=== PATIENT | male | born 1955 | race Caucasian/White ===

== ENCOUNTER 2017-02-11 12:51 | Emergency (ER) | payer MEDICARE, MEDICAID ==
[~2017-02-11] VITALS: Ht 177.8 cm; Wt 61.2 kg
[~2017-02-11 12:51] MED LIST: ACET-461 PO; ACET325T38 PO; ACHD5005 PO; ALBU17AE3; AMOX1TAB12 PO; AMOX500C2 PO; ASPI325T32 PO; CLIN-81 PO; CLIN300C3 PO; CLN150C PO; CYCL10TA45 PO; CYCL5TAB11 PO; DOXY100C2 PO; GABA-488 PO; GLYB5TAB6 PO; GLYBURIDE; HYDR-3583 PO; HYDR-757 PO; HYDR1TAB85; INSASP10V IV; INSU100I14 SC; INSU100I14 SQ; INSU100I17 SQ; INSU100I29 SC; INSU100V16 SQ; INSU100V5 SQ; LACT1CAP62 PO; LEVE1U SQ; LISI2.5T PO; LISI5TAB PO; LISI5TAB14 PO; Levofloxacin PO; METF-380 PO; METF1000 PO; MTF500T PO; OXYC-12 PO; PIOG45TA; PRAV40TA PO; PRAV80TA2 PO; SULF-222 PO; SULF1TAB38 PO; TRAM50TA2 PO; VYTORIN; ZLP10T PO
--- NOTE | 2017-02-11 13:52 | ED General ---
General Stated Complaint: DIZZY,NAUSEA Source of Information: Patient Exam Limitations: No Limitations History of Present Illness Time Seen by Provider: 13:51 Initial Comments To ER with dizziness and generalized weakness. Denies fevers or chills or cough or shortness of breath or chest pain. Symptoms of been present for 4 days. Blood sugars have been slightly elevated he is a diabetic. Timing/Duration: 3-4 Days Severity: Moderate Associated Systoms: Malaise Allergies and Home Medications Allergies Coded Allergies: Benzodiazepines (Verified Allergy, Unknown, 05/10/14) Home Medications Insulin Aspart 100 Unit/1 Ml Susp, 3-5 UNIT SQ AC, (Reported) Metformin HCl 1,000 Mg Tablet, 1,000 MG PO BID, (Reported) Constitutional: see HPI EENTM: see HPI Respiratory: no symptoms reported Cardiovascular: no symptoms reported Genitourinary: no symptoms reported Musculoskeletal: no symptoms reported Skin: no symptoms reported Psychiatric/Neurological: No Symptoms Reported Hematologic/Lymphatic: No Symptoms Reported Past Ppucykl-Jwrncq-Iikckc Hx Patient Social History Type Used: Cigarettes Recent Foreign Travel: No Contact w/Someone Who Travel: No Recent Hopitalizations: No Immunizations Up To Date Tetanus Booster (TDap): Less than 5yrs Date of Pneumonia Vaccine: Jan 16, 2016 Seasonal Allergies Seasonal Allergies: No Surgeries HX Surgeries: Yes (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, ankle surgery, wrist fused) Surgeries: Appendectomy, Orthopedic Respiratory Hx Respiratory Disorders: No Cardiovascular Hx Cardiac Disorders: Yes Cardiac Disorders: Hypertension Neurological Hx Neurological Disorders: Yes Neurological Disorders: Traumatic Brain Injury Reproductive System Hx Reproductive Disorders: No Sexually Transmitted Disease: No HIV/AIDS: No Genitourinary Hx Genitourinary Disorders: No Gastrointestinal Hx Gastrointestinal Disorders: No Musculoskeletal Hx Musculoskeletal Disorders: Yes (C1-C2 FX, LOW BACK FX) Musculoskeletal Disorders: Fractures Endocrine Hx Endocrine Disorders: Yes Endocrine Disorders: Diabetes, Insulin dep HEENT HX ENT Disorders: No Loss of Vision: Denies Hearing Impairment: Denies Cancer Hx Cancer: No Psychosocial Hx Psychiatric Problems: No Integumentary HX Skin/Integumentary Disorder: No Blood Transfusions Hx Blood Disorders: No Adverse Reaction to a Blood Tr: No Family Medical History Significant Family History: No Pertinent Family Hx Family Medial History: Blood clots 19 FATHER Diabetes mellitus 19 FATHER 19 MOTHER G8 BROTHER Physical Exam Vital Signs Capillary Refill : General Appearance: No Apparent Distress, WD/WN Eyes: Bilateral Eye EOMI, Bilateral Eye Normal Inspection, Bilateral Eye PERRL HEENT: PERRL/EOMI, TMs Normal, Other (mucous membranes are very dry) Neck: Full Range of Motion, Normal Inspection Respiratory: No Accessory Muscle Use, No Respiratory Distress Cardiovascular: Regular Rate, Rhythm, Normal Peripheral Pulses Gastrointestinal: Normal Bowel Sounds, Non Tender, Soft Neurologic/Psychiatric: Alert, Oriented x3, Other (lethargic but arousable to verbal stimuli and answers questions appropriately) Skin: Normal Color, Warm/Dry Focused Exam Lactic Acid Level Laboratory Tests Test 02/11/17 13:38 Lactic Acid Level 1.95 MMOL/L (0.50-2.00) Progress/Results/Core Measures Results/Orders Lab Results Laboratory Tests Test 02/11/17 13:38 02/11/17 15:20 Range/Units White Blood Count 6.9 4.3-11.0 10^3/uL Red Blood Count 4.63 4.35-5.85 10^6/uL Hemoglobin 14.3 13.3-17.7 G/DL Hematocrit 40 40-54 % Mean Corpuscular Volume 87 80-99 FL Mean Corpuscular Hemoglobin 31 25-34 PG Mean Corpuscular Hemoglobin Concent 35 32-36 G/DL Red Cell Distribution Width 12.3 10.0-14.5 % Platelet Count 331 130-400 10^3/uL Mean Platelet Volume 10.3 7.4-10.4 FL Neutrophils (%) (Auto) 56 42-75 % Lymphocytes (%) (Auto) 30 12-44 % Monocytes (%) (Auto) 10 0-12 % Eosinophils (%) (Auto) 3 0-10 % Basophils (%) (Auto) 0 0-10 % Neutrophils # (Auto) 3.8 1.8-7.8 X 10^3 Lymphocytes # (Auto) 2.1 1.0-4.0 X 10^3 Monocytes # (Auto) 0.7 0.0-1.0 X 10^3 Eosinophils # (Auto) 0.2 0.0-0.3 10^3/uL Basophils # (Auto) 0.0 0.0-0.1 10^3/uL Sodium Level 135 135-145 MMOL/L Potassium Level 3.9 3.6-5.0 MMOL/L Chloride Level 98 98-107 MMOL/L Carbon Dioxide Level 28 21-32 MMOL/L Anion Gap 9 5-14 MMOL/L Blood Urea Nitrogen 23 H 7-18 MG/DL Creatinine 1.54 H 0.60-1.30 MG/DL Estimat Glomerular Filtration Rate 46 BUN/Creatinine Ratio 15 Glucose Level 406 *H 70-105 MG/DL Lactic Acid Level 1.95 0.50-2.00 MMOL/L Calcium Level 8.9 8.5-10.1 MG/DL Total Bilirubin 0.3 0.1-1.0 MG/DL Aspartate Amino Transf (AST/SGOT) 13 5-34 U/L Alanine Aminotransferase (ALT/SGPT) 13 0-55 U/L Alkaline Phosphatase 66 40-136 U/L Total Protein 6.2 L 6.4-8.2 G/DL Albumin 3.7 3.2-4.5 G/DL My Orders Orders - AMADEO ROCHA APRN Cbc With Automated Diff (02/11/17 13:35) Comprehensive Metabolic Panel (02/11/17 13:35) Ua Culture If Indicated (02/11/17 13:35) Drug Screen Stat (Urine) (02/11/17 13:35) Saline Lock/Iv-Start (02/11/17 13:35) Chest Pa/Lat (2 View) (02/11/17 13:35) Blood Culture (02/11/17 13:35) Lactic Acid Analyzer (02/11/17 13:35) Ns Iv 1000 Ml (Sodium Chloride 0.9%) (02/11/17 14:00) Insulin (Regular) Human (Humulin R (Per (02/11/17 14:30) Medications Given in ED Current Medications Medications Dose Ordered Sig/Arvin Route Start Time Stop Time Status Last Admin Dose Admin Insulin Human Regular 8 unit ONCE ONCE IV 02/11/17 14:30 02/11/17 14:31 DC 02/11/17 14:42 8 UNIT Departure Impression Impression: Primary Impression: Hyperglycemia Additional Impression: Dehydration Disposition: 01 HOME, SELF-CARE Condition: Improved Departure-Patient Inst. Decision time for Depature: 15:47 Referrals: [facility] (PCP/Family) Primary Care Physician AMADEO ROCHA APRN February 11, 2017 13:52
[2017-02-11 13:53] LABS: BASOPHILS % (AUTO) 0 % (0-10); EOSINOPHILS # (AUTO) 0.2 10^3/uL (0.0-0.3); EOSINOPHILS % (AUTO) 3 % (0-10); LYMPHOCYTES # (AUTO) 2.1 X 10^3 (1.0-4.0); LYMPHOCYTES % (AUTO) 30 % (12-44); MEAN CORPUSCULAR HEMOGLOBIN 31 PG (25-34); MEAN CORPUSCULAR HGB CONC 35 G/DL (32-36); MEAN CORPUSCULAR VOLUME 87 FL (80-99); MEAN PLATELET VOLUME 10.3 FL (7.4-10.4); MONOCYTES # (AUTO) 0.7 X 10^3 (0.0-1.0); MONOCYTES % (AUTO) 10 % (0-12); NEUTROPHILS # (AUTO) 3.8 X 10^3 (1.8-7.8); NEUTROPHILS % (AUTO) 56 % (42-75); PLATELET COUNT 331 10^3/uL (130-400); RED BLOOD COUNT 4.63 10^6/uL (4.35-5.85); RED CELL DISTRIBUTION WIDTH 12.3 % (10.0-14.5); WHITE BLOOD COUNT 6.9 10^3/uL (4.3-11.0)
[2017-02-11 14:17] LABS: ALBUMIN 3.7 G/DL (3.2-4.5); BILIRUBIN,TOTAL 0.3 MG/DL (0.1-1.0); CALCIUM 8.9 MG/DL (8.5-10.1); CREATININE SERUM 1.54 MG/DL (0.60-1.30); POTASSIUM 3.9 MMOL/L (3.6-5.0); TOTAL PROTEIN 6.2 G/DL (6.4-8.2)
[2017-02-11] MEDS: NS IV 1000 ML 1,000 ML IV SCH ×2 (14:25→15:45)
[2017-02-11] MEDS ORDERED: inSUlin (REGULAR) HUMAN 1 UNIT/0.01 ML (CHARGE PER UNIT) IV ONE (14:30)
--- NOTE | 2017-02-11 14:47 | Diagnostic Imaging Report ---
PA and lateral views of the chest. INDICATION: Dizziness and nausea and shortness of breath. Findings: The lungs are clear. Bilateral nodular densities projecting over the lower mid lung level have no corresponding abnormality in the lateral view and although less prominent appears to be present on the previous exam from 09/12/2016 exam suggestive of a nipple shadows. No effusion or pneumothorax. The heart size is normal. Hyperlucency particularly within the upper lungs and retrosternal region and the lateral view is suggestive of underlying emphysema. IMPRESSION: Emphysema. No focal infiltrate. Dictated by: Dictated on workstation # [id number]
[2017-02-11 16:17] LABS: BILIRUBIN,URINE NEGATIVE (NEGATIVE); KETONES,URINE NEGATIVE (NEGATIVE); LEUKOCYTE ESTERASE ,URINE NEGATIVE (NEGATIVE); NITRITE,URINE NEGATIVE (NEGATIVE); PH,URINE 5 (5-9); PROTEIN,URINE 1+ (NEGATIVE); UROBILINOGEN,URINE NORMAL (NORMAL)
[2017-02-11 16:35] LABS: SQUAMOUS EPITHELIAL CELL,UR RARE /HPF; WBC,URINE 0-2 /HPF
[2017-02-11 17:22] VITALS: BP 127/86
== END 2017-02-11 17:22 | disposition home or self-care (01) ==
LOC: EDUNIT# 12:51 → ER 12:54
DX: E11.65 Type 2 diabetes mellitus with hyperglycemia (principal); E86.0 Dehydration; I10 Essential (primary) hypertension; Z79.4 Long term (current) use of insulin; Z79.84 Long term (current) use of oral hypoglycemic drugs; Z79.899 Other long term (current) drug therapy
CPT/HCPCS: 36415; 71020; 80053; 80306; 81000; 82962; 83605; 85025; 87040

== ENCOUNTER 2017-04-24 17:53 | Observation (INO) | payer MEDICARE, MEDICAID ==
[~2017-04-24] VITALS: Ht 182.9 cm; Wt 63.1 kg
[2017-04-24] MEDS ORDERED: NS IV 1000 ML 1,000 ML IV SCH (18:00)
[2017-04-24 18:05] LABS: BASOPHILS # (AUTO) 0.1 10^3/uL (0.0-0.1); BASOPHILS % (AUTO) 1 % (0-10); EOSINOPHILS # (AUTO) 0.6 10^3/uL (0.0-0.3); EOSINOPHILS % (AUTO) 5 % (0-10); LYMPHOCYTES # (AUTO) 2.8 X 10^3 (1.0-4.0); LYMPHOCYTES % (AUTO) 24 % (12-44); MEAN CORPUSCULAR HEMOGLOBIN 31 PG (25-34); MEAN CORPUSCULAR HGB CONC 36 G/DL (32-36); MEAN CORPUSCULAR VOLUME 85 FL (80-99); MEAN PLATELET VOLUME 10.7 FL (7.4-10.4); MONOCYTES # (AUTO) 0.9 X 10^3 (0.0-1.0); MONOCYTES % (AUTO) 8 % (0-12); NEUTROPHILS # (AUTO) 7.4 X 10^3 (1.8-7.8); NEUTROPHILS % (AUTO) 63 % (42-75); PLATELET COUNT 372 10^3/uL (130-400); RED BLOOD COUNT 4.95 10^6/uL (4.35-5.85); RED CELL DISTRIBUTION WIDTH 12.1 % (10.0-14.5); WHITE BLOOD COUNT 11.8 10^3/uL (4.3-11.0)
--- NOTE | 2017-04-24 18:19 | ED General ---
General Chief Complaint: General Problems/Pain Stated Complaint: HEAT EXHAUSTION Source of Information: Patient History of Present Illness Time Seen by Provider: 18:00 Initial Comments PT ARRIVES VIA EMS PT WAS FOUND DOWN ON A PORCH PT STATES HIS HOME HAD BEEN CONDEMNED AND HIS THINGS WERE LOCKED UP INSIDE OF IT PT HAS BEEN STAYING WITH HIS SON, AND TODAY HE WAS MOVING HIS THINGS OUT OF THE HOME, AND STATES "HE JUST COULDN'T DO IT ANYMORE" AND COLLAPSED ON THE PORCH-- NOT FULL SYNCOPE, PER PT, AND WAS FOUND BY NEIGHBOR WHO WAS WALKING BY PT DENIES ANY INJURY C/O LEFT HIP PAIN NO HEADACHE NO VISION CHANGES PT IS DIABETIC, DOES NOT CHECK BLOOD SUGAR. HAS 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--NO NEW PARESTHESIAS OR FOCAL MOTOR DEFICITS TEMP OUTSIDE TODAY 96-98 DEGREES WITH VERY HIGH HUMIDITY--HEAT INDEX WELL OVER 100 DEGREES. PT STATES HE HAD 2 CINNAMON ROLLS, SOME APPLE JUICE AND 2 BOTTLES OF WATER TODAY LAST VOID IS UNKNOWN--THINKS WAS SOMETIME BEFORE NOON TODAY NO RECENT ILLNESS DOES C/O SOME SHORTNESS OF BREATH NO CHEST PAIN NO NAUSEA/VOMITING/DIARRHEA AND NO ABDOMINAL PAIN EMS REPORT THAT BP WAS 93/60 AND HEART RATE IN 60'S ON ARRIVAL AT SCENE PCP:MATEO Allergies and Home Medications Allergies Coded Allergies: Benzodiazepines (Verified Allergy, Unknown, 05/10/14) Home Medications Insulin Aspart 100 Unit/1 Ml Susp, 3-5 UNIT SQ AC, (Reported) Metformin HCl 1,000 Mg Tablet, 1,000 MG PO BID, (Reported) Constitutional: diaphoresis, malaise, weakness EENTM: no symptoms reported Respiratory: see HPI, No cough, dyspnea on exertion, short of breath Cardiovascular: No chest pain, No edema, No palpitations, other (NEAR-SYNCOPE) Gastrointestinal: no symptoms reported Genitourinary: see HPI Musculoskeletal: see HPI (LEFT HIP PAIN) Skin: no symptoms reported Psychiatric/Neurological: See HPI, Denies Headache, Pre-Existing Deficit, Denies Seizure Hematologic/Lymphatic: No Symptoms Reported Immunological/Allergic: no symptoms reported Past Xzywcgl-Zwuyum-Vlwhci Hx Patient Social History Alcohol Use: Past History (ALCOHOL USE/ABUSE TEEN, NONE SINCE, PER PT ON ) Recreational Drug Use: Yes (FREQUENT MARIJUANA USE, HISTORY OF IV DRUG USE-- SPEED, ALSO USED ACID, MESCALINE, OTHERS--WHEN MUCH YOUNGER, PER PT. PT HAS TESTED + FOR METH MULTIPLE TIMES HERE) Smoking Status: Current Everyday Smoker (1/2 PPD, PER PT ON 04/24/17) Type Used: Cigarettes Recent Hopitalizations: No Immunizations Up To Date Tetanus Booster (TDap): Less than 5yrs Date of Pneumonia Vaccine: Jan 16, 2016 Seasonal Allergies Seasonal Allergies: No Surgeries HX Surgeries: Yes (BENIGN BONE TUMOR LEFT LOWER LEG; RIGHT WRIST FX/FUSION, RIGHT FOOT SURGERY; ankle surgery) Surgeries: Appendectomy, Gallbladder, Orthopedic Respiratory Hx Respiratory Disorders: No Cardiovascular Hx Cardiac Disorders: Yes Cardiac Disorders: High Cholesterol, Hypertension Neurological Hx Neurological Disorders: Yes Neurological Disorders: Traumatic Brain Injury Reproductive System Hx Reproductive Disorders: No Sexually Transmitted Disease: No HIV/AIDS: No Genitourinary Hx Genitourinary Disorders: No Gastrointestinal Hx Gastrointestinal Disorders: No Musculoskeletal Hx Musculoskeletal Disorders: Yes (C1-C2 FX, LOW BACK FX) Musculoskeletal Disorders: Fractures Endocrine Hx Endocrine Disorders: Yes (DKA) Endocrine Disorders: Diabetes, Insulin dep HEENT HX ENT Disorders: No Loss of Vision: Denies Hearing Impairment: Denies Cancer Hx Cancer: No Psychosocial Hx Psychiatric Problems: No Integumentary HX Skin/Integumentary Disorder: Yes (LEG CELLULITIS) Blood Transfusions Hx Blood Disorders: No Adverse Reaction to a Blood Tr: No Family Medical History Family Medial History: Blood clots 19 FATHER Diabetes mellitus 19 FATHER 19 MOTHER G8 BROTHER Physical Exam Vital Signs Vital Sign - Last 12Hours 04/24/17 17:53 Temp 97.3 Pulse 98 Resp 18 B/P (MAP) 98/78 Pulse Ox 98 O2 Delivery Room Air Capillary Refill : General Appearance: Cachetic, Other (VERY LETHARGIC, DIAPHORETIC, CLOTHING SATURATED WITH SWEAT, UNKEMPT) HEENT: Other (RIGHT PUPIL 5 MM, LEFT PUPIL 3 MM, BOTH EQUALLY REACTIVE; EDENTULOUS; ORAL MUCOSA VERY DRY) Neck: Full Range of Motion, Normal Inspection, Non Tender, Supple Respiratory: Normal Breath Sounds, No Accessory Muscle Use, No Respiratory Distress Cardiovascular: Regular Rate, Rhythm, No Edema, No JVD, No Murmur, Normal Peripheral Pulses Gastrointestinal: Normal Bowel Sounds, No Organomegaly, No Pulsatile Mass, Non Tender, Soft, Other (ABDOMEN SCAPHOID) Back: No CVA Tenderness Extremity: Normal Capillary Refill, Normal Inspection, Normal Range of Motion, Non Tender, No Calf Tenderness, No Pedal Edema Neurologic/Psychiatric: Alert, Oriented x3, 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 Norm as Tested, Other ( VERY LETHARGIC; DECREASED SENSATION TO FEET, OTHERWISE MOTOR/SENSORY INTACT) Skin: Diaphoresis, Pallor Progress/Results/Core Measures Results/Orders Lab Results Laboratory Tests Test 04/24/17 17:55 04/24/17 18:07 04/24/17 20:08 Range/Units White Blood Count 11.8 H 4.3-11.0 10^3/uL Red Blood Count 4.95 4.35-5.85 10^6/uL Hemoglobin 15.3 13.3-17.7 G/DL Hematocrit 42 40-54 % Mean Corpuscular Volume 85 80-99 FL Mean Corpuscular Hemoglobin 31 25-34 PG Mean Corpuscular Hemoglobin Concent 36 32-36 G/DL Red Cell Distribution Width 12.1 10.0-14.5 % Platelet Count 372 130-400 10^3/uL Mean Platelet Volume 10.7 H 7.4-10.4 FL Neutrophils (%) (Auto) 63 42-75 % Lymphocytes (%) (Auto) 24 12-44 % Monocytes (%) (Auto) 8 0-12 % Eosinophils (%) (Auto) 5 0-10 % Basophils (%) (Auto) 1 0-10 % Neutrophils # (Auto) 7.4 1.8-7.8 X 10^3 Lymphocytes # (Auto) 2.8 1.0-4.0 X 10^3 Monocytes # (Auto) 0.9 0.0-1.0 X 10^3 Eosinophils # (Auto) 0.6 H 0.0-0.3 10^3/uL Basophils # (Auto) 0.1 0.0-0.1 10^3/uL Sodium Level 138 135-145 MMOL/L Potassium Level 4.0 3.6-5.0 MMOL/L Chloride Level 98 98-107 MMOL/L Carbon Dioxide Level 28 21-32 MMOL/L Anion Gap 12 5-14 MMOL/L Blood Urea Nitrogen 18 7-18 MG/DL Creatinine 1.58 H 0.60-1.30 MG/DL Estimat Glomerular Filtration Rate 45 BUN/Creatinine Ratio 11 Glucose Level 226 H 70-105 MG/DL Calcium Level 9.8 8.5-10.1 MG/DL Magnesium Level 1.9 1.8-2.4 MG/DL Total Bilirubin 0.6 0.1-1.0 MG/DL Aspartate Amino Transf (AST/SGOT) 17 5-34 U/L Alanine Aminotransferase (ALT/SGPT) 26 0-55 U/L Alkaline Phosphatase 74 40-136 U/L Total Creatine Kinase 56 30-200 U/L Creatine Kinase MB 1.9 <6.6 NG/ML Myoglobin 83.5 10.0-92.0 NG/ML Troponin I < 0.30 <0.30 NG/ML Total Protein 6.9 6.4-8.2 GM/DL Albumin 4.0 3.2-4.5 GM/DL Amylase Level 54 25-125 U/L Lipase 46 8-78 U/L Serum Alcohol < 10 <10 MG/DL Glucometer 237 H 70-110 MG/DL Urine Color YELLOW Urine Clarity CLEAR Urine pH 5 5-9 Urine Specific [place] 1.010 L 1.016-1.022 Urine Protein 1+ H NEGATIVE Urine Glucose (UA) 4+ H NEGATIVE Urine Ketones NEGATIVE NEGATIVE Urine Nitrite NEGATIVE NEGATIVE Urine Bilirubin NEGATIVE NEGATIVE Urine Urobilinogen NORMAL NORMAL MG/DL Urine Leukocyte Esterase NEGATIVE NEGATIVE Urine RBC (Auto) NEGATIVE NEGATIVE Urine RBC NONE /HPF Urine WBC 0-2 /HPF Urine Crystals NONE /LPF Urine Bacteria NEGATIVE /HPF Urine Casts NONE /LPF Urine Mucus NEGATIVE /LPF Urine Culture Indicated NO Urine Opiates Screen NEGATIVE NEGATIVE Urine Oxycodone Screen NEGATIVE NEGATIVE Urine Methadone Screen NEGATIVE NEGATIVE Urine Propoxyphene Screen NEGATIVE NEGATIVE Urine Barbiturates Screen NEGATIVE NEGATIVE Ur Tricyclic Antidepressants Screen NEGATIVE NEGATIVE Urine Phencyclidine Screen NEGATIVE NEGATIVE Urine Amphetamines Screen NEGATIVE NEGATIVE Urine Methamphetamines Screen POSITIVE H NEGATIVE Urine Benzodiazepines Screen NEGATIVE NEGATIVE Urine Cocaine Screen NEGATIVE NEGATIVE Urine Cannabinoids Screen POSITIVE H NEGATIVE My Orders Orders - ARPAN HACKETT DO Ekg Tracing (04/24/17 18:02) Monitor-Rhythm Ecg Trace Only (04/24/17 18:02) Alcohol (04/24/17 18:02) Drug Screen Stat (Urine) (04/24/17 18:02) Magnesium (04/24/17 18:02) Ua Culture If Indicated (04/24/17 18:02) Amylase (04/24/17 18:10) Lipase (04/24/17 18:10) Troponin I (04/24/17 18:10) Ct Head Wo-R/O Stroke (04/24/17 18:10) Chest 1 View, Ap/Pa Only (04/24/17 18:10) Pelvis With Left Hip 2-3 Views (04/24/17 18:10) Creatine Kinase (04/24/17 19:01) Creatine Kinase Mb (04/24/17 19:01) Vital Signs/I&O Vital Sign - Last 12Hours 04/24/17 04/24/17 04/24/17 17:53 20:05 20:54 Temp 97.3 97.3 Pulse 98 98 Resp 18 16 B/P (MAP) 98/78 Pulse Ox 98 98 O2 Delivery Room Air Room Air Room Air Progress Note : Progress Note NO DETERIORATION IN PT'S CONDITION DURING ER STAY PT SEEMS LESS LETHARGIC AT TIME OF ADMIT BP UP TO 130'S SYSTOLIC WITH 2 LITERS OF FLUID NO URINE OUTPUT DURING ER STAY ECG Initial ECG Impression Time: 18:18 Initial ECG Rate: 99 Initial ECG Rhythm: Normal Sinus Initial ECG Comparisson: No Previous ECG Available Diagnostic Imaging Comments CT HEAD--NO ACUTE PROCESS, PER RADIOLOGIST REPORT @ 1855 CXR--NO ACUTE PROCESS PELVIS/LEFT HIP XRAYS--NO ACUTE PROCESS, DEGENERATIVE CHANGES OF HIPS PER RADIOLOGIST REPORTS AT 1855 Reviewed: Reviewed by Me Departure Communication Progress Notes 1854--SPOKE WITH DR. REMY, ACCEPTS PT FOR ADMIT Impression Impression: Primary Impression: Heat exhaustion Additional Impressions: Near syncope IDDM (insulin dependent diabetes mellitus) Dehydration Left hip pain Illicit drug use Disposition: ADMITTED INPATIENT Condition: Improved Decision to Admit Reason: Admit from ER (General) Decision to Admit/Date: Apr 24, 2017 Time/Decision to Admit Time: 18:55 Departure-Patient Inst. Referrals: [facility] [place] (PCP/Family) Primary Care Physician ARPAN HACKETT DO Apr 24, 2017 18:19
[2017-04-24 18:22] LABS: ALCOHOL < 10 MG/DL (<10); MAGNESIUM 1.9 MG/DL (1.8-2.4)
[2017-04-24 18:28] LABS: BILIRUBIN,TOTAL 0.6 MG/DL (0.1-1.0); CALCIUM 9.8 MG/DL (8.5-10.1); CREATININE SERUM 1.58 MG/DL (0.60-1.30); TOTAL PROTEIN 6.9 GM/DL (6.4-8.2)
[2017-04-24 18:34] LABS: MYOGLOBIN SERUM 83.5 NG/ML (10.0-92.0)
[2017-04-24 18:35] LABS: TROPONIN I < 0.30 NG/ML (<0.30)
[2017-04-24 18:36] LABS: AMYLASE 54 U/L (25-125); LIPASE 46 U/L (8-78)
--- NOTE | 2017-04-24 18:49 | Diagnostic Imaging Report ---
INDICATION: Heat exhaustion. COMPARISON: 08/13/2015. FINDINGS: The exam is stable and negative. There is no hemorrhage, hydrocephalus, edema, mass, mass effect or evidence for cerebral edema. No findings of elevated pressures. Orbits, sinuses, and calvarium are within normal limits. IMPRESSION: Stable normal CT head. Dictated by: Dictated on workstation # [id number]
--- NOTE | 2017-04-24 18:55 | Diagnostic Imaging Report ---
EXAMINATION: AP view of the pelvis. INDICATION: Heat exhaustion. Passed out and fell. FINDINGS: Both hips are located. There is no hip dislocation. There are moderate osteoarthritic changes demonstrated at both hips with acetabular subchondral sclerosis and osteophyte formation. There is no evidence to suggest an acute proximal femoral fracture. There is no diastasis of the pubic symphysis or the SI joints. There are degenerative endplate changes within the lower lumbar spine. IMPRESSION: 1. Bilateral hip osteoarthritic changes, but no plain film evidence of dislocation or an acute fracture. Dictated by: Dictated on workstation # [id number]
--- NOTE | 2017-04-24 18:56 | Diagnostic Imaging Report ---
EXAMINATION: Portable chest. INDICATION: Heat exhaustion. FINDINGS: The lungs demonstrate no focal pulmonary infiltrate or effusion. There is no pneumothorax. Heart size and mediastinal contours appear appropriate without evidence of failure. There are degenerative features present within the spine, but no acute osseous abnormality is demonstrated. IMPRESSION: No radiographic evidence of an acute cardiopulmonary process. Dictated by: Dictated on workstation # [id number]
[2017-04-24 20:16] LABS: BILIRUBIN,URINE NEGATIVE (NEGATIVE); KETONES,URINE NEGATIVE (NEGATIVE); LEUKOCYTE ESTERASE ,URINE NEGATIVE (NEGATIVE); NITRITE,URINE NEGATIVE (NEGATIVE); PH,URINE 5 (5-9); PROTEIN,URINE 1+ (NEGATIVE); UROBILINOGEN,URINE NORMAL (NORMAL)
[2017-04-24 20:30] VITALS: BP 134/76
[2017-04-24] MEDS ORDERED: KETOROLAC 30 MG/ML VIAL IV PRN (20:30)
[2017-04-24] MEDS ORDERED: CATHETER FLUSH 10 ML SYR IV PRN (20:30)
[2017-04-24 20:32] LABS: WBC,URINE 0-2 /HPF
[2017-04-24] MEDS: 1/2 NS W/KCL 20 MEQ/L 1,000 ML IV SCH (20:48)
[2017-04-24] MEDS: inSUlin (REGULAR) HUMAN 1 UNIT/0.01 ML (CHARGE PER UNIT) SC SCH (20:54)
[2017-04-25] VITALS: BP 128/68
[2017-04-25 02:00] VITALS: BP 143/72
[2017-04-25] MEDS: 1/2 NS W/KCL 20 MEQ/L 1,000 ML IV SCH ×2 (03:40→10:03)
[2017-04-25 04:00] VITALS: BP 142/71
[2017-04-25 06:00] VITALS: BP 137/78
[2017-04-25] MEDS: inSUlin (REGULAR) HUMAN 1 UNIT/0.01 ML (CHARGE PER UNIT) SC SCH ×2 (06:00→11:13)
[2017-04-25 07:30] LABS: BASOPHILS % (AUTO) 0 % (0-10); EOSINOPHILS # (AUTO) 0.7 10^3/uL (0.0-0.3); EOSINOPHILS % (AUTO) 8 % (0-10); LYMPHOCYTES # (AUTO) 2.5 X 10^3 (1.0-4.0); LYMPHOCYTES % (AUTO) 28 % (12-44); MEAN CORPUSCULAR HEMOGLOBIN 31 PG (25-34); MEAN CORPUSCULAR HGB CONC 35 G/DL (32-36); MEAN CORPUSCULAR VOLUME 86 FL (80-99); MEAN PLATELET VOLUME 10.9 FL (7.4-10.4); MONOCYTES # (AUTO) 0.5 X 10^3 (0.0-1.0); MONOCYTES % (AUTO) 6 % (0-12); NEUTROPHILS # (AUTO) 5.1 X 10^3 (1.8-7.8); NEUTROPHILS % (AUTO) 58 % (42-75); PLATELET COUNT 327 10^3/uL (130-400); RED BLOOD COUNT 4.81 10^6/uL (4.35-5.85); WHITE BLOOD COUNT 8.8 10^3/uL (4.3-11.0)
[2017-04-25 07:53] LABS: ALANINE AMINOTRANSFERASE 22 U/L (0-55); ALBUMIN 3.5 GM/DL (3.2-4.5); ANION GAP 11 MMOL/L (5-14); ASPARTATE AMINO TRANSFERASE 13 U/L (5-34); BILIRUBIN,TOTAL 0.5 MG/DL (0.1-1.0); BLOOD UREA NITROGEN 15 MG/DL (7-18); BUN/CREATININE RATIO 16; CALCIUM 8.5 MG/DL (8.5-10.1); CARBON DIOXIDE 22 MMOL/L (21-32); CHLORIDE 104 MMOL/L (98-107); CREATINE KINASE 47 U/L (30-200); CREATININE SERUM 0.96 MG/DL (0.60-1.30); GFR ESTIMATED > 60; GLUCOSE 243 MG/DL (70-105); SODIUM 137 MMOL/L (135-145)
[2017-04-25 08:00] VITALS: BP 145/88
[2017-04-25 08:04] LABS: TROPONIN I < 0.30 NG/ML (<0.30)
[2017-04-25] MEDS ORDERED: LISI2.5T PO (09:52)
[2017-04-25] MEDS ORDERED: INSU100V5 SQ (09:52)
--- NOTE | 2017-04-25 10:25 | Short Stay Summary-Hospitalist ---
HPI History of Present Illness: HPI/Chief Complaint CC: Heat exhaustion HPI: This is a 61 [facility]WM [facility] pt with past medical hx of diabetes that presented after moving out of his house since he was evicted in the heat yesterday and nearly collapsed. It is to note that UDS positive for THC and meth. Patient Interview: Pt is okay with DC today Pt confirms using insulin and Metformin Pt confirms feeling sore Physical exam stable Pt confirms smoking Pt was informed that heat exhaustion can be recurrent if it even occurs once. Pt was advised to be careful when it is hot outside Scribed by Tosha Borges under the direct supervision of Dr. Gonzalez. Source: patient Exam Limitations: no limitations Date Seen 04/25/17 Time Seen by Provider: 09:30 Attending Physician Naida Gonzalez DO PCP [facility] Referring Physician Date of Admission Apr 24, 2017 at 18:55 Home Medications & Allergies Home Medications Reviewed patient Home Medication Reconciliation Form Allergies Allergies Coded Allergies Benzodiazepines (Verified Allergy, Unknown, 05/10/14) Past Kewhzev-Orilwm-Ukwpiw Hx Patient Social History Marrital Status: single Employed/Student: unemployed Alcohol Use: Past History (ALCOHOL USE/ABUSE TEEN, NONE SINCE, PER PT ON ) Recreational Drug Use: Yes Drug of Choice: WEED Smoking Status: Current Everyday Smoker (1/2 PPD, PER PT ON 04/24/17) Type Used: Cigarettes Physical Abuse Screen: No Sexual Abuse: No Recent Foreign Travel: No Contact w/other who traveled: No Recent Hopitalizations: No Recent Infectious Disease Expo: No Immunizations Up To Date Tetanus Booster (TDap): Less than 5yrs Date of Pneumonia Vaccine: Jan 16, 2016 Seasonal Allergies Seasonal Allergies: No Surgeries HX Surgeries: Yes (BENIGN BONE TUMOR LEFT LOWER LEG; RIGHT WRIST FX/FUSION, RIGHT FOOT SURGERY; ankle surgery) Surgeries: Appendectomy, Gallbladder, Orthopedic Respiratory Hx Respiratory Disorders: No Cardiovascular Hx Cardiovascular Disorders: Yes Cardiac Disorders: High Cholesterol, Hypertension Neurological Hx Neurological Disorders: Yes Neurological Disorders: Traumatic Brain Injury Reproductive System Hx Reproductive Disorders: No Sexually Transmitted Disease: No HIV/AIDS: No Genitourinary Hx Genitourinary Disorders: No Gastrointestinal Hx Gastrointestinal Disorders: No Musculoskeletal Hx Musculoskeletal Disorders: Yes (C1-C2 FX, LOW BACK FX) Musculoskeletal Disorders: Chronic Back Pain, Fractures Endocrine Hx Endocrine Disorders: Yes (DKA) Endocrine Disorders: Diabetes, Insulin dep HEENT HX ENT Disorders: No Loss of Vision: Denies Hearing Impairment: Denies Cancer Hx Cancer: No Psychosocial Hx Psychiatric Problems: No Integumentary HX Skin/Integumentary Disorder: Yes (LEG CELLULITIS) Blood Transfusions Hx Blood Disorders: No Adverse Reaction to a Blood Tr: No Family Medical History Family Hx: Blood clots 19 FATHER Diabetes mellitus 19 FATHER 19 MOTHER G8 BROTHER Review of Systems Constitutional: see HPI, dizziness, weakness EENTM: no symptoms reported Respiratory: no symptoms reported Cardiovascular: no symptoms reported Gastrointestinal: no symptoms reported Genitourinary: no symptoms reported Musculoskeletal: no symptoms reported Skin: no symptoms reported Psychiatric/Neurological: No Symptoms Reported All Other Systems Reviewed Negative Unless Noted: Yes Physical Exam Physical Exam Vital Signs Vital Sign - Last 12Hours 04/24/17 17:53 Temp 97.3 Pulse 98 Resp 18 B/P (MAP) 98/78 Pulse Ox 98 O2 Delivery Room Air Capillary Refill : Less Than 3 Seconds General Appearance: No Apparent Distress, WD/WN, Chronically ill Eyes: Bilateral Eye Normal Inspection, Bilateral Eye PERRL HEENT: PERRL/EOMI, Normal ENT Inspection, Pharynx Normal Neck: Full Range of Motion, Normal Inspection, Non Tender, Supple, Carotid Bruit Respiratory: Chest Non Tender, Lungs Clear, Normal Breath Sounds, No Accessory Muscle Use, No Respiratory Distress Cardiovascular: Regular Rate, Rhythm, No Edema, No Gallop, No JVD, No Murmur, Normal Peripheral Pulses Gastrointestinal: Normal Bowel Sounds, No Organomegaly, No Pulsatile Mass, Non Tender, Soft Back: Normal Inspection, No CVA Tenderness, No Vertebral Tenderness Extremity: Normal Capillary Refill, Normal Inspection, Normal Range of Motion, Non Tender, No Calf Tenderness, No Pedal Edema Neurologic/Psychiatric: Alert, Oriented x3, No Motor/Sensory Deficits, Normal Mood/Affect Skin: Normal Color, Warm/Dry Lymphatic: No Adenopathy Results Results/Procedures Lab Laboratory Tests 04/24/17 17:55 04/25/17 06:38 Short Stay Diagnosis Discharge Diagnosis-Short Stay Admission Diagnosis Assessment: Heat exhaustion ARF Diabetes mellitus 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
[2017-04-25] MEDS ORDERED: inSUlin ASPART (NovoLOG) 1 UNIT/0.01 ML (CHARGE PER UNIT) SQ SCH (11:00)
[2017-04-25 11:49] VITALS: BP 145/88
[2017-04-25] MEDS ORDERED: metFORMIN 500 MG (GLUCOPHAGE) TAB PO SCH (17:00)
[2017-04-25] MEDS ORDERED: inSUlin DETERMIR 1 UNIT/0.01 ML (LEVEMIR) CHARGE PER UNIT SQ SCH (21:00)
[2017-04-25] MEDS ORDERED: lisINopril 5 MG (PRINIVIL) TABLET PO SCH (21:00)
== END 2017-04-25 10:22 | disposition home or self-care (01) ==
LOC: EDUNIT# 17:53 → ER 17:54 → UNDOADMOB 18:55 → 4TH 18:55 → UNDODISOB 04-25 12:48
PROVIDERS: ADMIT Internal Medicine; ATTEND Internal Medicine
DX: T67.5XXA Heat exhaustion, unspecified, initial encounter (principal); E86.0 Dehydration; E11.40 Type 2 diabetes mellitus with diabetic neuropathy, unspecified; F12.10 Cannabis abuse, uncomplicated; F15.10 Other stimulant abuse, uncomplicated; M25.552 Pain in left hip; E78.00 Pure hypercholesterolemia, unspecified; I10 Essential (primary) hypertension; F17.210 Nicotine dependence, cigarettes, uncomplicated; Z79.84 Long term (current) use of oral hypoglycemic drugs; Z79.4 Long term (current) use of insulin; Z79.899 Other long term (current) drug therapy
CPT/HCPCS: 36415; 70450; 71010; 80053; 80306; 80320; 81000; 82150; 82550; 82553; 82962; 83690; 83735; 83874; 84484; 85025; 93005; 93041; 96360; G0378

== ENCOUNTER 2017-05-23 13:57 | Observation (INO) | payer MEDICARE, MEDICAID ==
[~2017-05-23] VITALS: Ht 182.9 cm; Wt 63.1 kg
--- NOTE | 2017-05-23 14:21 | ED Neurological Problem ---
General Stated Complaint: DIZZY/VISION/FATIGUE/TROUBLE WALKING Source: patient Exam Limitations: no limitations History of Present Illness Time seen by provider: 14:17 Initial Comments This 61-year-old white male presents with a complaint of dizziness. The patient has experienced dizziness for the last several days worse when he is upright. The patient was seen at [facility] yesterday and his metformin was decreased. He is now taking 750 mg twice a day from his previous 1000 mg twice a day. The patient does not however know his blood sugars were in the clinic yesterday. The patient has had no associated fever, chills, lateralizing localizing neurologic complaints, shortness of breath, chest pain, palpitations, vomiting or diarrhea, or similar episodes in the past. In addition to the patient's diabetes patient has peripheral neuropathy for which he takes Depakote. Allergies and Home Medications Allergies Coded Allergies: Benzodiazepines (Verified Allergy, Unknown, 05/10/14) Home Medications Insulin Aspart 100 Unit/1 Ml Susp, 10 UNIT SQ AC, (Reported) Insulin Determir 1,000 Units/10 Ml Soln, 60 UNITS SQ HS, (Reported) Lisinopril 2.5 Mg Tablet, 2.5 MG PO HS, (Reported) LAST FILLED 01-09-17 #30 Metformin HCl 1,000 Mg Tablet, 1,000 MG PO BID, (Reported) LAST FILLED 01-09-17 #60 Constitutional: No chills, No fever Eyes: Denies Blurred Vision, Photophobia Ears, Nose, Mouth, Throat: denies ear pain Respiratory: No cough Cardiovascular: No chest pain Gastrointestinal: No abdominal pain, No diarrhea, No nausea, No vomiting Genitourinary: No decreased output, No dysuria, No frequency Musculoskeletal: No back pain Skin: No rash Psychiatric/Neurological: Denies Anxiety, Denies Depressed Endocrine: Denies Excessive Sweating Hematologic/Lymphatic: No Symptoms Reported Past Rogywvf-Huxmcx-Iqrona Hx Patient Social History Drug of Choice: WEED Type Used: Cigarettes Recent Foreign Travel: No Contact w/Someone Who Travel: No Recent Hopitalizations: No Immunizations Up To Date Tetanus Booster (TDap): Less than 5yrs Date of Pneumonia Vaccine: Jan 16, 2016 Seasonal Allergies Seasonal Allergies: No Surgeries History of Surgeries: Yes (BENIGN BONE TUMOR LEFT LOWER LEG; RIGHT WRIST FX/ FUSION, ankle surgery) Surgeries: Appendectomy, Gallbladder, Orthopedic Respiratory History of Respiratory Disorde: No Cardiovascular History of Cardiac Disorders: Yes Cardiac Disorders: High Cholesterol, Hypertension Neurological History of Neurological Disord: No Neurological Disorders: Traumatic Brain Injury Reproductive System Hx Reproductive Disorders: No Sexually Transmitted Disease: No HIV/AIDS: No Genitourinary History of Genitourinary Disor: No Gastrointestinal History of Gastrointestinal Di: No Musculoskeletal History of Musculoskeletal Dis: Yes (C1-C2 FX, LOW BACK FX) Musculoskeletal Disorders: Chronic Back Pain, Fractures Endocrine History of Endocrine Disorders: Yes Endocrine Disorders: Diabetes, Insulin dep HEENT History of HEENT Disorders: No Loss of Vision: Denies Hearing Impairment: Denies Cancer History of Cancer: No Psychosocial History of Psychiatric Problem: No Integumentary History of Skin or Integumenta: No Blood Transfusions History of Blood Disorders: No Adverse Reaction to a Blood Tr: No Reviewed Nursing Assessment Reviewed/Agree w Nursing PMH: Yes Family Medical History Family Medial History: Blood clots 19 FATHER Diabetes mellitus 19 FATHER 19 MOTHER G8 BROTHER Physical Exam Vital Signs Vital Sign - Last 12Hours 05/23/17 14:05 Temp 98.3 Pulse 82 Resp 18 B/P (MAP) 92/57 Pulse Ox 99 Capillary Refill : General Appearance: no apparent distress, cachetic HEENT: normal ENT inspection Neck: full range of motion, supple, normal inspection Respiratory: lungs clear, normal breath sounds, no respiratory distress, no accessory muscle use Cardiovascular: normal peripheral pulses, regular rate, rhythm, no edema Gastrointestinal: normal bowel sounds, non tender, soft Back: normal inspection Extremities: normal range of motion, non-tender, normal inspection Neurologic/Psychiatric: no motor/sensory deficits, alert, normal mood/affect, oriented x 3 Crainal Nerves: normal hearing, normal speech Motor/Sensory: no motor deficit, no sensory deficit Skin: normal color, warm/dry Focused Exam Evaluation Lactate Level Laboratory Tests 05/23/17 14:14: Lactic Acid Level 3.46*H 05/23/17 16:30: Lactic Acid Level 2.16*H Lactic Acid Level Laboratory Tests Test 05/23/17 14:14 05/23/17 16:30 Lactic Acid Level 3.46 MMOL/L (0.50-2.00) *H 2.16 MMOL/L (0.50-2.00) *H Progress/Results/Core Measures Results/Orders Lab Results Laboratory Tests Test 05/23/17 14:14 05/23/17 16:14 05/23/17 16:30 05/23/17 16:56 Range/Units White Blood Count 9.0 4.3-11.0 10^3/uL Red Blood Count 5.07 4.35-5.85 10^6/uL Hemoglobin 15.4 13.3-17.7 G/DL Hematocrit 44 40-54 % Mean Corpuscular Volume 87 80-99 FL Mean Corpuscular Hemoglobin 30 25-34 PG Mean Corpuscular Hemoglobin Concent 35 32-36 G/DL Red Cell Distribution Width 12.6 10.0-14.5 % Platelet Count 361 130-400 10^3/uL Mean Platelet Volume 10.7 H 7.4-10.4 FL Neutrophils (%) (Auto) 45 42-75 % Lymphocytes (%) (Auto) 36 12-44 % Monocytes (%) (Auto) 5 0-12 % Eosinophils (%) (Auto) 13 H 0-10 % Basophils (%) (Auto) 1 0-10 % Neutrophils # (Auto) 4.1 1.8-7.8 X 10^3 Lymphocytes # (Auto) 3.2 1.0-4.0 X 10^3 Monocytes # (Auto) 0.5 0.0-1.0 X 10^3 Eosinophils # (Auto) 1.2 H 0.0-0.3 10^3/uL Basophils # (Auto) 0.1 0.0-0.1 10^3/uL Neutrophils % (Manual) 49 % Lymphocytes % (Manual) 32 % Monocytes % (Manual) 4 % Eosinophils % (Manual) 15 % Basophils % (Manual) 0 % Band Neutrophils 0 % Blood Morphology Comment NORMAL Sodium Level 141 135-145 MMOL/L Potassium Level 4.3 3.6-5.0 MMOL/L Chloride Level 103 98-107 MMOL/L Carbon Dioxide Level 28 21-32 MMOL/L Anion Gap 10 5-14 MMOL/L Blood Urea Nitrogen 21 H 7-18 MG/DL Creatinine 1.20 0.60-1.30 MG/DL Estimat Glomerular Filtration Rate > 60 BUN/Creatinine Ratio 18 Glucose Level 207 H 70-105 MG/DL Lactic Acid Level 3.46 *H 2.16 *H 0.50-2.00 MMOL/L Calcium Level 9.6 8.5-10.1 MG/DL Total Bilirubin 0.5 0.1-1.0 MG/DL Aspartate Amino Transf (AST/SGOT) 12 5-34 U/L Alanine Aminotransferase (ALT/SGPT) 13 0-55 U/L Alkaline Phosphatase 62 40-136 U/L Troponin I < 0.30 <0.30 NG/ML Total Protein 6.7 6.4-8.2 GM/DL Albumin 4.0 3.2-4.5 GM/DL Blood Gas Puncture Site RIGHT RADIAL Blood Gas Patient Temperature 98.1 Arterial Blood pH 7.33 *L 7.37-7.43 Arterial Blood Partial Pressure CO2 46 H 35-45 MMHG Arterial Blood Partial Pressure O2 88 79-93 MMHG Arterial Blood HCO3 24 23-27 MMOL/L Arterial Blood Total CO2 24.9 21.0-31.0 MMOL/L Arterial Blood Oxygen Saturation 97 94-100 % Arterial Blood Base Excess -1.7 -2.5-2.5 MMOL/L Didier Test POSITIVE Blood Gas Ventilator Setting NO Blood Gas Inspired Oxygen 2 L Urine Color YELLOW Urine Clarity CLEAR Urine pH 5 5-9 Urine Specific Hershey 1.015 L 1.016-1.022 Urine Protein 2+ H NEGATIVE Urine Glucose (UA) 4+ H NEGATIVE Urine Ketones NEGATIVE NEGATIVE Urine Nitrite NEGATIVE NEGATIVE Urine Bilirubin NEGATIVE NEGATIVE Urine Urobilinogen NORMAL NORMAL MG/DL Urine Leukocyte Esterase NEGATIVE NEGATIVE Urine RBC (Auto) NEGATIVE NEGATIVE Urine RBC NONE /HPF Urine WBC RARE /HPF Urine Squamous Epithelial Cells RARE /HPF Urine Crystals NONE /LPF Urine Bacteria TRACE /HPF Urine Casts PRESENT /LPF Urine Hyaline Casts 10-25 H /LPF Urine Granular Casts 5-10 H /LPF Urine Mucus NEGATIVE /LPF Urine Culture Indicated NO My Orders Orders - CARLY RODRIGUEZ MD Ekg Tracing (05/23/17 14:08) Chest 1 View, Ap/Pa Only (05/23/17 14:14) Comprehensive Metabolic Panel (05/23/17 14:14) Cbc With Automated Diff (05/23/17 14:14) Arterial Blood Gas (05/23/17 14:14) Urinalysis (05/23/17 14:14) Blood Culture (05/23/17 14:14) Lactic Acid Analyzer (05/23/17 14:14) Troponin I (05/23/17 14:14) Ct Head Wo (05/23/17 14:25) Manual Differential (05/23/17 14:14) Ns Iv 1000 Ml (Sodium Chloride 0.9%) (05/23/17 15:21) Ns Iv 1000 Ml (Sodium Chloride 0.9%) (05/23/17 15:53) Ceftriaxone Injection (Rocephin Injectio (05/23/17 16:15) Medications Given in ED Current Medications Medications Dose Ordered Sig/Arvin Route Start Time Stop Time Status Last Admin Dose Admin Ceftriaxone Sodium 2000 mg/ Sodium Chloride 50 ml @ 100 mls/hr ONCE ONCE IV 05/23/17 16:15 05/23/17 16:44 DC 05/23/17 16:25 100 MLS/HR Sodium Chloride 1,000 ml @ ud STK-MED ONCE .ROUTE 05/23/17 15:21 05/23/17 15:27 DC 05/23/17 15:29 1,000 MLS/HR Sodium Chloride 1,000 ml @ ud STK-MED ONCE .ROUTE 05/23/17 15:53 05/23/17 16:01 DC 05/23/17 16:10 1,000 MLS/HR Vital Signs/I&O Vital Sign - Last 12Hours 05/23/17 05/23/17 14:05 16:11 Temp 98.3 98.3 Pulse 82 81 Resp 18 18 B/P (MAP) 92/57 120/72 Pulse Ox 99 100 Intake and Output 05/24/17 00:00 Intake Total 2050 ml Balance 2050 ml Progress Note : Time: 17:44 Progress Note The patient's laboratory evaluation demonstrated a lactic acid of approximately 3.5. Patient's white count was unremarkable and urinalysis which was finally obtained failed to demonstrate evidence of a UTI. Patient's chest x-ray was clear. Patient's glucose was 170 at the bedside. Patient received 2 L of normal saline as he had remarkably impressive orthostatic symptoms. Total sedation was undertaken with Dr. Gonzalez was kind enough to admit patient. Patient's metformin was discontinued. Patient was placed on a sliding scale. Orders written the patient was transferred to floor. Departure Communication Time/Spoke to Admitting Phy: 17:[address] Gonzalez. Impression Impression: Primary Impression: Lactic acidosis Disposition: ADMITTED INPATIENT Condition: Improved Admissions Decision to Admit Reason: Admit from ER (General) Decision to Admit/Date: May 23, 2017 Time/Decision to Admit Time: 17:47 Departure-Patient Inst. Referrals: [facility] (PCP/Family) Primary Care Physician CARLY RODRIGUEZ MD May 23, 2017 14:21
[2017-05-23 14:31] LABS: BASOPHILS # (AUTO) 0.1 10^3/uL (0.0-0.1); BASOPHILS % (AUTO) 1 % (0-10); EOSINOPHILS # (AUTO) 1.2 10^3/uL (0.0-0.3); EOSINOPHILS % (AUTO) 13 % (0-10); LYMPHOCYTES # (AUTO) 3.2 X 10^3 (1.0-4.0); LYMPHOCYTES % (AUTO) 36 % (12-44); MEAN CORPUSCULAR HEMOGLOBIN 30 PG (25-34); MEAN CORPUSCULAR HGB CONC 35 G/DL (32-36); MEAN CORPUSCULAR VOLUME 87 FL (80-99); MEAN PLATELET VOLUME 10.7 FL (7.4-10.4); MONOCYTES # (AUTO) 0.5 X 10^3 (0.0-1.0); MONOCYTES % (AUTO) 5 % (0-12); NEUTROPHILS # (AUTO) 4.1 X 10^3 (1.8-7.8); NEUTROPHILS % (AUTO) 45 % (42-75); PLATELET COUNT 361 10^3/uL (130-400); RED BLOOD COUNT 5.07 10^6/uL (4.35-5.85); RED CELL DISTRIBUTION WIDTH 12.6 % (10.0-14.5)
--- NOTE | 2017-05-23 14:45 | Diagnostic Imaging Report ---
INDICATION: Dizziness and fatigue. Frontal chest obtained at 2:32 p.m. Heart and mediastinal silhouette are normal in appearance. The lungs are clear. There is no pneumothorax or pleural fluid. IMPRESSION: Negative chest. Dictated by: Dictated on workstation # [id number]
[2017-05-23 14:51] LABS: ALANINE AMINOTRANSFERASE 13 U/L (0-55); ANION GAP 10 MMOL/L (5-14); ASPARTATE AMINO TRANSFERASE 12 U/L (5-34); BAND NEUTROPHILS 0 %; BASOPHILS % (MANUAL) 0 %; BILIRUBIN,TOTAL 0.5 MG/DL (0.1-1.0); BLOOD UREA NITROGEN 21 MG/DL (7-18); BUN/CREATININE RATIO 18; CALCIUM 9.6 MG/DL (8.5-10.1); CARBON DIOXIDE 28 MMOL/L (21-32); CHLORIDE 103 MMOL/L (98-107); EOSINOPHILS % (MANUAL) 15 %; GFR ESTIMATED > 60; GLUCOSE 207 MG/DL (70-105); LYMPHOCYTES % (MANUAL) 32 %; NEUTROPHILS % (MANUAL) 49 %; POTASSIUM 4.3 MMOL/L (3.6-5.0); SODIUM 141 MMOL/L (135-145); TOTAL PROTEIN 6.7 GM/DL (6.4-8.2)
[2017-05-23 14:57] LABS: TROPONIN I < 0.30 NG/ML (<0.30)
--- NOTE | 2017-05-23 14:58 | Diagnostic Imaging Report ---
INDICATION: Dizziness and syncope. Noncontrast brain CT is performed and compared with 04/24/2017. There are mild atrophic changes with minimal chronic changes in deep white matter. There is no acute hemorrhage or mass effect or midline shift. The ventricles are normal in size. Calvarial windows are unremarkable. IMPRESSION: Mild chronic changes with no acute intracranial abnormality. Dictated by: Dictated on workstation # [id number]
[2017-05-23] MEDS ORDERED: NS IV 1000 ML 1,000 ML ONE ×2 (15:21→15:53)
[2017-05-23] MEDS ORDERED: cefTRIAXone INJECTION 2,000 MG in NS (IVPB) 50 ML IV ONE (16:15)
[2017-05-23 16:20] LABS: ABG BASE EXCESS -1.7 MMOL/L (-2.5-2.5); ABG HCO3 24 MMOL/L (23-27); ABG OXYGEN SATURATION 97 % (94-100); ABG PCO2 46 MMHG (35-45); ABG PO2 88 MMHG (79-93); ABG TCO2 24.9 MMOL/L (21.0-31.0)
[2017-05-23 16:22] LABS: ABG PH 7.33 (7.37-7.43)
[2017-05-23 16:23] LABS: ALLENS TEST POSITIVE; PATIENT TEMP 98.1
[2017-05-23 16:59] LABS: BILIRUBIN,URINE NEGATIVE (NEGATIVE); KETONES,URINE NEGATIVE (NEGATIVE); LEUKOCYTE ESTERASE ,URINE NEGATIVE (NEGATIVE); NITRITE,URINE NEGATIVE (NEGATIVE); PH,URINE 5 (5-9); PROTEIN,URINE 2+ (NEGATIVE); UROBILINOGEN,URINE NORMAL (NORMAL)
[2017-05-23 17:15] LABS: WBC,URINE RARE /HPF
[2017-05-23 17:16] LABS: SQUAMOUS EPITHELIAL CELL,UR RARE /HPF
[2017-05-23 19:00] VITALS: BP 113/62
[2017-05-23 19:02] VITALS: BP 113/62
[2017-05-23] MEDS ORDERED: CATHETER FLUSH 10 ML SYR IV PRN (19:30)
[2017-05-23] MEDS: NS IV 1000 ML 1,000 ML IV SCH (19:48)
[2017-05-23 19:57] VITALS: BP 125/73
[2017-05-23] MEDS: inSUlin ASPART (NovoLOG) 1 UNIT/0.01 ML (CHARGE PER UNIT) SC SCH (21:34)
[2017-05-24] VITALS: BP 105/54
[2017-05-24 04:00] VITALS: BP 103/55
[2017-05-24] MEDS: NS IV 1000 ML 1,000 ML IV SCH (05:28)
[2017-05-24 06:10] LABS: BASOPHILS % (AUTO) 0 % (0-10); EOSINOPHILS # (AUTO) 1.1 10^3/uL (0.0-0.3); EOSINOPHILS % (AUTO) 14 % (0-10); LYMPHOCYTES # (AUTO) 2.5 X 10^3 (1.0-4.0); LYMPHOCYTES % (AUTO) 33 % (12-44); MEAN CORPUSCULAR HEMOGLOBIN 31 PG (25-34); MEAN CORPUSCULAR HGB CONC 35 G/DL (32-36); MEAN CORPUSCULAR VOLUME 88 FL (80-99); MEAN PLATELET VOLUME 10.8 FL (7.4-10.4); MONOCYTES # (AUTO) 0.5 X 10^3 (0.0-1.0); MONOCYTES % (AUTO) 6 % (0-12); NEUTROPHILS # (AUTO) 3.6 X 10^3 (1.8-7.8); NEUTROPHILS % (AUTO) 47 % (42-75); PLATELET COUNT 271 10^3/uL (130-400); RED BLOOD COUNT 3.91 10^6/uL (4.35-5.85); RED CELL DISTRIBUTION WIDTH 12.2 % (10.0-14.5); WHITE BLOOD COUNT 7.6 10^3/uL (4.3-11.0)
[2017-05-24] MEDS: inSUlin ASPART (NovoLOG) 1 UNIT/0.01 ML (CHARGE PER UNIT) SC SCH ×3 (06:23→11:31)
[2017-05-24 06:34] LABS: ALANINE AMINOTRANSFERASE 10 U/L (0-55); ALBUMIN 2.9 GM/DL (3.2-4.5); ANION GAP 6 MMOL/L (5-14); ASPARTATE AMINO TRANSFERASE 11 U/L (5-34); BILIRUBIN,TOTAL 0.1 MG/DL (0.1-1.0); BLOOD UREA NITROGEN 21 MG/DL (7-18); BUN/CREATININE RATIO 22; CALCIUM 8.2 MG/DL (8.5-10.1); CARBON DIOXIDE 27 MMOL/L (21-32); CHLORIDE 104 MMOL/L (98-107); CREATININE SERUM 0.97 MG/DL (0.60-1.30); GFR ESTIMATED > 60; GLUCOSE 304 MG/DL (70-105); POTASSIUM 4.1 MMOL/L (3.6-5.0); SODIUM 137 MMOL/L (135-145); TOTAL PROTEIN 4.7 GM/DL (6.4-8.2)
[2017-05-24 08:00] VITALS: BP 91/50
[2017-05-24] MEDS ORDERED: GABA-488 PO (08:49)
[2017-05-24] MEDS ORDERED: DICL50TA6 PO (08:49)
[2017-05-24] MEDS ORDERED: METF750T2 PO (08:49)
[2017-05-24] MEDS ORDERED: ACET-2469 PO (08:50)
[2017-05-24] MEDS ORDERED: lisINopril 5 MG (PRINIVIL) TABLET PO SCH (10:00)
[2017-05-24] MEDS ORDERED: inSUlin ASPART (NovoLOG) 1 UNIT/0.01 ML (CHARGE PER UNIT) SQ SCH (11:00)
--- NOTE | 2017-05-24 11:19 | Short Stay Summary-Hospitalist ---
HPI History of Present Illness: HPI/Chief Complaint CC: Lactic acidosis due to Metformin HPI: This is a 61 yoWM pt of [facility] who presented to the ER due to lactic acidosis from Metformin. He was too dizzy to return home. SW Review: Pt has a hx of amphetamine usage and has used it to ease his pain before. Pt states he was kicked out of the [facility] apartments as he believes they told him he needed rehab before he could stay there. Pt now lives in a tent. Patient Interview: Pt states that he has not been up so he is unsure if he is still dizzy Labs discussed and look better Metformin discussed and pt was informed he will need to be off of that. Pt was curious if this had made him dizzy and would make him fall, I confirmed this. Pt was informed that insulin was restarted Pt confirms seeing Linda Suero at [facility] Scribed by Tosha Borges under the direct supervision of Dr. Gonzalez. Source: patient Exam Limitations: no limitations Date Seen 05/24/17 Time Seen by Provider: 10:00 Attending Physician Naida Gonzalez DO PCP Jocelyn,[facility] Referring Physician Date of Admission May 23, 2017 at 17:45 Home Medications & Allergies Home Medications Reviewed patient Home Medication Reconciliation Form Allergies Allergies Coded Allergies Benzodiazepines (Verified Allergy, Unknown, 05/10/14) Past Mgojbdo-Ptxtql-Evcnfa Hx Patient Social History Marrital Status: single Employed/Student: unemployed Alcohol Use: Denies Use Recreational Drug Use: Yes (previous hx) Drug of Choice: WEED Smoking Status: Current Everyday Smoker Type Used: Cigarettes Physical Abuse Screen: No Sexual Abuse: No Recent Foreign Travel: No Contact w/other who traveled: No Recent Hopitalizations: No Recent Infectious Disease Expo: No Immunizations Up To Date Tetanus Booster (TDap): Less than 5yrs Date of Pneumonia Vaccine: Jan 16, 2016 Seasonal Allergies Seasonal Allergies: No Surgeries Yes (BENIGN BONE TUMOR LEFT LOWER LEG; RIGHT WRIST FX/FUSION, ankle surgery) Appendectomy, Gallbladder, Orthopedic Respiratory No Cardiovascular Yes High Cholesterol, Hypertension Neurological No Traumatic Brain Injury Reproductive System Hx Reproductive Disorders: No Sexually Transmitted Disease: No HIV/AIDS: No Genitourinary No Gastrointestinal No Musculoskeletal Yes (C1-C2 FX, LOW BACK FX) Chronic Back Pain, Fractures Endocrine History of Endocrine Disorders: Yes Endocrine Disorders: Diabetes, Insulin dep Are Your Blood Sugars Over 250: Yes HEENT History of HEENT Disorders: No Loss of Vision: Denies Hearing Impairment: Denies Cancer No Psychosocial History of Psychiatric Problem: No Integumentary History of Skin or Integumenta: No Blood Transfusions History of Blood Disorders: No Adverse Reaction to a Blood Tr: No Reviewed Nursing Assessment Reviewed/Agree w Nursing PMH: Yes Family Medical History Family Hx: Blood clots 19 FATHER Diabetes mellitus 19 FATHER 19 MOTHER G8 BROTHER Review of Systems Constitutional: see HPI, dizziness, weakness EENTM: no symptoms reported Respiratory: no symptoms reported Cardiovascular: no symptoms reported Gastrointestinal: no symptoms reported Genitourinary: no symptoms reported Musculoskeletal: no symptoms reported Skin: no symptoms reported All Other Systems Reviewed Negative Unless Noted: Yes Physical Exam Physical Exam Vital Signs Vital Sign - Last 12Hours 05/23/17 05/23/17 14:05 19:00 Temp 98.3 Pulse 82 Resp 18 B/P (MAP) 92/57 Pulse Ox 99 O2 Delivery Room Air Capillary Refill : Less Than 3 Seconds General Appearance: No Apparent Distress, WD/WN, Chronically ill, Thin Eyes: Bilateral Eye Normal Inspection, Bilateral Eye PERRL HEENT: PERRL/EOMI, Normal ENT Inspection, Pharynx Normal Neck: Full Range of Motion, Normal Inspection, Non Tender, Supple, Carotid Bruit Respiratory: Chest Non Tender, Lungs Clear, Normal Breath Sounds, No Accessory Muscle Use, No Respiratory Distress Cardiovascular: Regular Rate, Rhythm, No Edema, No Gallop, No JVD, No Murmur, Normal Peripheral Pulses Gastrointestinal: Normal Bowel Sounds, No Organomegaly, No Pulsatile Mass, Non Tender, Soft Back: Normal Inspection, No CVA Tenderness, No Vertebral Tenderness Extremity: Normal Capillary Refill, Normal Inspection, Normal Range of Motion, Non Tender, No Calf Tenderness, No Pedal Edema Neurologic/Psychiatric: Alert, Oriented x3, No Motor/Sensory Deficits, Normal Mood/Affect Skin: Normal Color, Warm/Dry Lymphatic: No Adenopathy Results Results/Procedures Lab Laboratory Tests 05/23/17 14:14 05/24/17 05:52 Short Stay Diagnosis Discharge Diagnosis-Short Stay Admission Diagnosis Assessment: Severe dizziness due to lactic acidosis from metformin Homelessness Diabetes mellitus insulin-dependent History of meth use Final Discharge Diagnosis Assessment: Severe dizziness due to lactic acidosis from metformin Homelessness Diabetes mellitus insulin-dependent History of meth use Conclusion Plan Plan: PT Follow up with Linda Suero at [facility] Insulin Stop Metformin and no longer an option to take it again DC to home or alf Clinical Quality Measures DVT/VTE Risk/Contraindication: Risk Factor Score Per Nursin RFS Level Per Nursing on Admit: 3=High NAIDA GONZALEZ DO May 24, 2017 11:19
[2017-05-24 12:09] VITALS: BP 132/61
[2017-05-24] MEDS ORDERED: GABAPENTIN 300 MG (NEURONTIN) CAP PO SCH (13:00)
--- NOTE | 2017-05-24 14:12 | Physical Therapy Progress Note ---
Therapy Progress Note Patient dismissed from hospital prior to PT arrival. No evaluation initiated. SAVANA LOJA PT May 24, 2017 14:12
[2017-05-24] MEDS ORDERED: ETODOLAC 200 MG (LODINE) CAP PO SCH (17:00)
[2017-05-24] MEDS ORDERED: inSUlin DETERMIR 1000 UNITS/10 ML VIAL (LEVEMIR) SQ SCH (21:00)
[2017-05-24] MEDS ORDERED: inSUlin DETERMIR 1 UNIT/0.01 ML (LEVEMIR) CHARGE PER UNIT SQ SCH (21:00)
[2017-05-24] MEDS ORDERED: NON-FORMULARY MEDICATION 1 EA EA (Diclofenac Sodium 50 MG) PO SCH (21:00)
[2017-05-25] MEDS ORDERED: NON-FORMULARY MEDICATION 1 EA EA (Lisinopril 2.5 MG) PO SCH (09:00)
== END 2017-05-24 11:05 | disposition home or self-care (01) ==
LOC: EDUNIT# 13:57 → ER 14:00 → 4TH 17:45 → UNDOADMOB 17:45 → 4TH 19:06 → UNDODISOB 05-24 13:30
PROVIDERS: ADMIT Internal Medicine; ATTEND Internal Medicine
DX: E87.2 Acidosis (principal); E11.610 Type 2 diabetes mellitus with diabetic neuropathic arthropathy; I10 Essential (primary) hypertension; E78.00 Pure hypercholesterolemia, unspecified; F17.210 Nicotine dependence, cigarettes, uncomplicated; Z59.0 Homelessness; Z79.4 Long term (current) use of insulin; Z79.84 Long term (current) use of oral hypoglycemic drugs; Z79.899 Other long term (current) drug therapy; Z87.820 Personal history of traumatic brain injury
CPT/HCPCS: 36415; 70450; 71010; 80053; 81000; 82805; 82962; 83605; 84484; 85007; 85025; 85027; 87040; 93005; 96361; 96365; G0378

== ENCOUNTER 2017-06-21 00:30 | Emergency (ER) | payer MEDICARE, MEDICAID ==
[~2017-06-21] VITALS: Ht 182.9 cm; Wt 63.1 kg
[~2017-06-21 00:30] MED LIST changes: +ACET-2469 PO; +DICL50TA6 PO; +METF750T2 PO
--- OUTSIDE RECORDS SUMMARY | 2017-06-21 00:36 | XMS REPORT ---
Author Author SRIDEVI OSBORN Organization [facility] Address [address] [place] [address] Care Team Providers Care Professor Of Sport Management Name Role Phone ANURAGSRIDEVI Unavailable PROBLEMS Type Condition ICD9-CM Code FNT75-EC Code Onset Dates Condition Status SNOMED Code Problem History of drug use Z87.898 Active 383065729 Problem Neuropathy G62.9 Active 923695747 Problem Microalbuminuria R80.9 Active 862727912 Problem Diabetes type 2, uncontrolled E11.65 Active 287447892 Problem Heat exhaustion due to salt depletion, subsequent encounter T67.4XXD Active 37111602 Problem Chronic obstructive pulmonary disease, unspecified COPD type J44.9 Active 32406048 Problem Other hammer toe(s) (acquired), right foot M20.41 Active 457305197 Problem Onychomycosis B35.1 Active 235510999 Problem Low oxygen saturation R79.81 Active 709724004 Problem Diabetes mellitus type II, uncontrolled E11.65 Active 194712540 ALLERGIES Unknown Allergies SOCIAL HISTORY No smoking Hx information available PLAN OF CARE VITAL SIGNS MEDICATIONS Medication Instructions Dosage Frequency Start Date End Date Duration Status Insulin Syringe 31G X 5/16" 0.5 ML Use with insulin 12h Oct, 30 days Active RESULTS No Results PROCEDURES No Known procedures IMMUNIZATIONS No Known Immunizations
[2017-06-21] MEDS ORDERED: D5 NS 1000 ML IV SOLUTION 1,000 ML IV ONE ×3 (00:41→01:44)
[2017-06-21] MEDS ORDERED: METF1000 (00:49)
--- NOTE | 2017-06-21 00:53 | ED General ---
General Stated Complaint: LOW BLOOD SUGAR Source of Information: Patient, Old Records Exam Limitations: Other (PT IS SOMEWHAT LIMITED HISTORIAN) History of Present Illness Time Seen by Provider: 00:35 Initial Comments PT ARRIVES VIA POV ,REQUIRES WHEELCHAIR DUE TO UNSTEADY GAIT STATES HE THINKS THAT HIS BLOOD SUGAR IS LOW, BUT DID NOT CHECK IT--DOES NOT KNOW WHERE HIS GLUCOMETER IS PT STATES HE TOOK HIS DIABETIC MEDICATIONS AN HOUR AGO, HE THINKS. NO CHANGE IN DOSE STATES HE WAS EXTREMELY SWEATY--SOAKED THE BED, AND "COULDN'T GET MY BRAIN WORKING LIKE IT'S SUPPOSED TO" STATES HE ATE A CAN OF PEACHES AND IS FEELING BETTER ACCUCHECK ON ARRIVAL IS 108 PT IS HOMELESS AND LIVING IN A TENT IN SOMEONE'S YARD, AND PERSON WHO LIVES IN THE HOUSE BROUGHT HIM HERE--WAS EVICTED FROM HIS RESIDENCE THIS SUMMER HAS BEEN VERY HOT THIS WEEK--IN 'S WITH HEAT INDEX NEAR 100 STATES HE HAD A LITTLE "STRENUOUS" ACTIVITY TODAY--TRIED TO FIX A LEAK IN AIR MATTRESS 4 TIMES TODAY PT'S INTAKE TODAY WAS : CEREAL FOR BREAKFAST, CHOCOLATE "FROSTY" FOR LUNCH, AND CHILI + CRACKERS FOR DINNER. 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 TODAY LAST VOID IS UNKNOWN, BUT STATES "IT'S BEEN AWHILE" MULTIPLE VISITS/ADMITS--LAST ADMIT WAS 05/23-05/24 FOR LACTIC ACIDOSIS--FELT TO BE FROM [facility] WAS ADMITTED 04/24 FOR HEAT EXHAUSTION AFTER COLLAPSING OUTSIDE IN THE HEAT PCP: MATEO Allergies and Home Medications Allergies Coded Allergies: Benzodiazepines (Verified Allergy, Unknown, 05/10/14) Home Medications Insulin Aspart 100 Unit/1 Ml Susp, 10 UNIT SQ AC, (Reported) Insulin Determir 1,000 Units/10 Ml Soln, 60 UNITS SQ HS, (Reported) Lisinopril 2.5 Mg Tablet, 2.5 MG PO DAILY, (Reported) Metformin HCl 1,000 Mg Tablet, (Reported) Constitutional: see HPI, diaphoresis, malaise, weakness EENTM: no symptoms reported Respiratory: no symptoms reported Cardiovascular: no symptoms reported Gastrointestinal: no symptoms reported Genitourinary: see HPI, decreased output Musculoskeletal: no symptoms reported Skin: no symptoms reported Psychiatric/Neurological: See HPI Hematologic/Lymphatic: No Symptoms Reported Immunological/Allergic: no symptoms reported Past Kfwcmme-Rieazq-Olnllk Hx Patient Social History Alcohol Use: Past History (CLAIMS ALCOHOL ABUSE A TEEN, NONE SINCE) Recreational Drug Use: Yes (FREQUENT THC USE CURRENTLY, HISTORY OF IV DRUG USE- -SPEED, METH. HAS ALSO USED ACID, MESCALINE, OTHERS WHEN YOUNGER. ) Drug of Choice: WEED Smoking Status: Current Everyday Smoker (1/2 PPD) Type Used: Cigarettes Recent Foreign Travel: No Contact w/Someone Who Travel: No Recent Hopitalizations: No Immunizations Up To Date Tetanus Booster (TDap): Less than 5yrs Date of Pneumonia Vaccine: Jan 16, 2016 Seasonal Allergies Seasonal Allergies: No Surgeries History of Surgeries: Yes (BENIGN BONE TUMOR LEFT LOWER LEG; RIGHT WRIST FX/ FUSION; RIGHT FOOT SURGERY;ankle surgery) Surgeries: Appendectomy, Gallbladder, Orthopedic Respiratory History of Respiratory Disorde: No Cardiovascular History of Cardiac Disorders: Yes Cardiac Disorders: High Cholesterol, Hypertension Neurological History of Neurological Disord: Yes (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) Neurological Disorders: Neuropathy, Traumatic Brain Injury Reproductive System Hx Reproductive Disorders: No Sexually Transmitted Disease: No HIV/AIDS: No Genitourinary History of Genitourinary Disor: No Gastrointestinal History of Gastrointestinal Di: No Musculoskeletal History of Musculoskeletal Dis: Yes (C1-C2 FX, LOW BACK FX) Musculoskeletal Disorders: Chronic Back Pain, Fractures Endocrine History of Endocrine Disorders: Yes (DKA) Endocrine Disorders: Diabetes, Insulin dep HEENT History of HEENT Disorders: No (EDENTULOUS) Loss of Vision: Denies Hearing Impairment: Denies Cancer History of Cancer: No Psychosocial History of Psychiatric Problem: No Integumentary History of Skin or Integumenta: Yes (LEG CELLULITIS) Blood Transfusions History of Blood Disorders: No Adverse Reaction to a Blood Tr: No Family Medical History Family Medial History: Blood clots 19 FATHER Diabetes mellitus 19 FATHER 19 MOTHER G8 BROTHER Physical Exam Vital Signs Vital Sign - Last 12Hours 06/21/17 00:49 Temp 97.3 Pulse 91 Resp 18 B/P (MAP) 123/80 Pulse Ox 99 O2 Delivery Room Air Capillary Refill : General Appearance: Cachetic, Other (SOMEWHAT LETHARGIC, UNSTEADY ON TRANSFER FROM WHEELCHAIR TO ER CART. PT FILTHY, MALODOROUS, UKNEMPT) HEENT: Other (EDENTULOUS, DRY ORAL MUCOSA; RIGH TPUPIL 5 MM, LEFT PUPIL 3 MM-- BOTH EQUALLY REACTIVE. ) Neck: Full Range of Motion, Normal Inspection, Non Tender, Supple Respiratory: Normal Breath Sounds, No Accessory Muscle Use, No Respiratory Distress Cardiovascular: Regular Rate, Rhythm, No Edema, No JVD, No Murmur Gastrointestinal: Non Tender, Soft Back: No CVA Tenderness Extremity: Normal Range of Motion, Non Tender, No Calf Tenderness, No Pedal Edema Neurologic/Psychiatric: Alert, Oriented x3, No Motor/Sensory Deficits (GROSSLY INTACT, EXCEPT DECREASED SENSATION TO FEET- WITH HX OF PERIPHERAL NEUROPATHY) Skin: Normal Color, Warm/Dry Progress/Results/Core Measures Results/Orders Lab Results Laboratory Tests Test 06/21/17 00:37 06/21/17 00:41 06/21/17 01:40 06/21/17 02:20 Range/Units Glucometer 108 226 H 70-110 MG/DL White Blood Count 10.2 4.3-11.0 10^3/uL Red Blood Count 4.51 4.35-5.85 10^6/uL Hemoglobin 14.0 13.3-17.7 G/DL Hematocrit 40 40-54 % Mean Corpuscular Volume 88 80-99 FL Mean Corpuscular Hemoglobin 31 25-34 PG Mean Corpuscular Hemoglobin Concent 35 32-36 G/DL Red Cell Distribution Width 12.8 10.0-14.5 % Platelet Count 346 130-400 10^3/uL Mean Platelet Volume 10.5 H 7.4-10.4 FL Neutrophils (%) (Auto) 67 42-75 % Lymphocytes (%) (Auto) 20 12-44 % Monocytes (%) (Auto) 8 0-12 % Eosinophils (%) (Auto) 5 0-10 % Basophils (%) (Auto) 0 0-10 % Neutrophils # (Auto) 6.8 1.8-7.8 X 10^3 Lymphocytes # (Auto) 2.1 1.0-4.0 X 10^3 Monocytes # (Auto) 0.8 0.0-1.0 X 10^3 Eosinophils # (Auto) 0.5 H 0.0-0.3 10^3/uL Basophils # (Auto) 0.0 0.0-0.1 10^3/uL Sodium Level 142 135-145 MMOL/L Potassium Level 3.6 3.6-5.0 MMOL/L Chloride Level 102 98-107 MMOL/L Carbon Dioxide Level 27 21-32 MMOL/L Anion Gap 13 5-14 MMOL/L Blood Urea Nitrogen 23 H 7-18 MG/DL Creatinine 1.21 0.60-1.30 MG/DL Estimat Glomerular Filtration Rate > 60 BUN/Creatinine Ratio 19 Glucose Level 75 70-105 MG/DL Calcium Level 9.3 8.5-10.1 MG/DL Magnesium Level 2.3 1.8-2.4 MG/DL Total Bilirubin 0.3 0.1-1.0 MG/DL Aspartate Amino Transf (AST/SGOT) 21 5-34 U/L Alanine Aminotransferase (ALT/SGPT) 25 0-55 U/L Alkaline Phosphatase 74 40-136 U/L Troponin I < 0.30 <0.30 NG/ML Total Protein 7.3 6.4-8.2 GM/DL Albumin 4.1 3.2-4.5 GM/DL Valproic Acid (Depakene) Level < 2.0 L 50.0-100.0 UG/ML Serum Alcohol < 10 <10 MG/DL Urine Color YELLOW Urine Clarity CLEAR Urine pH 6 5-9 Urine Specific [place] 1.015 L 1.016-1.022 Urine Protein NEGATIVE NEGATIVE Urine Glucose (UA) 4+ H NEGATIVE Urine Ketones NEGATIVE NEGATIVE Urine Nitrite NEGATIVE NEGATIVE Urine Bilirubin NEGATIVE NEGATIVE Urine Urobilinogen NORMAL NORMAL MG/DL Urine Leukocyte Esterase NEGATIVE NEGATIVE Urine RBC (Auto) NEGATIVE NEGATIVE Urine RBC NONE /HPF Urine WBC NONE /HPF Urine Squamous Epithelial Cells 0-2 /HPF Urine Crystals NONE /LPF Urine Bacteria NEGATIVE /HPF Urine Casts PRESENT /LPF Urine Hyaline Casts 2-5 H /LPF Urine Mucus SMALL H /LPF Urine Culture Indicated NO My Orders Orders - ARPAN HACKETT DO Saline Lock/Iv-Start (06/21/17 00:41) Monitor-Rhythm Ecg Trace Only (06/21/17 00:41) Alcohol (06/21/17 00:41) Cbc With Automated Diff (06/21/17 00:41) Comprehensive Metabolic Panel (06/21/17 00:41) Drug Screen Stat (Urine) (06/21/17 00:41) Magnesium (06/21/17 00:41) Troponin I (06/21/17 00:41) Ua Culture If Indicated (06/21/17 00:41) Valproic Acid (06/21/17 00:41) Saline Lock/Iv-Start (06/21/17 00:41) D5 Ns 1000 Ml Iv Solution (Dextrose 5%/0 (06/21/17 00:41) Accucheck Stat ONCE (06/21/17 01:35) Saline Lock/Iv-Start (06/21/17 01:38) D5 Ns 1000 Ml Iv Solution (Dextrose 5%/0 (06/21/17 01:38) Saline Lock/Iv-Start (06/21/17 01:41) Ns Iv 1000 Ml (Sodium Chloride 0.9%) (06/21/17 01:41) Saline Lock/Iv-Start (06/21/17 01:44) D5 Ns 1000 Ml Iv Solution (Dextrose 5%/0 (06/21/17 01:44) Medications Given in ED Current Medications Medications Dose Ordered Sig/Arvin Route Start Time Stop Time Status Last Admin Dose Admin Dextrose/Sodium Chloride 1,000 ml @ 0 mls/hr Q0M ONCE IV 06/21/17 00:41 06/21/17 00:44 DC 06/21/17 00:47 0 MLS/HR Dextrose/Sodium Chloride 1,000 ml @ 0 mls/hr Q0M ONCE IV 06/21/17 01:44 06/21/17 01:46 DC 06/21/17 01:46 0 MLS/HR Vital Signs/I&O Vital Sign - Last 12Hours 06/21/17 00:49 Temp 97.3 Pulse 91 Resp 18 B/P (MAP) 123/80 Pulse Ox 99 O2 Delivery Room Air Progress Note : Progress Note REPEAT ACCUCHECK 226 VOIDED AFTER 2 LITERS OF FLUIDS UNEVENTFUL ER STAY Departure Impression Impression: Primary Impression: Hypoglycemia associated with diabetes Disposition: 01 HOME, SELF-CARE Condition: Improved Departure-Patient Inst. Referrals: [facility] (PCP/Family) Primary Care Physician Patient Instructions: Diabetes Type 2 (DC), Low Blood Sugar in People With Diabetes Add. Discharge Instructions: TAKE YOUR MEDICATIONS PRESCRIBED CHECK YOUR BLOOD SUGAR AT LEAST 3 TIMES A DAY FOLLOW UP WITH YOUR DR THIS WEEK FOR FURTHER CARE RETURN TO ER IF WORSE ARPAN HACKETT DO Jun 21, 2017 00:53
[2017-06-21 00:54] LABS: BASOPHILS % (AUTO) 0 % (0-10); EOSINOPHILS # (AUTO) 0.5 10^3/uL (0.0-0.3); EOSINOPHILS % (AUTO) 5 % (0-10); LYMPHOCYTES # (AUTO) 2.1 X 10^3 (1.0-4.0); LYMPHOCYTES % (AUTO) 20 % (12-44); MEAN CORPUSCULAR HEMOGLOBIN 31 PG (25-34); MEAN CORPUSCULAR HGB CONC 35 G/DL (32-36); MEAN CORPUSCULAR VOLUME 88 FL (80-99); MEAN PLATELET VOLUME 10.5 FL (7.4-10.4); MONOCYTES # (AUTO) 0.8 X 10^3 (0.0-1.0); MONOCYTES % (AUTO) 8 % (0-12); NEUTROPHILS # (AUTO) 6.8 X 10^3 (1.8-7.8); NEUTROPHILS % (AUTO) 67 % (42-75); PLATELET COUNT 346 10^3/uL (130-400); RED BLOOD COUNT 4.51 10^6/uL (4.35-5.85); RED CELL DISTRIBUTION WIDTH 12.8 % (10.0-14.5); WHITE BLOOD COUNT 10.2 10^3/uL (4.3-11.0)
[2017-06-21 01:16] LABS: ALANINE AMINOTRANSFERASE 25 U/L (0-55); ALBUMIN 4.1 GM/DL (3.2-4.5); ALCOHOL < 10 MG/DL (<10); ANION GAP 13 MMOL/L (5-14); ASPARTATE AMINO TRANSFERASE 21 U/L (5-34); BILIRUBIN,TOTAL 0.3 MG/DL (0.1-1.0); BLOOD UREA NITROGEN 23 MG/DL (7-18); BUN/CREATININE RATIO 19; CALCIUM 9.3 MG/DL (8.5-10.1); CARBON DIOXIDE 27 MMOL/L (21-32); CHLORIDE 102 MMOL/L (98-107); CREATININE SERUM 1.21 MG/DL (0.60-1.30); GFR ESTIMATED > 60; GLUCOSE 75 MG/DL (70-105); MAGNESIUM 2.3 MG/DL (1.8-2.4); POTASSIUM 3.6 MMOL/L (3.6-5.0); SODIUM 142 MMOL/L (135-145); TOTAL PROTEIN 7.3 GM/DL (6.4-8.2)
[2017-06-21 01:22] LABS: TROPONIN I < 0.30 NG/ML (<0.30); VALPROIC ACID < 2.0 UG/ML (50.0-100.0)
[2017-06-21] MEDS ORDERED: NS IV 1000 ML 1,000 ML IV ONE (01:41)
[2017-06-21 02:27] LABS: BILIRUBIN,URINE NEGATIVE (NEGATIVE); KETONES,URINE NEGATIVE (NEGATIVE); LEUKOCYTE ESTERASE ,URINE NEGATIVE (NEGATIVE); NITRITE,URINE NEGATIVE (NEGATIVE); PH,URINE 6 (5-9); PROTEIN,URINE NEGATIVE (NEGATIVE); UROBILINOGEN,URINE NORMAL (NORMAL)
[2017-06-21 02:40] LABS: SQUAMOUS EPITHELIAL CELL,UR 0-2 /HPF
[2017-06-21 02:55] VITALS: BP 157/86
[2017-06-22] MEDS ORDERED: CIPR-225 PO (19:38)
[2017-06-22] MEDS ORDERED: METR500T PO (19:38)
[2017-06-22] MEDS ORDERED: LACT1CAP8 PO (19:38)
== END 2017-06-21 02:55 | disposition home or self-care (01) ==
LOC: EDUNIT# 00:30 → ER 00:32
DX: E11.649 Type 2 diabetes mellitus with hypoglycemia without coma (principal); E78.00 Pure hypercholesterolemia, unspecified; I10 Essential (primary) hypertension; E11.40 Type 2 diabetes mellitus with diabetic neuropathy, unspecified; E13.10 Other specified diabetes mellitus with ketoacidosis without coma; F12.10 Cannabis abuse, uncomplicated; F17.210 Nicotine dependence, cigarettes, uncomplicated; Z87.820 Personal history of traumatic brain injury; Z90.49 Acquired absence of other specified parts of digestive tract; Z79.4 Long term (current) use of insulin; Z79.84 Long term (current) use of oral hypoglycemic drugs
CPT/HCPCS: 36415; 80053; 80164; 80306; 80320; 81000; 82962; 83735; 84484; 85025; 93041; 96360

== ENCOUNTER 2017-06-22 15:08 | Emergency (ER) | payer MEDICARE, MEDICAID ==
[~2017-06-22] VITALS: Ht 182.9 cm; Wt 63.5 kg
[~2017-06-22 15:08] MED LIST changes: +METF1000
[2017-06-22 18:13] LABS: BASOPHILS % (AUTO) 0 % (0-10); EOSINOPHILS # (AUTO) 0.6 10^3/uL (0.0-0.3); EOSINOPHILS % (AUTO) 5 % (0-10); LYMPHOCYTES # (AUTO) 2.1 X 10^3 (1.0-4.0); LYMPHOCYTES % (AUTO) 17 % (12-44); MEAN CORPUSCULAR HEMOGLOBIN 31 PG (25-34); MEAN CORPUSCULAR HGB CONC 35 G/DL (32-36); MEAN CORPUSCULAR VOLUME 88 FL (80-99); MEAN PLATELET VOLUME 10.6 FL (7.4-10.4); MONOCYTES # (AUTO) 0.7 X 10^3 (0.0-1.0); MONOCYTES % (AUTO) 6 % (0-12); NEUTROPHILS # (AUTO) 8.5 X 10^3 (1.8-7.8); NEUTROPHILS % (AUTO) 71 % (42-75); PLATELET COUNT 326 10^3/uL (130-400); RED BLOOD COUNT 4.57 10^6/uL (4.35-5.85); RED CELL DISTRIBUTION WIDTH 12.7 % (10.0-14.5); WHITE BLOOD COUNT 11.9 10^3/uL (4.3-11.0)
[2017-06-22] MEDS ORDERED: NS 100 ML (IVPB) BAG IV ONE (18:15)
[2017-06-22] MEDS ORDERED: IOHEXOL 350 MG/ML 100 ML (OMNIPAQUE 350) VIAL IV ONE (18:15)
[2017-06-22 18:18] LABS: BILIRUBIN,URINE NEGATIVE (NEGATIVE); KETONES,URINE 1+ (NEGATIVE); LEUKOCYTE ESTERASE ,URINE NEGATIVE (NEGATIVE); NITRITE,URINE NEGATIVE (NEGATIVE); PH,URINE 5 (5-9); PROTEIN,URINE 2+ (NEGATIVE); UROBILINOGEN,URINE NORMAL (NORMAL)
[2017-06-22 18:25] LABS: PROTHROMBIN TIME PATIENT 12.8 SEC (12.2-14.7)
[2017-06-22 18:33] LABS: ALANINE AMINOTRANSFERASE 25 U/L (0-55); ALBUMIN 3.7 GM/DL (3.2-4.5); ALCOHOL < 10 MG/DL (<10); AMYLASE 28 U/L (25-125); ANION GAP 10 MMOL/L (5-14); ASPARTATE AMINO TRANSFERASE 18 U/L (5-34); BILIRUBIN,TOTAL 0.6 MG/DL (0.1-1.0); BLOOD UREA NITROGEN 15 MG/DL (7-18); BUN/CREATININE RATIO 15; CALCIUM 8.9 MG/DL (8.5-10.1); CARBON DIOXIDE 27 MMOL/L (21-32); CHLORIDE 102 MMOL/L (98-107); CREATINE KINASE 79 U/L (30-200); CREATININE SERUM 1.02 MG/DL (0.60-1.30); GFR ESTIMATED > 60; GLUCOSE 269 MG/DL (70-105); LIPASE 8 U/L (8-78); MAGNESIUM 1.7 MG/DL (1.8-2.4); POTASSIUM 3.9 MMOL/L (3.6-5.0); SODIUM 139 MMOL/L (135-145); TOTAL PROTEIN 6.5 GM/DL (6.4-8.2)
[2017-06-22 18:39] LABS: TROPONIN I < 0.30 NG/ML (<0.30)
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
--- NOTE | 2017-06-22 19:03 | Diagnostic Imaging Report ---
EXAMINATION: Chest radiograph, portable AP view. DATE: 06/22/2017 at 1832 hours. INDICATION: 61-year-old male, chest pain. COMPARISON: 05/23/2017. FINDINGS: Stable overall appearance of the cardiomediastinal silhouette. There is no identified pneumothorax, or large pleural effusion. There is no focal airspace consolidation. IMPRESSION: 1. No identified acute cardiopulmonary abnormality. Dictated by: Dictated on workstation # [id number]
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
[2017-06-22] MEDS ORDERED: METR500T PO (19:38)
[2017-06-22] MEDS ORDERED: LACT1CAP8 PO (19:38)
[2017-06-22] MEDS ORDERED: CIPR-225 PO (19:38)
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
[2017-06-22 21:23] VITALS: BP 167/99
== END 2017-06-22 21:23 | disposition home or self-care (01) ==
LOC: EDUNIT# 15:08 → ER 15:10
DX: S20.219A Contusion of unspecified front wall of thorax, initial encounter (principal); K52.9 Noninfective gastroenteritis and colitis, unspecified; E11.9 Type 2 diabetes mellitus without complications; E78.00 Pure hypercholesterolemia, unspecified; I10 Essential (primary) hypertension; E11.40 Type 2 diabetes mellitus with diabetic neuropathy, unspecified; F12.10 Cannabis abuse, uncomplicated; Z77.22 Contact with and (suspected) exposure to environmental tobacco smoke (acute) (chronic); Z90.49 Acquired absence of other specified parts of digestive tract; Z87.820 Personal history of traumatic brain injury; Z79.84 Long term (current) use of oral hypoglycemic drugs; Z79.4 Long term (current) use of insulin; Z91.14 Patient's other noncompliance with medication regimen; Y04.0XXA Assault by unarmed brawl or fight, initial encounter
CPT/HCPCS: 36415; 70450; 71010; 71260; 72125; 74177; 80053; 80306; 80320; 81000; 82150; 82550; 82553; 83690; 83735; 83880; 84484; 85025; 85610; 85730; 93005; 93041

== ENCOUNTER 2017-10-22 22:16 | Observation (INO) | payer MEDICARE, MEDICAID ==
[~2017-10-22] VITALS: Ht 182.9 cm; Wt 62.7 kg
[~2017-10-22 22:16] MED LIST changes: +CIPR-225 PO; +LACT1CAP8 PO; +METR500T PO
--- NOTE | 2017-10-22 22:22 | ED General ---
General Chief Complaint: Glucose Problems Stated Complaint: LIGHTHEADED,WEAKNESS Source of Information: Patient, EMS Exam Limitations: No Limitations (AMADEO ROCHA APRN) History of Present Illness Date Seen by Provider: Oct 22, 2017 Time Seen by Provider: 22:21 Initial Comments To ER per EMS from home with reports of lightheadedness and general weakness. He complains of a dry mouth. Blood sugar is 435 using known diabetic. States she 's been feeling poorly for several days. Blood pressure on scene with EMS was 85 systolic. Fluids were started by EMS in the hospital. Afebrile. He complains he is very dizzy at all times but especially upon standing. Timing/Duration: 1-2 Days Severity: Moderate (AMADEO ROCHA APRN) Allergies and Home Medications Allergies Coded Allergies: Benzodiazepines (Verified Allergy, Unknown, 05/10/14) Home Medications Ciprofloxacin HCl 500 Mg Tablet, 500 MG PO BID, #20 Prescribed by: ARPAN HACKETT on 06/22/171937 Insulin Aspart 100 Unit/1 Ml Susp, 10 UNIT SQ AC, (Reported) Insulin Determir 1,000 Units/10 Ml Soln, 60 UNITS SQ HS, (Reported) Lactobacillus Acidophilus 1 Each Capsule, 2 EACH PO QID, #80 Prescribed by: ARPAN HACKETT on 06/22/171937 Lisinopril 2.5 Mg Tablet, 2.5 MG PO DAILY, (Reported) Metformin HCl 1,000 Mg Tablet, (Reported) Metronidazole 500 Mg Tablet, 500 MG PO QID, #40 Prescribed by: ARPAN HACKETT on 06/22/171937 Constitutional: see HPI, weakness EENTM: see HPI Respiratory: no symptoms reported Cardiovascular: no symptoms reported Genitourinary: no symptoms reported Musculoskeletal: no symptoms reported Skin: no symptoms reported Psychiatric/Neurological: No Symptoms Reported Hematologic/Lymphatic: No Symptoms Reported (AMADEO ROCHA APRN) All Other Systems Reviewed Negative Unless Noted: Yes (ISABEL EVERETT MD) Past Hoeupiy-Ulielu-Assgai Hx Patient Social History Drug of Choice: THC, METH Type Used: Cigarettes 2nd Hand Smoke Exposure: Yes Recent Hopitalizations: No (AMADEO ROCHA APRN) Immunizations Up To Date Tetanus Booster (TDap): Less than 5yrs Date of Pneumonia Vaccine: Jan 16, 2016 (AMADEO ROCHA APRN) Seasonal Allergies Seasonal Allergies: No (AMADEO ROCHA APRN) Surgeries History of Surgeries: Yes Surgeries: Appendectomy, Gallbladder, Orthopedic (AMADEO ROCHA APRN) Respiratory History of Respiratory Disorde: No (AMADEO ROCHA APRN) Cardiovascular History of Cardiac Disorders: Yes Cardiac Disorders: High Cholesterol, Hypertension (AMADEO ROCHA APRN) Neurological History of Neurological Disord: Yes (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) Neurological Disorders: Neuropathy, Traumatic Brain Injury (AMADEO ROCHA APRN) Reproductive System Hx Reproductive Disorders: No Sexually Transmitted Disease: No HIV/AIDS: No (AMADEO ROCHA APRN) Genitourinary History of Genitourinary Disor: No (AMADEO ROCHA APRN) Gastrointestinal History of Gastrointestinal Di: No (AMADEO ROCHA APRN) Musculoskeletal History of Musculoskeletal Dis: Yes (C1-C2 FX, LOW BACK FX) Musculoskeletal Disorders: Chronic Back Pain, Fractures (AMADEO ROCHA APRN) Endocrine History of Endocrine Disorders: Yes (DKA) Endocrine Disorders: Diabetes, Insulin dep (AMADEO ROCHA APRN) HEENT History of HEENT Disorders: No (EDENTULOUS) Loss of Vision: Denies Hearing Impairment: Denies (AMADEO ROCHA APRN) Cancer History of Cancer: No (AMADEO ROCHA APRN) Psychosocial History of Psychiatric Problem: No (AMADEO ROCHA APRN) Integumentary History of Skin or Integumenta: Yes (LEG CELLULITIS) (AMADEO ROCHA APRN) Blood Transfusions History of Blood Disorders: No Adverse Reaction to a Blood Tr: No (AMADEO ROCHA APRN) Family Medical History Family Medial History: Blood clots 19 FATHER Diabetes mellitus 19 FATHER 19 MOTHER G8 BROTHER (AMADEO ROCHA APRN) Family Medial History: Blood clots 19 FATHER Diabetes mellitus 19 FATHER 19 MOTHER G8 BROTHER (ISABEL EVERETT MD) Physical Exam Vital Signs Vital Sign - Last 12Hours 10/22/17 22:20 Temp 97.8 Pulse 96 Resp 20 B/P (MAP) 105/69 (81) Pulse Ox 98 O2 Delivery Room Air (ISABEL EVERETT MD) Vital Signs Capillary Refill : (AMADEO ROCHA APRN) General Appearance: No Apparent Distress, WD/WN Eyes: Bilateral Eye Normal Inspection, Bilateral Eye PERRL, Bilateral Eye EOMI HEENT: PERRL/EOMI, TMs Normal Neck: Full Range of Motion, Normal Inspection Respiratory: Normal Breath Sounds, No Accessory Muscle Use, No Respiratory Distress Cardiovascular: Regular Rate, Rhythm, Normal Peripheral Pulses Gastrointestinal: Normal Bowel Sounds, Non Tender, Soft Extremity: Normal Capillary Refill, Normal Inspection Neurologic/Psychiatric: Alert, Oriented x3, No Motor/Sensory Deficits Skin: Normal Color, Warm/Dry (AMADEO ROCHA APRN) Back: Normal Inspection, No CVA Tenderness, No Vertebral Tenderness (ISABEL EVERETT MD) Progress/Results/Core Measures Suspected Sepsis SIRS Temperature: Pulse: Respiratory Rate: Blood Pressure / Mean: (AMADEO ROCHA APRN) Results/Orders Lab Results Laboratory Tests Test 10/22/17 22:26 10/22/17 22:30 Range/Units Glucometer 363 H 70-110 MG/DL White Blood Count 10.3 4.3-11.0 10^3/uL Red Blood Count 4.72 4.35-5.85 10^6/uL Hemoglobin 14.0 13.3-17.7 G/DL Hematocrit 40 40-54 % Mean Corpuscular Volume 85 80-99 FL Mean Corpuscular Hemoglobin 30 25-34 PG Mean Corpuscular Hemoglobin Concent 35 32-36 G/DL Red Cell Distribution Width 13.2 10.0-14.5 % Platelet Count 412 H 130-400 10^3/uL Mean Platelet Volume 10.0 7.4-10.4 FL Neutrophils (%) (Auto) 73 42-75 % Lymphocytes (%) (Auto) 17 12-44 % Monocytes (%) (Auto) 7 0-12 % Eosinophils (%) (Auto) 3 0-10 % Basophils (%) (Auto) 1 0-10 % Neutrophils # (Auto) 7.5 1.8-7.8 X 10^3 Lymphocytes # (Auto) 1.7 1.0-4.0 X 10^3 Monocytes # (Auto) 0.7 0.0-1.0 X 10^3 Eosinophils # (Auto) 0.3 0.0-0.3 10^3/uL Basophils # (Auto) 0.1 0.0-0.1 10^3/uL Urine Color YELLOW Urine Clarity CLEAR Urine pH 5 5-9 Urine Specific [place] 1.020 1.016-1.022 Urine Protein 2+ H NEGATIVE Urine Glucose (UA) 4+ H NEGATIVE Urine Ketones 3+ H NEGATIVE Urine Nitrite NEGATIVE NEGATIVE Urine Bilirubin NEGATIVE NEGATIVE Urine Urobilinogen NORMAL NORMAL MG/DL Urine Leukocyte Esterase NEGATIVE NEGATIVE Urine RBC (Auto) NEGATIVE NEGATIVE Urine RBC NONE /HPF Urine WBC NONE /HPF Urine Squamous Epithelial Cells RARE /HPF Urine Crystals NONE /LPF Urine Bacteria NONE /HPF Urine Casts NONE /LPF Urine Mucus TRACE /LPF Urine Culture Indicated NO Sodium Level 136 135-145 MMOL/L Potassium Level 4.2 3.6-5.0 MMOL/L Chloride Level 100 98-107 MMOL/L Carbon Dioxide Level 26 21-32 MMOL/L Anion Gap 10 5-14 MMOL/L Blood Urea Nitrogen 36 H 7-18 MG/DL Creatinine 1.66 H 0.60-1.30 MG/DL Estimat Glomerular Filtration Rate 42 BUN/Creatinine Ratio 22 Glucose Level 410 *H 70-105 MG/DL Calcium Level 8.8 8.5-10.1 MG/DL Total Bilirubin 0.2 0.1-1.0 MG/DL Aspartate Amino Transf (AST/SGOT) 11 5-34 U/L Alanine Aminotransferase (ALT/SGPT) 18 0-55 U/L Alkaline Phosphatase 102 40-136 U/L Total Protein 6.2 L 6.4-8.2 GM/DL Albumin 3.3 3.2-4.5 GM/DL Urine Opiates Screen NEGATIVE NEGATIVE Urine Oxycodone Screen NEGATIVE NEGATIVE Urine Methadone Screen NEGATIVE NEGATIVE Urine Propoxyphene Screen NEGATIVE NEGATIVE Urine Barbiturates Screen NEGATIVE NEGATIVE Ur Tricyclic Antidepressants Screen NEGATIVE NEGATIVE Urine Phencyclidine Screen NEGATIVE NEGATIVE Urine Amphetamines Screen POSITIVE H NEGATIVE Urine Methamphetamines Screen POSITIVE H NEGATIVE Urine Benzodiazepines Screen NEGATIVE NEGATIVE Urine Cocaine Screen NEGATIVE NEGATIVE Urine Cannabinoids Screen POSITIVE H NEGATIVE Serum Alcohol < 10 <10 MG/DL (ISABEL EVERETT MD) My Orders Orders - ISABEL EVERETT MD Insulin (Regular) Human (Humulin R (Per (10/22/17 22:59) (ISABEL EVERETT MD) Medications Given in ED Current Medications Medications Dose Ordered Sig/Arvin Route Start Time Stop Time Status Last Admin Dose Admin Meclizine HCl 12.5 mg ONCE ONCE PO 10/22/17 22:30 10/22/17 22:31 DC 10/22/17 22:33 12.5 MG (ISABEL EVERETT MD) Vital Signs/I&O Vital Sign - Last 12Hours 10/22/17 22:20 Temp 97.8 Pulse 96 Resp 20 B/P (MAP) 105/69 (81) Pulse Ox 98 O2 Delivery Room Air (ISABEL EVERETT MD) Vital Signs/I&O Capillary Refill : (AMADEO ROCHA APRN) Progress Note : Progress Note Seen and evaluated the patient and agree with above except as indicated. I have reviewed and agree with the plan of care. Patient is here with weakness and elevated blood sugar. He has been staying in the back of his truck over the last several days As he is homeless and states that he has been dealing with a cold okay but it has been a tough few days. Denies the use of drugs or alcohol. States that his blood sugars have been okay. Blood sugar was noted be elevated here. Does have positive ketones in the urine as well as glucose. Also noted to have elevated serum creatinine. Patient has received 2 L of normal saline here as well as 10 units of insulin IV. I did discuss the case with Dr. Oglesby, on-call for [facility]. She accepts patient for admission, observation status. We will continue IV fluids as well as insulin. Patient was informed that methamphetamine is not helpful to his underlying medical health and he should refrain from that. Patient states that he appreciated the information. (ISABEL EVERETT MD) Diagnostic Imaging Diagonstic Imaging: CT Plain Films/CT/US/NM/MRI: head Comments No acute intracranial process. Chronic small vessel disease noted. 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 Referrals: [facility] [place] (PCP/Family) Primary Care Physician AMADEO ROCHA APRN Oct 22, 2017 22:22 ISABEL EVERETT MD Oct 22, 2017 23:45
[2017-10-22] MEDS ORDERED: MECLIZINE 25 MG (ANTIVERT) TAB PO ONE (22:30)
[2017-10-22] MEDS ORDERED: NS IV 1000 ML 1,000 ML IV SCH (22:30)
[2017-10-22 22:40] LABS: BASOPHILS # (AUTO) 0.1 10^3/uL (0.0-0.1); BASOPHILS % (AUTO) 1 % (0-10); BILIRUBIN,URINE NEGATIVE (NEGATIVE); CLARITY,URINE CLEAR; COLOR,URINE YELLOW; EOSINOPHILS # (AUTO) 0.3 10^3/uL (0.0-0.3); EOSINOPHILS % (AUTO) 3 % (0-10); GLUCOSE, URINE (UA) 4+ (NEGATIVE); HEMATOCRIT 40 % (40-54); KETONES,URINE 3+ (NEGATIVE); LEUKOCYTE ESTERASE ,URINE NEGATIVE (NEGATIVE); LYMPHOCYTES # (AUTO) 1.7 X 10^3 (1.0-4.0); LYMPHOCYTES % (AUTO) 17 % (12-44); MEAN CORPUSCULAR HEMOGLOBIN 30 PG (25-34); MEAN CORPUSCULAR HGB CONC 35 G/DL (32-36); MEAN CORPUSCULAR VOLUME 85 FL (80-99); MONOCYTES # (AUTO) 0.7 X 10^3 (0.0-1.0); MONOCYTES % (AUTO) 7 % (0-12); NEUTROPHILS # (AUTO) 7.5 X 10^3 (1.8-7.8); NEUTROPHILS % (AUTO) 73 % (42-75); NITRITE,URINE NEGATIVE (NEGATIVE); PH,URINE 5 (5-9); PLATELET COUNT 412 10^3/uL (130-400); PROTEIN,URINE 2+ (NEGATIVE); RED BLOOD COUNT 4.72 10^6/uL (4.35-5.85); RED CELL DISTRIBUTION WIDTH 13.2 % (10.0-14.5); UROBILINOGEN,URINE NORMAL (NORMAL); WHITE BLOOD COUNT 10.3 10^3/uL (4.3-11.0)
[2017-10-22 22:50] LABS: SQUAMOUS EPITHELIAL CELL,UR RARE /HPF
[2017-10-22 22:55] LABS: AMPHETAMINE SCREEN, URINE POSITIVE (NEGATIVE); BARBITURATE SCREEN URINE NEGATIVE (NEGATIVE); BENZODIAZEPINES SCREEN URINE NEGATIVE (NEGATIVE); CANNABINOID SCREEN, URINE POSITIVE (NEGATIVE); COCAINE SCREEN URINE NEGATIVE (NEGATIVE); METHADONE STAT NEGATIVE (NEGATIVE); METHAMPHETAMINE SCREEN URINE S POSITIVE (NEGATIVE); OPIATE SCREEN URINE NEGATIVE (NEGATIVE); OXYCODONE STAT NEGATIVE (NEGATIVE); PROPOXYPHENE STAT NEGATIVE (NEGATIVE); TRICYCLIC ANTIDEPRESSANTS SCRE NEGATIVE (NEGATIVE)
[2017-10-22 22:59] LABS: ALANINE AMINOTRANSFERASE 18 U/L (0-55); ALBUMIN 3.3 GM/DL (3.2-4.5); ALKALINE PHOSPHATASE 102 U/L (40-136); BILIRUBIN,TOTAL 0.2 MG/DL (0.1-1.0); BUN/CREATININE RATIO 22; CALCIUM 8.8 MG/DL (8.5-10.1); CARBON DIOXIDE 26 MMOL/L (21-32); CHLORIDE 100 MMOL/L (98-107); CREATININE SERUM 1.66 MG/DL (0.60-1.30); GFR ESTIMATED 42; POTASSIUM 4.2 MMOL/L (3.6-5.0); SODIUM 136 MMOL/L (135-145); TOTAL PROTEIN 6.2 GM/DL (6.4-8.2)
[2017-10-22] MEDS ORDERED: inSUlin (REGULAR) HUMAN 1 UNIT/0.01 ML (CHARGE PER UNIT) IV STA (22:59)
[2017-10-22 23:02] LABS: GLUCOSE 410 MG/DL (70-105)
[2017-10-23 00:10] VITALS: BP 99/59
[2017-10-23] MEDS ORDERED: ONDANSETRON 4 MG/2 ML (SDV) Z0FRAN IV PRN (00:30)
[2017-10-23] MEDS: NS IV 1000 ML 1,000 ML IV SCH ×4 (00:31→21:18)
[2017-10-23] MEDS ORDERED: RT-ALBUTEROL/IPRATROPIUM 3 ML (DUONEB) VIAL INH PRN (01:15)
[2017-10-23 04:00] VITALS: BP 120/70
[2017-10-23 04:54] LABS: BASOPHILS # (AUTO) 0.1 10^3/uL (0.0-0.1); BASOPHILS % (AUTO) 1 % (0-10); EOSINOPHILS # (AUTO) 0.5 10^3/uL (0.0-0.3); EOSINOPHILS % (AUTO) 6 % (0-10); HEMATOCRIT 35 % (40-54); HEMOGLOBIN 12.1 G/DL (13.3-17.7); LYMPHOCYTES # (AUTO) 2.3 X 10^3 (1.0-4.0); LYMPHOCYTES % (AUTO) 28 % (12-44); MEAN CORPUSCULAR HEMOGLOBIN 30 PG (25-34); MEAN CORPUSCULAR HGB CONC 35 G/DL (32-36); MEAN CORPUSCULAR VOLUME 85 FL (80-99); MONOCYTES # (AUTO) 0.5 X 10^3 (0.0-1.0); MONOCYTES % (AUTO) 7 % (0-12); NEUTROPHILS # (AUTO) 4.8 X 10^3 (1.8-7.8); NEUTROPHILS % (AUTO) 59 % (42-75); PLATELET COUNT 355 10^3/uL (130-400); RED CELL DISTRIBUTION WIDTH 13.2 % (10.0-14.5); WHITE BLOOD COUNT 8.1 10^3/uL (4.3-11.0)
[2017-10-23 05:29] LABS: ALANINE AMINOTRANSFERASE 14 U/L (0-55); ALBUMIN 2.8 GM/DL (3.2-4.5); ALKALINE PHOSPHATASE 78 U/L (40-136); BILIRUBIN,TOTAL 0.2 MG/DL (0.1-1.0); BUN/CREATININE RATIO 34; CALCIUM 7.9 MG/DL (8.5-10.1); CARBON DIOXIDE 22 MMOL/L (21-32); CHLORIDE 107 MMOL/L (98-107); CREATININE SERUM 0.96 MG/DL (0.60-1.30); GFR ESTIMATED > 60; GLUCOSE 158 MG/DL (70-105); SODIUM 139 MMOL/L (135-145); TOTAL PROTEIN 5.3 GM/DL (6.4-8.2)
[2017-10-23] MEDS: inSUlin (REGULAR) HUMAN 1 UNIT/0.01 ML (CHARGE PER UNIT) SC SCH ×2 (06:14→10:19)
[2017-10-23] MEDS: RT-ALBUTEROL/IPRATROPIUM 3 ML (DUONEB) VIAL INH SCH ×2 (06:33→18:57)
--- NOTE | 2017-10-23 06:50 | Diagnostic Imaging Report ---
PROCEDURE: CT head without contrast. TECHNIQUE: Multiple contiguous axial images were obtained through the brain without the use of intravenous contrast. INDICATION: Dizziness and vertigo x3 weeks The ventricles are normal in size, shape and position. There are no masses or hemorrhages. There are no extra-axial fluid collections. IMPRESSION: Negative CT head Dictated by: Dictated on workstation # [id number]
[2017-10-23] MEDS ORDERED: CATHETER FLUSH 10 ML SYR IV PRN (07:00)
[2017-10-23] MEDS ORDERED: INFLUENZA TRIvalent 2017-2018 0.5 ML/45 MCG SYR IM ONE (07:00)
[2017-10-23 08:00] VITALS: BP 108/55
[2017-10-23] MEDS ORDERED: GABA-488 PO (09:21)
[2017-10-23] MEDS ORDERED: ACET-2267 PO (09:21)
[2017-10-23] MEDS ORDERED: NAPR220T66 PO (09:21)
--- NOTE | 2017-10-23 11:01 | Admission Progress Note ---
Brief Admission Note Complete H&P must still be completed. 62 year old male who reports that he presented to the ED with 3 weeks of dizziness and vertigo. He was found to be hyperglycemic, hypotensive that responded well to a fluid bolus, acute renal insufficiency, positive for methamphetamines. The patient is homeless and lives in his truck. This morning he reports that he is feeling better, but still weak. He appears disheveled and malnourished. Vitals are stable on room air and patient has remained afebrile. Head CT was negative for acute process. Will continue to observe today and tonight and anticipate discharge tomorrow. Recheck labs in AM. Admission diagnosis: Hypotension - now resolved Dizziness - now resolved Hyperglycemia Uncontrolled Type II Diabetes Methamphetamine Abuse COPD THC Abuse Diabetic Neuropathy Date Seen by Provider: Oct 23, 2017 Time Seen by Provider: 09:15 THANH PERALTA DO Oct 23, 2017 11:01
[2017-10-23] MEDS ORDERED: ACETAMINOPHEN 500 MG TAB (TYLENOL) PO PRN (11:15)
[2017-10-23] MEDS ORDERED: NAPROXEN 250 MG (NAPROSYN) TABLET PO PRN (11:30)
[2017-10-23] MEDS: inSUlin ASPART (NovoLOG) 1 UNIT/0.01 ML (CHARGE PER UNIT) SC SCH ×3 (11:59→21:18)
[2017-10-23 12:00] VITALS: BP 113/60
[2017-10-23] MEDS: GABAPENTIN 300 MG (NEURONTIN) CAP PO SCH ×2 (13:47→21:17)
[2017-10-23 16:00] VITALS: BP 110/57
[2017-10-23] MEDS: inSUlin ASPART (NovoLOG) 1 UNIT/0.01 ML (CHARGE PER UNIT) SQ SCH (17:39)
[2017-10-23 20:00] VITALS: BP 91/54
[2017-10-23] MEDS ORDERED: inSUlin DETERMIR 1 UNIT/0.01 ML (LEVEMIR) CHARGE PER UNIT SQ SCH (21:00)
[2017-10-24] VITALS: BP 119/65
[2017-10-24] MEDS: inSUlin ASPART (NovoLOG) 1 UNIT/0.01 ML (CHARGE PER UNIT) SC SCH ×2 (06:14→13:23)
[2017-10-24 06:29] LABS: BASOPHILS % (AUTO) 0 % (0-10); EOSINOPHILS # (AUTO) 0.3 10^3/uL (0.0-0.3); EOSINOPHILS % (AUTO) 3 % (0-10); HEMATOCRIT 38 % (40-54); HEMOGLOBIN 13.1 G/DL (13.3-17.7); LYMPHOCYTES # (AUTO) 3.3 X 10^3 (1.0-4.0); LYMPHOCYTES % (AUTO) 30 % (12-44); MEAN CORPUSCULAR HEMOGLOBIN 30 PG (25-34); MEAN CORPUSCULAR HGB CONC 35 G/DL (32-36); MEAN CORPUSCULAR VOLUME 87 FL (80-99); MEAN PLATELET VOLUME 10.1 FL (7.4-10.4); MONOCYTES # (AUTO) 0.8 X 10^3 (0.0-1.0); MONOCYTES % (AUTO) 7 % (0-12); NEUTROPHILS # (AUTO) 6.5 X 10^3 (1.8-7.8); NEUTROPHILS % (AUTO) 60 % (42-75); PLATELET COUNT 396 10^3/uL (130-400); RED BLOOD COUNT 4.34 10^6/uL (4.35-5.85); RED CELL DISTRIBUTION WIDTH 13.2 % (10.0-14.5)
[2017-10-24 06:54] LABS: ALANINE AMINOTRANSFERASE 14 U/L (0-55); ALKALINE PHOSPHATASE 71 U/L (40-136); BILIRUBIN,TOTAL 0.1 MG/DL (0.1-1.0); BUN/CREATININE RATIO 29; CALCIUM 8.2 MG/DL (8.5-10.1); CARBON DIOXIDE 23 MMOL/L (21-32); CHLORIDE 112 MMOL/L (98-107); CREATININE SERUM 0.76 MG/DL (0.60-1.30); GFR ESTIMATED > 60; MAGNESIUM 1.8 MG/DL (1.8-2.4); POTASSIUM 3.4 MMOL/L (3.6-5.0); SODIUM 144 MMOL/L (135-145); TOTAL PROTEIN 5.6 GM/DL (6.4-8.2)
[2017-10-24 06:56] LABS: GLUCOSE 43 MG/DL (70-105)
[2017-10-24] MEDS: NS IV 1000 ML 1,000 ML IV SCH (07:38)
[2017-10-24] MEDS: RT-ALBUTEROL/IPRATROPIUM 3 ML (DUONEB) VIAL INH SCH (08:09)
--- NOTE | 2017-10-24 08:40 | Discharge Summary ---
Diagnosis/Chief Complaint Date of Admission Oct 22, 2017 at 23:35 Date of Discharge 10/24/17 Admission Diagnosis Admission Diagnosis Hypotension Dizziness Acute Renal Insufficiency Hyperglycemia Uncontrolled Type II Diabetes Methamphetamine Abuse COPD THC Abuse Diabetic Neuropathy Discharge Diagnosis Hypotension - now resolved Dizziness - now resolved Acute Renal Insufficiency -Cr 1.96 on admission, now WNL at 0.76 after hydration Hyperglycemia -pt with uncontrolled Type II Diabetes, so with some intermittent hyperglycemia , but much improved since admission -will discharge to home on modified insulin regimen with follow up next week with Dr. Mathews Uncontrolled Type II Diabetes -pt with poor compliance and homelessness, as well as drug abuse, contributing to poor diabetic control -will discharge to home on modified insulin regimen -- continue mealtime insulin , but patient with hypoglycemia this AM, so will decrease long acting insulin until patient follows up in clinic next week Methamphetamine Abuse -cessation encouraged, pt can speak with Dr. Mathews next week about clinic resources COPD -tobacco cessation encouraged THC Abuse -cessation encouraged, pt can explore clinic resources available at appointment next week Diabetic Neuropathy The conditions leading to pt's placement in observation have resolved - his significant hyperglycemia, dizziness and hypotension. His acute renal insufficiency has also improved with hydration. Overall, the patient needs to stop methamphetamine use, and pursue rehab of some type, which will hopefully lead to improvement in his living situation, which would also help with his diabetic control. The patient has an appointment with Dr. Mathews on at 1:40 pm to establish care and he can discuss options for how best to proceed with this process with him at this time. This morning the patient reported he was "fine but tired" and declined any further discussion. Patient was informed that we would be discharging him today as was discussed yesterday, and decreasing his long acting insulin since he had some hypoglycemia this morning. Condition: Stable Dispo: Discharge Chief Complaint/HPI Chief Complaint/HPI 62 year old male who reports that he presented to the ED with 3 weeks of dizziness and vertigo. He was found to be hyperglycemic, hypotensive that responded well to a fluid bolus, acute renal insufficiency, positive for methamphetamines. The patient is homeless and lives in his truck. This morning he reports that he is feeling better, but still weak. He appears disheveled and malnourished. Head CT was negative for acute process. Discharge Summary-OBS Procedures None. Discharge Physical Examination Allergies: Coded Allergies: Benzodiazepines (Verified Allergy, Unknown, 05/10/14) Vitals & I&Os Intake and Output 10/24/17 00:00 Intake Total 1980 ml Output Total 1000 ml Balance 980 ml Vital Sign - Last 12Hours Date Time Temp Pulse Resp B/P (MAP) Pulse Ox O2 Delivery O2 Flow Rate FiO2 10/24/17 08:09 97 Room Air 10/24/17 00:00 97.6 78 16 119/65 (83) 3.00 10/23/17 00:57 21 General Appearance: Alert, Oriented X3, No Acute Distress HEENT: Atraumatic, EOMI, Mucous Memb Moist/[place] Respiratory: Clear to Auscultation, Normal Air Movement Cardiovascular: Regular Rate, Normal S1, Normal S2, No Murmurs Abdominal: Normal Bowel Sounds, Soft, No Tenderness, No Hepatosplenomegaly, No Masses Extremities: No Clubbing, No Cyanosis, No Edema, Normal Pulses, No Tenderness/ Swelling Skin: No Rashes, No Significant Lesion Neuro: Normal Speech, Normal Tone, Sensation Intact, Cranial Nerves 3-12 NL Psych/Mental Status: Mental Status NL, Mood NL Hospital Course see final discharge diagnoses Labs Laboratory Tests 10/23/17 10:12: Glucometer 274H 10/23/17 11:37: Glucometer 284H 10/23/17 15:59: Glucometer 156H 10/23/17 21:02: Glucometer 194H 10/24/17 05:52: Glucometer 62L 10/24/17 06:05: White Blood Count 11.0, Red Blood Count 4.34L, Hemoglobin 13.1L, Hematocrit 38L , Mean Corpuscular Volume 87, Mean Corpuscular Hemoglobin 30, Mean Corpuscular Hemoglobin Concent 35, Red Cell Distribution Width 13.2, Platelet Count 396, Mean Platelet Volume 10.1, Neutrophils (%) (Auto) 60, Lymphocytes (%) (Auto) 30 , Monocytes (%) (Auto) 7, Eosinophils (%) (Auto) 3, Basophils (%) (Auto) 0, Neutrophils # (Auto) 6.5, Lymphocytes # (Auto) 3.3, Monocytes # (Auto) 0.8, Eosinophils # (Auto) 0.3, Basophils # (Auto) 0.0, Sodium Level 144, Potassium Level 3.4L, Chloride Level 112H, Carbon Dioxide Level 23, Anion Gap 9, Blood Urea Nitrogen 22H, Creatinine 0.76, Estimat Glomerular Filtration Rate > 60, BUN /Creatinine Ratio 29, Glucose Level 43*L, Calcium Level 8.2L, Magnesium Level 1.8, Total Bilirubin 0.1, Aspartate Amino Transf (AST/SGOT) 13, Alanine Aminotransferase (ALT/SGPT) 14, Alkaline Phosphatase 71, Total Protein 5.6L, Albumin 3.0L 10/24/17 07:02: Glucometer 133H Radiology Reviewed Head CT: negative for acute process Discussion & Recommendations see final discharge diagnosis Discharge Condition at discharge Stable Instructions to patient/family Please see electronic discharge instructions given to patient. Discharge Medications Reviewed and agree with Discharge Medication list on patient's Discharge Instruction sheet Clinical Quality Measures DVT/VTE Risk/Contraindication: Risk Factor Score Per Nursin RFS Level Per Nursing on Admit: 4+=Very High Copy Copies To 1: JUAN ANTONIO MATHEWS MD, MARGARET E DO Oct 24, 2017 08:40
[2017-10-24] MEDS ORDERED: KCL 20 MEQ TAB (K-DUR) PO NR (08:45)
[2017-10-24 08:50] VITALS: BP 143/64
[2017-10-24] MEDS: GABAPENTIN 300 MG (NEURONTIN) CAP PO SCH ×2 (09:57→13:23)
[2017-10-24] MEDS: inSUlin ASPART (NovoLOG) 1 UNIT/0.01 ML (CHARGE PER UNIT) SQ SCH ×2 (09:57→13:23)
[2017-10-24] MEDS ORDERED: INSU100V5 SQ (11:59)
--- NOTE | 2017-10-24 12:02 | Discharge Instructions ---
Discharge [facility] Discharge Medications New, Converted or Re-Newed RX: Other (no new medications; dose adjustment to long acting insulin) Changed Medications: Insulin Determir (Levemir) 1,000 Units/10 Ml Soln 40 UNITS SQ HS, #1 EA (Changed from: 60 UNITS; LAST FILLED 05-22-17) NOTE DOSE ADJUSTMENT Continued Medications: Acetaminophen (Tylenol Extra Strength) 500 Mg Tablet 1000 MG PO Q6H PRN for PAIN-MILD, TAB Gabapentin (Gabapentin) 300 Mg Capsule 300 MG PO TID, CAP Insulin Aspart (Novolog) 100 Unit/1 Ml Susp 10 UNIT SQ AC, EA LAST FILLED 05-22-17 Naproxen Sodium (Aleve) 220 Mg Tablet 440 MG PO Q8H PRN for PAIN-MILD, TAB Patient Instructions Patient Instructions -continue mealtime insulin -NOTE DOSE ADJUSTMENT TO LEVEMIR -keep follow up appointment with Dr. Mathews as scheduled -contact clinic if need refills of any medications -stop methamphetamine use -stop or cut back on smoking Goal/Follow Up Appt: Dr. Mathews, 10/29/17 at 1:40 pm Return to The Hospital For: chest pain or pressure, shortness of breath that is out of the normal for you, low blood sugar not resolved by eating, if directed by production officer provider, or any other emergent complaints or concerns Activity & Diet Discharge Diet: ADA Diet Activity as Tolerated: Yes Copy Copies To 1: JUAN ANTONIO MATHEWS MD, MARGARET E DO Oct 24, 2017 12:02
[2017-10-24 14:25] VITALS: BP 143/64
== END 2017-10-24 11:59 | disposition home or self-care (01) ==
LOC: EDUNIT# 22:16 → ER 22:17 → INTOOBSV 23:35 → 4TH 23:35
PROVIDERS: ADMIT Family Medicine; ATTEND Family Medicine
DX: I95.9 Hypotension, unspecified (principal); R42 Dizziness and giddiness; N28.9 Disorder of kidney and ureter, unspecified; E11.65 Type 2 diabetes mellitus with hyperglycemia; E11.42 Type 2 diabetes mellitus with diabetic polyneuropathy; J44.9 Chronic obstructive pulmonary disease, unspecified; F15.10 Other stimulant abuse, uncomplicated; F12.10 Cannabis abuse, uncomplicated; Z79.4 Long term (current) use of insulin; Z79.899 Other long term (current) drug therapy; F17.210 Nicotine dependence, cigarettes, uncomplicated; Z87.820 Personal history of traumatic brain injury
CPT/HCPCS: 36415; 70450; 80053; 80306; 80320; 81000; 82962; 83735; 85025; 93005; 94640; 94760; 96374; G0378

== ENCOUNTER 2018-06-12 13:37 | Emergency (ER) | payer MEDICARE, MEDICAID ==
[~2018-06-12] VITALS: Ht 182.9 cm; Wt 49.9 kg
[~2018-06-12 13:37] MED LIST changes: +ACET-2267 PO; +METF-399; +METF-399 PO; -METF1000; +NAPR220T66 PO
[2018-06-12] MEDS ORDERED: NS IV 1000 ML 1,000 ML IV ONE (13:48)
--- OUTSIDE RECORDS SUMMARY | 2018-06-12 14:03 | XMS REPORT ---
Author Author HARVEY Cruz Organization [facility] Address [address] [place] [address] Care Team Providers Care Bottom Precipitator Operator Name Role Phone Nancy HARVEY Unavailable PROBLEMS Type Condition ICD9-CM Code CLV51-VY Code Onset Dates Condition Status SNOMED Code Problem History of drug use Z87.898 Active 317941545 Problem Neuropathy G62.9 Active 240195226 Problem Microalbuminuria R80.9 Active 294145593 Problem Diabetes type 2, uncontrolled E11.65 Active 550419959 Problem Heat exhaustion due to salt depletion, subsequent encounter T67.4XXD Active 30030874 Problem Chronic obstructive pulmonary disease, unspecified COPD type J44.9 Active 71284483 Problem Other hammer toe(s) (acquired), right foot M20.41 Active 224307964 Problem Onychomycosis B35.1 Active 881148862 Problem Low oxygen saturation R79.81 Active 819651654 Problem Diabetes mellitus type II, uncontrolled E11.65 Active 880686912 ALLERGIES Substance Reaction Event Type Date Status Hydrocodone Failed narcotics contract Non Drug Allergy Apr, Active Benzodiazepines Failed narcotics contract Non Drug Allergy Apr, Active Amphetamine Pos for meth on UDS Non Drug Allergy Apr, Active ENCOUNTERS Encounter Location Date Diagnosis [facility] [id number], [place] [address] Nov, Diabetes type 2, uncontrolled E11.65 [facility] [id number], [place] [address] Nov, Diabetes type 2, uncontrolled E11.65 [facility] [address] [id number], [place] [address] Aug, Neuropathy G62.9 and Cellulitis of right foot L03.115 [facility] [id number] [place] [address] Aug, [place] [id number] [place] [address] May, Diabetes type 2, uncontrolled E11.65 and Neuropathy G62.9 [place] [id number] [place] [address] Apr, Diabetes type 2, uncontrolled E11.65 ; History of drug use Z87.898 ; Neuropathy G62.9 ; Low oxygen saturation R79.81 ; Chronic obstructive pulmonary disease, unspecified COPD type J44.9 and Heat exhaustion due to salt depletion, subsequent encounter T67.4XXD [place] [id number] [place] [address] Apr, Onychomycosis B35.1 ; Other hammer toe(s) (acquired), right foot M20.41 and Diabetes mellitus type II, uncontrolled E11.65 [place] [id number] [place] [address] Apr, [place] [id number] [place] [address] Feb, Onychomycosis B35.1 ; Diabetes type 2, uncontrolled E11.65 ; Neuropathy G62.9 and History of drug use Z87.898 [place] [id number] [place] [address] Feb, Diabetes type 2, uncontrolled E11.65 [place] [id number] [place] [address] January, [place] [id number] [place] [address]- [address] Dec, Diabetes type 2, uncontrolled E11.65 and Screening for cholesterol level Z13.220 [place] [address], [place] [address] Dec, Diabetes type 2, uncontrolled E11.65 ; Microalbuminuria R80.9 ; History of drug use Z87.898 ; Screening for cholesterol level Z13.220 and Neuropathy G62.9 [facility] [address], [place] [address] Sep, [facility] [address] [place] [address] Mar, [facility] [address], [place] [address] Dec, Cellulitis of foot, left L03.116 [facility] [id number] [address] Dec, [facility] [id number] [place] [address] Dec, [facility] [address], [place] [address] 15 Dec, 2015 Diabetes type 2, uncontrolled E11.65 and Cellulitis of foot without toes, left L03.116 [facility] [address], [place] [id number] Nov, Diabetes type 2, uncontrolled E11.65 and Neuropathy G62.9 [facility] [address], [place] [address] January, [facility] [address], [place] [address] January, [facility] [address], [place] [address] 14 Dec, 2014 [facility] [address], [place] [address] Dec, [facility] [address], [place] [address] Aug, [facility] [address], [place] [address] Aug, [facility] [address], [place] [address] Aug, [facility] [place] [facility] [address] [id number] [place] [address] Aug, [facility] [place] [facility] [address] [id number] [place] [address] Jun, [facility] [place] [facility] [address] [id number] [place] [address] Jun, [facility] [place] [facility] [address] [id number] [place] [address] May, [facility] [place] [facility] [address] [id number] [place] [address] May, [facility] [place] [facility] [address] [id number] [place] [address] Apr, [facility] [place] [facility] [address] [id number] [place] [address] 16[address] Apr, [facility] [place] [facility] [address] [id number] [place] [address] Apr, [facility] [place] [facility] [address] [id number] [place] [address] Apr, [facility] [place] [facility] [address] [id number] [place] [address] Apr, [facility] [place] [facility] [address] [id number] [place] [address] Apr, [facility] [place] [facility] [address] [id number] [place] [address] Mar, [facility] [place] [facility] [address] [id number] [place] [address] Mar, [facility] [place] [facility] [address] [id number] [place] [address] Feb, [facility] [place] [facility] [address] [id number] [place] [address] Feb, [facility] [place] [facility] [address] [id number] [place] [address]- 79[address] Feb, [facility] [place] [facility] [address] [id number] [place] [address] Feb, [facility] [place] [facility] [address] [id number] [place] [address] Dec, [facility] [place] [facility] [address] [id number] [place] [address] Dec, [facility] [place] [facility] [address] [id number] [place] [address] Dec, [facility] [place] [facility] [address] [id number] [place] [address]- 9[address] Dec, [facility] [place] [facility] [address] [id number] [place] [address]- [address] Dec, [facility] [place] [facility] [address] [id number] [place] [address] Sep, [facility] [place] [facility] [address] [id number] [place] [address] Sep, [facility] [place] [facility] [address] [id number] [place] [address] Aug, [facility] [place] [facility] [address] [id number] [place] [address]- 6[address] Aug, [facility] [place] [facility] [address] [id number], [place] [address] Aug, [facility] [place] [facility] [address] [id number], [place] [address] Aug, [facility] [place] [facility] [address] [id number] [place] [address] Aug, [facility] [place] [facility] [address] [id number] [place] [address] Aug, [facility] [place] [facility] [address] [facility] [id number] [place] [address] Aug, [facility] [place] [facility] [address] [id number] [place] [address]46 Aug, [facility] [address] [id number] [place] [address]- [address] Jul, [facility] [address] [id number] [place] [address]- [address] Jul, [facility] [address] [id number] [place] [address]- [address] Apr, [facility] [address] [id number] [place] [address]- [address]49 Mar, [facility] [address] [id number] [place] [address] Mar, [facility] [address] [id number] [place] [address]- [address] Mar, [facility] [address] [id number] [place] [address]- [address] January, [facility] [address] [id number] [place] [address]- 254 January, [facility] [address] [id number] [place] [address]- 2831 January, [facility] [address] [id number] [place] [address]- 0906 January, [facility] [address] [id number] [place] [address]- 2546 January, [facility] [address] [id number] [place] [address]- 2546 Nov, [facility] [place] [facility] [address] [id number] [place] [address]- 2546 Nov, [facility] [address] [id number] [place] [address]- [address]46 Nov, [facility] [address] [id number] [place] [address]- 64[address] Oct, [facility] [place] [facility] [address] [id number] [place] [address]- [address] Oct, [facility] [place] [facility] [address] [id number] [place] [address]- 1652 Sep, [facility] [place] [facility] [address] [id number] [place] [address]- 0[address] Sep, [facility] [place] [facility] [address] [id number] [place] [address]- 46[address] Jul, [facility] [place] [facility] [address] [id number] [place] [address]- 1181 Jul, [facility] [place] [facility] [address] [id number] [place] [address]- 8589 Jul, [facility] [place] [facility] [address] [id number] [place] [address]- 9220 Jul, [facility] [place] [facility] [address] [id number] [place] [address]- 96[address] Jun, [facility] [place] [facility] [address] [id number] [place] [address]- 3487 Jun, [facility] [place] [facility] [address] [id number] [place] [address]- [address] 28 May, 2012 [facility] [place] [facility] [address] [id number] [place] [address]- [address] 15 May, 2012 [facility] [place] [facility] [address] [id number], [place] [address] 13 May, 2012 [facility] [place] [facility] [address] [id number] [place] [address]- 8687 10 May, 2012 [facility] [place] [facility] [address] [id number] [place] [address]- 9242 Apr, [facility] [place] [facility] [address] [id number], [place] [address] Mar, [facility] [place] [facility] [address] [id number], [place] [address] Mar, [facility] [address] [id number] [place] [address]- 48[address] Mar, [facility] [place] [facility] [address] [id number] [place] [address]- 5286 Mar, [facility] [place] [facility] [address] [id number] [place] [address]- 4626 Mar, [facility] [place] [facility] [address] [id number] [place] [address]- 3735 Mar, [facility] [place] [facility] [address] [id number] [place] [address]- 7396 Mar, [facility] [place] [facility] [address] [id number] [place] [address]- 3682 Feb, [facility] [place] [facility] [address] [id number] [place] [address]- 7704 Feb, [facility] [place] [facility] [address] [id number] [place] [address]- 6740 January, [facility] [place] [facility] [address] [id number] [place] [address]- 4433 January, [facility] [place] [facility] [address] [id number] [place] [address]- 8638 Dec, [facility] [place] [facility] [address] [id number] [place] [address]- 9058 Dec, [facility] [place] [facility] [address] [id number] [place] [address]- 0062 Dec, [facility] [place] [facility] [address] [id number] [place] [address]- 8209 Nov, [facility] [place] [facility] [address] [id number] [place] [address]- 5668 Nov, [facility] [place] [facility] [address] [facility] [id number] [place] [address]- 1146 Oct, [facility] [place] [facility] [address] [facility] [id number], [place] [address] Sep, [facility] [id number], [place] [address] Sep, [facility] [id number], [place] [address] 25[address] Aug, [facility] [id number], [place] [address] 25[address] Jul, [facility] [id number], [place] [address] 25[address] Jul, [facility] [id number], [place] [address] 2546 Dec, [facility] [id number], [place] [address] 25[address] Aug, [facility] [id number], [place] [address] 25[address] Jul, IMMUNIZATIONS No Known Immunizations SOCIAL HISTORY Never Assessed REASON FOR VISIT ER f/u - Pt was at ER for heat exhaustion. States he still does not feel well. Short of breath, dizzy, lungs are hurting, states he rides a bicycle everywhere, states it is about to get the best of him. - Nikhil PEÑALOZA, Pt can not keep his eyes open very wide, he stumbles when he walks, stops often to hold onto the wall. O2 Sat was very low when checked upon rooming at 80%. Heart rate was at 54., He is wanting to see about an electric chair to get around in. He states he can not go much further on his own anymore. PLAN OF CARE Activity Details Follow Up 4 Weeks Reason:dm, neneuropathy VITAL SIGNS Height 72 in 2017-05-22 Weight 135.7 lbs 2017-05-22 Temperature 97.7 degrees Fahrenheit 2017-05-22 Heart Rate 54 bpm 2017-05-22 Respiratory Rate 32 2017-05-22 Oximetry 80 % 2017-05-22 BMI 18.40 kg/m2 2017-05-22 Blood pressure systolic 106 mmHg 2017-05-22 Blood pressure diastolic 72 mmHg 2017-05-22 MEDICATIONS Medication Instructions Dosage Frequency Start Date End Date Duration Status Insulin Syringe 31G X 5/16 Use with insulin 12h Oct, 30 days Not-Taking Metformin HCl 1000 MG Orally Twice a day 1 tablet with meals 12h Nov, 90 days Active Lisinopril 2.5 MG Orally Once a day 1 tablet 24h Nov, 90 days Active NovoLog Flexpen 100 UNIT/ML Subcutaneous with meals Inject 10 units Apr, Active Aspirin 325 MG Orally Once a day as needed 1 tablet Not-Taking Albuterol Sulfate 108 (90 Base) MCG/ACT Inhalation every 4 hrs 1 puff as needed 4h Apr, Active Gabapentin 300 MG Orally Three times a day 1 capsule 8h Apr, 90 days Active Voltaren 1 % Transdermal 3 times a day 8h Not-Taking Diclofenac Potassium 50 mg Orally Twice a day 1 tablet 12h Apr, Jul, 90 days Active Levemir FlexTouch 100 UNIT/ML Subcutaneous HS inject 60 units Apr, Active RESULTS Name Result Date Reference Range A1C (IN HOUSE) 2017-05-22 A1C IN HOUSE 11.1 4.3 - 5.6 % Previous A1c >14.0 Lot [id number] Exp date 01/2019 URINE DRUG SCREEN (IN HOUSE) 2017-05-22 Lot # [id number] Exp date 10/2018 Control + COCAINE negative AMPH Positive MTD negative THC negative OPIATE negative BENZO negative PCP negative BAR negative OXY negative MAMP Positive TCA Not Tested BUP negative MDMA negative UA LONG DIP (IN HOUSE) 2017-05-22 Lot # [id number] Exp date 04/2018 Clarity clear Color yellow Odor none GLU 2+ THIEN negative KET trace SG 1.025 BLO trace-intact pH 5.5 Protein 1+ URO 0.2 NIT negative NAT negative Lot # Exp date PROCEDURES Procedure Date Ordered Result Body Site NEBULIZER TREATMENT 2017-05-22 N/A MEASURE BLOOD OXYGEN LEVEL May 22, 2017 LAB NOT BILLED BY [facility] May 22, 2017 URINALYSIS, AUTO, W/O SCOPE May 22, 2017 GLYCATED HEMOGLOBIN TEST May 22, 2017 NEB/MDI RX INITIAL May 22, 2017 [facility] VISIT ESTABLISHED PATIENT May 22, 2017 INSTRUCTIONS MEDICATIONS ADMINISTERED No Known Medications MEDICAL (GENERAL) HISTORY Type Description Date Medical History DM2 Medical History Fractured neck Medical History Fractured back Medical History Neuropathy Medical History History of drug use Surgical History R foot sixth toe removed Surgical History cholecysectomy Surgical History R wrist fused Surgical History Left leg bone tumor removed Hospitalization History Right arm Cellulitis and left leg Cellulitis, sepsis, uncontrolled DM 01/15/16 Hospitalization History [facility] Heat Exhaustion 04/2017
--- OUTSIDE RECORDS SUMMARY | 2018-06-12 14:03 | XMS REPORT ---
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 Name Role Phone VINNADIA JUAN ANTONIO Unavailable PROBLEMS Type Condition ICD9-CM Code QIE07-VF Code Onset Dates Condition Status SNOMED Code Problem History of drug use Z87.898 Active 704525357 Problem Neuropathy G62.9 Active 829490969 Problem Microalbuminuria R80.9 Active 704742926 Problem Diabetes type 2, uncontrolled E11.65 Active 420865195 Problem Heat exhaustion due to salt depletion, subsequent encounter T67.4XXD Active 01000642 Problem Chronic obstructive pulmonary disease, unspecified COPD type J44.9 Active 01718399 Problem Other hammer toe(s) (acquired), right foot M20.41 Active 525060479 Problem Onychomycosis B35.1 Active 673187659 Problem Low oxygen saturation R79.81 Active 632677614 Problem Diabetes mellitus type II, uncontrolled E11.65 Active 926830100 ALLERGIES No Information ENCOUNTERS Encounter Location Date Diagnosis [facility] [id number], [place] [address] Nov, Diabetes type 2, uncontrolled E11.65 [facility] [id number] [place] [address] Nov, Diabetes type 2, uncontrolled E11.65 [facility] [id number], [place] [address] Aug, Neuropathy G62.9 and Cellulitis of right foot L03.115 [facility] [id number] [place] [address] Aug, [facility] [address], [place] [address] May, Diabetes type 2, uncontrolled E11.65 and Neuropathy G62.9 [place] [address], [place] [address] Apr, Diabetes type 2, uncontrolled E11.65 ; History of drug use Z87.898 ; Neuropathy G62.9 ; Low oxygen saturation R79.81 ; Chronic obstructive pulmonary disease, unspecified COPD type J44.9 and Heat exhaustion due to salt depletion, subsequent encounter T67.4XXD [place] [id number] [place] [address] Apr, Onychomycosis B35.1 ; Other hammer toe(s) (acquired), right foot M20.41 and Diabetes mellitus type II, uncontrolled E11.65 [place] [id number] [place] [address]- [address] Apr, [place] [id number] [place] [address]- [address] Feb, Onychomycosis B35.1 ; Diabetes type 2, uncontrolled E11.65 ; Neuropathy G62.9 and History of drug use Z87.898 [place] [id number] [place] [address] Feb, Diabetes type 2, uncontrolled E11.65 [place] [id number] [place] [address]- [address] January, [place] [id number] [place] [address]- 6013 Dec, Diabetes type 2, uncontrolled E11.65 and Screening for cholesterol level Z13.220 [place] [id number] [place] [address]- 0243 Dec, Diabetes type 2, uncontrolled E11.65 ; Microalbuminuria R80.9 ; History of drug use Z87.898 ; Screening for cholesterol level Z13.220 and Neuropathy G62.9 [place] [address], [place] [address] Sep, [place] [id number] [address] Mar, [facility] [id number], [place] [address] Dec, Cellulitis of foot, left L03.116 [facility] [id number] [address] Dec, [facility] [id number] [place] [address]- 7632 Dec, [facility] [id number], [place] [address] 15 Dec, 2015 Diabetes type 2, uncontrolled E11.65 and Cellulitis of foot without toes, left L03.116 [facility] [address] [id number] Nov, Diabetes type 2, uncontrolled E11.65 and Neuropathy G62.9 [facility] [address], [place] [address] January, [facility] [id number], [place] [address] January, [facility] [address], [place] [address] 14 Dec, 2014 [facility] [id number], [place] [address] Dec, [facility] [address], [place] [address] Aug, [facility] [id number] [address] Aug, [facility] [address], [place] [address] Aug, [facility] [id number], [place] [address] Aug, [facility] [id number], [place] [address] Jun, [facility] [place] [facility] [address] [id number] [place] [address] Jun, [facility] [place] [facility] [address] [id number] [place] [address] May, [facility] [place] [facility] [address] [id number] [place] [address] 8[address] May, [facility] [place] [facility] [address] [id number] [place] [address]- 8621 Apr, [facility] [place] [facility] [address] [id number] [place] [address]- 9750 Apr, [facility] [place] [facility] [address] [id number] [place] [address]- 6948 Apr, [facility] [place] [facility] [address] [id number] [place] [address]- 7837 Apr, [facility] [place] [facility] [address] [id number] [place] [address]- 4028 Apr, [facility] [place] [facility] [address] [id number] [place] [address]- 1732 Apr, [facility] [place] [facility] [address] [id number] [place] [address]- 2624 Mar, [facility] [place] [facility] [address] [id number] [place] [address]- 2400 Mar, [facility] [place] [facility] [address] [id number], [place] [address] Feb, [facility] [place] [facility] [address] [id number] [place] [address]- 5078 Feb, [facility] [place] [facility] [address] [id number] [place] [address]- 8258 Feb, [facility] [place] [facility] [address] [id number] [place] [address]- 0641 Feb, [facility] [place] [facility] [address] [id number] [place] [address]- 0868 Dec, [facility] [address] [id number] [place] [address]- 3686 Dec, [facility] [place] [facility] [address] [id number] [place] [address]- 6552 Dec, [facility] [place] [facility] [address] [id number] [place] [address]- 7560 Dec, [facility] [place] [facility] [address] [id number] [place] [address]- 8689 Dec, [facility] [place] [facility] [address] [id number] [place] [address]- 6411 Sep, [facility] [place] [facility] [address] [id number] [place] [address]- 9499 Sep, [facility] [address] [id number] [place] [address]- 6992 Aug, [facility] [place] [facility] [address] [id number] [place] [address]- 5984 Aug, [facility] [place] [facility] [address] [id number] [place] [address]- 2779 Aug, [facility] [place] [facility] [address] [facility] [id number] [place] [address]- 4518 Aug, [facility] [place] [facility] [address] [id number] [place] [address]- 3861 Aug, [facility] [place] [facility] [address] [id number] [place] [address]- 1189 Aug, [facility] [place] [facility] [address] [id number] [place] [address]- 3832 Aug, [facility] [place] [facility] [address] [id number] [place] [address] Aug, [facility] [place] [facility] [address] [facility] [id number] [place] [address]- 0180 Jul, [facility] [place] [facility] [address] [id number] [place] [address]- 9194 Jul, [facility] [address] [id number] [place] [address]- 8256 Apr, [facility] [address] [id number] [place] [address]- 2546 Mar, [facility] [address] [id number] [place] [address]- 3935 Mar, [facility] [address] [id number] [place] [address]- 1798 Mar, [facility] [address] [id number] [place] [address]- 7091 January, [facility] [address] [id number] [place] [address]- 9549 January, [facility] [address] [id number] [place] [address]- 5545 January, [facility] [address] [id number] [place] [address]- 0049 January, [facility] [address] [id number] [place] [address]- 2022 January, [facility] [address] [id number] [place] [address]- 0161 Nov, [facility] [address] [id number] [place] [address]- 3786 Nov, [facility] [address] [id number] [place] [address]- 3727 Nov, [facility] [place] [facility] [address] [id number] [place] [address]- 2546 Oct, [facility] [place] [facility] [address] [id number] [place] [address]- 2546 Oct, [facility] [address] [id number] [place] [address]- 3934 Sep, [facility] [place] [facility] [address] [id number] [place] [address]- 3501 Sep, [facility] [place] [facility] [address] [id number] [place] [address]- 8789 Jul, [facility] [place] [facility] [address] [id number] [place] [address]- 7354 Jul, [facility] [place] [facility] [address] [id number] [place] [address]- 7468 Jul, [facility] [place] [facility] [address] [id number] [place] [address]- 1412 Jul, [facility] [place] [facility] [address] [id number] [place] [address]- 2667 Jun, [facility] [place] [facility] [address] [id number] [place] [address]- 3906 Jun, [facility] [place] [facility] [address] [id number] [place] [address]- 4219 28 May, 2012 [facility] [place] [facility] [address] [id number] [place] [address]- 4451 15 May, 2012 [facility] [place] [facility] [address] [id number] [place] [address]- 5629 13 May, 2012 [facility] [place] [facility] [address] [id number] [place] [address]- 0085 10 May, 2012 [facility] [place] [facility] [address] [id number] [place] [address]- 5602 Apr, [facility] [place] [facility] [address] [id number] [place] [address]- 1373 Mar, [facility] [place] [facility] [address] [id number] [place] [address]- 2716 Mar, [facility] [place] [facility] [address] [id number] [place] [address]- 3049 Mar, [facility] [place] [facility] [address] [id number] [place] [address]- 0288 Mar, [facility] [address] [id number] [place] [address]- 2809 Mar, [facility] [address] [id number] [place] [address]- 1186 Mar, [facility] [address] [id number] [place] [address]- 2028 Mar, [facility] [address] [id number] [place] [address]- 2432 Feb, [facility] [address] [id number] [place] [address]- 1538 Feb, [facility] [address] [id number] [place] [address]- 4876 January, [facility] [address] [id number] [place] [address]- 1049 January, [facility] [address] [id number] [place] [address]- 1404 Dec, [facility] [address] [id number] [place] [address]- 7896 Dec, [facility] [address] [id number] [place] [address]- 9257 Dec, [facility] [address] [id number] [place] [address]- 2860 Nov, [facility] [address] [id number] [place] [address]- 7276 Nov, [facility] [place] [facility] [address] [id number] [place] [address]- 1966 Oct, [facility] [address] [id number] [place] [address]- 7386 Sep, [facility] [address] [id number] [place] [address]- 2239 Sep, [facility] [address] [facility] [id number], [place] [address]- [address] Aug, [facility] [address] [facility] [id number], [place] [address]- 2246 Jul, [facility] [address] [facility] [id number], [place] [address]- [address]276 Jul, [facility] [address] [facility] [id number], [place] [address] 2546 Dec, [facility] [address] [facility] [id number], [place] [address]- 6555 Aug, [facility] [address] [facility] [id number], [place] [address]- [address]306 Jul, IMMUNIZATIONS No Known Immunizations SOCIAL HISTORY Never Assessed REASON FOR VISIT insulin PLAN OF CARE VITAL SIGNS MEDICATIONS Medication Instructions Dosage Frequency Start Date End Date Duration Status NovoLog Flexpen 100 UNIT/ML Subcutaneous with meals Inject 10 units Apr, Active Levemir FlexTouch 100 UNIT/ML Subcutaneous HS inject 60 units Apr, Active RESULTS No Results PROCEDURES No Known procedures INSTRUCTIONS MEDICATIONS ADMINISTERED No Known Medications MEDICAL [...]
[2018-06-12 14:04] LABS: BASOPHILS % (AUTO) 0 % (0-10); EOSINOPHILS # (AUTO) 0.3 10^3/uL (0.0-0.3); EOSINOPHILS % (AUTO) 4 % (0-10); HEMATOCRIT 36 % (40-54); HEMOGLOBIN 12.9 G/DL (13.3-17.7); LYMPHOCYTES # (AUTO) 1.8 X 10^3 (1.0-4.0); LYMPHOCYTES % (AUTO) 25 % (12-44); MEAN CORPUSCULAR HEMOGLOBIN 31 PG (25-34); MEAN CORPUSCULAR HGB CONC 36 G/DL (32-36); MEAN CORPUSCULAR VOLUME 87 FL (80-99); MEAN PLATELET VOLUME 10.2 FL (7.4-10.4); MONOCYTES # (AUTO) 0.5 X 10^3 (0.0-1.0); MONOCYTES % (AUTO) 6 % (0-12); NEUTROPHILS # (AUTO) 4.4 X 10^3 (1.8-7.8); NEUTROPHILS % (AUTO) 64 % (42-75); PLATELET COUNT 223 10^3/uL (130-400); RED BLOOD COUNT 4.16 10^6/uL (4.35-5.85); RED CELL DISTRIBUTION WIDTH 12.6 % (10.0-14.5)
--- OUTSIDE RECORDS SUMMARY | 2018-06-12 14:04 | XMS REPORT ---
Author Author SOLEDAD PASTRANA Organization [facility] Address [address] [place] [address] Care Team Providers Care [employer] Installer Name Role Phone VICTORIANOLUISIE Unavailable PROBLEMS Type Condition ICD9-CM Code SPK35-TF Code Onset Dates Condition Status SNOMED Code Problem History of drug use Z87.898 Active 554099620 Problem Neuropathy G62.9 Active 683898129 Problem Microalbuminuria R80.9 Active 334262531 Problem Diabetes type 2, uncontrolled E11.65 Active 929249612 Problem Heat exhaustion due to salt depletion, subsequent encounter T67.4XXD Active 58539334 Problem Chronic obstructive pulmonary disease, unspecified COPD type J44.9 Active 85920405 Problem Other hammer toe(s) (acquired), right foot M20.41 Active 532512377 Problem Onychomycosis B35.1 Active 310851014 Problem Low oxygen saturation R79.81 Active 099378650 Problem Diabetes mellitus type II, uncontrolled E11.65 Active 110367554 ALLERGIES Substance Reaction Event Type Date Status Hydrocodone Failed narcotics contract Non Drug Allergy May, Active Benzodiazepines Failed narcotics contract Non Drug Allergy May, Active Amphetamine Pos for meth on UDS Non Drug Allergy May, Active ENCOUNTERS Encounter Location Date Diagnosis [facility] [id number], [place] [address] Nov, Diabetes type 2, uncontrolled E11.65 [facility] [id number], [place] [address] Nov, Diabetes type 2, uncontrolled E11.65 [facility] [id number], [place] [address] Aug, Neuropathy G62.9 and Cellulitis of right foot L03.115 [facility] [id number], [place] [address] Aug, [id number] [place] [address] May, Diabetes type 2, uncontrolled E11.65 and Neuropathy G62.9 [place] [id number] [place] [address] Apr, Diabetes type 2, uncontrolled E11.65 ; History of drug use Z87.898 ; Neuropathy G62.9 ; Low oxygen saturation R79.81 ; Chronic obstructive pulmonary disease, unspecified COPD type J44.9 and Heat exhaustion due to salt depletion, subsequent encounter T67.4XXD [id number] [place] [address] Apr, Onychomycosis B35.1 ; Other hammer toe(s) (acquired), right foot M20.41 and Diabetes mellitus type II, uncontrolled E11.65 [address] [place] [id number] [place] [address] Apr, [place] [id number] [place] [address] Feb, Onychomycosis B35.1 ; Diabetes type 2, uncontrolled E11.65 ; Neuropathy G62.9 and History of drug use Z87.898 [id number] [place] [address] Feb, Diabetes type 2, uncontrolled E11.65 [place] [id number] [place] [address] January, [place] [id number] [place] [address]- [address]97 Dec, Diabetes type 2, uncontrolled E11.65 and Screening for cholesterol level Z13.220 [address] [place] [id number] [place] [address]- 8067 Dec, Diabetes type 2, uncontrolled E11.65 ; Microalbuminuria R80.9 ; History of drug use Z87.898 ; Screening for cholesterol level Z13.220 and Neuropathy G62.9 [facility] [address], [place] [address] Sep, [facility] [id number] [place] [address]- [address] Mar, [facility] [address], [place] [address] Dec, Cellulitis of foot, left L03.116 [facility] [id number] [place] [address]- [address] Dec, [facility] [id number] [place] [address]- 1425 Dec, [facility] [id number] [place] [address] 93[address]- 8154 15 Dec, 2015 Diabetes type 2, uncontrolled E11.65 and Cellulitis of foot without toes, left L03.116 [facility] [address] [id number] Nov, Diabetes type 2, uncontrolled E11.65 and Neuropathy G62.9 [facility] [address], [place] [address] January, [facility] [id number] [place] [address]- [address] January, [facility] [address], [place] [address] 14 Dec, 2014 [facility] [address], [place] [address] Dec, [facility] [address], [place] [address] Aug, [facility] [address], [place] [address] Aug, [facility] [address], [place] [address] Aug, [facility] [id number] [place] [address] 08 Aug, 2014 [facility] [place] [facility] [address] [id number] [place] [address] Jun, [facility] [place] [facility] [address] [id number] [place] [address] 138[address] Jun, [facility] [place] [facility] [address] [id number] [place] [address] 118[address] May, [facility] [place] [facility] [address] [id number] [place] [address] May, [facility] [place] [facility] [address] [id number] [place] [address] 9408 Apr, [facility] [place] [facility] [address] [id number] [place] [address] 750[address] Apr, [facility] [place] [facility] [address] [id number] [place] [address] 2551 Apr, [facility] [place] [facility] [address] [id number] [place] [address]- 8066 Apr, [facility] [place] [facility] [address] [id number] [place] [address]- 45[address] Apr, [facility] [place] [facility] [address] [id number] [place] [address]- 3[address] Apr, [facility] [place] [facility] [address] [id number] [place] [address]- 5263 Mar, [facility] [place] [facility] [address] [id number] [place] [address] Mar, [facility] [place] [facility] [address] [id number] [place] [address]- [address] Feb, [facility] [place] [facility] [address] [id number] [place] [address]- [address] Feb, [facility] [place] [facility] [address] [id number] [place] [address]- 6099 Feb, [facility] [place] [facility] [address] [id number] [place] [address]- 3516 Feb, [facility] [place] [facility] [address] [id number] [place] [address]- 0955 Dec, [facility] [place] [facility] [address] [id number] [place] [address]- 5259 Dec, [facility] [place] [facility] [address] [id number] [place] [address]- 5090 Dec, [facility] [place] [facility] [address] [id number] [place] [address]- 2120 Dec, [facility] [place] [facility] [address] [id number] [place] [address]- 2178 Dec, [facility] [place] [facility] [address] [id number] [place] [address]- 0735 Sep, [facility] [place] [facility] [address] [id number] [place] [address]- 2187 Sep, [facility] [place] [facility] [address] [id number] [place] [address]- 2530 Aug, [facility] [place] [facility] [address] [id number] [place] [address]- 388[address] Aug, [facility] [place] [facility] [address] [id number] [place] [address]- 4198 Aug, [facility] [place] [facility] [address] [id number] [place] [address]- 3584 Aug, [facility] [place] [facility] [address] [id number] [place] [address]- 3428 Aug, [facility] [place] [facility] [address] [id number] [place] [address]- 4[address] Aug, [facility] [place] [facility] [address] [id number] [place] [address]- 0051 Aug, [facility] [place] [facility] [address] [id number] [place] [address]- 0746 Aug, [facility] [address] [id number] [place] [address]- 5760 Jul, [facility] [address] [id number] [place] [address]- 2546 Jul, [facility] [address] [id number] [place] [address]- 2546 Apr, [facility] [place] [facility] [address] [id number] [place] [address]- 2546 Mar, [facility] [address] [id number] [place] [address]- 9194 Mar, [facility] [address] [id number] [place] [address]- 3906 Mar, [facility] [address] [id number] [place] [address]- 0856 January, [facility] [place] [facility] [address] [id number] [place] [address]- 9106 January, [facility] [address] [id number] [place] [address]- 2927 January, [facility] [place] [facility] [address] [id number] [place] [address]- 2546 January, [facility] [address] [id number] [place] [address]- 2546 January, [facility] [place] [facility] [address] [id number] [place] [address]- 2546 Nov, [facility] [place] [facility] [address] [id number] [place] [address]- 2546 Nov, [facility] [place] [facility] [address] [id number] [place] [address]- 2546 Nov, [facility] [place] [facility] [address] [id number] [place] [address]- 2546 Oct, [facility] [place] [facility] [address] [id number] [place] [address] 2546 Oct, [facility] [place] [facility] [address] [id number] [place] [address]- 4672 Sep, [facility] [place] [facility] [address] [id number] [place] [address] 2546 Sep, [facility] [place] [facility] [address] [id number] [place] [address]- 0971 Jul, [facility] [place] [facility] [address] [id number] [place] [address]- 7783 Jul, [facility] [place] [facility] [address] [id number] [place] [address]- 3509 Jul, [facility] [place] [facility] [address] [id number] [place] [address]- 5110 Jul, [facility] [place] [facility] [address] [id number] [place] [address]- 3905 Jun, [facility] [place] [facility] [address] [id number] [place] [address]- 6691 Jun, [facility] [place] [facility] [address] [id number] [place] [address]- 9949 28 May, 2012 [facility] [place] [facility] [address] [id number] [place] [address]- 0097 15 May, 2012 [facility] [place] [facility] [address] [id number] [place] [address]- 1210 13 May, 2012 [facility] [place] [facility] [address] [id number] [place] [address] 2547 10 May, 2012 [facility] [place] [facility] [address] [id number] [place] [address]- 6831 10 Apr, 2012 [facility] [place] [facility] [address] [id number] [place] [address]- 2546 Mar, [facility] [place] [facility] [address] [id number] [place] [address]- 7388 Mar, [facility] [place] [facility] [address] [id number] [place] [address]- 0323 Mar, [facility] [place] [facility] [address] [id number] [place] [address]- 6856 Mar, [facility] [place] [facility] [address] [id number] [place] [address]- 3356 Mar, [facility] [place] [facility] [address] [id number] [place] [address]- 2095 Mar, [facility] [place] [facility] [address] [id number] [place] [address]- 0505 Mar, [facility] [place] [facility] [address] [id number] [place] [address]- 7133 Feb, [facility] [place] [facility] [address] [id number] [place] [address]- 8845 Feb, [facility] [place] [facility] [address] [id number] [place] [address]- 3954 January, [facility] [place] [facility] [address] [id number] [place] [address]- 6287 January, [facility] [place] [facility] [address] [id number] [place] [address]- 3928 Dec, [facility] [place] [facility] [address] [id number] [place] [address]- 2987 Dec, [facility] [place] [facility] [address] [id number] [place] [address]- 6642 Dec, [facility] [place] [facility] [address] [id number] [place] [address]- 3435 Nov, [facility] [place] [facility] [address] [id number] [place] [address]- 7953 Nov, [facility] [place] [facility] [address] [id number] [place] [address]- 7857 Oct, [facility] [place] [facility] [address] [id number] [address]- [address] Sep, [facility] [address], [place] [address]- [address] Sep, [facility] [id number] [address] Aug, [facility] [address], [place] [address]- 79[address] Jul, [facility] [address], [place] [address]- 2830 Jul, [facility] [address], [place] [address]- 6[address] Dec, [facility] [address], [place] [address]- [address] Aug, [facility] [address], [place] [address]- 5[address] Jul, IMMUNIZATIONS No Known Immunizations SOCIAL HISTORY Never Assessed REASON FOR VISIT VC Follow Up , pt. states he doesnt have any motivation and is requesting an electric chair to get around in ----ROB Greene PLAN OF CARE Activity Details Follow Up 4 Weeks w PCP Reason:DMT2 VITAL SIGNS Height 72 in 2017-06-20 Weight 133.0 lbs 2017-06-20 Temperature 97.8 degrees Fahrenheit 2017-06-20 Heart Rate 76 bpm 2017-06-20 Respiratory Rate 20 2017-06-20 BMI 18.04 kg/m2 2017-06-20 Blood pressure systolic 119 mmHg 2017-06-20 Blood pressure diastolic 79 mmHg 2017-06-20 MEDICATIONS Medication Instructions Dosage Frequency Start Date End Date Duration Status Gabapentin 300 MG Orally Three times a day 1 capsule 8h Apr, 90 days Active Lisinopril 2.5 MG Orally Once a day 1 tablet 24h Nov, 90 days Active Albuterol Sulfate 108 (90 Base) MCG/ACT Inhalation every 4 hrs 1 puff as needed 4h Apr, Active Levemir FlexTouch 100 UNIT/ML Subcutaneous HS inject 60 units Apr, Active NovoLog Flexpen 100 UNIT/ML Subcutaneous with meals Inject 10 units Apr, Active Diclofenac Potassium 50 mg Orally Twice a day 1 tablet 12h Apr, Jul, 90 days Active RESULTS No Results PROCEDURES Procedure Date Ordered Result Body Site [facility] VISIT ESTABLISHED PATIENT Jun 20, 2017 INSTRUCTIONS MEDICATIONS ADMINISTERED No Known Medications [...]
--- OUTSIDE RECORDS SUMMARY | 2018-06-12 14:04 | XMS REPORT ---
Author Author BRETT NAIK Organization [facility] Address [address] [place] [address] Care Team Providers Care Plant Clerk Name Role Phone BRETT NAIK Unavailable PROBLEMS Type Condition ICD9-CM Code WKH40-LL Code Onset Dates Condition Status SNOMED Code Problem History of drug use Z87.898 Active 405084695 Problem Neuropathy G62.9 Active 643914953 Problem Microalbuminuria R80.9 Active 891650020 Problem Diabetes type 2, uncontrolled E11.65 Active 413783817 Problem Heat exhaustion due to salt depletion, subsequent encounter T67.4XXD Active 23722883 Problem Chronic obstructive pulmonary disease, unspecified COPD type J44.9 Active 11885113 Problem Other hammer toe(s) (acquired), right foot M20.41 Active 459224938 Problem Onychomycosis B35.1 Active 575594902 Problem Low oxygen saturation R79.81 Active 708643517 Problem Diabetes mellitus type II, uncontrolled E11.65 Active 848592983 ALLERGIES No Information ENCOUNTERS Encounter Location Date Diagnosis [place] [id number] [place] [address]85- 3617 Dec, [facility] [address] [place] [address] 41162- 9104 Nov, Diabetes type 2, uncontrolled E11.65 [facility] [id number] [place] [address] 02220- 2478 Nov, Diabetes type 2, uncontrolled E11.65 [facility] [id number] [place] [address] 70875 -0472 Aug, Neuropathy G62.9 and Cellulitis of right foot L03.115 [facility] [id number] [place] [address] 49961- 7293 Aug, [facility] [address] [address] May, Diabetes type 2, uncontrolled E11.65 and Neuropathy G62.9 [place] [id number] [place] [address] 62815- 6622 Apr, Diabetes type 2, uncontrolled E11.65 ; History of drug use Z87.898 ; Neuropathy G62.9 ; Low oxygen saturation R79.81 ; Chronic obstructive pulmonary disease, unspecified COPD type J44.9 and Heat exhaustion due to salt depletion, subsequent encounter T67.4XXD [place] [id number] [place] [address] 92968- 6439 Apr, Onychomycosis B35.1 ; Other hammer toe(s) (acquired), right foot M20.41 and Diabetes mellitus type II, uncontrolled E11.65 [address] [place] [address] 82489- 1924 Apr, [place] [address] [id number] [place] [address] 19567- 1204 Feb, Onychomycosis B35.1 ; Diabetes type 2, uncontrolled E11.65 ; Neuropathy G62.9 and History of drug use Z87.898 [place] [address] [place] [address] 47847- 7529 Feb, Diabetes type 2, uncontrolled E11.65 [place] [address] [place] [address] 15700- 2875 January, [place] [id number] [place] [address] 68731- 8897 Dec, Diabetes type 2, uncontrolled E11.65 and Screening for cholesterol level Z13.220 [address] [place] [address] 45379- 1313 Dec, Diabetes type 2, uncontrolled E11.65 ; Microalbuminuria R80.9 ; History of drug use Z87.898 ; Screening for cholesterol level Z13.220 and Neuropathy G62.9 [place] [address] [place] [id number] [place] [address] 98[address] Sep, [facility] [id number] [address] 8733 Mar, [facility] [address] [place] [address] 0282 Dec, Cellulitis of foot, left L03.116 [facility] [address] [place] [address] 7918 Dec, [facility] [address] [place] [address] 2665 Dec, [facility] [address] [place] [address]- 1015 Dec, Diabetes type 2, uncontrolled E11.65 and Cellulitis of foot without toes, left L03.116 [facility] [address] [place] [id number] Nov, Diabetes type 2, uncontrolled E11.65 and Neuropathy G62.9 [facility] [address] [address] 2742 January, [facility] [address] [address] 3986 January, [facility] [address] [address] 8079 14 Dec, 2014 [facility] [id number] [address] 9600 Dec, [facility] [id number] [address] 9492 Aug, [facility] [id number] [address]99 Aug, [facility] [id number] [address] 2186 Aug, [facility] [id number] [address] Aug, [facility] [place] [facility] [address] [id number] [place] [address] 4793 Jun, [facility] [place] [facility] [address] [id number] [place] [address]- 8791 Jun, [facility] [place] [facility] [address] [id number] [place] [address]- 4311 May, [facility] [place] [facility] [address] [id number] [place] [address]- 2721 May, [facility] [place] [facility] [address] [id number] [place] [address]- 5874 Apr, [facility] [place] [facility] [address] [id number] [place] [address]- 3402 Apr, [facility] [place] [facility] [address] [id number] [place] [address]- 6349 Apr, [facility] [place] [facility] [address] [id number] [place] [address]- 7406 Apr, [facility] [place] [facility] [address] [id number] [place] [address]- 2982 Apr, [facility] [place] [facility] [address] [id number] [place] [address]- 0379 Apr, [facility] [place] [facility] [address] [id number] [place] [address]- 9405 Mar, [facility] [place] [facility] [address] [id number] [place] [address]- 8846 Mar, [facility] [place] [facility] [address] [id number] [place] [address]- 9527 Feb, [facility] [place] [facility] [address] [id number] [place] [address]- 3637 Feb, [facility] [place] [facility] [address] [id number] [place] [address]- 6929 Feb, [facility] [place] [facility] [address] [id number] [place] [address]- 7103 Feb, [facility] [address] [id number] [place] [address]- 1691 Dec, [facility] [place] [facility] [address] [id number] [place] [address]888 Dec, [facility] [place] [facility] [address] [id number] [place] [address]- 9730 Dec, [facility] [place] [facility] [address] [id number] [place] [address]- 7134 Dec, [facility] [place] [facility] [address] [id number] [place] [address]- 1801 Dec, [facility] [place] [facility] [address] [id number] [place] [address]- 2192 Sep, [facility] [place] [facility] [address] [id number] [place] [address]- 5024 Sep, [facility] [place] [facility] [address] [id number] [place] [address]- 8540 Aug, [facility] [place] [facility] [address] [id number] [place] [address]- 2257 Aug, [facility] [place] [facility] [address] [facility] [id number] [place] [address]- 0546 Aug, [facility] [place] [facility] [address] [id number] [place] [address]- 0916 Aug, [facility] [place] [facility] [address] [id number] [place] [address]- 4198 Aug, [facility] [place] [facility] [address] [id number] [place] [address]- 8303 Aug, [facility] [place] [facility] [address] [id number] [place] 6395 Aug, [facility] [place] [facility] [address] [facility] [id number] [place] [address]- 7687 Aug, [facility] [place] [facility] [address] [id number] [place] [address]- 2546 Jul, [facility] [address] [id number] [place] [address]- 5636 Jul, [facility] [address] [id number] [place] [address]- 2546 Apr, [facility] [address] [id number] [place] [address]- 8496 Mar, [facility] [address] [id number] [place] [address]- 2543 Mar, [facility] [address] [id number] [place] [address]- 7776 Mar, [facility] [address] [id number] [place] [address]- 4264 January, [facility] [address] [id number] [place] [address]- 0856 January, [facility] [address] [id number] [place] [address]- 6138 January, [facility] [address] [id number] [place] [address]- 6666 January, [facility] [address] [id number] [place] [address]- 2546 January, [facility] [address] [id number] [place] [address]- 0526 Nov, [facility] [place] [facility] [address] [id number] [place] [address]- 7474 Nov, [facility] [place] [facility] [address] [id number] [place] [address]- 2546 Nov, [facility] [place] [facility] [address] [id number] [place] [address]- 2546 Oct, [facility] [place] [facility] [address] [id number] [place] [address]- 6851 Oct, [facility] [place] [facility] [address] [id number] [place] [address]- 6139 Sep, [facility] [place] [facility] [address] [id number] [place] [address]- 9366 Sep, [facility] [place] [facility] [address] [id number] [place] [address]- 3671 Jul, [facility] [place] [facility] [address] [id number] [place] [address]- 9665 Jul, [facility] [place] [facility] [address] [id number] [place] [address]- 7306 Jul, [facility] [place] [facility] [address] [id number] [place] [address]- 1514 Jul, [facility] [place] [facility] [address] [id number] [place] [address]- 6139 Jun, [facility] [place] [facility] [address] [id number] [place] [address]- 9518 Jun, [facility] [place] [facility] [address] [id number] [place] [address]- 0275 28 May, 2012 [facility] [place] [facility] [address] [id number] [place] [address]- 8036 15 May, 2012 [facility] [place] [facility] [address] [id number] [place] [address]- 7672 13 May, 2012 [facility] [place] [facility] [address] [id number] [place] [address]- 7008 10 May, 2012 [facility] [place] [facility] [address] [id number] [place] [address]- 4610 Apr, [facility] [place] [facility] [address] [id number] [place] [address]- 1622 Mar, [facility] [place] [facility] [address] [id number] [place] [address]- 0503 Mar, [facility] [place] [facility] [address] [id number] [place] [address]- 6816 Mar, [facility] [address] [id number] [place] [address]- 7267 Mar, [facility] [address] [id number] [place] [address]- 2546 Mar, [facility] [address] [id number] [place] [address]- 3433 Mar, [facility] [address] [id number] [place] [address]- 4190 Mar, [facility] [address] [id number] [place] [address]- 3080 Feb, [facility] [address] [id number] [place] [address]- 8726 Feb, [facility] [address] [id number] [place] [address]- 8046 January, [facility] [address] [id number] [place] [address]- 5107 January, [facility] [address] [id number] [place] [address]- 0898 Dec, [facility] [address] [id number] [place] [address]- 6214 Dec, [facility] [place] [facility] [address] [id number] [place] [address]- 4996 Dec, [facility] [address] [id number] [place] [address]- 6966 Nov, [facility] [place] [facility] [address] [id number] [place] [address]- 4136 Nov, [facility] [place] [facility] [address] [id number] [place] [address]- 2546 Oct, [facility] [place] [facility] [address] [id number] [place] [address]- 9186 Sep, [facility] [address] [facility] [id number] [address]- 3414 Sep, [facility] [id number] [address]- 8365 Aug, [facility] [id number] [address]- 1819 Jul, [facility] [id number] [address]- 4486 Jul, [facility] [id number] [address]- 9332 Dec, [facility] [id number] [address]- 9967 Aug, [facility] [id number], [place] [address]- 4252 Jul, IMMUNIZATIONS No Known Immunizations SOCIAL HISTORY Never Assessed REASON FOR VISIT onychomycosis. Consult Dr. Naik; Shaniec RT(R) PLAN OF CARE Activity Details Follow Up 3 Months Reason: VITAL SIGNS MEDICATIONS Unknown Medications RESULTS No Results PROCEDURES Procedure Date Ordered Result Body Site DEBRIDE NAIL, 6 OR MORE May 10, 2017 [facility] VISIT ESTABLISHED PATIENT May 10, 2017 INSTRUCTIONS MEDICATIONS ADMINISTERED No Known Medications [...]
--- OUTSIDE RECORDS SUMMARY | 2018-06-12 14:04 | XMS REPORT ---
Author Author [facility] Address [address] [place] [address] Care Team Providers Care Driller Brake Lining Name Role Phone ENGLISHDOLLY Unavailable PROBLEMS Type Condition ICD9-CM Code ZFU40-WP Code Onset Dates Condition Status SNOMED Code Problem History of drug use Z87.898 Active 044376964 Problem Neuropathy G62.9 Active 868053154 Problem Microalbuminuria R80.9 Active 172530797 Problem Diabetes type 2, uncontrolled E11.65 Active 968499770 Problem Heat exhaustion due to salt depletion, subsequent encounter T67.4XXD Active 74309197 Problem Chronic obstructive pulmonary disease, unspecified COPD type J44.9 Active 73497795 Problem Other hammer toe(s) (acquired), right foot M20.41 Active 887336743 Problem Onychomycosis B35.1 Active 055250884 Problem Low oxygen saturation R79.81 Active 428114788 Problem Diabetes mellitus type II, uncontrolled E11.65 Active 741965040 ALLERGIES Substance Reaction Event Type Date Status Amphetamine Pos for meth on UDS Non Drug Allergy Aug, Active Hydrocodone Failed narcotics contract Non Drug Allergy Aug, Active Benzodiazepines Failed narcotics contract Non Drug Allergy Aug, Active ENCOUNTERS Encounter Location Date Diagnosis [facility] [id number] [address] Nov, Diabetes type 2, uncontrolled E11.65 [facility] [id number] [address] Nov, Diabetes type 2, uncontrolled E11.65 [facility] [id number], [place] [address] Aug, Neuropathy G62.9 and Cellulitis of right foot L03.115 [facility] [id number], [place] [address] Aug, [place] [address] [address] [place] [address] May, Diabetes type 2, uncontrolled E11.65 and Neuropathy G62.9 [place] [id number] [place] [address] Apr, Diabetes type 2, uncontrolled E11.65 ; History of drug use Z87.898 ; Neuropathy G62.9 ; Low oxygen saturation R79.81 ; Chronic obstructive pulmonary disease, unspecified COPD type J44.9 and Heat exhaustion due to salt depletion, subsequent encounter T67.4XXD [address] [address] Apr, Onychomycosis B35.1 ; Other hammer toe(s) (acquired), right foot M20.41 and Diabetes mellitus type II, uncontrolled E11.65 [place] [id number] [place] [address] Apr, [place] [id number] [place] [address] Feb, Onychomycosis B35.1 ; Diabetes type 2, uncontrolled E11.65 ; Neuropathy G62.9 and History of drug use Z87.898 [place] [id number] [place] [address] Feb, Diabetes type 2, uncontrolled E11.65 [place] [id number] [place] [address] January, [place] [id number] [place] [address] Dec, Diabetes type 2, uncontrolled E11.65 and Screening for cholesterol level Z13.220 [place] [address] [place] [address] Dec, Diabetes type 2, uncontrolled E11.65 ; Microalbuminuria R80.9 ; History of drug use Z87.898 ; Screening for cholesterol level Z13.220 and Neuropathy G62.9 [facility] [address] [address] Sep, [facility] [address], [place] [address] Mar, [facility] [address], [place] [address] Dec, Cellulitis of foot, left L03.116 [facility] [address], [place] [address] Dec, [facility] [address] [place] [address] Dec, [facility] [address], [place] [address] 15 Dec, 2015 Diabetes type 2, uncontrolled E11.65 and Cellulitis of foot without toes, left L03.116 [facility] [address] [place] [id number] Nov, Diabetes type 2, uncontrolled E11.65 and Neuropathy G62.9 [facility] [address], [place] [address] January, [facility] [address], [place] [address] January, [facility] [address], [place] [address] 14 Dec, 2014 [facility] [address], [place] [address] Dec, [facility] [address], [place] [address] Aug, [facility] [address], [place] [address] Aug, [facility] [id number], [place] [address] Aug, [facility] [address] [place] [address] Aug, [facility] [place] [facility] [address] [id number] [place] [address] Jun, [facility] [place] [facility] [address] [id number] [place] [address] Jun, [facility] [place] [facility] [address] [id number] [place] [address] May, [facility] [place] [facility] [address] [id number] [place] [address] May, [facility] [place] [facility] [address] [id number] [place] [address] Apr, [facility] [place] [facility] [address] [id number] [place] [address] Apr, [facility] [place] [facility] [address] [id number] [place] [address] Apr, [facility] [place] [facility] [address] [id number] [place] [address]- 2088 Apr, [facility] [place] [facility] [address] [id number] [place] [address]- 4[address] Apr, [facility] [place] [facility] [address] [id number] [place] [address]- 4[address] Apr, [facility] [place] [facility] [address] [id number] [place] [address] Mar, [facility] [place] [facility] [address] [id number] [place] [address]- 6897 Mar, [facility] [place] [facility] [address] [id number] [place] [address]- 9969 Feb, [facility] [place] [facility] [address] [id number] [place] [address]- 9369 Feb, [facility] [place] [facility] [address] [id number] [place] [address]- 6[address] Feb, [facility] [place] [facility] [address] [id number] [place] [address]- 1625 Feb, [facility] [place] [facility] [address] [id number] [place] [address]- 4705 Dec, [facility] [place] [facility] [address] [id number] [place] [address]- 1351 Dec, [facility] [place] [facility] [address] [id number] [place] [address]- 375[address] Dec, [facility] [place] [facility] [address] [id number] [place] [address]- 1256 Dec, [facility] [place] [facility] [address] [id number] [place] [address]- 9417 Dec, [facility] [place] [facility] [address] [id number] [place] [address]- [address] Sep, [facility] [place] [facility] [address] [id number] [place] [address]- 2973 Sep, [facility] [place] [facility] [address] [id number] [place] [address]- 1414 Aug, [facility] [place] [facility] [address] [id number] [place] [address]- 2507 Aug, [facility] [place] [facility] [address] [id number] [place] [address]- 4065 Aug, [facility] [place] [facility] [address] [id number] [place] [address]- 46[address] Aug, [facility] [place] [facility] [address] [id number] [place] [address]- [address] Aug, [facility] [place] [facility] [address] [id number] [place] [address]- 0[address] Aug, [facility] [place] [facility] [address] [id number] [place] [address]- 6[address] Aug, [facility] [place] [facility] [address] [id number] [place] [address]- 35[address] Aug, [facility] [address] [id number] [place] [address]- [address] Jul, [facility] [place] [facility] [address] [id number] [place] [address]- [address] Jul, [facility] [address] [id number] [place] [address]- 2546 Apr, [facility] [place] [facility] [address] [id number] [place] [address]- 6[address] Mar, [facility] [address] [id number] [place] [address]- 5[address] Mar, [facility] [address] [id number] [place] [address]- 5287 Mar, [facility] [address] [id number] [place] [address]- 7334 January, [facility] [address] [id number] [place] [address]- 6140 January, [facility] [address] [id number] [place] [address]- 7730 January, [facility] [place] [facility] [address] [id number] [place] [address]- 2466 January, [facility] [address] [id number] [place] [address]- 5[address] January, [facility] [place] [facility] [address] [id number] [place] [address]- 48[address] Nov, [facility] [place] [facility] [address] [id number] [place] [address]- 1814 Nov, [facility] [place] [facility] [address] [id number] [place] [address]- 6096 Nov, [facility] [place] [facility] [address] [id number] [place] [address]- 1196 Oct, [facility] [place] [facility] [address] [id number] [place] [address]- 2828 Oct, [facility] [place] [facility] [address] [id number] [place] [address]- 7133 Sep, [facility] [place] [facility] [address] [id number] [place] [address] 2546 Sep, [facility] [place] [facility] [address] [id number] [place] [address]- 9191 Jul, [facility] [place] [facility] [address] [id number] [place] [address]- 8227 Jul, [facility] [place] [facility] [address] [id number] [place] [address]- 2351 Jul, [facility] [place] [facility] [address] [id number] [place] [address]- 0122 Jul, [facility] [place] [facility] [address] [id number] [place] [address]- 0295 Jun, [facility] [place] [facility] [address] [id number] [place] [address]- 78[address] 16 Jun, 2012 [facility] [place] [facility] [address] [id number] [place] [address]- 0184 28 May, 2012 [facility] [place] [facility] [address] [id number] [place] [address]- 9495 15 May, 2012 [facility] [place] [facility] [address] [id number] [place] [address]- 9567 13 May, 2012 [facility] [place] [facility] [address] [id number] [place] [address] 2541 10 May, 2012 [facility] [place] [facility] [address] [id number] [place] [address]- 9476 10 Apr, 2012 [facility] [place] [facility] [address] [id number] [place] [address]- 5396 Mar, [facility] [place] [facility] [address] [id number] [place] [address]- 0484 Mar, [facility] [place] [facility] [address] [id number] [place] [address]- 3093 Mar, [facility] [place] [facility] [address] [id number] [place] [address]- 0483 Mar, [facility] [place] [facility] [address] [id number] [place] [address]- 1339 Mar, [facility] [place] [facility] [address] [id number] [place] [address]- 3799 Mar, [facility] [place] [facility] [address] [id number] [place] [address]- 4521 Mar, [facility] [place] [facility] [address] [id number] [place] [address]- 2456 Feb, [facility] [place] [facility] [address] [id number] [place] [address]- 0767 Feb, [facility] [place] [facility] [address] [id number] [place] [address]- 2185 January, [facility] [place] [facility] [address] [id number] [place] [address]- 3782 January, [facility] [place] [facility] [address] [id number] [place] [address]- 9453 Dec, [facility] [place] [facility] [address] [id number] [place] [address]- 9099 Dec, [facility] [place] [facility] [address] [id number] [address]- [address] Dec, [facility] [place] [facility] [address] [id number] [place] [address]- 6626 Nov, [facility] [place] [facility] [address] [id number] [place] [address]- 9874 Nov, [facility] [place] [facility] [address] [id number] [place] [address]- 5737 Oct, [facility] [place] [facility] [id number], [place] [address]- [address] Sep, [facility] [id number], [place] [address] Sep, [facility] [address], [place] [address]- 70[address] Aug, [facility] [address] [place] [address]- [address] Jul, [facility] [id number], [place] [address]- 9[address] Jul, [facility] [id number], [place] [address]- 0[address] Dec, [facility] [address] [place] [address]- [address] Aug, [facility] [id number], [place] [address]- [address] Jul, IMMUNIZATIONS No Known Immunizations SOCIAL HISTORY Never Assessed REASON FOR VISIT foot pain right lorrie castellanos PLAN OF CARE Activity Details Follow Up prn Reason: VITAL SIGNS Height 72 in 2017-09-27 Weight 142 lbs 2017-09-27 Temperature 98.2 degrees Fahrenheit 2017-09-27 Heart Rate 82 bpm 2017-09-27 Respiratory Rate 18 2017-09-27 BMI 19.26 kg/m2 2017-09-27 Blood pressure systolic 118 mmHg 2017-09-27 Blood pressure diastolic 76 mmHg 2017-09-27 MEDICATIONS Medication Instructions Dosage Frequency Start Date End Date Duration Status Gabapentin 300 MG Orally Three times a day 1 capsule 8h Apr, 90 days Not-Taking Levemir FlexTouch 100 UNIT/ML Subcutaneous HS inject 60 units Apr, Active Lisinopril 2.5 MG Orally Once a day 1 tablet 24h Nov, 90 days Not-Taking NovoLog Flexpen 100 UNIT/ML Subcutaneous with meals Inject 10 units Apr, Active Albuterol Sulfate 108 (90 Base) MCG/ACT Inhalation every 4 hrs 1 puff as needed 4h Apr, Not-Taking Cephalexin 500 MG Orally every 8 hrs 1 capsule 8h Aug, Sep, 10 day(s) Active RESULTS No Results PROCEDURES Procedure Date Ordered Result Body Site [facility] VISIT ESTABLISHED PATIENT Sep 27, 2017 INSTRUCTIONS MEDICATIONS ADMINISTERED No Known Medications [...]
--- OUTSIDE RECORDS SUMMARY | 2018-06-12 14:05 | XMS REPORT ---
Author Author HARVEY Cruz Organization [facility] Address [address] [place] [address] Care Team Providers Care Hospital Attendant Name Role Phone HARVEY Cruz Unavailable PROBLEMS Type Condition ICD9-CM Code ZEL65-MR Code Onset Dates Condition Status SNOMED Code Problem History of drug use Z87.898 Active 274014256 Problem Neuropathy G62.9 Active 521331733 Problem Microalbuminuria R80.9 Active 488076248 Problem Diabetes type 2, uncontrolled E11.65 Active 436798667 Problem Heat exhaustion due to salt depletion, subsequent encounter T67.4XXD Active 72898582 Problem Chronic obstructive pulmonary disease, unspecified COPD type J44.9 Active 46476005 Problem Other hammer toe(s) (acquired), right foot M20.41 Active 669406441 Problem Onychomycosis B35.1 Active 412173237 Problem Low oxygen saturation R79.81 Active 135772777 Problem Diabetes mellitus type II, uncontrolled E11.65 Active 026514316 ALLERGIES No Information ENCOUNTERS Encounter Location Date Diagnosis [facility] [id number] [place] [address] 95370- 9119 Nov, Diabetes type 2, uncontrolled E11.65 [facility] [id number] [place] [address] 87805- 1379 Nov, Diabetes type 2, uncontrolled E11.65 [facility] [id number] [place] [address] -3543 Aug, Neuropathy G62.9 and Cellulitis of right foot L03.115 [facility] [id number] [place] [address] 27855- 4441 Aug, [facility] [id number] [place] [address] 58007- 7251 May, Diabetes type 2, uncontrolled E11.65 and Neuropathy G62.9 [facility] [id number] [place] [address] 81605- 5686 Apr, Diabetes type 2, uncontrolled E11.65 ; History of drug use Z87.898 ; Neuropathy G62.9 ; Low oxygen saturation R79.81 ; Chronic obstructive pulmonary disease, unspecified COPD type J44.9 and Heat exhaustion due to salt depletion, subsequent encounter T67.4XXD [place] [address] [address]- [address] Apr, Onychomycosis B35.1 ; Other hammer toe(s) (acquired), right foot M20.41 and Diabetes mellitus type II, uncontrolled E11.65 [facility] [id number] [place] [address] 68409- 5507 Apr, [facility] [facility] [address] 5[address]85- 4211 Feb, Onychomycosis B35.1 ; Diabetes type 2, uncontrolled E11.65 ; Neuropathy G62.9 and History of drug use Z87.898 [place] [address] 57291- 9460 Feb, Diabetes type 2, uncontrolled E11.65 [facility] [id number] [place] [address] 39803- 3903 January, [facility] [address] 52881- 3833 Dec, Diabetes type 2, uncontrolled E11.65 and Screening for cholesterol level Z13.220 [facility] [id number] [place] [address] 92045- 7812 Dec, Diabetes type 2, uncontrolled E11.65 ; Microalbuminuria R80.9 ; History of drug use Z87.898 ; Screening for cholesterol level Z13.220 and Neuropathy G62.9 [facility] [id number] [place] [address] 62557- 1574 Sep, [facility] [address] [facility] [id number], [place] [address] Mar, [facility] [address] [facility] [id number], [place] [address] 3300 Dec, Cellulitis of foot, left L03.116 [facility] [address] [id number], [place] [address] 8728 Dec, [facility] [address] [facility] [id number], [place] [address] 6721 Dec, [facility] [address] [facility] [id number], [place] [address] 8915 15 Dec, 2015 Diabetes type 2, uncontrolled E11.65 and Cellulitis of foot without toes, left L03.116 [facility] [address] [place] [id number] Nov, Diabetes type 2, uncontrolled E11.65 and Neuropathy G62.9 [facility] [address] [facility] [id number], [place] [address] 4[address] January, [facility] [address] [id number] [address] 5258 January, [facility] [address] [address] 9736 Dec, [facility] [address] [id number] [address] 7755 Dec, [facility] [address] [id number], [place] [address]- 5492 Aug, [facility] [address] [facility] [id number], [place] [address]- 8933 Aug, [facility] [address] [id number] [address] 2528 Aug, [facility] [address] [id number] [address]- 8310 Aug, [facility] [address] [id number] [address]- 5860 Jun, [facility] [place] [facility] [address] [id number] [place] [address]- 7753 Jun, [facility] [place] [facility] [address] [id number] [place] [address]- 9660 May, [facility] [place] [facility] [address] [id number] [place] [address]- 1642 May, [facility] [place] [facility] [address] [id number] [place] [address]- 2615 Apr, [facility] [place] [facility] [address] [id number] [place] [address]- 0278 Apr, [facility] [place] [facility] [address] [id number] [place] [address]- 1658 Apr, [facility] [place] [facility] [address] [id number] [place] [address]- 2696 Apr, [facility] [place] [facility] [address] [id number] [place] [address]- 7939 Apr, [facility] [place] [facility] [address] [id number] [place] [address]- 6224 Apr, [facility] [place] [facility] [address] [id number] [place] [address]- 7611 Mar, [facility] [place] [facility] [address] [id number] [place] [address]- 4872 Mar, [facility] [place] [facility] [address] [id number] [place] [address]- 6012 Feb, [facility] [place] [facility] [address] [id number] [place] [address]- 3935 Feb, [facility] [place] [facility] [address] [id number] [place] [address]- 6872 Feb, [facility] [place] [facility] [address] [id number] [place] [address]- 4726 Feb, [facility] [place] [facility] [address] [id number] [place] [address]- 0692 Dec, [facility] [place] [facility] [address] [id number] [place] [address]- 4430 Dec, [facility] [place] [facility] [address] [id number] [place] [address]- 2546 Dec, [facility] [place] [facility] [address] [id number] [place] [address]- 0246 Dec, [facility] [place] [facility] [address] [id number] [place] [address]- 1199 Dec, [facility] [place] [facility] [address] [id number] [place] [address]- 9990 Sep, [facility] [place] [facility] [address] [id number] [place] [address]- 6023 Sep, [facility] [place] [facility] [address] [id number] [place] [address]- 2527 Aug, [facility] [place] [facility] [address] [id number] [place] [address]- 5934 Aug, [facility] [place] [facility] [address] [id number] [place] [address]- 8563 Aug, [facility] [place] [facility] [address] [id number] [place] [address]38 Aug, [facility] [place] [facility] [address] [id number] [place] [address]- 7716 Aug, [facility] [place] [facility] [address] [id number] [place] [address]- 2826 Aug, [facility] [place] [facility] [address] [id number] [place] [address]- 0986 Aug, [facility] [place] [facility] [address] [id number] [place] [address]- 2546 Aug, [facility] [place] [facility] [address] [id number] [place] [address]- 1333 Jul, [facility] [address] [id number] [place] [address]- 1961 Jul, [facility] [place] [facility] [address] [id number] [place] [address]- 8796 Apr, [facility] [place] [facility] [address] [id number] [place] [address]- 4987 Mar, [facility] [place] [facility] [address] [id number] [place] [address]- 5537 Mar, [facility] [place] [facility] [address] [id number] [place] [address]- 9376 Mar, [facility] [place] [facility] [address] [id number] [place] [address]- 4552 January, [facility] [place] [facility] [address] [id number] [place] [address]- 3316 January, [facility] [place] [facility] [address] [id number] [place] [address]- 2119 January, [facility] [place] [facility] [address] [id number] [place] [address]- 1232 January, [facility] [place] [facility] [address] [id number] [place] [address]- 0833 January, [facility] [place] [facility] [address] [id number] [place] [address]- 8790 Nov, [facility] [place] [facility] [address] [id number] [place] [address]- 2546 Nov, [facility] [place] [facility] [address] [id number] [place] [address]- 2540 Nov, [facility] [place] [facility] [address] [id number] [place] [address]- 5546 Oct, [facility] [place] [facility] [address] [id number] [place] [address]- 2546 Oct, [facility] [place] [facility] [address] [id number] [place] [address]- 8211 Sep, [facility] [place] [facility] [address] [id number] [place] [address]- 2610 Sep, [facility] [place] [facility] [address] [id number] [place] [address]- 9643 Jul, [facility] [place] [facility] [address] [id number] [place] [address]- 1886 Jul, [facility] [place] [facility] [address] [id number] [place] [address]- 0104 Jul, [facility] [place] [facility] [address] [id number] [place] [address]- 8054 Jul, [facility] [place] [facility] [address] [id number] [place] [address]- 6555 Jun, [facility] [place] [facility] [address] [id number] [place] [address]- 3175 Jun, [facility] [place] [facility] [address] [id number] [place] [address]- 0342 28 May, 2012 [facility] [place] [facility] [address] [id number] [place] [address]- 4307 15 May, 2012 [facility] [place] [facility] [address] [id number] [place] [address]- 7810 13 May, 2012 [facility] [place] [facility] [address] [id number] [place] [address] 2546 10 May, 2012 [facility] [place] [facility] [address] [id number] [place] [address]- 8827 Apr, [facility] [place] [facility] [address] [id number] [place] [address]- 6453 Mar, [facility] [place] [facility] [address] [id number] [place] [address] 2546 Mar, [facility] [place] [facility] [address] [id number] [place] [address]- 2818 Mar, [facility] [place] [facility] [address] [id number] [place] [address]- 4447 Mar, [facility] [place] [facility] [address] [id number] [place] [address]- 7690 Mar, [facility] [place] [facility] [address] [id number] [place] [address]- 1686 Mar, [facility] [place] [facility] [address] [id number] [place] [address]- 5471 Mar, [facility] [address] [id number] [place] [address]- 5272 Feb, [facility] [place] [facility] [address] [id number] [place] [address]- 9985 Feb, [facility] [address] [id number] [place] [address]- 8697 January, [facility] [address] [id number] [place] [address]- 8089 January, [facility] [address] [id number] [place] [address]- 8583 Dec, [facility] [place] [facility] [address] [id number] [place] [address]- 9592 Dec, [facility] [place] [facility] [address] [id number] [place] [address]- 1002 Dec, [facility] [place] [facility] [address] [id number] [place] [address]- 4886 Nov, [facility] [place] [facility] [address] [id number] [place] [address]- 9442 Nov, [facility] [place] [facility] [address] [id number] [place] [address]- 1096 Oct, [facility] [place] [facility] [address] [id number] [place] [address]- 7786 Sep, [facility] [place] [facility] [address] [id number], [place] [address] 2546 Sep, [facility] [address] [id number], [place] [address]- 7513 Aug, [facility] [address] [id number], [place] [address]- 8235 Jul, [facility] [address] [id number], [place] [address] 254 Jul, [facility] [address] [id number], [place] [address] 2543 Dec, [facility] [address] [id number], [place] [address]- 5357 Aug, [facility] [address] [id number], [place] [address]- 9597 Jul, IMMUNIZATIONS No Known Immunizations SOCIAL HISTORY Never Assessed REASON FOR VISIT triage - CBowmanRN PLAN OF CARE VITAL SIGNS MEDICATIONS Unknown Medications RESULTS No Results PROCEDURES No Known procedures [...]
--- OUTSIDE RECORDS SUMMARY | 2018-06-12 14:06 | XMS REPORT ---
Author Author HARVEY Cruz Organization [facility] Address [address] [place] [address] Care Team Providers Care Cassandra Architect Name Role Phone HARVEY Cruz Unavailable PROBLEMS Type Condition ICD9-CM Code IJZ51-OE Code Onset Dates Condition Status SNOMED Code Problem History of drug use Z87.898 Active 666295831 Problem Neuropathy G62.9 Active 192794608 Problem Microalbuminuria R80.9 Active 100218654 Problem Diabetes type 2, uncontrolled E11.65 Active 485430137 Problem Heat exhaustion due to salt depletion, subsequent encounter T67.4XXD Active 23960921 Problem Chronic obstructive pulmonary disease, unspecified COPD type J44.9 Active 45303879 Problem Other hammer toe(s) (acquired), right foot M20.41 Active 905356666 Problem Onychomycosis B35.1 Active 106498089 Problem Low oxygen saturation R79.81 Active 581836398 Problem Diabetes mellitus type II, uncontrolled E11.65 Active 788591134 ALLERGIES No Information ENCOUNTERS Encounter Location Date Diagnosis [facility] [id number] [place] [address]- 408[address] Dec, [facility] [id number] [place] [address] 77103- 4550 Nov, Diabetes type 2, uncontrolled E11.65 [facility] [id number] [place] [address] 43475- 1190 Nov, Diabetes type 2, uncontrolled E11.65 [facility] [id number] [place] [address] -[address]71 Aug, Neuropathy G62.9 and Cellulitis of right foot L03.115 [facility] [id number] [place] [address] 30230- 4209 Aug, [place] [id number] [place] [address]- 2001 May, Diabetes type 2, uncontrolled E11.65 and Neuropathy G62.9 [place] [id number] [place] [address] 62308- 7204 Apr, Diabetes type 2, uncontrolled E11.65 ; History of drug use Z87.898 ; Neuropathy G62.9 ; Low oxygen saturation R79.81 ; Chronic obstructive pulmonary disease, unspecified COPD type J44.9 and Heat exhaustion due to salt depletion, subsequent encounter T67.4XXD [address] [address]- [address] Apr, Onychomycosis B35.1 ; Other hammer toe(s) (acquired), right foot M20.41 and Diabetes mellitus type II, uncontrolled E11.65 [place] [id number] [place] [address] 81220- 9302 Apr, [place] [id number] [place] [address] 71436- 3565 Feb, Onychomycosis B35.1 ; Diabetes type 2, uncontrolled E11.65 ; Neuropathy G62.9 and History of drug use Z87.898 [place] [id number] [place] [address] 86462- 0855 Feb, Diabetes type 2, uncontrolled E11.65 [place] [id number] [place] [address] 26522- 3916 January, [place] [id number] [place] [address] 19230- 1387 Dec, Diabetes type 2, uncontrolled E11.65 and Screening for cholesterol level Z13.220 [place] [id number] [place] [address] 61888- 8221 Dec, Diabetes type 2, uncontrolled E11.65 ; Microalbuminuria R80.9 ; History of drug use Z87.898 ; Screening for cholesterol level Z13.220 and Neuropathy G62.9 [facility] [address] [facility] [id number] [address] Sep, [facility] [address] [facility] [id number] [place] [address] 7615 Mar, [facility] [address] [facility] [id number] [place] [address] 8738 Dec, Cellulitis of foot, left L03.116 [facility] [address] [facility] [id number] [place] [address] 0755 Dec, [facility] [id number] [address] 1402 Dec, [facility] [address] [address] 240[address] 15 Dec, 2015 Diabetes type 2, uncontrolled E11.65 and Cellulitis of foot without toes, left L03.116 [facility] [address] [place] [id number] 15 Nov, 2015 Diabetes type 2, uncontrolled E11.65 and Neuropathy G62.9 [facility] [id number] [address] 1095 January, [facility] [id number] [address] 7466 January, [facility] [id number] [address] 7505 14 Dec, 2014 [facility] [id number] [address] 6467 13 Dec, 2014 [facility] [id number] [address] 9711 Aug, [facility] [id number] [address] 9333 Aug, [facility] [id number] [address] 3381 Aug, [facility] [address] [address] Aug, [facility] [place] [facility] [address] [id number] [place] [address]- 4290 Jun, [facility] [place] [facility] [address] [id number] [place] [address]- 8078 Jun, [facility] [place] [facility] [address] [id number] [place] [address]- 5613 May, [facility] [place] [facility] [address] [id number] [place] [address]- 7396 May, [facility] [place] [facility] [address] [id number] [place] [address]- 9985 Apr, [facility] [place] [facility] [address] [id number] [place] [address]- 6846 Apr, [facility] [place] [facility] [address] [id number] [place] [address]- 5710 Apr, [facility] [place] [facility] [address] [id number] [place] [address]- 2099 Apr, [facility] [place] [facility] [address] [id number] [place] [address]- 1260 Apr, [facility] [place] [facility] [address] [id number] [place] [address]- 1810 Apr, [facility] [place] [facility] [address] [id number] [place] [address]- 9810 Mar, [facility] [place] [facility] [address] [id number] [place] [address]- 4703 Mar, [facility] [place] [facility] [address] [id number] [place] [address]- 3631 Feb, [facility] [place] [facility] [address] [id number] [place] [address]- 7778 Feb, [facility] [place] [facility] [address] [id number] [place] [address]- 4307 Feb, [facility] [place] [facility] [address] [id number] [place] [address]- 3446 Feb, [facility] [place] [facility] [address] [id number] [place] [address]- 4958 Dec, [facility] [place] [facility] [address] [id number] [place] [address]- 3476 Dec, [facility] [place] [facility] [address] [id number] [place] [address]- 7568 Dec, [facility] [place] [facility] [address] [id number] [place] [address]- 2816 Dec, [facility] [place] [facility] [address] [id number] [place] [address]- 8821 Dec, [facility] [place] [facility] [address] [id number] [place] [address]- 3466 Sep, [facility] [place] [facility] [address] [id number] [place] [address]- 8979 Sep, [facility] [place] [facility] [address] [id number] [place] [address]- 2762 Aug, [facility] [place] [facility] [address] [id number] [place] [address]- 8619 Aug, [facility] [place] [facility] [address] [id number] [place] [address]851 Aug, [facility] [place] [facility] [address] [id number] [place] [address]- 6412 Aug, [facility] [place] [facility] [address] [id number] [place] [address]- 8263 Aug, [facility] [place] [facility] [address] [id number] [place] [address]- 1206 Aug, [facility] [place] [facility] [address] [id number] [place] [address]- 7506 Aug, [facility] [place] [facility] [address] [id number] [place] [address] 1611 Aug, [facility] [address] [id number] [place] [address]- 4319 Jul, [facility] [place] [facility] [address] [id number] [place] [address]- 8246 Jul, [facility] [place] [facility] [address] [id number] [place] [address]- 2546 Apr, [facility] [place] [facility] [address] [id number] [place] [address]- 6351 Mar, [facility] [place] [facility] [address] [id number] [place] [address]- 0320 Mar, [facility] [place] [facility] [address] [id number] [place] [address]- 7436 Mar, [facility] [place] [facility] [address] [id number] [place] [address]- 2866 January, [facility] [place] [facility] [address] [id number] [place] [address]- 8997 January, [facility] [place] [facility] [address] [id number] [place] [address]- 6347 January, [facility] [place] [facility] [address] [id number] [place] [address]- 4396 January, [facility] [place] [facility] [address] [id number] [place] [address]- 2546 January, [facility] [place] [facility] [address] [id number] [place] [address]- 8357 Nov, [facility] [place] [facility] [address] [id number] [place] [address]- 1891 Nov, [facility] [place] [facility] [address] [id number] [place] [address]- 7096 Nov, [facility] [place] [facility] [address] [id number] [place] [address]- 2546 Oct, [facility] [place] [facility] [address] [id number] [place] [address]- 6358 Oct, [facility] [place] [facility] [address] [id number] [place] [address]- 2431 Sep, [facility] [place] [facility] [address] [id number] [place] [address]- 2796 Sep, [facility] [place] [facility] [address] [id number] [place] [address]- 9201 Jul, [facility] [place] [facility] [address] [id number] [place] [address]- 4906 Jul, [facility] [place] [facility] [address] [id number] [place] [address]- 6721 Jul, [facility] [place] [facility] [address] [id number] [place] [address]- 7310 Jul, [facility] [place] [facility] [address] [id number] [place] [address]279 Jun, [facility] [place] [facility] [address] [id number] [place] [address]- 2744 Jun, [facility] [place] [facility] [address] [id number] [place] [address]- 7309 28 May, 2012 [facility] [place] [facility] [address] [id number] [place] [address]- 7638 15 May, 2012 [facility] [place] [facility] [address] [id number] [place] [address] 2546 13 May, 2012 [facility] [place] [facility] [address] [id number] [place] [address]- 2541 10 May, 2012 [facility] [place] [facility] [address] [id number] [place] [address]- 0931 10 Apr, 2012 [facility] [place] [facility] [address] [id number] [place] [address]- 6916 Mar, [facility] [place] [facility] [address] [id number] [place] [address]- 2236 Mar, [facility] [place] [facility] [address] [id number] [place] [address]- 5614 Mar, [facility] [place] [facility] [address] [id number] [place] [address]- 1634 Mar, [facility] [place] [facility] [address] [id number] [place] [address]- 5359 Mar, [facility] [place] [facility] [address] [id number] [place] [address]- 7070 Mar, [facility] [address] [id number] [place] [address]- 4916 Mar, [facility] [place] [facility] [address] [id number] [place] [address]- 0816 Feb, [facility] [address] [id number] [place] [address]- 7296 Feb, [facility] [address] [id number] [place] [address]- 9037 January, [facility] [place] [facility] [address] [id number] [place] [address]- 0306 January, [facility] [place] [facility] [address] [id number] [place] [address]- 5958 Dec, [facility] [place] [facility] [address] [id number] [place] [address]- 6216 Dec, [facility] [place] [facility] [address] [id number] [place] [address]- 5118 Dec, [facility] [place] [facility] [address] [id number] [place] [address]- 2007 Nov, [facility] [place] [facility] [address] [id number] [place] [address]- 8406 Nov, [facility] [place] [facility] [address] [id number] [place] [address]- 7485 Oct, [facility] [place] [facility] [address] [id number] [place] [address]- 5658 Sep, [facility] [id number] [address]- 4973 Sep, [facility] [address] [address]- 0333 Aug, [facility] [id number] [address]- 9044 Jul, [facility] [address] [address]- 6920 Jul, [facility] [address] [address]- 0296 Dec, [facility] [address] [address]- 6728 Aug, [facility] [address] [id number] [address]- 8473 Jul, IMMUNIZATIONS No Known Immunizations SOCIAL HISTORY Never Assessed REASON FOR VISIT Metformin refill PLAN OF CARE VITAL SIGNS MEDICATIONS Unknown [...]
[2018-06-12 14:32] LABS: ALANINE AMINOTRANSFERASE 43 U/L (0-55); ALBUMIN 3.3 GM/DL (3.2-4.5); ALKALINE PHOSPHATASE 102 U/L (40-136); BILIRUBIN,TOTAL 0.3 MG/DL (0.1-1.0); BUN/CREATININE RATIO 22; CALCIUM 8.8 MG/DL (8.5-10.1); CARBON DIOXIDE 25 MMOL/L (21-32); CHLORIDE 97 MMOL/L (98-107); CREATININE SERUM 1.04 MG/DL (0.60-1.30); GFR ESTIMATED > 60; POTASSIUM 4.3 MMOL/L (3.6-5.0); SODIUM 132 MMOL/L (135-145); TOTAL PROTEIN 5.7 GM/DL (6.4-8.2)
--- NOTE | 2018-06-12 14:40 | ED General ---
General Chief Complaint: Glucose Problems Stated Complaint: DIABETIC ISSUES Nursing Triage Note: TO ED PER EMS FROM HOME PATIENT REPORTS BEING TIRED IS DIABETIC AND NOT TAKEN INSULIN FOR 3 DAYS. EMS REPORT BS TO PA TO READ. ON ADMIT JAN IRVIN BS 246 Nursing Sepsis Screen: No Definite Risk Source of Information: Patient, Old Records (TONIO BEASLEY STUDENT) Source of Information: EMS (PAYAL CLEMENTS MD) History of Present Illness Date Seen by Provider: Jun 12, 2018 Time Seen by Provider: 14:35 Initial Comments Patient is a 62 year old male who presents to the ED via EMS. He states that his neighbor called EMS for him but he cannot recall why. Patient states that he has diabetes and has not taken his insulin for 3-4 days due to being out. He states that his only symptoms are tiredness and dry mouth. He denies any pain, nausea, and vomiting. Patient has had many visit to the ED for uncontrolled diabetes. Timing/Duration: 1-3 Hours Associated Systoms: Malaise; No Nausea/Vomiting (TONIO BEASLEY MED STUDENT) Allergies and Home Medications Allergies Coded Allergies: Benzodiazepines (Verified Allergy, Unknown, 05/10/14) Home Medications Acetaminophen 500 Mg Tablet, 1,000 MG PO Q6H PRN for PAIN-MILD, (Reported) Gabapentin 300 Mg Capsule, 300 MG PO TID, (Reported) Insulin Aspart 100 Unit/1 Ml Susp, 10 UNIT SQ AC, (Reported) LAST FILLED 05-22-17 Insulin Determir 1,000 Units/10 Ml Soln, 40 UNITS SQ HS NOTE DOSE ADJUSTMENT Prescribed by: THANH PERALTA on 10/24/17 1159 Naproxen Sodium 220 Mg Tablet, 440 MG PO Q8H PRN for PAIN-MILD, (Reported) Patient Home Medication List Home Medication List Reviewed: Yes (PAYAL CLEMENTS MD) Review of Systems Review of Systems Constitutional: No fever; malaise EENTM: other (Dry mouth) Respiratory: No cough, No short of breath Cardiovascular: No chest pain, No syncope Gastrointestinal: No abdominal pain, No constipation, No diarrhea, No nausea, No vomiting Musculoskeletal: no symptoms reported Skin: no symptoms reported Psychiatric/Neurological: Denies Headache Hematologic/Lymphatic: No Symptoms Reported Immunological/Allergic: no symptoms reported (TONIO BEASLEY MED STUDENT) Past Zbaexig-Dyfsrd-Aorkod Hx Patient Social History Alcohol Use: Occasionally Uses Recreational Drug Use: No Drug of Choice: THC, METH Smoking Status: Current Everyday Smoker Type Used: Cigarettes 2nd Hand Smoke Exposure: Yes Recent Foreign Travel: No Contact w/Someone Who Travel: No Recent Infectious Disease Expo: No Recent Hopitalizations: No (TONIO BEASLEY Handprint ANKIT) Immunizations Up To Date Tetanus Booster (TDap): Less than 5yrs Date of Pneumonia Vaccine: Jan 16, 2016 (TONIO BEASLEY Handprint ANKIT) Seasonal Allergies Seasonal Allergies: No (TONIO BEASLEY Handprint ANKIT) Past Medical History Surgeries: Yes Appendectomy, Gallbladder, Orthopedic Respiratory: No Cardiac: Yes High Cholesterol, Hypertension Neurological: Yes (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) Neuropathy, Traumatic Brain Injury Reproductive Disorders: No Sexually Transmitted Disease: No HIV/AIDS: No Genitourinary: No Gastrointestinal: No Musculoskeletal: Yes (C1-C2 FX, LOW BACK FX) Chronic Back Pain, Fractures Endocrine: Yes (DKA) Diabetes, Insulin dep HEENT: No (EDENTULOUS) Loss of Vision: Denies Hearing Impairment: Denies Cancer: No Psychosocial: No Integumentary: Yes (LEG CELLULITIS) Blood Disorders: No Adverse Reaction/Blood Tranf: No (TONIO BEASLEY Handprint ANKIT) Family Medical History Blood clots 19 FATHER Diabetes mellitus 19 FATHER 19 MOTHER G8 BROTHER Physical Exam Vital Signs (PAYAL CLEMENTS MD) Vital Signs Capillary Refill : Less Than 3 Seconds (TONIO BEASLEY Handprint STUDENT) Height, Weight, BMI Height: 6'0.00" Weight: 110lbs. 4.2oz. 49.036007jf; 18.8 BMI Method:Stated General Appearance: Thin, Other (Somnolent) HEENT: PERRL/EOMI, Other (Dry mucous membranes) Neck: Non Tender, Supple Respiratory: Chest Non Tender, Lungs Clear, Normal Breath Sounds, No Accessory Muscle Use, No Respiratory Distress Cardiovascular: Regular Rate, Rhythm, No Edema, No Gallop, No Murmur Gastrointestinal: Normal Bowel Sounds, Non Tender, Soft; No Guarding, No Rebound Extremity: Non Tender, No Calf Tenderness, No Pedal Edema Neurologic/Psychiatric: Oriented x3, No Motor/Sensory Deficits, Depressed Affect Skin: Normal Color, Warm/Dry (TONIO BEASLEY MED STUDENT) Progress/Results/Core Measures Suspected Sepsis Recent Fever Within 48 Hours: No Infection Criteria Present: None New/Unexplained Altered Menta: No Sepsis Screen: No Definite Risk SIRS Temperature:97.9 Pulse: 79 Respiratory Rate: 18 Laboratory Tests 06/12/18 13:50: White Blood Count 7.0 Blood Pressure 144 /74 Mean: 97 Laboratory Tests 06/12/18 13:50: Creatinine 1.04, Platelet Count 223, Total Bilirubin 0.3 (TONIO BEASLEY) Results/Orders Lab Results (PAYLA CLEMENTS MD) My Orders (PAYAL CLEMENTS MD) Medications Given in ED (PAYAL CLEMENTS MD) Vital Signs/I&O (PAYAL CLEMENTS MD) Vital Signs/I&O Capillary Refill : Less Than 3 Seconds (TONIO BEASLEY) Blood Pressure Mean: 97 Point of Care Testing Finger Stick Blood Glucose: 246 Blood Glucose Action Taken: DR NOTIFIED (TONIO BEASLEY) Progress Note : Time: 17:22 Progress Note Blood sugar is trending down with IV hydration. I discussed the case with Dr. Reid who has renewed his insulin prescription and sent [facility]. Follow -up appointment is being obtained for the patient. I did address the positive drug screen and patient states he has not used methamphetamines in quite some time and does not know how his drug screen came back positive. Patient was interviewed, seen, and examined by me along with SANTO Araiza. I agree with her history, exam, documentation, assessment, and plan with the following additions. Patient stated he has not renewed his insulin prescription in quite some time. He has been using his brother's insulin for the past several months. He ran out of insulin a few days ago. He denies any specific signs or symptoms of acute illness such as fever, cough, etc. Exam: Gen.: Alert, oriented, somnolent, thin HEENT normocephalic and atraumatic, moist mucous membranes Heart: Regular rate and rhythm without murmur Chest: Clear to auscultation bilaterally with normal effort Abdomen: Soft, nontender, nondistended Neuro/psych: Somnolent but easily arousable, alert and oriented, no focal deficits Extremities: Normal to inspection (PAYAL CLEMENTS MD) Departure Impression Primary Impression: Hyperglycemia Additional Impressions: Noncompliance Somnolence Disposition: 01 HOME, SELF-CARE Condition: Improved Departure-Patient Inst. Referrals: [facility] (PCP/Family) Primary Care Physician Patient Instructions: Diabetes Type 2 (DC) Add. Discharge Instructions: Drink plenty of clear liquids. A renewal prescription for your insulin was [facility] by the [facility]. Use your insulin as directed. A follow-up appointment has been arranged for you on June 17, at 10:00. Please check your blood sugars fasting in the mornings and 2 hours after meals. Bring those blood sugars to your appointment. Return to care if symptoms worsen All discharge instructions reviewed with patient and/or family. Voiced understanding. Copy Copies To 1: EMANUEL REID MD, ANGELA M MED STUDENT Jun 12, 2018 14:40 PAYAL CLEMENTS MD Jun 12, 2018 17:28
[2018-06-12 14:53] LABS: GLUCOSE 505 MG/DL (70-105)
[2018-06-12 16:18] LABS: BILIRUBIN,URINE NEGATIVE (NEGATIVE); CLARITY,URINE CLEAR; COLOR,URINE YELLOW; GLUCOSE, URINE (UA) 4+ (NEGATIVE); KETONES,URINE 1+ (NEGATIVE); LEUKOCYTE ESTERASE ,URINE NEGATIVE (NEGATIVE); NITRITE,URINE NEGATIVE (NEGATIVE); PH,URINE 6 (5-9); PROTEIN,URINE NEGATIVE (NEGATIVE); UROBILINOGEN,URINE NORMAL (NORMAL)
[2018-06-12 16:42] LABS: WBC,URINE RARE /HPF
[2018-06-12 16:43] LABS: BACTERIA,URINE NEGATIVE /HPF; SQUAMOUS EPITHELIAL CELL,UR 0-2 /HPF; URINE OTHER FEW SPERM /HPF
[2018-06-12 16:45] LABS: AMPHETAMINE SCREEN, URINE POSITIVE (NEGATIVE); CANNABINOID SCREEN, URINE POSITIVE (NEGATIVE)
[2018-06-12 16:46] LABS: BARBITURATE SCREEN URINE NEGATIVE (NEGATIVE); BENZODIAZEPINES SCREEN URINE NEGATIVE (NEGATIVE); COCAINE SCREEN URINE NEGATIVE (NEGATIVE); METHADONE STAT NEGATIVE (NEGATIVE); METHAMPHETAMINE SCREEN URINE S POSITIVE (NEGATIVE); OPIATE SCREEN URINE NEGATIVE (NEGATIVE); OXYCODONE STAT NEGATIVE (NEGATIVE); PROPOXYPHENE STAT NEGATIVE (NEGATIVE); TRICYCLIC ANTIDEPRESSANTS SCRE NEGATIVE (NEGATIVE)
[2018-06-12 17:36] VITALS: BP 156/77
== END 2018-06-12 17:44 | disposition home or self-care (01) ==
LOC: EDUNIT# 13:37 → ER 13:38
DX: E11.65 Type 2 diabetes mellitus with hyperglycemia (principal); R40.0 Somnolence; E78.00 Pure hypercholesterolemia, unspecified; I10 Essential (primary) hypertension; E11.42 Type 2 diabetes mellitus with diabetic polyneuropathy; F12.10 Cannabis abuse, uncomplicated; F15.10 Other stimulant abuse, uncomplicated; F17.210 Nicotine dependence, cigarettes, uncomplicated; Z87.820 Personal history of traumatic brain injury; Z91.14 Patient's other noncompliance with medication regimen; Z90.89 Acquired absence of other organs; Z79.4 Long term (current) use of insulin
CPT/HCPCS: 36415; 80053; 80306; 80320; 81000; 82962; 85025; 96360; 96361

== ENCOUNTER 2018-07-17 19:37 | Inpatient (IN) | payer MEDICARE, MEDICAID ==
[~2018-07-17] VITALS: Ht 182.9 cm; Wt 68.1 kg
[2018-07-17] MEDS ORDERED: NS IV 1000 ML 1,000 ML IV ONE ×2 (19:44→20:51)
--- OUTSIDE RECORDS SUMMARY | 2018-07-17 19:45 | XMS REPORT ---
Author Author JEANETTE EMANUEL [facility] Address [address] [place] [address] Care Team Providers Care Forepart Reducer Name Role Phone EMANUEL REID Unavailable PROBLEMS Type Condition ICD9-CM Code XRV56-UM Code Onset Dates Condition Status SNOMED Code Problem History of drug use Z87.898 Active 290383496 Problem Neuropathy G62.9 Active 274219213 Problem Microalbuminuria R80.9 Active 497423052 Problem Diabetes type 2, uncontrolled E11.65 Active 834535787 Problem Heat exhaustion due to salt depletion, subsequent encounter T67.4XXD Active 35698361 Problem Chronic obstructive pulmonary disease, unspecified COPD type J44.9 Active 61099395 Problem Other hammer toe(s) (acquired), right foot M20.41 Active 433133614 Problem Onychomycosis B35.1 Active 006518070 Problem Low oxygen saturation R79.81 Active 423008752 Problem Diabetes mellitus type II, uncontrolled E11.65 Active 462663907 ALLERGIES No Information ENCOUNTERS Encounter Location Date Diagnosis [facility] [id number] [place] [address] 59396- 3517 May, Diabetes type 2, uncontrolled E11.65 [facility] [id number] [place] [address] 43271- 9844 Nov, Diabetes type 2, uncontrolled E11.65 [facility] [id number] [place] [address] 14251- 9941 Nov, Diabetes type 2, uncontrolled E11.65 [facility] [id number] [place] [address]26 -7561 Aug, Neuropathy G62.9 and Cellulitis of right foot L03.115 [facility] [id number] [place] [address] 97994- 9099 Aug, [place] [id number] [place] [address] 33676- 2610 May, Diabetes type 2, uncontrolled E11.65 and Neuropathy G62.9 [place] [id number] [place] [address] 12365- 3998 Apr, Diabetes type 2, uncontrolled E11.65 ; History of drug use Z87.898 ; Neuropathy G62.9 ; Low oxygen saturation R79.81 ; Chronic obstructive pulmonary disease, unspecified COPD type J44.9 and Heat exhaustion due to salt depletion, subsequent encounter T67.4XXD [address] [address]- [address]35 Apr, Onychomycosis B35.1 ; Other hammer toe(s) (acquired), right foot M20.41 and Diabetes mellitus type II, uncontrolled E11.65 [place] [address] [address]- [address]80 Apr, [place] [address] 89695- 2927 Feb, Onychomycosis B35.1 ; Diabetes type 2, uncontrolled E11.65 ; Neuropathy G62.9 and History of drug use Z87.898 [place] [id number] [place] [address] 71661- 6055 Feb, Diabetes type 2, uncontrolled E11.65 [place] [id number] [place] [address] 92290- 3140 January, [place] [address] 08362- 5429 Dec, Diabetes type 2, uncontrolled E11.65 and Screening for cholesterol level Z13.220 [place] [id number] [place] [address] 04970- 9353 Dec, Diabetes type 2, uncontrolled E11.65 ; Microalbuminuria R80.9 ; History of drug use Z87.898 ; Screening for cholesterol level Z13.220 and Neuropathy G62.9 [facility] [address] [facility] [id number] [address] Sep, [facility] [id number] [address] Mar, [facility] [id number] [address] Dec, Cellulitis of foot, left L03.116 [facility] [id number] [place] [address] 49276- 5862 Dec, [facility] [id number] [address] 5[address] Dec, [facility] [id number] [place] [address] 29767- 4559 15 Dec, 2015 Diabetes type 2, uncontrolled E11.65 and Cellulitis of foot without toes, left L03.116 [facility] [address] [place] [id number] 15 Nov, 2015 Diabetes type 2, uncontrolled E11.65 and Neuropathy G62.9 [facility] [id number] [address] 95[address] January, [facility] [id number] [address] 1705 January, [facility] [id number] [address] 14 Dec, 2014 [facility] [id number] [address] 4515 Dec, [facility] [id number] [address] 8981 Aug, [facility] [id number] [address] 7163 Aug, [facility] [id number] [address] 3435 Aug, [facility] [id number] [address] 0658 Aug, [facility] [place] [facility] [address] [id number] [place] [address] 8724 Jun, [facility] [place] [facility] [address] [id number] [place] [address]- 1742 Jun, [facility] [place] [facility] [address] [id number] [place] [address]- 1438 May, [facility] [place] [facility] [address] [id number] [place] [address]- 0091 May, [facility] [place] [facility] [address] [id number] [place] [address]- 7654 Apr, [facility] [place] [facility] [address] [id number] [place] [address]- 2141 Apr, [facility] [place] [facility] [address] [id number] [place] [address]- 8247 Apr, [facility] [place] [facility] [address] [id number] [place] [address]- 4961 Apr, [facility] [place] [facility] [address] [id number] [place] [address]- 8448 Apr, [facility] [place] [facility] [address] [id number] [place] [address]- 9907 Apr, [facility] [place] [facility] [address] [id number] [place] [address]- 4715 Mar, [facility] [place] [facility] [address] [id number] [place] [address]- 1531 Mar, [facility] [place] [facility] [address] [id number] [place] [address]- 7638 Feb, [facility] [place] [facility] [address] [id number] [place] [address]- 6910 Feb, [facility] [place] [facility] [address] [id number] [place] [address]- 1472 Feb, [facility] [place] [facility] [address] [id number] [place] [address]- 4374 Feb, [facility] [place] [facility] [address] [id number] [place] [address]- 9540 Dec, [facility] [place] [facility] [address] [id number] [place] [address]- 5916 Dec, [facility] [place] [facility] [address] [id number] [place] [address]- 0342 Dec, [facility] [place] [facility] [address] [id number] [place] [address]- 1326 Dec, [facility] [place] [facility] [address] [id number] [place] [address]- 9070 Dec, [facility] [place] [facility] [address] [id number] [place] [address]- 2151 Sep, [facility] [place] [facility] [address] [id number] [place] [address]- 7175 Sep, [facility] [place] [facility] [address] [id number] [place] [address]- 9343 Aug, [facility] [place] [facility] [address] [id number] [place] [address]- 1296 Aug, [facility] [place] [facility] [address] [id number] [place] [address] Aug, [facility] [place] [facility] [address] [id number] [place] [address]- 0182 Aug, [facility] [place] [facility] [address] [id number] [place] [address]- 5344 Aug, [facility] [place] [facility] [address] [id number] [place] [address]- 4576 Aug, [facility] [place] [facility] [address] [id number] [place] [address]- 2156 Aug, [facility] [place] [facility] [address] [id number] [place] [address]- 5753 Aug, [facility] [address] [id number] [place] [address]- 2545 Jul, [facility] [address] [id number] [place] [address]- 8666 Jul, [facility] [address] [id number] [place] [address]- 2546 Apr, [facility] [place] [facility] [address] [id number] [place] [address]- 2546 Mar, [facility] [address] [id number] [place] [address]- 1431 Mar, [facility] [address] [id number] [place] [address]- 9086 Mar, [facility] [address] [id number] [place] [address]- 1896 January, [facility] [address] [id number] [place] [address]- 2546 January, [facility] [address] [id number] [place] [address]- 2646 January, [facility] [address] [id number] [place] [address]- 2546 January, [facility] [address] [id number] [place] [address]- 2546 January, [facility] [place] [facility] [address] [id number] [address]- 2546 Nov, [facility] [place] [facility] [address] [id number] [place] [address]- 2546 Nov, [facility] [place] [facility] [address] [id number] [place] [address]- 2546 Nov, [facility] [place] [facility] [address] [id number] [place] [address]- 2546 Oct, [facility] [place] [facility] [address] [id number] [place] [address]- 9204 Oct, [facility] [address] [id number] [place] [address]- 5523 Sep, [facility] [place] [facility] [address] [id number] [place] [address]- 7156 Sep, [facility] [address] [id number] [place] [address]- 2614 Jul, [facility] [place] [facility] [address] [id number] [place] [address]- 9669 Jul, [facility] [address] [id number] [place] [address]- 6369 Jul, [facility] [place] [facility] [address] [id number] [place] [address]- 2499 Jul, [facility] [address] [id number] [place] [address]- 4756 Jun, [facility] [address] [id number] [place] [address]- 4381 Jun, [facility] [place] [facility] [address] [id number] [place] [address]- 8763 28 May, 2012 [facility] [place] [facility] [address] [id number] [place] [address]- 4847 15 May, 2012 [facility] [place] [facility] [address] [id number] [place] [address] 2546 13 May, 2012 [facility] [place] [facility] [address] [id number] [place] [address] 2544 10 May, 2012 [facility] [place] [facility] [address] [id number] [place] [address]- 1518 10 Apr, 2012 [facility] [place] [facility] [address] [id number] [place] [address]- 3776 Mar, [facility] [place] [facility] [address] [id number] [place] [address]- 1846 Mar, [facility] [place] [facility] [address] [id number] [place] [address]- 4441 Mar, [facility] [place] [facility] [address] [id number] [place] [address]- 2110 Mar, [facility] [place] [facility] [address] [id number] [place] [address]- 9695 Mar, [facility] [place] [facility] [address] [id number] [place] [address]- 4673 Mar, [facility] [place] [facility] [address] [id number] [place] [address]- 8256 Mar, [facility] [place] [facility] [address] [id number] [place] [address]- 1531 Feb, [facility] [place] [facility] [address] [id number] [place] [address]- 6315 Feb, [facility] [place] [facility] [address] [id number] [place] [address]- 7199 January, [facility] [place] [facility] [address] [id number] [place] [address]- 8466 January, [facility] [place] [facility] [address] [id number] [place] [address]- 5185 Dec, [facility] [place] [facility] [address] [id number] [place] [address]- 5598 Dec, [facility] [place] [facility] [address] [id number] [place] [address]- 0831 Dec, [facility] [place] [facility] [address] [id number] [place] [address]- 8797 Nov, [facility] [place] [facility] [address] [id number] [place] [address]- 7449 Nov, [facility] [place] [facility] [address] [id number] [place] [address]- 1306 Oct, [facility] [place] [facility] [address] [id number] [address]- 1754 Sep, [facility] [id number] [address]- 9097 Sep, [facility] [id number] [address]- 8100 Aug, [facility] [id number] [address]- 1887 Jul, [facility] [id number] [address]- 9938 Jul, [facility] [id number] [address]- 1252 Dec, [facility] [id number] [address]- 7228 Aug, [facility] [address] [id number] [address]- 4326 Jul, IMMUNIZATIONS No Known Immunizations SOCIAL HISTORY Never Assessed REASON FOR VISIT ER Notification/Follow up PLAN OF CARE VITAL SIGNS MEDICATIONS Medication [...]
[2018-07-17 20:16] LABS: BASOPHILS % (AUTO) 0 % (0-10); EOSINOPHILS # (AUTO) 0.3 10^3/uL (0.0-0.3); EOSINOPHILS % (AUTO) 3 % (0-10); HEMATOCRIT 36 % (40-54); HEMOGLOBIN 12.3 G/DL (13.3-17.7); LYMPHOCYTES # (AUTO) 2.4 X 10^3 (1.0-4.0); LYMPHOCYTES % (AUTO) 26 % (12-44); MEAN CORPUSCULAR HEMOGLOBIN 30 PG (25-34); MEAN CORPUSCULAR HGB CONC 34 G/DL (32-36); MEAN CORPUSCULAR VOLUME 88 FL (80-99); MEAN PLATELET VOLUME 9.6 FL (7.4-10.4); MONOCYTES # (AUTO) 0.5 X 10^3 (0.0-1.0); MONOCYTES % (AUTO) 5 % (0-12); NEUTROPHILS % (AUTO) 66 % (42-75); PLATELET COUNT 340 10^3/uL (130-400); RED BLOOD COUNT 4.12 10^6/uL (4.35-5.85); RED CELL DISTRIBUTION WIDTH 12.5 % (10.0-14.5); WHITE BLOOD COUNT 9.2 10^3/uL (4.3-11.0)
[2018-07-17 20:29] LABS: PROTHROMBIN TIME PATIENT 13.1 SEC (12.2-14.7)
[2018-07-17 20:38] LABS: ALANINE AMINOTRANSFERASE 19 U/L (0-55); ALBUMIN 3.3 GM/DL (3.2-4.5); ALKALINE PHOSPHATASE 94 U/L (40-136); AMYLASE 42 U/L (25-125); BILIRUBIN,TOTAL 0.1 MG/DL (0.1-1.0); BUN/CREATININE RATIO 16; CALCIUM 8.8 MG/DL (8.5-10.1); CARBON DIOXIDE 30 MMOL/L (21-32); CHLORIDE 101 MMOL/L (98-107); CREATINE KINASE 23 U/L (30-200); CREATININE SERUM 1.41 MG/DL (0.60-1.30); GFR ESTIMATED 51; GLUCOSE 136 MG/DL (70-105); LIPASE 31 U/L (8-78); MAGNESIUM 2.3 MG/DL (1.8-2.4); POTASSIUM 3.7 MMOL/L (3.6-5.0); SODIUM 138 MMOL/L (135-145); TOTAL PROTEIN 6.2 GM/DL (6.4-8.2)
[2018-07-17 20:53] LABS: ABG BASE EXCESS 4.3 MMOL/L (-2.5-2.5); ABG OXYGEN SATURATION 98 % (94-100); ABG PCO2 47 MMHG (35-45); ABG PO2 88 MMHG (79-93); ABG TCO2 30.3 MMOL/L (21.0-31.0); ALLENS TEST POSITIVE; INSPIRED O2 N; PATIENT TEMP 98.4; VENTILATOR NO
[2018-07-17 20:58] LABS: CREATINE KINASE MB 0.6 NG/ML (<6.6); MYOGLOBIN SERUM 21.9 NG/ML (10.0-92.0); TSH (THYROID ANALYZER) 0.43 UIU/ML (0.35-4.94)
--- NOTE | 2018-07-17 21:05 | Diagnostic Imaging Report ---
INDICATION: Abnormal blood sugar. EXAMINATION: Single view of the chest was obtained. FINDINGS: Normal heart size and vascularity. The lungs are clear. There is no effusion or pneumothorax. There is no bony abnormality. IMPRESSION: No acute abnormality is seen with no change from 06/22/2017. Dictated by: Dictated on workstation # [id number]
[2018-07-17] MEDS ORDERED: D5 1/2 NS 1000 ML IV SOLUTION 1,000 ML IV ONE (23:30)
[2018-07-18] VITALS (9 sets, daily range): BP systolic 109–163; BP diastolic 52–82
[2018-07-18 00:13] LABS: BILIRUBIN,URINE NEGATIVE (NEGATIVE); CLARITY,URINE CLEAR; COLOR,URINE YELLOW; GLUCOSE, URINE (UA) 4+ (NEGATIVE); KETONES,URINE NEGATIVE (NEGATIVE); NITRITE,URINE NEGATIVE (NEGATIVE); PH,URINE 6 (5-9); PROTEIN,URINE NEGATIVE (NEGATIVE)
[2018-07-18 00:14] LABS: BACTERIA,URINE TRACE /HPF; LEUKOCYTE ESTERASE ,URINE NEGATIVE (NEGATIVE); SQUAMOUS EPITHELIAL CELL,UR RARE /HPF; UROBILINOGEN,URINE NORMAL (NORMAL)
[2018-07-18 00:18] LABS: AMPHETAMINE SCREEN, URINE POSITIVE (NEGATIVE); BARBITURATE SCREEN URINE NEGATIVE (NEGATIVE); BENZODIAZEPINES SCREEN URINE NEGATIVE (NEGATIVE); CANNABINOID SCREEN, URINE POSITIVE (NEGATIVE); COCAINE SCREEN URINE NEGATIVE (NEGATIVE); METHADONE STAT NEGATIVE (NEGATIVE); METHAMPHETAMINE SCREEN URINE S POSITIVE (NEGATIVE); OPIATE SCREEN URINE NEGATIVE (NEGATIVE); OXYCODONE STAT NEGATIVE (NEGATIVE); PROPOXYPHENE STAT NEGATIVE (NEGATIVE); TRICYCLIC ANTIDEPRESSANTS SCRE NEGATIVE (NEGATIVE)
[2018-07-18] MEDS ORDERED: NS IV 1000 ML 1,000 ML ONE (01:00)
[2018-07-18] MEDS: NS IV 1000 ML 1,000 ML IV SCH ×3 (01:40→10:26)
[2018-07-18 05:14] LABS: BASOPHILS % (AUTO) 0 % (0-10); EOSINOPHILS # (AUTO) 0.2 10^3/uL (0.0-0.3); EOSINOPHILS % (AUTO) 2 % (0-10); HEMATOCRIT 33 % (40-54); HEMOGLOBIN 11.7 G/DL (13.3-17.7); LYMPHOCYTES # (AUTO) 2.3 X 10^3 (1.0-4.0); LYMPHOCYTES % (AUTO) 24 % (12-44); MEAN CORPUSCULAR HEMOGLOBIN 31 PG (25-34); MEAN CORPUSCULAR HGB CONC 36 G/DL (32-36); MEAN CORPUSCULAR VOLUME 87 FL (80-99); MEAN PLATELET VOLUME 10.6 FL (7.4-10.4); MONOCYTES # (AUTO) 0.6 X 10^3 (0.0-1.0); MONOCYTES % (AUTO) 7 % (0-12); NEUTROPHILS # (AUTO) 6.5 X 10^3 (1.8-7.8); NEUTROPHILS % (AUTO) 68 % (42-75); PLATELET COUNT 272 10^3/uL (130-400); RED BLOOD COUNT 3.74 10^6/uL (4.35-5.85); RED CELL DISTRIBUTION WIDTH 12.2 % (10.0-14.5); WHITE BLOOD COUNT 9.6 10^3/uL (4.3-11.0)
[2018-07-18 05:37] LABS: ALANINE AMINOTRANSFERASE 18 U/L (0-55); ALBUMIN 2.8 GM/DL (3.2-4.5); ALKALINE PHOSPHATASE 75 U/L (40-136); BILIRUBIN,TOTAL 0.3 MG/DL (0.1-1.0); BUN/CREATININE RATIO 24; CALCIUM 7.8 MG/DL (8.5-10.1); CARBON DIOXIDE 21 MMOL/L (21-32); CHLORIDE 108 MMOL/L (98-107); CREATININE SERUM 0.79 MG/DL (0.60-1.30); GFR ESTIMATED > 60; GLUCOSE 109 MG/DL (70-105); SODIUM 137 MMOL/L (135-145); TOTAL PROTEIN 4.9 GM/DL (6.4-8.2)
[2018-07-18] MEDS: inSUlin ASPART (NovoLOG) 1 UNIT/0.01 ML (CHARGE PER UNIT) SC SCH ×4 (05:45→21:01)
--- NOTE | 2018-07-18 06:34 | ED General ---
General Chief Complaint: Glucose Problems Stated Complaint: UNCONTROLLED DIABETES;DEHYDRATION Nursing Triage Note: Pt brought to ED by EMS. EMS states pt was found by neighbors and pt's blood sugar was over 600. Pt's bloo sugar for EMS was 347. Pt very weak and lethargic upon arrival to ED. EMS states pt took 30 of Novolog approximately 45-50 mins prior to EMS arrival. Nursing Sepsis Screen: No Definite Risk Source of Information: Patient (EXTREMELY LIMITED HISTORIAN--MOSTLY SLEEPING, AND GIVES VERY MINIMAL ANSWERS. ) History of Present Illness Date Seen by Provider: Jul 17, 2018 Time Seen by Provider: 19:41 Initial Comments PT ARRIVES VIA EMS FROM HOME EMS REPORT THAT NEIGHBOR CAME TO CHECK ON HIM TONIGHT AND FOUND HIM TO BE LETHARGIC, AND BLOOD SUGAR WAS CHECKED AND FOUND TO BE OVER 600. NEIGHBORS ASSISTED PT IN GIVING HIM 30 UNITS OF NOVOLOG 45 MINUTES PRIOR TO ARRIVAL BY EMS TO THE SCENE REPEAT ACCUCHECK 347 BY EMS PT STATES "MY MACHINE SAID IT WAS ABOVE 600 AGAIN" --FOR LAST 3 DAYS "TO THE BEST I CAN RECOLLECT", PER PT. PT IS VERY DROWSY AND LETHARGIC ON ARRIVAL PT STATES HE HAS NOT BEEN TAKING HIS INSULIN FOR THE LAST "2, 3 OR 4 DAYS"-- GIVEN NO EXPLANATION WHY, STATES HE "JUST DIDN'T" PT IS UNABLE TO STATE IF HE HAS BEEN EATING OR DRINKING NO OTHER INFORMATION IS OBTAINABLE FROM PT. PT WITH MULTIPLE VISITS/ADMITS--MANY FOR DIABETES RELATED COMPLAINTS PT HAS HISTORY OF ALCOHOL ABUSE PT ALSO HAS HISTORY OF METH AND THC USE PT HAS BEEN HOMELESS, BUT IS UNCLEAR IF HE IS STILL IN THAT SITUATION. PT DID TELL RN AT ONE POINT THAT HE DID NOT HAVE WATER IN HIS HOUSE [place] [facility] [place] and Home Medications Allergies Coded Allergies: Benzodiazepines (Verified Allergy, Unknown, 05/10/14) Home Medications Acetaminophen 500 Mg Tablet, 1,000 MG PO Q6H PRN for PAIN-MILD, (Reported) Aspirin 325 Mg Tablet.dr, 325 MG PO BID PRN for PAIN-MILD, (Reported) Insulin Aspart 300 Units/3 Ml Solution, 20 UNITS SC AC, (Reported) Insulin Detemir 100 Unit/1 Ml Insuln.pen, 40 UNITS SC HS, (Reported) Lisinopril 5 Mg Tablet, 5 MG PO HS, (Reported) Patient Home Medication List Home Medication List Reviewed: Yes Review of Systems Review of Systems Constitutional: see HPI (UNABLE TO OBTAIN ANY RELEVANT INFORMATION FROM PT), malaise, weakness Past Ytnwgdl-Xnhysr-Uqtual Hx Patient Social History Alcohol Use: Past History (HISTORY OF ABUSE WHEN YOUNG, BUT CLAIMS NO USE "FOR YEARS" PER OLD RECORDS) Recreational Drug Use: Yes (THC, METH--HAS USED IV DRUGS --SPEED, METH; HAS USED ACID, MESCALINE AND OTHERS IN PAST) Drug of Choice: THC, + IV METH; ACID, MESCALINE; OTHERS Smoking Status: Current Everyday Smoker (1 PPD) Type Used: Cigarettes 2nd Hand Smoke Exposure: Yes Recent Foreign Travel: No Contact w/Someone Who Travel: No Recent Infectious Disease Expo: No Recent Hopitalizations: No Immunizations Up To Date Tetanus Booster (TDap): Less than 5yrs Date of Pneumonia Vaccine: Jan 16, 2016 Seasonal Allergies Seasonal Allergies: No Past Medical History Surgeries: Yes (BENIGN BONE TUMOR LEFT LOWER LEG; RIGHT WRIST FX/FUSION; RIGHT FOOT SURGERY; POLYDACTYLY SURGERY; ANKLE SURGERY) Appendectomy, Gallbladder, Orthopedic Respiratory: No Cardiac: Yes High Cholesterol, Hypertension Neurological: Yes (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) Neuropathy, Traumatic Brain Injury Reproductive Disorders: No Sexually Transmitted Disease: No HIV/AIDS: No Genitourinary: No Gastrointestinal: No Musculoskeletal: Yes (C1-C2 FX, LOW BACK FX; RIGHT WRIST FX/ORIF/FUSION; POLYDACTYLY SURGERY) Chronic Back Pain, Fractures Endocrine: Yes (DKA; NON-COMPLIANCE) Diabetes, Insulin dep HEENT: No (EDENTULOUS) Loss of Vision: Denies Hearing Impairment: Denies Cancer: No Psychosocial: No Integumentary: Yes (LEG CELLULITIS) Blood Disorders: No Adverse Reaction/Blood Tranf: No Family Medical History Blood clots 19 FATHER Diabetes mellitus 19 FATHER 19 MOTHER G8 BROTHER Physical Exam Vital Signs Vital Signs - First Documented 07/17/18 19:38 Temp 98.4 Pulse 74 Resp 18 B/P (MAP) 112/69 (83) Pulse Ox 98 O2 Delivery Room Air Capillary Refill : Less Than 3 Seconds Height, Weight, BMI Height: 6'0.00" Weight: 148lbs. 3.0oz. [id number]; 20.1 BMI Method:Stated General Appearance: Thin, Other (DIRTY, UNKEMPT, MALODOROUS.LETHARGIC, SLEEPING BUT EASILY AWAKENS AND THEN QUICKLY GOES BACK TO SLEEP ) HEENT: Other (EDENTULOUS) Respiratory: Normal Breath Sounds, No Accessory Muscle Use, No Respiratory Distress Cardiovascular: Regular Rate, Rhythm, No Murmur, Normal Peripheral Pulses Gastrointestinal: Non Tender, Soft Back: Normal Inspection Extremity: Normal Capillary Refill, Normal Range of Motion, Non Tender, No Calf Tenderness, No Pedal Edema Neurologic/Psychiatric: No Motor/Sensory Deficits (GROSSLY INTACT), Other ( MENTATION NOTED ABOVE. ORIENTED TO PERSON, PLACE BUT SOMEWHAT DISORIENTED TO TIME AND SITUATION AND IS UNRELIABLE HISTORIAN.) Skin: Normal Color, Warm/Dry Focused Exam Lactate Level 07/17/18 20:06: Lactic Acid Level 2.23*H 07/17/18 22:10: Lactic Acid Level 1.61 Progress/Results/Core Measures Suspected Sepsis Recent Fever Within 48 Hours: No Infection Criteria Present: None New/Unexplained Altered Menta: No Sepsis Screen: No Definite Risk SIRS Temperature:99.1 Pulse: 69 Respiratory Rate: 18 Laboratory Tests 07/17/18 20:06: White Blood Count 9.2 07/18/18 04:25: White Blood Count 9.6 Blood Pressure 123 /65 Mean: 84 07/17/18 20:06: Lactic Acid Level 2.23*H 07/17/18 22:10: Lactic Acid Level 1.61 Laboratory Tests 07/17/18 20:06: Creatinine 1.41H, INR Comment 1.0, Platelet Count 340, Total Bilirubin 0.1 07/18/18 04:25: Creatinine 0.79, Platelet Count 272, Total Bilirubin 0.3 Results/Orders Lab Results Laboratory Tests Test 07/17/18 19:44 07/17/18 19:50 07/17/18 20:06 07/17/18 22:10 Range/Units Blood Gas Puncture Site R WRIST Blood Gas Patient Temperature 98.4 Arterial Blood pH 7.40 7.37-7.43 Arterial Blood Partial Pressure CO2 47 H 35-45 MMHG Arterial Blood Partial Pressure O2 88 79-93 MMHG Arterial Blood HCO3 29 H 23-27 MMOL/L Arterial Blood Total CO2 30.3 21.0-31.0 MMOL/L Arterial Blood Oxygen Saturation 98 94-100 % Arterial Blood Base Excess 4.3 H -2.5-2.5 MMOL/L [place] Test POSITIVE Blood Gas Ventilator Setting NO Blood Gas Inspired Oxygen N Glucometer 501 *H 193 H 70-110 MG/DL White Blood Count 9.2 4.3-11.0 10^3/uL Red Blood Count 4.12 L 4.35-5.85 10^6/uL Hemoglobin 12.3 L 13.3-17.7 G/DL Hematocrit 36 L 40-54 % Mean Corpuscular Volume 88 80-99 FL Mean Corpuscular Hemoglobin 30 25-34 PG Mean Corpuscular Hemoglobin Concent 34 32-36 G/DL Red Cell Distribution Width 12.5 10.0-14.5 % Platelet Count 340 130-400 10^3/uL Mean Platelet Volume 9.6 7.4-10.4 FL Neutrophils (%) (Auto) 66 42-75 % Lymphocytes (%) (Auto) 26 12-44 % Monocytes (%) (Auto) 5 0-12 % Eosinophils (%) (Auto) 3 0-10 % Basophils (%) (Auto) 0 0-10 % Neutrophils # (Auto) 6.0 1.8-7.8 X 10^3 Lymphocytes # (Auto) 2.4 1.0-4.0 X 10^3 Monocytes # (Auto) 0.5 0.0-1.0 X 10^3 Eosinophils # (Auto) 0.3 0.0-0.3 10^3/uL Basophils # (Auto) 0.0 0.0-0.1 10^3/uL Prothrombin Time 13.1 12.2-14.7 SEC INR Comment 1.0 0.8-1.4 Activated Partial Thromboplast Time 29 24-35 SEC Sodium Level 138 135-145 MMOL/L Potassium Level 3.7 3.6-5.0 MMOL/L Chloride Level 101 98-107 MMOL/L Carbon Dioxide Level 30 21-32 MMOL/L Anion Gap 7 5-14 MMOL/L Blood Urea Nitrogen 22 H 7-18 MG/DL Creatinine 1.41 H 0.60-1.30 MG/DL Estimat Glomerular Filtration Rate 51 BUN/Creatinine Ratio 16 Glucose Level 136 H 70-105 MG/DL Lactic Acid Level 2.23 *H 1.61 0.50-2.00 MMOL/L Calcium Level 8.8 8.5-10.1 MG/DL Corrected Calcium 9.4 8.5-10.1 MG/DL Magnesium Level 2.3 1.8-2.4 MG/DL Total Bilirubin 0.1 0.1-1.0 MG/DL Aspartate Amino Transf (AST/SGOT) 13 5-34 U/L Alanine Aminotransferase (ALT/SGPT) 19 0-55 U/L Alkaline Phosphatase 94 40-136 U/L Total Creatine Kinase 23 L 30-200 U/L Creatine Kinase MB 0.6 <6.6 NG/ML Myoglobin 21.9 10.0-92.0 NG/ML Troponin I < 0.30 <0.30 NG/ML Total Protein 6.2 L 6.4-8.2 GM/DL Albumin 3.3 3.2-4.5 GM/DL Amylase Level 42 25-125 U/L Lipase 31 8-78 U/L TSH [place] Testing 0.43 0.35-4.94 UIU/ML Serum Alcohol < 10 <10 MG/DL Test 07/17/18 22:15 07/17/18 23:40 07/17/18 23:48 07/18/18 01:06 Range/Units Glucose Level 68 L 70-105 MG/DL Glucometer 93 229 H 70-110 MG/DL Urine Color YELLOW Urine Clarity CLEAR Urine pH 6 5-9 Urine Specific [place] 1.015 L 1.016-1.022 Urine Protein NEGATIVE NEGATIVE Urine Glucose (UA) 4+ H NEGATIVE Urine Ketones NEGATIVE NEGATIVE Urine Nitrite NEGATIVE NEGATIVE Urine Bilirubin NEGATIVE NEGATIVE Urine Urobilinogen NORMAL NORMAL MG/DL Urine Leukocyte Esterase NEGATIVE NEGATIVE Urine RBC (Auto) NEGATIVE NEGATIVE Urine RBC NONE /HPF Urine WBC NONE /HPF Urine Squamous Epithelial Cells RARE /HPF Urine Crystals NONE /LPF Urine Bacteria TRACE /HPF Urine Casts NONE /LPF Urine Mucus NEGATIVE /LPF Urine Culture Indicated NO Urine Opiates Screen NEGATIVE NEGATIVE Urine Oxycodone Screen NEGATIVE NEGATIVE Urine Methadone Screen NEGATIVE NEGATIVE Urine Propoxyphene Screen NEGATIVE NEGATIVE Urine Barbiturates Screen NEGATIVE NEGATIVE Ur Tricyclic Antidepressants Screen NEGATIVE NEGATIVE Urine Phencyclidine Screen NEGATIVE NEGATIVE Urine Amphetamines Screen POSITIVE H NEGATIVE Urine Methamphetamines Screen POSITIVE H NEGATIVE Urine Benzodiazepines Screen NEGATIVE NEGATIVE Urine Cocaine Screen NEGATIVE NEGATIVE Urine Cannabinoids Screen POSITIVE H NEGATIVE Test 07/18/18 02:27 07/18/18 03:18 07/18/18 04:25 07/18/18 04:44 Range/Units Glucometer 150 H 184 H 103 70-110 MG/DL White Blood Count 9.6 4.3-11.0 10^3/uL Red Blood Count 3.74 L 4.35-5.85 10^6/uL Hemoglobin 11.7 L 13.3-17.7 G/DL Hematocrit 33 L 40-54 % Mean Corpuscular Volume 87 80-99 FL Mean Corpuscular Hemoglobin 31 25-34 PG Mean Corpuscular Hemoglobin Concent 36 32-36 G/DL Red Cell Distribution Width 12.2 10.0-14.5 % Platelet Count 272 130-400 10^3/uL Mean Platelet Volume 10.6 H 7.4-10.4 FL Neutrophils (%) (Auto) 68 42-75 % Lymphocytes (%) (Auto) 24 12-44 % Monocytes (%) (Auto) 7 0-12 % Eosinophils (%) (Auto) 2 0-10 % Basophils (%) (Auto) 0 0-10 % Neutrophils # (Auto) 6.5 1.8-7.8 X 10^3 Lymphocytes # (Auto) 2.3 1.0-4.0 X 10^3 Monocytes # (Auto) 0.6 0.0-1.0 X 10^3 Eosinophils # (Auto) 0.2 0.0-0.3 10^3/uL Basophils # (Auto) 0.0 0.0-0.1 10^3/uL Sodium Level 137 135-145 MMOL/L Potassium Level 4.0 3.6-5.0 MMOL/L Chloride Level 108 H 98-107 MMOL/L Carbon Dioxide Level 21 21-32 MMOL/L Anion Gap 8 5-14 MMOL/L Blood Urea Nitrogen 19 H 7-18 MG/DL Creatinine 0.79 0.60-1.30 MG/DL Estimat Glomerular Filtration Rate > 60 BUN/Creatinine Ratio 24 Glucose Level 109 H 70-105 MG/DL Calcium Level 7.8 L 8.5-10.1 MG/DL Corrected Calcium 8.8 8.5-10.1 MG/DL Total Bilirubin 0.3 0.1-1.0 MG/DL Aspartate Amino Transf (AST/SGOT) 13 5-34 U/L Alanine Aminotransferase (ALT/SGPT) 18 0-55 U/L Alkaline Phosphatase 75 40-136 U/L Total Protein 4.9 L 6.4-8.2 GM/DL Albumin 2.8 L 3.2-4.5 GM/DL Test 07/18/18 05:45 07/18/18 07:03 07/18/18 08:18 07/18/18 09:07 Range/Units Glucometer 110 368 H 91 89 70-110 MG/DL Test 07/18/18 10:21 07/18/18 11:04 07/18/18 16:19 07/18/18 20:22 Range/Units Glucometer 120 H 106 284 H 450 *H 70-110 MG/DL Test 07/18/18 22:15 07/19/18 05:39 Range/Units Glucometer 357 H 171 H 70-110 MG/DL Micro Results Microbiology 07/17/18 Blood Culture - Preliminary, Resulted No growth 07/17/18 Blood Culture - Preliminary, Resulted No growth 07/17/18 Influenza Types A,B Antigen ([facility]) - Final, Complete My Orders Orders - ARPAN HACKETT DO Accucheck Stat ONCE (07/17/18:44) Saline Lock/Iv-Start (07/17/18:44) Ekg Tracing (07/17/18:44) Catheter(Urinary) Insert & Ass 03,15 (07/17/18:44) Monitor-Rhythm Ecg Trace Only (07/17/18:44) Alcohol (07/17/18:44) Amylase (07/17/18:44) Arterial Blood Gas (07/17/18:44) Cbc With Automated Diff (07/17/18:44) Comprehensive Metabolic Panel (07/17/18:44) Creatine Kinase (07/17/18:44) Creatine Kinase Mb (07/17/18:44) Drug Screen Stat (Urine) (07/17/18:44) Lactic Acid Analyzer (07/17/18:44) Lipase (07/17/18:44) Magnesium (07/17/18:44) Protime With Inr (07/17/18:44) Partial Thromboplastin Time (07/17/18:44) Thyroid Analyzer (07/17/18:44) Troponin I (07/17/18:44) Ua Culture If Indicated (07/17/18:44) Blood Culture (07/17/18:44) Influenza A And B Antigens (10/18/18 19:44) Myoglobin Serum (07/17/18 19:44) Chest 1 View, Ap/Pa Only (07/17/18 19:44) Saline Lock/Iv-Start (07/17/18 19:44) Ns Iv 1000 Ml (Sodium Chloride 0.9%) (07/17/18 19:44) Saline Lock/Iv-Start (07/17/18 20:51) Ns Iv 1000 Ml (Sodium Chloride 0.9%) (07/17/18 20:51) Accucheck Stat ONCE (07/17/18 21:57) Glucose (07/17/18 22:11) Accucheck Stat ONCE (07/17/18 23:19) Saline Lock/Iv-Start (07/17/18 23:19) D5 1/2 Ns 1000 Ml Iv Solution (Dextrose (07/17/18 23:30) Arterial Blood Draw (07/17/18 19:44) Medications Given in ED Vital Signs/I&O 07/18/18 07/18/18 07/19/18 07/19/18 19:00 20:10 00:00 01:00 Temp 99.3 99.6 Pulse 87 78 78 76 Resp 22 20 B/P (MAP) 123/70 (87) 101/59 (73) Pulse Ox 97 98 O2 Delivery Room Air Room Air 07/19/18 04:00 Temp 98.9 Pulse 69 Resp 20 B/P (MAP) 121/57 (78) Pulse Ox 99 O2 Delivery Room Air Capillary Refill : Less Than 3 Seconds Blood Pressure Mean: 84 Point of Care Testing Finger Stick Blood Glucose: 110 Blood Glucose Action Taken: amber notified Progress Note : Progress Note SIGNIFICANT DISCREPANCIES IN BLOOD GLUCOSE READINGS BETWEEN ACCUCHECKS DONE IN ER AND WITH READINGS OF SERUM GLUCOSE DONE IN LAB. ALL MACHINES WERE CHECKED/QC DONE, ETC. PRIOR TO ADMIT, READINGS FROM ER AND LAB WERE BOTH IN THE 90'S NO DETERIORATION IN PT'S CONDITION DURING ER STAY, BUT SLEPT SOUNDLY THROUGH ENTIRE ER STAY--EASILY AWAKENS AND THEN QUICKLY FALLS BACK ASLEEP Departure Communication (Admissions) [id number]--SPOKE WITH DR. LIU. ACCEPTS PT FOR ADMIT Impression Primary Impression: Uncontrolled diabetes mellitus Additional Impressions: Altered mental status ILLICIT DRUG USE, INCLUDING METHAMPHETAMINES AND THC Non-compliance Disposition: 09 ADMITTED INPATIENT Condition: Improved Admissions Decision to Admit Reason: Admit from ER (General) Decision to Admit/Date: Jul 17, 2018 Time/Decision to Admit Time: 22:00 Departure-Patient Inst. Referrals: NO,LOCAL PHYSICIAN (PCP) Primary Care Physician ARPAN HACKETT DO Jul 18, 2018 06:34
[2018-07-18] MEDS ORDERED: FLU QUADRIvalent (5+ YOA) 2018-2019 (AFLURIA) 0.5 ML IM ONE (08:00)
[2018-07-18] MEDS ORDERED: LISI-556 PO (10:33)
[2018-07-18] MEDS ORDERED: INSU100I29 SC (10:33)
[2018-07-18] MEDS ORDERED: INSU100I14 SC (10:33)
[2018-07-18] MEDS ORDERED: ASPI325T32 PO (10:33)
--- NOTE | 2018-07-18 16:44 | History & Physicial (CHS) ---
HPI History of Present Illness: 62 yo M that presented to ED after neighbor called concerned about patient. Patient states that they have shut off his water. He states that he has not taking his insulin for about a week now. States that he has not had much to eat. He has been feeling bad for the last 2 days. N/V started yesterday. Denies any fever or chills. No cough, dysuria or congestion. Source: patient Exam Limitations: other (poor historian) Date seen by provider: Jul 18, 2018 Time Seen by Provider: 11:35 Attending Physician Karina Vuong MD PCP No,Local Physician Consult Date of Admission Jul 17, 2018 at 22:00 Home Medications Home Medications Reviewed patient Home Medication Reconciliation performed by pharmacy medication reconciliations survey technician and/or nursing. Patients Allergies have been reviewed. Allergies Coded Allergies: Benzodiazepines (Verified Allergy, Unknown, 05/10/14) [id number] Hx Patient Social History Living Status: Lives home alone Alcohol Use: Denies Use Recreational Drug Use: Yes Drug of Choice: THC, Smoking Status: Current Everyday Smoker Type Used: Cigarettes 2nd Hand Smoke Exposure: Yes Recent Foreign Travel: No Contact w/other who traveled: No Recent Hopitalizations: No Recent Infectious Disease Expo: No Physical Abuse Screen: No Sexual Abuse: No Immunizations Up To Date Tetanus Booster (TDap): Less than 5yrs Date of Pneumonia Vaccine: Jan 16, 2016 Past Medical History Medical Hx: DMII w/ diabetic neuropathy hx C1-C2 frature Illicit drug use - methamphetamine Hypertension Surgical Hx: cholecystectomy Proximal tibia tumor removal Polydactyly removal Right wrist fracture repair/fusion Family Medical History Family History: Blood clots 19 FATHER Diabetes mellitus 19 FATHER 19 MOTHER G8 BROTHER Review of Systems (CHC) Constitutional: No chills, No fever; malaise EENTM: no symptoms reported; No nose congestion, No throat pain Respiratory: no symptoms reported; No cough, No dyspnea on exertion, No orthopnea, No short of breath Cardiovascular: no symptoms reported; No chest pain, No edema, No palpitations Gastrointestinal: no symptoms reported; No abdominal pain, No constipation, No diarrhea, No nausea, No vomiting Genitourinary: No dysuria; frequency; No hematuria Musculoskeletal: no symptoms reported; No back pain, No joint pain, No muscle pain Skin: no symptoms reported Psychiatric/Neurological: No Symptoms Reported Reviewed Test Results Reviewed Test Results Lab Laboratory Tests Test 07/17/18 19:44 07/17/18 19:50 07/17/18 20:06 07/17/18 22:10 Range/Units Blood Gas Puncture Site R WRIST Blood Gas Patient Temperature 98.4 Arterial Blood pH 7.40 7.37-7.43 Arterial Blood Partial Pressure CO2 47 H 35-45 MMHG Arterial Blood Partial Pressure O2 88 79-93 MMHG Arterial Blood HCO3 29 H 23-27 MMOL/L Arterial Blood Total CO2 30.3 21.0-31.0 MMOL/L Arterial Blood Oxygen Saturation 98 94-100 % Arterial Blood Base Excess 4.3 H -2.5-2.5 MMOL/L [place]ier Test POSITIVE Blood Gas Ventilator Setting NO Blood Gas Inspired Oxygen N Glucometer 501 *H 193 H 70-110 MG/DL White Blood Count 9.2 4.3-11.0 10^3/uL Red Blood Count 4.12 L 4.35-5.85 10^6/uL Hemoglobin 12.3 L 13.3-17.7 G/DL Hematocrit 36 L 40-54 % Mean Corpuscular Volume 88 80-99 FL Mean Corpuscular Hemoglobin 30 25-34 PG Mean Corpuscular Hemoglobin Concent 34 32-36 G/DL Red Cell Distribution Width 12.5 10.0-14.5 % Platelet Count 340 130-400 10^3/uL Mean Platelet Volume 9.6 7.4-10.4 FL Neutrophils (%) (Auto) 66 42-75 % Lymphocytes (%) (Auto) 26 12-44 % Monocytes (%) (Auto) 5 0-12 % Eosinophils (%) (Auto) 3 0-10 % Basophils (%) (Auto) 0 0-10 % Neutrophils # (Auto) 6.0 1.8-7.8 X 10^3 Lymphocytes # (Auto) 2.4 1.0-4.0 X 10^3 Monocytes # (Auto) 0.5 0.0-1.0 X 10^3 Eosinophils # (Auto) 0.3 0.0-0.3 10^3/uL Basophils # (Auto) 0.0 0.0-0.1 10^3/uL Prothrombin Time 13.1 12.2-14.7 SEC INR Comment 1.0 0.8-1.4 Activated Partial Thromboplast Time 29 24-35 SEC Sodium Level 138 135-145 MMOL/L Potassium Level 3.7 3.6-5.0 MMOL/L Chloride Level 101 98-107 MMOL/L Carbon Dioxide Level 30 21-32 MMOL/L Anion Gap 7 5-14 MMOL/L Blood Urea Nitrogen 22 H 7-18 MG/DL Creatinine 1.41 H 0.60-1.30 MG/DL Estimat Glomerular Filtration Rate 51 BUN/Creatinine Ratio 16 Glucose Level 136 H 70-105 MG/DL Lactic Acid Level 2.23 *H 1.61 0.50-2.00 MMOL/L Calcium Level 8.8 8.5-10.1 MG/DL Corrected Calcium 9.4 8.5-10.1 MG/DL Magnesium Level 2.3 1.8-2.4 MG/DL Total Bilirubin 0.1 0.1-1.0 MG/DL Aspartate Amino Transf (AST/SGOT) 13 5-34 U/L Alanine Aminotransferase (ALT/SGPT) 19 0-55 U/L Alkaline Phosphatase 94 40-136 U/L Total Creatine Kinase 23 L 30-200 U/L Creatine Kinase MB 0.6 <6.6 NG/ML Myoglobin 21.9 10.0-92.0 NG/ML Troponin I < 0.30 <0.30 NG/ML Total Protein 6.2 L 6.4-8.2 GM/DL Albumin 3.3 3.2-4.5 GM/DL Amylase Level 42 25-125 U/L Lipase 31 8-78 U/L TSH [place] Testing 0.43 0.35-4.94 UIU/ML Serum Alcohol < 10 <10 MG/DL Test 07/17/18 22:15 07/17/18 23:40 07/17/18 23:48 07/18/18 01:06 Range/Units Glucose Level 68 L 70-105 MG/DL Glucometer 93 229 H 70-110 MG/DL Urine Color YELLOW Urine Clarity CLEAR Urine pH 6 5-9 Urine Specific [place] 1.015 L 1.016-1.022 Urine Protein NEGATIVE NEGATIVE Urine Glucose (UA) 4+ H NEGATIVE Urine Ketones NEGATIVE NEGATIVE Urine Nitrite NEGATIVE NEGATIVE Urine Bilirubin NEGATIVE NEGATIVE Urine Urobilinogen NORMAL NORMAL MG/DL Urine Leukocyte Esterase NEGATIVE NEGATIVE Urine RBC (Auto) NEGATIVE NEGATIVE Urine RBC NONE /HPF Urine WBC NONE /HPF Urine Squamous Epithelial Cells RARE /HPF Urine Crystals NONE /LPF Urine Bacteria TRACE /HPF Urine Casts NONE /LPF Urine Mucus NEGATIVE /LPF Urine Culture Indicated NO Urine Opiates Screen NEGATIVE NEGATIVE Urine Oxycodone Screen NEGATIVE NEGATIVE Urine Methadone Screen NEGATIVE NEGATIVE Urine Propoxyphene Screen NEGATIVE NEGATIVE Urine Barbiturates Screen NEGATIVE NEGATIVE Ur Tricyclic Antidepressants Screen NEGATIVE NEGATIVE Urine Phencyclidine Screen NEGATIVE NEGATIVE Urine Amphetamines Screen POSITIVE H NEGATIVE Urine Methamphetamines Screen POSITIVE H NEGATIVE Urine Benzodiazepines Screen NEGATIVE NEGATIVE Urine Cocaine Screen NEGATIVE NEGATIVE Urine Cannabinoids Screen POSITIVE H NEGATIVE Test 07/18/18 02:27 07/18/18 03:18 07/18/18 04:25 07/18/18 04:44 Range/Units Glucometer 150 H 184 H 103 70-110 MG/DL White Blood Count 9.6 4.3-11.0 10^3/uL Red Blood Count 3.74 L 4.35-5.85 10^6/uL Hemoglobin 11.7 L 13.3-17.7 G/DL Hematocrit 33 L 40-54 % Mean Corpuscular Volume 87 80-99 FL Mean Corpuscular Hemoglobin 31 25-34 PG Mean Corpuscular Hemoglobin Concent 36 32-36 G/DL Red Cell Distribution Width 12.2 10.0-14.5 % Platelet Count 272 130-400 10^3/uL Mean Platelet Volume 10.6 H 7.4-10.4 FL Neutrophils (%) (Auto) 68 42-75 % Lymphocytes (%) (Auto) 24 12-44 % Monocytes (%) (Auto) 7 0-12 % Eosinophils (%) (Auto) 2 0-10 % Basophils (%) (Auto) 0 0-10 % Neutrophils # (Auto) 6.5 1.8-7.8 X 10^3 Lymphocytes # (Auto) 2.3 1.0-4.0 X 10^3 Monocytes # (Auto) 0.6 0.0-1.0 X 10^3 Eosinophils # (Auto) 0.2 0.0-0.3 10^3/uL Basophils # (Auto) 0.0 0.0-0.1 10^3/uL Sodium Level 137 135-145 MMOL/L Potassium Level 4.0 3.6-5.0 MMOL/L Chloride Level 108 H 98-107 MMOL/L Carbon Dioxide Level 21 21-32 MMOL/L Anion Gap 8 5-14 MMOL/L Blood Urea Nitrogen 19 H 7-18 MG/DL Creatinine 0.79 0.60-1.30 MG/DL Estimat Glomerular Filtration Rate > 60 BUN/Creatinine Ratio 24 Glucose Level 109 H 70-105 MG/DL Calcium Level 7.8 L 8.5-10.1 MG/DL Corrected Calcium 8.8 8.5-10.1 MG/DL Total Bilirubin 0.3 0.1-1.0 MG/DL Aspartate Amino Transf (AST/SGOT) 13 5-34 U/L Alanine Aminotransferase (ALT/SGPT) 18 0-55 U/L Alkaline Phosphatase 75 40-136 U/L Total Protein 4.9 L 6.4-8.2 GM/DL Albumin 2.8 L 3.2-4.5 GM/DL Test 07/18/18 05:45 07/18/18 07:03 07/18/18 08:18 07/18/18 09:07 Range/Units Glucometer 110 368 H 91 89 70-110 MG/DL Test 07/18/18 10:21 07/18/18 11:04 07/18/18 16:19 Range/Units Glucometer 120 H 106 284 H 70-110 MG/DL Physical Exam-([facility]) Physical Exam Vital Signs VS - Last 72 Hours, by Label 07/17/18 07/18/18 07/18/18 07/18/18 19:38 00:15 00:17 00:17 Temp 98.4 98.2 98.2 Pulse 74 82 92 Resp 18 15 22 B/P (MAP) 112/69 (83) 159/79 (105) 163/69 (100) Pulse Ox 98 98 98 98 O2 Delivery Room Air Room Air Room Air Room Air 07/18/18 07/18/18 07/18/18 07/18/18 02:30 04:45 05:47 07:00 Temp 97.0 99.1 Pulse 70 65 69 68 Resp 20 16 18 B/P (MAP) 128/60 (82) 109/57 (74) 123/65 (84) Pulse Ox 96 97 97 O2 Delivery Room Air Room Air Room Air 07/18/18 07/18/18 07/18/18 07/18/18 08:00 10:29 12:00 13:00 Temp 99.3 98.7 Pulse 71 73 77 72 Resp 16 14 18 B/P (MAP) 110/61 (77) 113/52 (72) 125/82 (96) Pulse Ox 98 96 97 O2 Delivery Room Air Room Air Room Air Capillary Refill : Less Than 3 Seconds General Appearance: no apparent distress, thin HEENT: PERRL/EOMI Neck: non-tender, full range of motion, supple Respiratory: chest non-tender, lungs clear, normal breath sounds, no respiratory distress, no accessory muscle use Cardiovascular: normal peripheral pulses, regular rate, rhythm, no edema, no murmur Gastrointestinal: normal bowel sounds, non tender, soft, no organomegaly Back: no CVA tenderness, no vertebral tenderness Extremities: normal range of motion, non-tender, no pedal edema, no calf tenderness, normal capillary refill Neurologic/Psychiatric: stock chaser II-XII nml as tested, no motor/sensory deficits, alert, normal mood/affect, oriented x 3 Skin: normal color, warm/dry Lymphatic: no adenopathy Assessment/Plan Assessment/Plan Admission Status: Observation (1) Uncontrolled diabetes mellitus Status: Acute Assessment & Plan: - No DKA, A1c pending, will start levemir 10 unit qhs and then SSI A Qualifiers: Qualified Codes: E11.65 - Type 2 diabetes mellitus with hyperglycemia (2) HTN (hypertension) Status: Chronic Assessment & Plan: - Normotensive, continue home lisinopril Qualifiers: Qualified Codes: I10 - Essential (primary) hypertension (3) Normocytic anemia Status: Chronic Assessment & Plan: - Patient needs outpatient colon Ca screening (4) Illicit drug use Status: Chronic Assessment & Plan: + Meth on UDS, discussed the importance of cessation and the role drug use has in uncontrolled DM (5) DVT prophylaxis Status: Acute Assessment & Plan: Lovenox (6) Discharge planning issues Assessment & Plan: - SW consult, patient currently has not water at home, state that he has electricity and heat (7) Non-compliance Status: Acute Clinical Quality Measures DVT/VTE Risk/Contraindication: Risk Factor Score Per Nursin RFS Level Per Nursing on Admit: 4+=Very High Copy Copies To 1: JUAN ANTONIO MATHEWS MD, HOLLY R MD Jul 18, 2018 16:44
[2018-07-18] MEDS: ENOXAPARIN 40 MG/0.4 ML (LOVENOX) SYR SQ SCH (19:28)
[2018-07-18] MEDS ORDERED: inSUlin DETERMIR 1 UNIT/0.01 ML (LEVEMIR) CHARGE PER UNIT SQ SCH (21:00)
[2018-07-18] MEDS: ACETAMINOPHEN 500 MG TAB (TYLENOL) PO PRN (21:00)
[2018-07-18] MEDS: lisINopril 5 MG (PRINIVIL) TABLET PO SCH (21:00)
[2018-07-19] VITALS: BP 101/59
[2018-07-19 04:00] VITALS: BP 121/57
[2018-07-19 06:12] LABS: HEMATOCRIT 32 % (40-54); HEMOGLOBIN 11.3 G/DL (13.3-17.7); MEAN CORPUSCULAR HEMOGLOBIN 31 PG (25-34); MEAN CORPUSCULAR HGB CONC 35 G/DL (32-36); MEAN CORPUSCULAR VOLUME 88 FL (80-99); WHITE BLOOD COUNT 8.5 10^3/uL (4.3-11.0)
[2018-07-19 06:13] LABS: BASOPHILS % (AUTO) 0 % (0-10); EOSINOPHILS # (AUTO) 0.3 10^3/uL (0.0-0.3); EOSINOPHILS % (AUTO) 3 % (0-10); LYMPHOCYTES # (AUTO) 2.6 X 10^3 (1.0-4.0); LYMPHOCYTES % (AUTO) 30 % (12-44); MEAN PLATELET VOLUME 10.3 FL (7.4-10.4); MONOCYTES # (AUTO) 0.6 X 10^3 (0.0-1.0); MONOCYTES % (AUTO) 7 % (0-12); NEUTROPHILS % (AUTO) 60 % (42-75); PLATELET COUNT 262 10^3/uL (130-400); RED CELL DISTRIBUTION WIDTH 12.4 % (10.0-14.5)
[2018-07-19] MEDS: inSUlin ASPART (NovoLOG) 1 UNIT/0.01 ML (CHARGE PER UNIT) SC SCH ×7 (06:17→21:33)
[2018-07-19 06:38] LABS: BUN/CREATININE RATIO 14; CALCIUM 8.1 MG/DL (8.5-10.1); CARBON DIOXIDE 23 MMOL/L (21-32); CHLORIDE 105 MMOL/L (98-107); CREATININE SERUM 0.81 MG/DL (0.60-1.30); GFR ESTIMATED > 60; GLUCOSE 183 MG/DL (70-105); SODIUM 135 MMOL/L (135-145)
[2018-07-19] MEDS: ASPIRIN E.C. 81 MG (ECOTRIN) TAB PO SCH (07:49)
[2018-07-19 08:05] VITALS: BP 100/53
[2018-07-19 11:50] VITALS: BP 110/62
--- NOTE | 2018-07-19 13:45 | Progress Note (SOAP) ---
Subjective Subjective/Events-last exam Afebrile, denies concerns. Blood sugar remains high. He states he did not stop taking his insulin prior to this admission and was trying to dose his mealtime insulin to help with his 300 level blood sugars. He also admits he does not have a place to cook food, so he eats whatever he can. Review of Systems Date Seen by Provider: Jul 19, 2018 Time Seen by Provider: 06:04 Focused Exam Lactate Level 07/17/18 20:06: Lactic Acid Level 2.23*H 07/17/18 22:10: Lactic Acid Level 1.61 Objective Exam Last Set of Vital Signs Vital Signs Date Time Temp Pulse Resp B/P (MAP) Pulse Ox O2 Delivery O2 Flow Rate FiO2 07/19/18 11:50 98.7 72 18 110/62 (78) 97 Room Air Capillary Refill : Less Than 3 Seconds I&O Intake and Output 07/19/18 00:00 Intake Total 3035 ml Output Total 1150 ml Balance 1885 ml Intake Oral 1035 ml IV Total 2000 ml Output Urine Total 1150 ml # Voids 2 # Bowel Movements 1 Daily Weight Change Yes, 2-13 lbs General: Alert, No Acute Distress Lungs: Clear to Auscultation, Normal Air Movement Heart: Regular Rate, No Murmurs Abdomen: Normal Bowel Sounds Neuro: Normal Speech Results/Procedures Lab Laboratory Tests 07/18/18 16:19: Glucometer 284H 07/18/18 20:22: Glucometer 450*H 07/18/18 22:15: Glucometer 357H 07/19/18 05:30: White Blood Count 8.5, Red Blood Count 3.70L, Hemoglobin 11.3L, Hematocrit 32L, Mean Corpuscular Volume 88, Mean Corpuscular Hemoglobin 31, Mean Corpuscular Hemoglobin Concent 35, Red Cell Distribution Width 12.4, Platelet Count 262, Mean Platelet Volume 10.3, Neutrophils (%) (Auto) 60, Lymphocytes (%) (Auto) 30 , Monocytes (%) (Auto) 7, Eosinophils (%) (Auto) 3, Basophils (%) (Auto) 0, Neutrophils # (Auto) 5.0, Lymphocytes # (Auto) 2.6, Monocytes # (Auto) 0.6, Eosinophils # (Auto) 0.3, Basophils # (Auto) 0.0, Sodium Level 135, Potassium Level 4.0, Chloride Level 105, Carbon Dioxide Level 23, Anion Gap 7, Blood Urea Nitrogen 11, Creatinine 0.81, Estimat Glomerular Filtration Rate > 60, BUN/ Creatinine Ratio 14, Glucose Level 183H, Calcium Level 8.1L 07/19/18 05:39: Glucometer 171H 07/19/18 07:32: Glucometer 289H 07/19/18 11:16: Glucometer 297H Microbiology 07/17/18 Blood Culture - Preliminary, Resulted No growth 07/17/18 Influenza Types A,B Antigen ([facility]A) - Final, Complete Assessment/Plan Assessment/Plan (1) Uncontrolled diabetes mellitus Status: Acute Assessment & Plan: - No DKA, A1c pending, will start levemir 10 unit qhs and then SSI A 07/19- on 40 units levemir at home and as much as 30 with meals depending on sugar per his report. Increase levemir to 20 units tonight, additional 10 units today. Qualifiers: Qualified Codes: E11.65 - Type 2 diabetes mellitus with hyperglycemia (2) HTN (hypertension) Status: Chronic Assessment & Plan: - Normotensive, continue home lisinopril Qualifiers: Qualified Codes: I10 - Essential (primary) hypertension (3) Normocytic anemia Status: Chronic Assessment & Plan: - Patient needs outpatient colon Ca screening (4) Illicit drug use Status: Chronic Assessment & Plan: + Meth on UDS, discussed the importance of cessation and the role drug use has in uncontrolled DM (5) Discharge planning issues Assessment & Plan: - SW consult, patient currently has not water at home, state that he has electricity and heat (6) Non-compliance Status: Acute (7) DVT prophylaxis Status: Acute Assessment & Plan: Lovenox Clinical Quality Measures DVT/VTE Risk/Contraindication: Risk Factor Score Per Nursin RFS Level Per Nursing on Admit: 4+=Very High EMANUEL REID MD Jul 19, 2018 13:45
[2018-07-19] MEDS ORDERED: inSUlin DETERMIR 1 UNIT/0.01 ML (LEVEMIR) CHARGE PER UNIT SQ NR (13:46)
[2018-07-19] MEDS: ACETAMINOPHEN 500 MG TAB (TYLENOL) PO PRN (15:51)
[2018-07-19 16:00] VITALS: BP 164/72
[2018-07-19] MEDS: ENOXAPARIN 40 MG/0.4 ML (LOVENOX) SYR SQ SCH (18:16)
[2018-07-19 20:00] VITALS: BP 114/76
[2018-07-19] MEDS ORDERED: inSUlin DETERMIR 1 UNIT/0.01 ML (LEVEMIR) CHARGE PER UNIT SQ SCH (21:00)
[2018-07-19] MEDS: lisINopril 5 MG (PRINIVIL) TABLET PO SCH (21:32)
[2018-07-20] VITALS: BP 95/54
[2018-07-20 00:36] VITALS: BP 133/61
[2018-07-20 04:00] VITALS: BP 117/56
[2018-07-20] MEDS: inSUlin ASPART (NovoLOG) 1 UNIT/0.01 ML (CHARGE PER UNIT) SC SCH ×3 (07:19→10:40)
[2018-07-20 07:52] VITALS: BP 118/55
[2018-07-20] MEDS ORDERED: inSUlin DETERMIR 1 UNIT/0.01 ML (LEVEMIR) CHARGE PER UNIT SQ NR (09:03)
[2018-07-20] MEDS: ASPIRIN E.C. 81 MG (ECOTRIN) TAB PO SCH (09:24)
[2018-07-20] MEDS ORDERED: inSUlin ASPART (NovoLOG) 1 UNIT/0.01 ML (CHARGE PER UNIT) SC SCH (11:00)
[2018-07-20 11:32] VITALS: BP 126/64
--- NOTE | 2018-07-20 11:42 | Discharge Instructions ---
Discharge [facility] Discharge Medications Continued Medications: Acetaminophen (Tylenol Extra Strength) 500 Mg Tablet 1000 MG PO Q6H PRN for PAIN-MILD, TAB Aspirin (Aspirin EC) 325 Mg Tablet.dr 325 MG PO BID PRN for PAIN-MILD, TAB Insulin Aspart (Novolog Flexpen) 300 Units/3 Ml Solution 20 UNITS SC AC, EA Insulin Detemir (Levemir Flextouch) 100 Unit/1 Ml Insuln.pen 40 UNITS SC HS, EA Lisinopril (Lisinopril) 5 Mg Tablet 5 MG PO HS, TAB Patient Instructions Goal/Follow Up Appt: Follow up with Dr. Mathews within one week. Return to The [facility] For: Fever, blood sugar over 500 Activity & Diet Discharge Diet: ADA Diet Activity as Tolerated: Yes Orders-Post D/C & Referrals Pneu Vac Indicated: Yes Copy Copies To 1: JUAN ANTONIO MATHEWS MD, BETHANY N MD Jul 20, 2018 11:42 am
--- NOTE | 2018-07-20 12:25 | Discharge Summary ---
Diagnosis/Chief Complaint Date of Admission Jul 19, 2018 at 6:45 pm Date of Discharge Jul 20, 2018 Admission Diagnosis Admission Diagnosis (1) Uncontrolled diabetes mellitus (2) HTN (hypertension) (3) Normocytic anemia (4) Illicit drug use (5) DVT prophylaxis (6) Discharge planning issues (7) Non-compliance Discharge Diagnosis (1) Uncontrolled diabetes mellitus Status: Acute Assessment & Plan: - No DKA, A1c pending, will start levemir 10 unit qhs and then SSI A 07/19- on 40 units levemir at home and as much as 30 with meals depending on sugar per his report. Increase levemir to 20 units tonight, additional 10 units today. 07/20- blood sugar upper 100s to low 200s on 30 units of levemir, resumed home dosing on d/c. Qualifiers: Qualified Codes: E11.65 - Type 2 diabetes mellitus with hyperglycemia (2) HTN (hypertension) Status: Chronic Assessment & Plan: - Normotensive, continue home lisinopril Qualifiers: Qualified Codes: I10 - Essential (primary) hypertension (3) Normocytic anemia Status: Chronic Assessment & Plan: - Patient needs outpatient colon Ca screening (4) Illicit drug use Status: Chronic Assessment & Plan: + Meth on UDS, discussed the importance of cessation and the role drug use has in uncontrolled DM (5) Discharge planning issues Assessment & Plan: - SW consult, patient currently has not water at home, state that he has electricity and heat 07/20 patient reports a friend put chase into his bathroom last night and that he has water and electricity on now (6) Non-compliance Status: Acute Chief Complaint/HPI Chief Complaint/HPI 62 yo M that presented to ED after neighbor called concerned about patient. Patient states that they have shut off his water. He states that he has not taking his insulin for about a week now. States that he has not had much to eat. He has been feeling bad for the last 2 days. N/V started yesterday. Denies any fever or chills. No cough, dysuria or congestion. Discharge Summary-Simple/Stand Consultations Discharge Physical Examination Allergies: Coded Allergies: Benzodiazepines (Verified Allergy, Unknown, 05/10/14) Vitals & I&Os Vital Sign - Last 12Hours Date Time Temp Pulse Resp B/P (MAP) Pulse Ox O2 Delivery O2 Flow Rate FiO2 07/20/18 11:32 98.6 70 20 126/64 (84) 100 Room Air Intake and Output 07/20/18 00:00 Intake Total 2940 ml Output Total 1700 ml Balance 1240 ml General Appearance: Alert, No Acute Distress Respiratory: Clear to Auscultation, Normal Air Movement Cardiovascular: Regular Rate, No Murmurs Extremities: No Edema Neuro: Normal Speech Hospital Course See final discharge diagnosis. Labs Laboratory Tests Test 07/18/18 16:19 07/18/18 20:22 07/18/18 22:15 07/19/18 05:30 Range/Units Glucometer 284 H 450 *H 357 H 70-110 MG/DL White Blood Count 8.5 4.3-11.0 10^3/uL Red Blood Count 3.70 L 4.35-5.85 10^6/uL Hemoglobin 11.3 L 13.3-17.7 G/DL Hematocrit 32 L 40-54 % Mean Corpuscular Volume 88 80-99 FL Mean Corpuscular Hemoglobin 31 25-34 PG Mean Corpuscular Hemoglobin Concent 35 32-36 G/DL Red Cell Distribution Width 12.4 10.0-14.5 % Platelet Count 262 130-400 10^3/uL Mean Platelet Volume 10.3 7.4-10.4 FL Neutrophils (%) (Auto) 60 42-75 % Lymphocytes (%) (Auto) 30 12-44 % Monocytes (%) (Auto) 7 0-12 % Eosinophils (%) (Auto) 3 0-10 % Basophils (%) (Auto) 0 0-10 % Neutrophils # (Auto) 5.0 1.8-7.8 X 10^3 Lymphocytes # (Auto) 2.6 1.0-4.0 X 10^3 Monocytes # (Auto) 0.6 0.0-1.0 X 10^3 Eosinophils # (Auto) 0.3 0.0-0.3 10^3/uL Basophils # (Auto) 0.0 0.0-0.1 10^3/uL Sodium Level 135 135-145 MMOL/L Potassium Level 4.0 3.6-5.0 MMOL/L Chloride Level 105 98-107 MMOL/L Carbon Dioxide Level 23 21-32 MMOL/L Anion Gap 7 5-14 MMOL/L Blood Urea Nitrogen 11 7-18 MG/DL Creatinine 0.81 0.60-1.30 MG/DL Estimat Glomerular Filtration Rate > 60 BUN/Creatinine Ratio 14 Glucose Level 183 H 70-105 MG/DL Calcium Level 8.1 L 8.5-10.1 MG/DL Test 07/19/18 05:39 07/19/18 07:32 07/19/18 11:16 07/19/18 16:30 Range/Units Glucometer 171 H 289 H 297 H 241 H 70-110 MG/DL Test 07/19/18 20:29 07/20/18 05:25 07/20/18 10:23 Range/Units Glucometer 261 H 221 H 143 H 70-110 MG/DL Discharge Instructions to patient/family Please see electronic discharge instructions given to patient. Discharge Medications Reviewed and agree with Discharge Medication list on patient's Discharge Instruction sheet Clinical Quality Measures DVT/VTE Risk/Contraindication: Risk Factor Score Per Nursin RFS Level Per Nursing on Admit: 4+=Very High Copy Copies To 1: JUAN ANTONIO MATHEWS MD, BETHANY N MD Jul 20, 2018 12:25 pm
[2018-07-20 13:30] VITALS: BP 126/64
[2018-07-20] MEDS ORDERED: inSUlin DETERMIR 1 UNIT/0.01 ML (LEVEMIR) CHARGE PER UNIT SQ SCH (21:00)
== END 2018-07-20 13:30 | disposition home or self-care (01) | DRG 639 ==
LOC: EDUNIT# 19:37 → ER 19:38 → 4TH 22:00 → UNDOADMOB 22:00 → 4TH 07-18 00:17 → INTOOBSV 07-19 18:45 → OBSVTOIN 07-19 18:45 → UNDODISIN 07-20 13:30
PROVIDERS: ADMIT Family Medicine; ATTEND Family Medicine
DX: E11.65 Type 2 diabetes mellitus with hyperglycemia (principal); E86.0 Dehydration; E11.43 Type 2 diabetes mellitus with diabetic autonomic (poly)neuropathy; I10 Essential (primary) hypertension; R41.82 Altered mental status, unspecified; D64.9 Anemia, unspecified; E78.00 Pure hypercholesterolemia, unspecified; F17.210 Nicotine dependence, cigarettes, uncomplicated; Z87.820 Personal history of traumatic brain injury; Z91.14 Patient's other noncompliance with medication regimen; Z79.4 Long term (current) use of insulin
CPT/HCPCS: 36415; 36600; 71045; 80048; 80053; 80306; 80320; 81000; 82150; 82550; 82553; 82805; 82947; 82962; 83036; 83605; 83690; 83735; 83874; 84443; 84484; 85025; 85610; 85730; 87040; 87077; 87804; 93005; 93041; 96360; 96361

== ENCOUNTER 2018-10-12 17:39 | Emergency (ER) | payer MEDICARE, MEDICAID ==
[~2018-10-12] VITALS: Ht 182.9 cm; Wt 68.0 kg
[~2018-10-12 17:39] MED LIST changes: +LISI-556 PO
--- NOTE | 2018-10-12 17:52 | ED General ---
General Chief Complaint: General Problems/Pain Stated Complaint: NOT FEELING WELL Source of Information: Patient Exam Limitations: No Limitations History of Present Illness Date Seen by Provider: Oct 12, 2018 Time Seen by Provider: 17:51 Initial Comments To ER per EMS from home after his friends called EMS on his behalf due to weakness. He also states that he's been feeling generally poorly and with a productive cough stating that his "lungs are full of snot" for about 3 weeks. He states that he does have a home and when asked if he has heating and air he states "kind of". He states that he is warm enough as long she is under the covers and "cuddling with my dog". He last snorted methamphetamine this morning. Timing/Duration: 1-2 Days Severity: Moderate Associated Systoms: Cough, Malaise Allergies and Home Medications Allergies Coded Allergies: Benzodiazepines (Verified Allergy, Unknown, 05/10/14) Home Medications Acetaminophen 500 Mg Tablet, 1,000 MG PO Q6H PRN for PAIN-MILD, (Reported) Aspirin 325 Mg Tablet.dr, 325 MG PO BID PRN for PAIN-MILD, (Reported) Cefuroxime Axetil 250 Mg Tablet, 250 MG PO BID Prescribed by: AMADEO ROCHA on 10/12/181913 Insulin Aspart 300 Units/3 Ml Solution, 20 UNITS SC AC, (Reported) Insulin Detemir 100 Unit/1 Ml Insuln.pen, 40 UNITS SC HS, (Reported) Lisinopril 5 Mg Tablet, 5 MG PO HS, (Reported) Patient Home Medication List Home Medication List Reviewed: Yes Review of Systems Review of Systems Constitutional: see HPI EENTM: see HPI Respiratory: see HPI, cough, short of breath Cardiovascular: no symptoms reported Genitourinary: no symptoms reported Musculoskeletal: no symptoms reported Skin: no symptoms reported Psychiatric/Neurological: No Symptoms Reported Hematologic/Lymphatic: No Symptoms Reported Past Kaaoijq-Hpynjs-Mygugz Hx Patient Social History Drug of Choice: THC, + IV METH; ACID, MESCALINE; OTHERS Type Used: Cigarettes 2nd Hand Smoke Exposure: Yes Recent Foreign Travel: No Contact w/Someone Who Travel: No Recent Hopitalizations: No Immunizations Up To Date Tetanus Booster (TDap): Less than 5yrs Date of Pneumonia Vaccine: Jan 16, 2016 Seasonal Allergies Seasonal Allergies: No Past Medical History Surgeries: Yes Appendectomy, Gallbladder, Orthopedic Respiratory: No Cardiac: Yes High Cholesterol, Hypertension Neurological: Yes (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) Neuropathy, Traumatic Brain Injury Reproductive Disorders: No Sexually Transmitted Disease: No HIV/AIDS: No Genitourinary: No Gastrointestinal: No Musculoskeletal: Yes (C1-C2 FX, LOW BACK FX; RIGHT WRIST FX/ORIF/FUSION; POLYDACTYLY SURGERY) Chronic Back Pain, Fractures Endocrine: Yes (DKA; NON-COMPLIANCE) Diabetes, Insulin dep HEENT: No (EDENTULOUS) Loss of Vision: Denies Hearing Impairment: Denies Cancer: No Psychosocial: No Integumentary: Yes (LEG CELLULITIS) Blood Disorders: No Adverse Reaction/Blood Tranf: No Family Medical History Blood clots 19 FATHER Diabetes mellitus 19 FATHER 19 MOTHER G8 BROTHER Physical Exam Vital Signs Vital Signs - First Documented 10/12/18 17:40 Temp 97.5 Pulse 91 Resp 26 B/P (MAP) 146/85 (105) Pulse Ox 100 Capillary Refill : Height, Weight, BMI Height: 6'0.00" Weight: 150lbs. 1.0oz. [id number]; 20.1 BMI Method:Stated General Appearance: No Apparent Distress, WD/WN Eyes: Bilateral Eye Normal Inspection, Bilateral Eye PERRL, Bilateral Eye EOMI HEENT: PERRL/EOMI, Pharynx Normal Respiratory: No Accessory Muscle Use, No Respiratory Distress Gastrointestinal: Normal Bowel Sounds, Non Tender, Soft Extremity: Normal Capillary Refill, Normal Inspection Neurologic/Psychiatric: Alert, Oriented x3 Skin: Normal Color, Warm/Dry Focused Exam Lactate Level 10/12/18 17:44: Lactic Acid Level 0.85 Lactic Acid Level Progress/Results/Core Measures Suspected Sepsis SIRS Temperature: Pulse: Respiratory Rate: Laboratory Tests 10/12/18 17:44: White Blood Count 6.4 Blood Pressure / Mean: 10/12/18 17:44: Lactic Acid Level 0.85 Laboratory Tests 10/12/18 17:44: Creatinine 1.13, Platelet Count 314, Total Bilirubin 0.2 Results/Orders Lab Results Laboratory Tests Test 10/12/18 17:44 10/12/18 17:48 10/12/18 17:57 Range/Units White Blood Count 6.4 4.3-11.0 10^3/uL Red Blood Count 3.99 L 4.35-5.85 10^6/uL Hemoglobin 11.5 L 13.3-17.7 G/DL Hematocrit 34 L 40-54 % Mean Corpuscular Volume 85 80-99 FL Mean Corpuscular Hemoglobin 29 25-34 PG Mean Corpuscular Hemoglobin Concent 34 32-36 G/DL Red Cell Distribution Width 12.7 10.0-14.5 % Platelet Count 314 130-400 10^3/uL Mean Platelet Volume 9.6 7.4-10.4 FL Neutrophils (%) (Auto) 65 42-75 % Lymphocytes (%) (Auto) 19 12-44 % Monocytes (%) (Auto) 12 0-12 % Eosinophils (%) (Auto) 3 0-10 % Basophils (%) (Auto) 1 0-10 % Neutrophils # (Auto) 4.1 1.8-7.8 X 10^3 Lymphocytes # (Auto) 1.2 1.0-4.0 X 10^3 Monocytes # (Auto) 0.8 0.0-1.0 X 10^3 Eosinophils # (Auto) 0.2 0.0-0.3 10^3/uL Basophils # (Auto) 0.0 0.0-0.1 10^3/uL Sodium Level 136 135-145 MMOL/L Potassium Level 4.2 3.6-5.0 MMOL/L Chloride Level 98 98-107 MMOL/L Carbon Dioxide Level 27 21-32 MMOL/L Anion Gap 11 5-14 MMOL/L Blood Urea Nitrogen 20 H 7-18 MG/DL Creatinine 1.13 0.60-1.30 MG/DL Estimat Glomerular Filtration Rate > 60 BUN/Creatinine Ratio 18 Glucose Level 268 H 70-105 MG/DL Lactic Acid Level 0.85 0.50-2.00 MMOL/L Calcium Level 8.9 8.5-10.1 MG/DL Corrected Calcium 9.4 8.5-10.1 MG/DL Total Bilirubin 0.2 0.1-1.0 MG/DL Aspartate Amino Transf (AST/SGOT) 11 5-34 U/L Alanine Aminotransferase (ALT/SGPT) 12 0-55 U/L Alkaline Phosphatase 98 40-136 U/L Troponin I < 0.028 <0.028 NG/ML B-Type Natriuretic Peptide 53.5 <100.0 PG/ML Total Protein 6.5 6.4-8.2 GM/DL Albumin 3.4 3.2-4.5 GM/DL Serum Alcohol < 10 <10 MG/DL Glucometer 260 H 70-110 MG/DL Urine Color YELLOW Urine Clarity SLIGHTLY CLOUDY Urine pH 6 5-9 Urine Specific [place] 1.015 L 1.016-1.022 Urine Protein 2+ H NEGATIVE Urine Glucose (UA) 4+ H NEGATIVE Urine Ketones NEGATIVE NEGATIVE Urine Nitrite NEGATIVE NEGATIVE Urine Bilirubin NEGATIVE NEGATIVE Urine Urobilinogen NORMAL NORMAL MG/DL Urine Leukocyte Esterase NEGATIVE NEGATIVE Urine RBC (Auto) 1+ H NEGATIVE Urine RBC 0-2 /HPF Urine WBC NONE /HPF Urine Squamous Epithelial Cells 2-5 /HPF Urine Crystals NONE /LPF Urine Bacteria NEGATIVE /HPF Urine Casts NONE /LPF Urine Mucus NEGATIVE /LPF Urine Culture Indicated NO Urine Opiates Screen NEGATIVE NEGATIVE Urine Oxycodone Screen NEGATIVE NEGATIVE Urine Methadone Screen NEGATIVE NEGATIVE Urine Propoxyphene Screen NEGATIVE NEGATIVE Urine Barbiturates Screen NEGATIVE NEGATIVE Ur Tricyclic Antidepressants Screen NEGATIVE NEGATIVE Urine Phencyclidine Screen NEGATIVE NEGATIVE Urine Amphetamines Screen POSITIVE H NEGATIVE Urine Methamphetamines Screen POSITIVE H NEGATIVE Urine Benzodiazepines Screen NEGATIVE NEGATIVE Urine Cocaine Screen NEGATIVE NEGATIVE Urine Cannabinoids Screen POSITIVE H NEGATIVE My Orders Orders - AMADEO ROCHA APRN Alcohol (10/12/18 17:48) Ekg Tracing (10/12/18 17:48) Continuous Ekg Monitoring (10/12/18 17:48) Troponin I (10/12/18 17:48) BNP (10/12/18 17:48) Chest 1 View, Ap/Pa Only (10/12/18 17:48) Cbc With Automated Diff (10/12/18 17:48) Comprehensive Metabolic Panel (10/12/18 17:48) Ua Culture If Indicated (10/12/18 17:48) Drug Screen Stat (Urine) (10/12/18 17:48) Iv Heplock-Insert (Order) (10/12/18 17:48) Lactated Ringers (Lr 1000 Ml Iv Solution (10/12/18 18:00) Lactic Acid Analyzer (10/12/18 18:01) Blood Culture (10/12/18 18:01) Ct Chest Wo (10/12/18 18:35) Rx-Albuterol Inhaler (Rx-Proair) (10/12/18 19:14) Cephalexin Capsule (Keflex Capsule) (10/12/18 19:15) Vital Signs/I&O 10/13/18 00:00 Intake Total 1000 ml Balance 1000 ml Capillary Refill : Diagnostic Imaging Diagonstic Imaging: CT Comments NAME: DAVID GALINDO [facility] REC#: [id number] PT STATUS: REG ER : 1955 PHYSICIAN: AMADEO ROCHA COMMUNITY OUTREACH COORDINATOR ADMIT DATE: 10/12/18/ER Draft Date of Exam:10/12/18 CT CHEST WO PROCEDURE: CT chest without contrast. TECHNIQUE: Multiple contiguous axial images were obtained through the chest without the use of intravenous contrast. INDICATION: Fatigue. Abnormal chest x-ray. COMPARISON: Chest radiograph from earlier today. CT chest with IV contrast 06/22/2017. FINDINGS: Mixed solid and groundglass pulmonary nodule in the left upper lobe measuring 0.9 cm. Solid pulmonary nodule in the lower left lower lobe measuring up to 0.7 cm. Focal pleural thickening along the left major fissure measuring up to 1.0 and 0.5 cm. Linear scarring or atelectasis in the right middle lobe. Stable irregular nodule in the superior right lower lobe measuring up to 0.7 cm. Mildly prominent precarinal lymph node measuring up to 0.8 cm in short axis dimension has grown since the prior exam. No pleural effusion or pneumothorax. No endobronchial lesions. Moderate atherosclerotic calcifications including coronary and aortic. Normal heart size. No pericardial effusion. Visualized upper abdominal contents are unremarkable. No acute osseous findings. IMPRESSION: 1. There are a few indeterminate scattered solid and semisolid subcentimeter pulmonary nodules detailed above. These are most likely infectious/inflammatory or chronic. A neoplastic process is not excluded. Please correlate with history of malignancy. Recommend followup chest CT in 3 months. 2. Precarinal lymph node has grown since the prior exam but remains subcentimeter in short axis dimension. Dictated on workstation # [id number] Dict: 10/12/181901 Trans: 10/12/181923 CARMELITA [id number] Interpreted by: LYRIC DENNIS MD Electronically signed by: Departure Impression Primary Impression: Bronchitis Additional Impressions: Fatigue Qualified Codes: R53.83 - Other fatigue Methamphetamine abuse Disposition: HOME, SELF-CARE Condition: Stable Departure-Patient Inst. Decision time for Depature: 19:13 Referrals: NO,LOCAL PHYSICIAN (PCP/Family) Primary Care Physician Patient Instructions: Acute Bronchitis in Adults Add. Discharge Instructions: 1. Antibiotics and inhaler as directed. Return to ER for any concerns 2. Follow-up with your doctor tomorrow. All discharge instructions reviewed with patient and/or family. Voiced understanding. You need to call your doctor tomorrow to make a follow-up appointment to evaluate the nodules seen on chest x -ray. You will need a repeat chest CAT scan in 3 months. This is up to you to arrange with your doctor. Scripts Cefuroxime Axetil (Cefuroxime) 250 Mg Tablet 250 MG PO BID, #14 TAB Prov: AMADEO ROCHA COMMUNITY OUTREACH COORDINATOR 10/12/18 AMADEO ROCHA APRN Oct 12, 2018 17:52
[2018-10-12 17:54] LABS: BASOPHILS % (AUTO) 1 % (0-10); EOSINOPHILS # (AUTO) 0.2 10^3/uL (0.0-0.3); EOSINOPHILS % (AUTO) 3 % (0-10); HEMATOCRIT 34 % (40-54); HEMOGLOBIN 11.5 G/DL (13.3-17.7); LYMPHOCYTES # (AUTO) 1.2 X 10^3 (1.0-4.0); LYMPHOCYTES % (AUTO) 19 % (12-44); MEAN CORPUSCULAR HEMOGLOBIN 29 PG (25-34); MEAN CORPUSCULAR HGB CONC 34 G/DL (32-36); MEAN CORPUSCULAR VOLUME 85 FL (80-99); MEAN PLATELET VOLUME 9.6 FL (7.4-10.4); MONOCYTES # (AUTO) 0.8 X 10^3 (0.0-1.0); MONOCYTES % (AUTO) 12 % (0-12); NEUTROPHILS # (AUTO) 4.1 X 10^3 (1.8-7.8); NEUTROPHILS % (AUTO) 65 % (42-75); PLATELET COUNT 314 10^3/uL (130-400); RED BLOOD COUNT 3.99 10^6/uL (4.35-5.85); RED CELL DISTRIBUTION WIDTH 12.7 % (10.0-14.5); WHITE BLOOD COUNT 6.4 10^3/uL (4.3-11.0)
[2018-10-12] MEDS ORDERED: LACTATED RINGERS 1,000 ML IV SCH (18:00)
--- NOTE | 2018-10-12 18:00 | NUR ---
ATTEMPTED TO COMPLETE EKG AND ORDERED. PT REFUSING TO HOLD STILL IN BED. ATTEMPTED FOR 5 MINUTES, UNABLE TO OBTAIN ACCURATE EKG. ORDER OBTAINED FROM AMADEO ROCHA TO TOBI ORDER.
[2018-10-12 18:04] LABS: BILIRUBIN,URINE NEGATIVE (NEGATIVE); CLARITY,URINE SLIGHTLY CLOUDY; COLOR,URINE YELLOW; GLUCOSE, URINE (UA) 4+ (NEGATIVE); KETONES,URINE NEGATIVE (NEGATIVE); LEUKOCYTE ESTERASE ,URINE NEGATIVE (NEGATIVE); NITRITE,URINE NEGATIVE (NEGATIVE); PH,URINE 6 (5-9); PROTEIN,URINE 2+ (NEGATIVE); UROBILINOGEN,URINE NORMAL (NORMAL)
[2018-10-12 18:11] LABS: ALANINE AMINOTRANSFERASE 12 U/L (0-55); ALBUMIN 3.4 GM/DL (3.2-4.5); ALKALINE PHOSPHATASE 98 U/L (40-136); BILIRUBIN,TOTAL 0.2 MG/DL (0.1-1.0); BUN/CREATININE RATIO 18; CALCIUM 8.9 MG/DL (8.5-10.1); CARBON DIOXIDE 27 MMOL/L (21-32); CHLORIDE 98 MMOL/L (98-107); CREATININE SERUM 1.13 MG/DL (0.60-1.30); GFR ESTIMATED > 60; GLUCOSE 268 MG/DL (70-105); POTASSIUM 4.2 MMOL/L (3.6-5.0); SODIUM 136 MMOL/L (135-145); TOTAL PROTEIN 6.5 GM/DL (6.4-8.2)
[2018-10-12 18:12] LABS: BACTERIA,URINE NEGATIVE /HPF; RBC,URINE 0-2 /HPF
[2018-10-12 18:16] LABS: AMPHETAMINE SCREEN, URINE POSITIVE (NEGATIVE); BARBITURATE SCREEN URINE NEGATIVE (NEGATIVE); BENZODIAZEPINES SCREEN URINE NEGATIVE (NEGATIVE); CANNABINOID SCREEN, URINE POSITIVE (NEGATIVE); COCAINE SCREEN URINE NEGATIVE (NEGATIVE); METHADONE STAT NEGATIVE (NEGATIVE); METHAMPHETAMINE SCREEN URINE S POSITIVE (NEGATIVE); OPIATE SCREEN URINE NEGATIVE (NEGATIVE); OXYCODONE STAT NEGATIVE (NEGATIVE); PROPOXYPHENE STAT NEGATIVE (NEGATIVE); TRICYCLIC ANTIDEPRESSANTS SCRE NEGATIVE (NEGATIVE)
--- NOTE | 2018-10-12 18:29 | Diagnostic Imaging Report ---
EXAM: Chest 1 view, AP/PA only. INDICATION: Fatigue. COMPARISON: Chest radiographs from 05/17/2018. FINDINGS: Normal heart size and central pulmonary vascularity. No pleural effusion or pneumothorax. Indeterminate 1.3 cm nodular opacity in the right lower lobe is new since the prior exam. There may also be a small nodular opacity in the left midlung measuring approximately 0.6 cm. No acute osseous findings. IMPRESSION: New indeterminate nodular opacities in the left midlung and right lower lobe. Recommend noncontrast chest CT for further evaluation. Dictated by: Dictated on workstation # [id number]
[2018-10-12] MEDS ORDERED: CEFU250T80 PO (19:14)
[2018-10-12] MEDS ORDERED: RX-ALBUTEROL INHALER (PROAIR) 8 GM IH STA (19:14)
[2018-10-12] MEDS ORDERED: CEPHALEXIN 250 MG (KEFLEX) CAP PO ONE (19:15)
--- NOTE | 2018-10-12 19:25 | Diagnostic Imaging Report ---
PROCEDURE: CT chest without contrast. TECHNIQUE: Multiple contiguous axial images were obtained through the chest without the use of intravenous contrast. INDICATION: Fatigue. Abnormal chest x-ray. COMPARISON: Chest radiograph from earlier today. CT chest with IV contrast 06/22/2017. FINDINGS: Mixed solid and groundglass pulmonary nodule in the left upper lobe measuring 0.9 cm. Solid pulmonary nodule in the lower left lower lobe measuring up to 0.7 cm. Focal pleural thickening along the left major fissure measuring up to 1.0 and 0.5 cm. Linear scarring or atelectasis in the right middle lobe. Stable irregular nodule in the superior right lower lobe measuring up to 0.7 cm. Mildly prominent precarinal lymph node measuring up to 0.8 cm in short axis dimension has grown since the prior exam. No pleural effusion or pneumothorax. No endobronchial lesions. Moderate atherosclerotic calcifications including coronary and aortic. Normal heart size. No pericardial effusion. Visualized upper abdominal contents are unremarkable. No acute osseous findings. IMPRESSION: 1. There are a few indeterminate scattered solid and semisolid subcentimeter pulmonary nodules detailed above. These are most likely infectious/inflammatory or chronic. A neoplastic process is not excluded. Please correlate with history of malignancy. Recommend followup chest CT in 3 months. 2. Precarinal lymph node has grown since the prior exam but remains subcentimeter in short axis dimension. Dictated by: Dictated on workstation # [id number]
[2018-10-12 20:08] VITALS: BP 146/85
== END 2018-10-12 20:08 | disposition home or self-care (01) ==
LOC: EDUNIT# 17:39 → ER 17:40
DX: J40 Bronchitis, not specified as acute or chronic (principal); R53.83 Other fatigue; F15.10 Other stimulant abuse, uncomplicated; F12.10 Cannabis abuse, uncomplicated; F19.10 Other psychoactive substance abuse, uncomplicated; E78.00 Pure hypercholesterolemia, unspecified; I10 Essential (primary) hypertension; E11.10 Type 2 diabetes mellitus with ketoacidosis without coma; Z91.14 Patient's other noncompliance with medication regimen; Z98.1 Arthrodesis status; Z87.820 Personal history of traumatic brain injury; Z90.49 Acquired absence of other specified parts of digestive tract; Z98.890 Other specified postprocedural states; Z77.22 Contact with and (suspected) exposure to environmental tobacco smoke (acute) (chronic); Z88.8 Allergy status to other drugs, medicaments and biological substances; Z79.82 Long term (current) use of aspirin; Z79.4 Long term (current) use of insulin
CPT/HCPCS: 36415; 71045; 71250; 80053; 80306; 80320; 81000; 82962; 83605; 83880; 84484; 85025; 87040

== ENCOUNTER 2018-11-16 00:35 | Inpatient (IN) | payer MEDICARE, MEDICAID ==
[~2018-11-16] VITALS: Ht 182.9 cm; Wt 56.4 kg
[~2018-11-16 00:35] MED LIST changes: +CEFU250T80 PO
[2018-11-16 01:58] LABS: BASOPHILS % (AUTO) 0 % (0-10); EOSINOPHILS # (AUTO) 0.4 10^3/uL (0.0-0.3); EOSINOPHILS % (AUTO) 5 % (0-10); HEMATOCRIT 38 % (40-54); LYMPHOCYTES # (AUTO) 1.5 X 10^3 (1.0-4.0); LYMPHOCYTES % (AUTO) 16 % (12-44); MEAN CORPUSCULAR HEMOGLOBIN 29 PG (25-34); MEAN CORPUSCULAR HGB CONC 34 G/DL (32-36); MEAN CORPUSCULAR VOLUME 83 FL (80-99); MEAN PLATELET VOLUME 10.1 FL (7.4-10.4); MONOCYTES # (AUTO) 0.7 X 10^3 (0.0-1.0); MONOCYTES % (AUTO) 7 % (0-12); NEUTROPHILS # (AUTO) 6.7 X 10^3 (1.8-7.8); NEUTROPHILS % (AUTO) 71 % (42-75); PLATELET COUNT 398 10^3/uL (130-400); RED CELL DISTRIBUTION WIDTH 13.3 % (10.0-14.5); WHITE BLOOD COUNT 9.4 10^3/uL (4.3-11.0)
[2018-11-16] MEDS ORDERED: RX-MUPIROCIN (BACTROBAN) 2% OINT 22 GM TUBE TOP STA (02:10)
[2018-11-16] MEDS ORDERED: NS IV 1000 ML 1,000 ML IV ONE (02:10)
[2018-11-16 02:12] LABS: PROTHROMBIN TIME PATIENT 12.9 SEC (12.2-14.7)
[2018-11-16] MEDS ORDERED: inSUlin (REGULAR) HUMAN 1 UNIT/0.01 ML (CHARGE PER UNIT) IV ONE (02:15)
[2018-11-16 02:23] LABS: ALANINE AMINOTRANSFERASE 33 U/L (0-55); ALKALINE PHOSPHATASE 112 U/L (40-136); BILIRUBIN,TOTAL 0.2 MG/DL (0.1-1.0); BUN/CREATININE RATIO 21; CALCIUM 9.8 MG/DL (8.5-10.1); CARBON DIOXIDE 28 MMOL/L (21-32); CHLORIDE 95 MMOL/L (98-107); CREATININE SERUM 1.23 MG/DL (0.60-1.30); GFR ESTIMATED 59; POTASSIUM 4.7 MMOL/L (3.6-5.0); SODIUM 135 MMOL/L (135-145); TOTAL PROTEIN 7.5 GM/DL (6.4-8.2)
[2018-11-16 02:29] LABS: ERYTHROCYTE SEDIMENTATION RATE 20 MM/HR (0-30)
[2018-11-16 02:33] LABS: BILIRUBIN,URINE NEGATIVE (NEGATIVE); CLARITY,URINE CLEAR; COLOR,URINE YELLOW; GLUCOSE, URINE (UA) 4+ (NEGATIVE); KETONES,URINE NEGATIVE (NEGATIVE); LEUKOCYTE ESTERASE ,URINE NEGATIVE (NEGATIVE); NITRITE,URINE NEGATIVE (NEGATIVE); PH,URINE 6 (5-9); PROTEIN,URINE 1+ (NEGATIVE); UROBILINOGEN,URINE NORMAL (NORMAL)
[2018-11-16 02:38] LABS: GLUCOSE 483 MG/DL (70-105)
[2018-11-16 02:42] LABS: BACTERIA,URINE NEGATIVE /HPF; SQUAMOUS EPITHELIAL CELL,UR RARE /HPF
[2018-11-16 02:44] LABS: AMPHETAMINE SCREEN, URINE POSITIVE (NEGATIVE); BARBITURATE SCREEN URINE NEGATIVE (NEGATIVE); BENZODIAZEPINES SCREEN URINE NEGATIVE (NEGATIVE); CANNABINOID SCREEN, URINE POSITIVE (NEGATIVE); COCAINE SCREEN URINE NEGATIVE (NEGATIVE); METHADONE STAT NEGATIVE (NEGATIVE); METHAMPHETAMINE SCREEN URINE S POSITIVE (NEGATIVE); OPIATE SCREEN URINE NEGATIVE (NEGATIVE); OXYCODONE STAT NEGATIVE (NEGATIVE); PROPOXYPHENE STAT NEGATIVE (NEGATIVE); TRICYCLIC ANTIDEPRESSANTS SCRE NEGATIVE (NEGATIVE)
[2018-11-16] MEDS ORDERED: VANCOMYCIN INJECTION 1,000 MG in NS (IVPB) 250 ML IV SCH (03:00)
--- NOTE | 2018-11-16 04:00 | NUR ---
PER PROVIDER VERBAL ORDER, VANCOMYCIN TO BE STARTED UPON ARRIVAL TO FOURTH FLOOR D/T SHORTAGE IN ED.
[2018-11-16] MEDS ORDERED: NS IV 1000 ML 1,000 ML ONE (04:40)
--- NOTE | 2018-11-16 04:42 | NUR ---
DAVID GALINDO admitted to room 430-1, with an admitting diagnosis of UNCONTROLLED DIABETES, CELLULITIS L PINKY TOE, on 11/16/18 from ED via WC, accompanied by ADULT CHILD.DAVID GALINDO introduced to surroundings, call light, bed controls, phone, TV, temperature control, lights, meal times, smoking policy, visitor policy, side rail policy, bathrooms and showers. Patient Rights given to patient in the handbook. DAVID GALINDO verbalizes understanding that [facility] is not responsible for the loss or damage to any personal effects or valuables that are kept in the patients posession during their hospitalization. PLANS OF CARE DISCUSSED WITH PT AND VERBALIZES UNDERSTANDING. DAVID GALINDO verbalizes understanding of Interdisciplinary Patient Education. Patient and/or family were informed about the Rapid Response Team and its purpose.
--- NOTE | 2018-11-16 05:10 | ED Integumentary General ---
General Chief Complaint: Skin/Wound Problems Stated Complaint: CELLULITIS L 5TH TOE,POSSIBLE OSTEOMYELITIS Nursing Triage Note: PT TO ROOM #4 VIA ED W/C BY SON. UPON ARRIVAL PT A&OX4. C/O WOUND TO LT PINKY TOE, GROIN, AND ANTERIOR SCALP. PT REPORTS HE ACQUIRED WOUND TO HEAD AFTER WALKING INTO A LOW HANGING NAIL. REPORTS WOUND TO GROIN IS R/T INGROWN HAIR FOLLICLE. REPORTS WOUND TO LT PINKY TOE BEGAN A BLISTER APPROX X2 WKS AGO. REPORTS HE IS CURRENT ON TETANUS VACCINE. Source: patient History of Present Illness Date Seen by Provider: Nov 16, 2018 Time Seen by Provider: 01:30 Initial Comments PT ARRIVES VIA POV WITH SON--PT STATES HE LIVES WITH HIS SON PT WITH MULTIPLE CHRONIC ISSUES MAIN COMPLAINT IS "BLISTER" ON LEFT 5TH TOE--THINKS IT HAS BEEN THERE FOR A COUPLE OF WEEKS STATES TONIGHT "FAMILY AND FRIENDS MADE HIM COME HERE" PT STATES 'THEY TOLD ME IT WAS NASTY WHEN I PULLED A BLACK SCAB OFF" PT STATES "I JUST WANT SOMEONE TO HELP CLEAN IT UP" --PT HAS NOT ATTEMPTED TO CLEAN IT PT THINKS IT IS FROM A BLISTER FROM WEARING NEW BOOTS PT ALSO C/O INGROWN HAIR TO LEFT PUBIC AREA--NOT SURE HOW LONG IT HAS BEEN THERE --NO DRAINAGE ALSO C/O WOUND TO HIS SCALP FROM RAISING UP AND HITTING HIS HEAD ON NAIL A COUPLE OF DAYS AGO NO REPORTED FEVER PT STATES HE IS DIABETIC AND IS SUPPOSED TO TAKE INSULIN, BUT "ONLY TAKE IT WHEN I FEEL LIKE IT" "WHEN I START FEELING LIKE THAT" PT CLAIMS THE LAST TIME HE TOOK ANY INSULIN WAS 2 DAYS AGO. 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 HAS HISTORY OF IV METH USE. PT HAS HISTORY OF ALCOHOL ABUSE, DENIES ANY USE TODAY PT CLAIMS HE IS UP DATE ON TETANUS VACCINATION PT HAS HAD MULTIPLE VISITS--MANY FOR DIABETES RELATED ISSUES, AND SEVERAL FOR CELLULITIS LONG HISTORY OF NON-COMPLIANCE IN ALL ASPECTS OF CARE PT HAS BEEN HOMELESS IN THE PAST, PT IS CURRENTLY STAYING WITH HIS SON PCP: [facility] Allergies and Home Medications Allergies Coded Allergies: Benzodiazepines (Verified Allergy, Unknown, 05/10/14) Home Medications Acetaminophen 500 Mg Tablet, 1,000 MG PO Q6H PRN for PAIN-MILD, (Reported) Aspirin 325 Mg Tablet.dr, 325 MG PO BID PRN for PAIN-MILD, (Reported) Cefuroxime Axetil 250 Mg Tablet, 250 MG PO BID Prescribed by: AMADEO ROCHA on 10/12/181913 Insulin Aspart 300 Units/3 Ml Solution, 20 UNITS SC AC, (Reported) Insulin Detemir 100 Unit/1 Ml Insuln.pen, 40 UNITS SC HS, (Reported) Lisinopril 5 Mg Tablet, 5 MG PO HS, (Reported) Patient Home Medication List Home Medication List Reviewed: Yes Review of Systems Review of Systems Constitutional: No fever Respiratory: No short of breath Cardiovascular: No chest pain Gastrointestinal: No abdominal pain, No nausea, No vomiting Genitourinary: no symptoms reported Musculoskeletal: see HPI Skin: see HPI Psychiatric/Neurological: See HPI, Pre-Existing Deficit Endocrine: See HPI Hematologic/Lymphatic: No Symptoms Reported Past Gsenjyj-Vuqmjo-Ajkuje Hx Patient Social History Alcohol Use: Past History (HISTORY OF ABUSE, DENIES RECENT USE, PER PT 11/16/18 ) Recreational Drug Use: Yes (THC, + IV METH-ALSO SNORTS IT-SPEED, ACID, MESCALINE, OTHERS) Drug of Choice: THC, + IV METH; ACID, MESCALINE; OTHERS Smoking Status: Current Everyday Smoker (1 PPD) Type Used: Cigarettes (1 PPD) 2nd Hand Smoke Exposure: Yes Recent Foreign Travel: No Contact w/Someone Who Travel: No Recent Infectious Disease Expo: No Recent Hopitalizations: No Immunizations Up To Date Tetanus Booster (TDap): Unknown Date of Pneumonia Vaccine: Jan 16, 2016 Seasonal Allergies Seasonal Allergies: No Past Medical History Surgeries: Yes (RIGHT WRIST FX/FUSION; POLYDACTYLY SURGERY; BENIGN TUMOR REMOVED FROM LEFT LOWER LEG;RIGHT FOOT SURGERY; ANKLE SURGERY) Appendectomy, Gallbladder, Orthopedic Respiratory: No Cardiac: Yes High Cholesterol, Hypertension Neurological: Yes (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) Neuropathy, Traumatic Brain Injury Reproductive Disorders: No Sexually Transmitted Disease: No HIV/AIDS: No Genitourinary: No Gastrointestinal: No Musculoskeletal: Yes (C1-C2 FX, LOW BACK FX; RIGHT WRIST FX/ORIF/FUSION; POLYDACTYLY SURGERY) Chronic Back Pain, Fractures Endocrine: Yes (DKA; NON-COMPLIANCE) Diabetes, Insulin dep HEENT: No (EDENTULOUS) Loss of Vision: Denies Hearing Impairment: Denies Cancer: No Psychosocial: No Integumentary: Yes (LEG, HAND CELLULITIS) Blood Disorders: No Adverse Reaction/Blood Tranf: No Family Medical History Blood clots 19 FATHER Diabetes mellitus 19 FATHER 19 MOTHER G8 BROTHER Physical Exam Vital Signs Vital Signs - First Documented 11/16/18 01:00 Temp 96.9 Pulse 96 Resp 18 B/P (MAP) 163/91 (115) Pulse Ox 100 O2 Delivery Room Air Capillary Refill : Less Than 3 Seconds General Appearance: cachetic, other (FILTHY, MALODOROUS, EMACIATED. TALKS NON- STOP) HEENT: PERRL/EOMI, other (EDENTULOUS) Cardiovascular: regular rate, rhythm, no murmur Respiratory: normal breath sounds, no respiratory distress Gastrointestinal: non tender, soft Extremities: other (LEFT 5TH TOE--MODERATE ERYTHEMA AND SWELLING TO ENTIRE TOE AND SURROUNDING TISSUES; PT HAS 1 X1 CM ULCERATED WOUND, WITH ADHERED DIRT AND HAIR TO WOUND, DRIED BLOOD AROUND WOUND; ) Neurologic/Psychiatric: alert, normal mood/affect, oriented x 3, sensory deficit (PERIPHERAL NEUROPATHY WITH DECREASED SENSATION TO FEET. ) Skin: normal color, warm/dry, other (WOUND TO LEFT 5TH TOE ABOVE; PT HAS AREA OF FOLLICULITIS/CELLULITIS 2 X 2 CM DIAMETER TO LEFT PUBIC AREA. NO FLUCTUANCE, NO DRAINAGE, NO STREAKS. RIGHT TOP OF SCALP WITH SCABBED PUNCTURE SITE, WITH 1 CM SURROUNDING MILD ERYTHEMA AND SWELLING. NON-TENDER. ) Progress/Results/Core Measures Results/Orders Lab Results Laboratory Tests Test 11/16/18 01:52 11/16/18 01:53 11/16/18 02:20 11/16/18 02:50 Range/Units White Blood Count 9.4 4.3-11.0 10^3/uL Red Blood Count 4.56 4.35-5.85 10^6/uL Hemoglobin 13.0 L 13.3-17.7 G/DL Hematocrit 38 L 40-54 % Mean Corpuscular Volume 83 80-99 FL Mean Corpuscular Hemoglobin 29 25-34 PG Mean Corpuscular Hemoglobin Concent 34 32-36 G/DL Red Cell Distribution Width 13.3 10.0-14.5 % Platelet Count 398 130-400 10^3/uL Mean Platelet Volume 10.1 7.4-10.4 FL Neutrophils (%) (Auto) 71 42-75 % Lymphocytes (%) (Auto) 16 12-44 % Monocytes (%) (Auto) 7 0-12 % Eosinophils (%) (Auto) 5 0-10 % Basophils (%) (Auto) 0 0-10 % Neutrophils # (Auto) 6.7 1.8-7.8 X 10^3 Lymphocytes # (Auto) 1.5 1.0-4.0 X 10^3 Monocytes # (Auto) 0.7 0.0-1.0 X 10^3 Eosinophils # (Auto) 0.4 H 0.0-0.3 10^3/uL Basophils # (Auto) 0.0 0.0-0.1 10^3/uL Erythrocyte Sedimentation Rate 20 0-30 MM/HR Prothrombin Time 12.9 12.2-14.7 SEC INR Comment 1.0 0.8-1.4 Activated Partial Thromboplast Time 38 H 24-35 SEC Sodium Level 135 135-145 MMOL/L Potassium Level 4.7 3.6-5.0 MMOL/L Chloride Level 95 L 98-107 MMOL/L Carbon Dioxide Level 28 21-32 MMOL/L Anion Gap 12 5-14 MMOL/L Blood Urea Nitrogen 26 H 7-18 MG/DL Creatinine 1.23 0.60-1.30 MG/DL Estimat Glomerular Filtration Rate 59 BUN/Creatinine Ratio 21 Glucose Level 483 *H 70-105 MG/DL Calcium Level 9.8 8.5-10.1 MG/DL Corrected Calcium 9.8 8.5-10.1 MG/DL Total Bilirubin 0.2 0.1-1.0 MG/DL Aspartate Amino Transf (AST/SGOT) 24 5-34 U/L Alanine Aminotransferase (ALT/SGPT) 33 0-55 U/L Alkaline Phosphatase 112 40-136 U/L C-Reactive Protein High Sensitivity 0.26 0.00-0.50 MG/DL Total Protein 7.5 6.4-8.2 GM/DL Albumin 4.0 3.2-4.5 GM/DL Serum Alcohol < 10 <10 MG/DL Glucometer 426 *H 70-110 MG/DL Urine Color YELLOW Urine Clarity CLEAR Urine pH 6 5-9 Urine Specific Hayes 1.015 L 1.016-1.022 Urine Protein 1+ H NEGATIVE Urine Glucose (UA) 4+ H NEGATIVE Urine Ketones NEGATIVE NEGATIVE Urine Nitrite NEGATIVE NEGATIVE Urine Bilirubin NEGATIVE NEGATIVE Urine Urobilinogen NORMAL NORMAL MG/DL Urine Leukocyte Esterase NEGATIVE NEGATIVE Urine RBC (Auto) NEGATIVE NEGATIVE Urine RBC NONE /HPF Urine WBC NONE /HPF Urine Squamous Epithelial Cells RARE /HPF Urine Crystals NONE /LPF Urine Bacteria NEGATIVE /HPF Urine Casts NONE /LPF Urine Mucus NEGATIVE /LPF Urine Culture Indicated NO Urine Opiates Screen NEGATIVE NEGATIVE Urine Oxycodone Screen NEGATIVE NEGATIVE Urine Methadone Screen NEGATIVE NEGATIVE Urine Propoxyphene Screen NEGATIVE NEGATIVE Urine Barbiturates Screen NEGATIVE NEGATIVE Ur Tricyclic Antidepressants Screen NEGATIVE NEGATIVE Urine Phencyclidine Screen NEGATIVE NEGATIVE Urine Amphetamines Screen POSITIVE H NEGATIVE Urine Methamphetamines Screen POSITIVE H NEGATIVE Urine Benzodiazepines Screen NEGATIVE NEGATIVE Urine Cocaine Screen NEGATIVE NEGATIVE Urine Cannabinoids Screen POSITIVE H NEGATIVE Lactic Acid Level 2.57 *H 0.50-2.00 MMOL/L My Orders Orders - ARPAN HACKETT DO Accucheck Stat ONCE (11/16/18 01:45) Saline Lock/Iv-Start (11/16/18 01:45) Alcohol (11/16/18 01:45) Cbc With Automated Diff (11/16/18 01:45) Comprehensive Metabolic Panel (11/16/18 01:45) Hs C Reactive Protein (11/16/18 01:45) Erythrocyte Sedimentation Rate (11/16/18 01:45) Drug Screen Stat (Urine) (11/16/18 01:45) Protime With Inr (11/16/18 01:45) Partial Thromboplastin Time (11/16/18 01:45) Ua Culture If Indicated (11/16/18 01:45) Foot, Left, 3 Views (11/16/18 01:45) Saline Lock/Iv-Start (11/16/18 02:10) Ns Iv 1000 Ml (Sodium Chloride 0.9%) (11/16/18 02:10) Insulin (Regular) Human (Humulin R (Per (11/16/18 02:15) Wound Dressing-Ed (11/16/18 02:10) Rx-Mupirocin 2% Oint (Rx-Bactroban) (11/16/18 02:10) Vancomycin Injection (Vancomycin Injecti (11/16/18 03:00) Lactic Acid Analyzer (11/16/18 02:46) Blood Culture (11/16/18 02:46) Wound Culture (11/16/18 02:46) Medications Given in ED Current Medications Medications Dose Ordered Sig/Arvin Route Start Time Stop Time Status Last Admin Dose Admin Insulin Human Regular 25 unit ONCE ONCE IV 11/16/18 02:15 11/16/18 02:16 DC 11/16/18 02:20 25 UNIT Sodium Chloride 1,000 ml @ 0 mls/hr Q0M ONCE IV 11/16/18 02:10 11/16/18 02:13 DC 11/16/18 02:20 0 MLS/HR Vital Signs/I&O 11/16/18 01:00 Temp 96.9 Pulse 96 Resp 18 B/P (MAP) 163/91 (115) Pulse Ox 100 O2 Delivery Room Air Blood Pressure Mean: 122 FSBG Bedside Testing Finger Stick Blood Glucose: 196 Blood Glucose Action Taken: NOTIFIED DR. LEW MD Progress Progress Note : Progress Note UNEVENTFUL ER STAY ACCUCHECK 196 AT TIME OF ADMIT, AFTER IV FLUIDS AND IV INSULIN Diagnostic Imaging Comments XRAYS LEFT FOOT--BONY DISRUPTION TO MID PHALANX OF 5TH TOE, PENDING RADIOLOGIST REVIEW Reviewed: Reviewed by Me Departure Communication (Admissions) 1454--SPOKE WITH DR. REMY, HOSPITALIST SHIPPING TRACK SUPERVISOR FOR [facility]. ACCEPTS PT FOR ADMIT Impression Primary Impression: Cellulitis of fifth toe of left foot Additional Impressions: POSSIBLE OSTEOMYELITIS Diabetes mellitus, insulin dependent (IDDM), uncontrolled PUNCTURE WOUND TO SCALP WITH MILD LOCAL CELLULTIS FOLLICULITIS WITH LOCAL CELLULTIS TO LEFT PUBIC AREA Illicit drug use EXTREME NON-COMPLIANCE Disposition: ADMITTED INPATIENT Condition: Stable Admissions Decision to Admit Reason: Admit from ER (General) Decision to Admit/Date: Nov 16, 2018 Time/Decision to Admit Time: 03:40 Departure-Patient Inst. Referrals: [facility] (PCP) Primary Care Physician ARPAN HACKETT DO Nov 16, 2018 05:10
--- NOTE | 2018-11-16 05:19 | NUR ---
[id number] THIS RN WAS TOLD PT HAD ARRIVED TO FLOOR. WENT TO PTS ROOM AND COULDN'T FIND HIM. LOOKED ON THE FLOOR AND COULDN'T FIND HIM. CALLED ED AND THEY STATED THAT HE HAD STEPPED POUT TO SMOKE. THIS RN NOTIFIED DR REMY THAT PT LEFT THE FLOOR AND GAVE PT EDUCATION THAT HE WASN'T ALLOWED TO LEAVE AGAIN. PT STATED UNDERSTANDING AND SAID HE WOULDN'T LEAVE AGAIN
[2018-11-16] MEDS ORDERED: KETOROLAC 30 MG/ML VIAL IV PRN (06:30)
[2018-11-16] MEDS ORDERED: ONDANSETRON 4 MG/2 ML (SDV) Z0FRAN IV PRN (06:30)
[2018-11-16] MEDS ORDERED: ACETAMINOPHEN 500 MG TAB (TYLENOL) PO PRN (06:30)
[2018-11-16] MEDS ORDERED: CATHETER FLUSH 10 ML SYR IV PRN (06:45)
--- NOTE | 2018-11-16 08:07 | Diagnostic Imaging Report ---
INDICATION: Foot wound.. TECHNIQUE: 3 views of the left foot CORRELATION STUDY: None FINDINGS: There is abnormal erosive change about the proximal and middle phalanges of the little toe. Soft tissue swelling is present. Remaining osseous structures demonstrate no acute bony abnormality other than erosive change. There are multifocal degenerative changes. There are rather significant degenerative changes about the tarsal articulations as well as the tarsometatarsal articulations. Slight collapse at the level of the mid foot. Also, there appears to be significant distortion at the level of the ankle. IMPRESSION: 1. Erosive changes suggested about the left little toe raising concern for potential underlying osteomyelitis. Dictated by: Dictated on workstation # [id number]
[2018-11-16] MEDS: MUPIROCIN 2% OINT 22 GM (BACTROBAN) TUBE TOP SCH ×2 (10:10→22:03)
[2018-11-16] MEDS: NS IV 1000 ML 1,000 ML IV SCH ×3 (10:10→19:45)
[2018-11-16] MEDS ORDERED: inSUlin ASPART (NovoLOG) 1 UNIT/0.01 ML (CHARGE PER UNIT) SC SCH (11:00)
[2018-11-16 12:00] VITALS: BP 139/69
--- NOTE | 2018-11-16 12:06 | History & Physical-Hospitalist ---
History of Present Illness HPI/Chief Complaint CC: Left 5th toe cellulitis HPI: This is a homeless 63yoWM who presented to the ER last night with left foot pain was found to have ulcer on left 5th toe and meth on UDS along with marijuana and apparently homeless. Patient was placed on abx and wound care was consulted. Patient refuses to answer any questions. Source: RN/MD, old records Exam Limitations: other (refuses to answer questions ) Date Seen 11/16/18 Time Seen by a Provider: 11:30 Attending Physician Naida Gonzalez DO [facility] [place] Referring Physician Date of Admission Nov 16, 2018 at 03:41 Home Medications & Allergies Home Medications Reviewed patient Home Medication Reconciliation performed by pharmacy medication reconciliations lighting engineering technician and/or nursing. Patients Allergies have been reviewed. Allergies Allergies Coded Allergies Benzodiazepines (Verified Allergy, Unknown, 05/10/14) Past Lvisegk-Yrwfkn-Fjlddc Hx Past Med/Social Hx: Reviewed Nursing Past Med/Soc Hx Patient Social History Employed/Student: unemployed Alcohol Use: Past History (HISTORY OF ABUSE, DENIES RECENT USE, PER PT 11/16/18 ) Recreational Drug Use: Yes (THC, + IV METH-ALSO SNORTS IT-SPEED, ACID, MESCALINE, OTHERS) Drug of Choice: THC, + IV METH; ACID, MESCALINE; OTHERS Smoking Status: Current Everyday Smoker (1 PPD) Type Used: Cigarettes (1 PPD) 2nd Hand Smoke Exposure: Yes Recent Foreign Travel: No Contact w/other who traveled: No Recent Hopitalizations: No Recent Infectious Disease Expo: No Immunizations Up To Date Tetanus Booster (TDap): Unknown Date of Pneumonia Vaccine: Jan 16, 2016 Seasonal Allergies Seasonal Allergies: No Past Medical History Surgeries: Appendectomy, Gallbladder, Orthopedic Cardiac: High Cholesterol, Hypertension Neurological: Neuropathy, Traumatic Brain Injury Reproductive: No Sexually Transmitted Disease: No HIV/AIDS: No Musculoskeletal: Chronic Back Pain, Fractures Endocrine: Diabetes, Insulin dep Loss of Vision: Denies Hearing Impairment: Denies History of Blood Disorders: No Adverse Reaction to Blood [place]: No Family History Blood clots 19 FATHER Diabetes mellitus 19 FATHER 19 MOTHER G8 BROTHER Review of Systems Constitutional: see HPI (unable to ascertain) Physical Exam Physical Exam Vital Signs Vital Signs - First Documented 11/16/18 01:00 Temp 96.9 Pulse 96 Resp 18 B/P (MAP) 163/91 (115) Pulse Ox 100 O2 Delivery Room Air Capillary Refill : Less Than 3 Seconds Height, Weight, BMI Height: 6'0.00" Weight: 124lbs. 5.0oz. [id number]; 17.4 BMI Method:Stated General Appearance: No Apparent Distress, WD/WN, Chronically ill, Other (sleepy , does not engage in conversation, dishelved) Skin: Other (left 5th toe with ulcer and erythema and drainage) Results Results/Procedures Labs Laboratory Tests 11/16/18 01:52 Patient resulted labs reviewed. Assessment/Plan Admission Diagnosis Assessment: Left 5th toe cellulitis with DM ulcer DM OOC Meth abuse Marijuana use Plan: Increase insulin Zosyn added to Vanc SW consult Admission Status: Inpatient Order (span 2 midnights) Reason for Inpatient Admission: Cellulitis and homeless will require 3 days Diagnosis/Problems Diagnosis/Problems (1) Cellulitis of fifth toe of left foot Status: Acute (2) Diabetes mellitus, insulin dependent (IDDM), uncontrolled Status: Chronic Qualifiers: Glycemic state: with hyperglycemia Qualified Codes: E10.65 - Type 1 diabetes mellitus with hyperglycemia (3) Illicit drug use Status: Chronic (4) Homeless Status: Chronic Clinical Quality Measures DVT/VTE Risk/Contraindication: Risk Factor Score Per Nursin RFS Level Per Nursing on Admit: 3=High NAIDA GONZALEZ DO Nov 16, 2018 12:06
[2018-11-16] MEDS ORDERED: inSUlin (REGULAR) HUMAN 1 UNIT/0.01 ML (CHARGE PER UNIT) SC ONE (12:30)
[2018-11-16] MEDS ORDERED: diphenhydrAMINE 25 MG TAB (BENADRYL) PO PRN (12:30)
[2018-11-16] MEDS ORDERED: DOCUSATE SODIUM 100 MG (COLACE) CAP PO PRN (12:30)
[2018-11-16] MEDS ORDERED: VANCOMYCIN INJECTION 0.1 MG in NS (IVPB) 250 ML IV SCH (12:30)
[2018-11-16] MEDS ORDERED: LOPERAMIDE 2 MG (IMODIUM) CAP PO PRN (12:30)
[2018-11-16] MEDS ORDERED: inSUlin DETERMIR 1 UNIT/0.01 ML (LEVEMIR) CHARGE PER UNIT SQ ONE (12:30)
[2018-11-16] MEDS ORDERED: CALCIUM CARBONATE 500 MG (TUMS) TAB.CHEW PO PRN (12:30)
[2018-11-16] MEDS ORDERED: VANCOMYCIN INJECTION 500 MG in NS (IVPB) 100 ML IV SCH (12:30)
[2018-11-16] MEDS ORDERED: IBUPROFEN TABLET 200 MG TAB PO PRN (12:30)
[2018-11-16] MEDS ORDERED: MELATONIN 3 MG TABLET PO PRN (12:30)
[2018-11-16] MEDS ORDERED: PIPERACILLIN/TAZO 4.5 GM/NS 100 ML IV NR ×2 (12:32)
[2018-11-16] MEDS: CATHETER FLUSH 10 ML SYR IV SCH ×2 (14:16→22:03)
[2018-11-16 16:52] VITALS: BP 137/64
[2018-11-16] MEDS: inSUlin (REGULAR) HUMAN 1 UNIT/0.01 ML (CHARGE PER UNIT) SC SCH ×2 (16:55→21:33)
[2018-11-16 19:48] VITALS: BP 123/63
[2018-11-16] MEDS: PIPERACILLIN/TAZOBACTAM (BULK) 4.5 GM in NS (IVPB) 100 ML IV SCH (19:59)
--- NOTE | 2018-11-16 21:32 | NUR ---
Dr. Gonzalez contacted by this RN to see if she wants this RN to give scheduled 15 units humulin r and 20 units levemir for FSBS 265. Dr. Gonzalez with TORB to hold regular insulin dose and give levemir 8 units.
[2018-11-16] MEDS: inSUlin DETERMIR 1 UNIT/0.01 ML (LEVEMIR) CHARGE PER UNIT SQ SCH (22:02)
[2018-11-16] MEDS: VANCOMYCIN 1 GM/NS 250 ML IVPB IV SCH ×2 (22:02)
[2018-11-16] MEDS: POLYETHYLENE GLYCOL 17 GM (MIRALAX) PACK PO SCH (22:03)
[2018-11-16 23:56] VITALS: BP 116/60
[2018-11-17] MEDS: CATHETER FLUSH 10 ML SYR IV SCH ×3 (02:39→21:30)
[2018-11-17] MEDS: NS IV 1000 ML 1,000 ML IV SCH ×2 (02:57→10:45)
[2018-11-17] MEDS: PIPERACILLIN/TAZOBACTAM (BULK) 4.5 GM in NS (IVPB) 100 ML IV SCH ×3 (02:58→19:22)
[2018-11-17 04:00] VITALS: BP 123/67
[2018-11-17] MEDS: inSUlin (REGULAR) HUMAN 1 UNIT/0.01 ML (CHARGE PER UNIT) SC SCH ×4 (05:53→21:33)
[2018-11-17 07:38] LABS: BASOPHILS % (AUTO) 1 % (0-10); EOSINOPHILS # (AUTO) 0.4 10^3/uL (0.0-0.3); EOSINOPHILS % (AUTO) 5 % (0-10); HEMATOCRIT 34 % (40-54); HEMOGLOBIN 11.1 G/DL (13.3-17.7); LYMPHOCYTES % (AUTO) 24 % (12-44); MEAN CORPUSCULAR HEMOGLOBIN 28 PG (25-34); MEAN CORPUSCULAR HGB CONC 33 G/DL (32-36); MEAN CORPUSCULAR VOLUME 87 FL (80-99); MEAN PLATELET VOLUME 10.7 FL (7.4-10.4); MONOCYTES # (AUTO) 0.6 X 10^3 (0.0-1.0); MONOCYTES % (AUTO) 7 % (0-12); NEUTROPHILS # (AUTO) 5.2 X 10^3 (1.8-7.8); NEUTROPHILS % (AUTO) 64 % (42-75); PLATELET COUNT 308 10^3/uL (130-400); RED CELL DISTRIBUTION WIDTH 13.1 % (10.0-14.5); WHITE BLOOD COUNT 8.2 10^3/uL (4.3-11.0)
[2018-11-17 07:57] LABS: ALANINE AMINOTRANSFERASE 22 U/L (0-55); ALBUMIN 2.9 GM/DL (3.2-4.5); ALKALINE PHOSPHATASE 78 U/L (40-136); BILIRUBIN,TOTAL 0.2 MG/DL (0.1-1.0); BUN/CREATININE RATIO 24; CALCIUM 8.4 MG/DL (8.5-10.1); CARBON DIOXIDE 25 MMOL/L (21-32); CHLORIDE 106 MMOL/L (98-107); CREATININE SERUM 0.85 MG/DL (0.60-1.30); GFR ESTIMATED > 60; GLUCOSE 121 MG/DL (70-105); SODIUM 138 MMOL/L (135-145); TOTAL PROTEIN 5.5 GM/DL (6.4-8.2)
[2018-11-17 08:00] VITALS: BP 134/67
[2018-11-17] MEDS: MUPIROCIN 2% OINT 22 GM (BACTROBAN) TUBE TOP SCH ×2 (10:46→21:30)
[2018-11-17] MEDS: POLYETHYLENE GLYCOL 17 GM (MIRALAX) PACK PO SCH ×2 (10:46→21:25)
[2018-11-17] MEDS ORDERED: FLU QUADRIvalent (5+ YOA) 2018-2019 (AFLURIA) 0.5 ML IM ONE (11:45)
[2018-11-17 12:00] VITALS: BP 145/68
--- NOTE | 2018-11-17 13:05 | Wound Care Assessment ---
Wound Care Assessment Date Seen by Provider: Nov 17, 2018 Time Seen by Provider: 12:56 Chief Complaint L 5th toe ulcer. HPI The patient is a 63 year old male diabetic with a Grade 2 DFU above, which began as a footwear injury. The patient has no palpable pulse L foot. Arterial evaluation is ordered along with appropriate dressings. Smoking Status: Current Everyday Smoker (1 PPD) Recreational Drug Use: Yes (THC, + IV METH-ALSO SNORTS IT-SPEED, ACID, MESCALINE, OTHERS) Alcohol Use: Past History (HISTORY OF ABUSE, DENIES RECENT USE, PER PT 11/16/18 ) Exam Vital Signs Date Time Temp Pulse Resp B/P (MAP) Pulse Ox O2 Delivery O2 Flow Rate FiO2 11/17/18 12:00 97.6 79 16 145/68 (93) 100 Room Air Capillary Refill : Less Than 3 Seconds Skin: other (L 5th toe -- 2.3 x 2.3 x 0.4 cm, base 25% slough, 75% eschar, mod. s.s. drainage.) Results Laboratory Tests 11/16/18 16:40: Glucometer 42*L 11/16/18 17:00: Glucometer 105 11/16/18 20:36: Glucometer 265H 11/17/18 05:16: Glucometer 63L 11/17/18 06:36: White Blood Count 8.2, Red Blood Count 3.93L, Hemoglobin 11.1L, Hematocrit 34L, Mean Corpuscular Volume 87, Mean Corpuscular Hemoglobin 28, Mean Corpuscular Hemoglobin Concent 33, Red Cell Distribution Width 13.1, Platelet Count 308, Mean Platelet Volume 10.7H, Neutrophils (%) (Auto) 64, Lymphocytes (%) (Auto) 24 , Monocytes (%) (Auto) 7, Eosinophils (%) (Auto) 5, Basophils (%) (Auto) 1, Neutrophils # (Auto) 5.2, Lymphocytes # (Auto) 2.0, Monocytes # (Auto) 0.6, Eosinophils # (Auto) 0.4H, Basophils # (Auto) 0.0, Sodium Level 138, Potassium Level 4.0, Chloride Level 106, Carbon Dioxide Level 25, Anion Gap 7, Blood Urea Nitrogen 20H, Creatinine 0.85, Estimat Glomerular Filtration Rate > 60, BUN/ Creatinine Ratio 24, Glucose Level 121H, Calcium Level 8.4L, Corrected Calcium 9.3, Total Bilirubin 0.2, Aspartate Amino Transf (AST/SGOT) 20, Alanine Aminotransferase (ALT/SGPT) 22, Alkaline Phosphatase 78, Total Protein 5.5L, Albumin 2.9L 11/17/18 11:09: Glucometer 197H 11/17/18 11:33: Glucometer 207H Microbiology 11/16/18 Blood Culture - Preliminary, Resulted No growth 11/16/18 Gram Stain - Final, Resulted 11/16/18 Wound Culture - Preliminary, Resulted Staphylococcus aureus Microbiology 11/16/18 Blood Culture - Preliminary, Resulted No growth 11/16/18 Blood Culture - Preliminary, Resulted No growth 11/16/18 Gram Stain - Final, Resulted 11/16/18 Wound Culture - Preliminary, Resulted Staphylococcus aureus Assessment/Plan/Dx 1. L 5th toe ulcer, Sales Grade 2. PAIGE ALARCON MD Nov 17, 2018 13:05
[2018-11-17 16:14] VITALS: BP 127/71
--- NOTE | 2018-11-17 19:46 | Progress Note (SOAP) ---
Subjective Subjective/Events-last exam 63 yo M with poorly controlled DM that presented with increased foot pain to Left 5th toe. Stated that he has noticed the wound for about 1 month and it has been open and draining for about the same amount of time. He has been manually expressing purulent drainage from wound for several weeks now. Denies any fever or chills. Denies any previous foot wounds but states that his feet are always numb. Has not been taking insulin because he has been out. Has not seen his primary doctor in several months maybe a year he does not recall. Review of Systems Date Seen by Provider: Nov 17, 2018 Time Seen by Provider: 11:30 Pulmonary: No Dyspnea, No Cough Cardiovascular: No: Chest Pain, Palpitations, Edema Neurological: Numbness Focused Exam Lactate Level 11/16/18 02:50: Lactic Acid Level 2.57*H 11/16/18 05:20: Lactic Acid Level 2.15*H Objective Exam Last Set of Vital Signs Vital Signs Date Time Temp Pulse Resp B/P (MAP) Pulse Ox O2 Delivery O2 Flow Rate FiO2 11/17/18 16:14 98.7 79 16 127/71 (89) 99 Room Air Capillary Refill : Less Than 3 Seconds I&O Intake and Output 11/17/18 00:00 Intake Total 3260 ml Balance 3260 ml Intake Oral 890 ml IV Total 2370 ml # Voids 5 # Bowel Movements 1 Daily Weight Change Unsure Unsure General: Alert, Oriented X3, Cooperative, No Acute Distress Lungs: Clear to Auscultation, Normal Air Movement Heart: Regular Rate, No Murmurs Abdomen: Normal Bowel Sounds, Soft, No Tenderness, No Masses Extremities: Other (No edema or cellulitis appreciated, diminished pulses bilaterally, left 5th toe with lateral wound draining purulent materal, diminshed sensation bilaterally) Results/Procedures Lab Laboratory Tests 11/16/18 20:36: Glucometer 265H 11/17/18 05:16: Glucometer 63L 11/17/18 06:36: White Blood Count 8.2, Red Blood Count 3.93L, Hemoglobin 11.1L, Hematocrit 34L, Mean Corpuscular Volume 87, Mean Corpuscular Hemoglobin 28, Mean Corpuscular Hemoglobin Concent 33, Red Cell Distribution Width 13.1, Platelet Count 308, Mean Platelet Volume 10.7H, Neutrophils (%) (Auto) 64, Lymphocytes (%) (Auto) 24 , Monocytes (%) (Auto) 7, Eosinophils (%) (Auto) 5, Basophils (%) (Auto) 1, Neutrophils # (Auto) 5.2, Lymphocytes # (Auto) 2.0, Monocytes # (Auto) 0.6, Eosinophils # (Auto) 0.4H, Basophils # (Auto) 0.0, Sodium Level 138, Potassium Level 4.0, Chloride Level 106, Carbon Dioxide Level 25, Anion Gap 7, Blood Urea Nitrogen 20H, Creatinine 0.85, Estimat Glomerular Filtration Rate > 60, BUN/ Creatinine Ratio 24, Glucose Level 121H, Calcium Level 8.4L, Corrected Calcium 9.3, Total Bilirubin 0.2, Aspartate Amino Transf (AST/SGOT) 20, Alanine Aminotransferase (ALT/SGPT) 22, Alkaline Phosphatase 78, Total Protein 5.5L, Albumin 2.9L 11/17/18 11:09: Glucometer 197H 11/17/18 11:33: Glucometer 207H 11/17/18 16:17: Glucometer 283H Microbiology 11/16/18 Blood Culture - Preliminary, Resulted No growth 11/16/18 Gram Stain - Final, Resulted 11/16/18 Wound Culture - Preliminary, Resulted Staphylococcus aureus Assessment/Plan Assessment/Plan (1) Cellulitis of fifth toe of left foot Status: Acute Assessment & Plan: - Concerns for osteomyelitis, Will consult Juice for possible amputation, Dr Mooney following with wound care, Continue IV antibiotics to cover DM foot wound (2) 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
[2018-11-17 20:06] VITALS: BP 112/59
[2018-11-17] MEDS: VANCOMYCIN 1 GM/NS 250 ML IVPB IV SCH ×2 (20:18)
[2018-11-17] MEDS: inSUlin DETERMIR 1 UNIT/0.01 ML (LEVEMIR) CHARGE PER UNIT SQ SCH (21:34)
[2018-11-18] VITALS: BP 119/59
[2018-11-18] MEDS: PIPERACILLIN/TAZOBACTAM (BULK) 4.5 GM in NS (IVPB) 100 ML IV SCH ×3 (03:08→19:18)
[2018-11-18] MEDS: CATHETER FLUSH 10 ML SYR IV SCH ×3 (05:38→21:09)
--- NOTE | 2018-11-18 07:18 | NUR ---
DR NAIK CALLED NEW ORDERS RECEIVED TO MAKE PT NPO AT THIS TIME.
[2018-11-18] MEDS: inSUlin (REGULAR) HUMAN 1 UNIT/0.01 ML (CHARGE PER UNIT) SC SCH ×5 (07:22→21:00)
[2018-11-18 08:00] VITALS: BP 143/80
--- NOTE | 2018-11-18 08:36 | Podiatry Progress Note ---
Standard Progress Note Progress Notes/Assess & Plan Date Seen by a Provider: Nov 18, 2018 Time Seen by a Provider: 08:34 Progress/Assessment & Plan Consult dictated. He has exposed bone to the left 5th toe. Discussed surgical options and will most likely have an amputation tomorrow morning. Final Diagnosis Osteomyelitis left 5th toe. Diabetic Neuropathy. BRETT NAIK DPM Nov 18, 2018 08:36
[2018-11-18] MEDS: POLYETHYLENE GLYCOL 17 GM (MIRALAX) PACK PO SCH ×2 (09:10→21:09)
[2018-11-18] MEDS: MUPIROCIN 2% OINT 22 GM (BACTROBAN) TUBE TOP SCH ×2 (09:10→21:09)
--- NOTE | 2018-11-18 09:29 | CONSULTATION REPORT ---
DATE OF SERVICE: REASON FOR CONSULTATION: Diabetic foot care. This 63-year-old male was admitted through the ER, indicating left foot pain as well as wound to the groin and head area. He reports today that the head and groin lesions are no big deal. He is concerned about the left foot. He indicated he has had an open wound for quite some time, but could not communicate how long he has had it or what specific treatment has been done until he was admitted to the hospital. The patient indicates that he has not taken care of his diabetes. He was rather reluctant to communicate his living status. Per his record, he indicates that he may be living with his son or may be homeless. The patient has a past medical history of alcohol abuse. Recreational drugs includes marijuana, methamphetamines, speed acid and others. He is a current every day smoker. He has a history of type 2 diabetes insulin-dependent, chronic back pain, history of fractures, neuropathy, traumatic brain injury, hypercholesterolemia, hypertension. PAST SURGICAL HISTORY: Appendectomy, cholecystectomy and other orthopedic procedures. ALLERGIES: The patient is allergic to BENZOD[place]PIN[place]. PHYSICAL EXAM: This is a well-developed male with very bland affect. He is currently afebrile. On lower extremity examination, he has a dressing to the left fifth toe. When the dressing was withdrawn, there was a full-thickness wound that measures approximately 8 x 8 mm and probes down to bone. There is an eschar to the wound with some fibrotic tissue, some erythema in the area, some serosanguineous drainage to the dressing is noted. VASCULAR: The patient has 2/4 dorsalis pedis and posterior tibial pulse in left foot. NEUROLOGIC: The patient has diminished light touch as well as protective sensation in left foot. MUSCULOSKELETAL: The patient has contracted left fifth toe. X-rays were reviewed, which demonstrates osteolysis of the head of the proximal phalanx and base of the distal phalanx. Wound cultures indicate staph aureus from the left fifth toe. No sensitivities reported yet. ASSESSMENT: Osteomyelitis, left fifth toe. Diabetic neuropathy. Hammer digit syndrome, left fifth toe. PLAN: Various treatment options were discussed with the patient. In light of the contracture of the toe and bone infection, I highly recommend the patient has an amputation of the left fifth toe. He seems agreeable to this. Risks and complications of procedure and of nonsurgical intervention were discussed at length. He is aware of these conservative and surgical options and is willing to proceed with surgery. He will have an amputation tomorrow morning. We will continue with wound care until tomorrow. The patient understands the postoperative care and expectations. Job ID: [id number] DocumentID: [id number] Dictated Date: 11/18/2018 08:45:20 Cutter Inspector Date: 11/18/2018 09:28:18 Dictated By: BRETT NAIK DPM
--- NOTE | 2018-11-18 11:25 | Progress Note (SOAP) ---
Subjective Subjective/Events-last exam Patient resting comfortably in bed. Denies any pain. Tolerating PO diet. No fever or chills. Plan for surgery in AM with Dr Bose Review of Systems Date Seen by Provider: Nov 18, 2018 Time Seen by Provider: 09:05 Pulmonary: No Dyspnea, No Cough Cardiovascular: No: Chest Pain, Palpitations Musculoskeletal: foot pain Neurological: Numbness Focused Exam Lactate Level 11/16/18 02:50: Lactic Acid Level 2.57*H 11/16/18 05:20: Lactic Acid Level 2.15*H Objective Exam Last Set of Vital Signs Vital Signs Date Time Temp Pulse Resp B/P (MAP) Pulse Ox O2 Delivery O2 Flow Rate FiO2 11/18/18 08:22 Room Air 11/18/18 08:00 98.0 65 16 143/80 (101) 98 Capillary Refill : Less Than 3 Seconds I&O Intake and Output 11/18/18 00:00 Intake Total 1690 ml Output Total 1675 ml Balance 15 ml Intake Oral 1310 ml IV Total 380 ml Output Urine Total 1675 ml General: Alert, Oriented X3, Cooperative, No Acute Distress, Other (disheveled , adult male) Lungs: Clear to Auscultation, Normal Air Movement Heart: Regular Rate, No Murmurs Extremities: Other (Left foot in bandage, no erythema present on foot or Lower leg) Neuro: Strength at 5/5 X4 Ext, Cranial Nerves 3-12 NL Results/Procedures Lab Laboratory Tests 11/17/18 11:33: Glucometer 207H 11/17/18 16:17: Glucometer 283H 11/17/18 21:01: Glucometer 173H 11/17/18 23:25: Glucometer 82 11/17/18 23:53: Glucometer 57*L 11/18/18 00:33: Glucometer 192H 11/18/18 05:28: Glucometer 192H 11/18/18 11:02: Glucometer 146H Microbiology 11/16/18 Blood Culture - Preliminary, Resulted No growth 11/16/18 Gram Stain - Final, Resulted 11/16/18 Wound Culture - Preliminary, Resulted Staphylococcus aureus Assessment/Plan Assessment/Plan (1) Cellulitis of fifth toe of left foot Status: Acute Assessment & Plan: - Concerns for osteomyelitis, Will consult [facility] for possible amputation, Dr Mooney following with wound care, Continue IV antibiotics to cover DM foot wound 11/18: Continue IV antibiotics, plan for surgery in AM, NPO at midnight (2) 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
[2018-11-18] MEDS ORDERED: MAGNESIUM CITRATE 300 ML BTL PO ONE (14:00)
[2018-11-18 15:57] VITALS: BP 115/62
[2018-11-18] MEDS ORDERED: TROUGH ORDER-PHARMACY XX NR (20:00)
[2018-11-18] MEDS ORDERED: inSUlin DETERMIR 1 UNIT/0.01 ML (LEVEMIR) CHARGE PER UNIT SQ SCH (21:00)
[2018-11-18] MEDS: VANCOMYCIN 1 GM/NS 250 ML IVPB IV SCH ×2 (21:09)
[2018-11-19] VITALS: BP 103/55
[2018-11-19] MEDS: CATHETER FLUSH 10 ML SYR IV SCH ×3 (02:15→22:57)
[2018-11-19] MEDS: PIPERACILLIN/TAZOBACTAM (BULK) 4.5 GM in NS (IVPB) 100 ML IV SCH ×3 (02:15→19:42)
[2018-11-19 04:33] LABS: BASOPHILS # (AUTO) 0.1 10^3/uL (0.0-0.1); BASOPHILS % (AUTO) 1 % (0-10); EOSINOPHILS # (AUTO) 0.5 10^3/uL (0.0-0.3); EOSINOPHILS % (AUTO) 5 % (0-10); HEMATOCRIT 34 % (40-54); HEMOGLOBIN 11.1 G/DL (13.3-17.7); LYMPHOCYTES # (AUTO) 2.4 X 10^3 (1.0-4.0); LYMPHOCYTES % (AUTO) 28 % (12-44); MEAN CORPUSCULAR HEMOGLOBIN 28 PG (25-34); MEAN CORPUSCULAR HGB CONC 33 G/DL (32-36); MEAN CORPUSCULAR VOLUME 87 FL (80-99); MEAN PLATELET VOLUME 10.5 FL (7.4-10.4); MONOCYTES # (AUTO) 0.7 X 10^3 (0.0-1.0); MONOCYTES % (AUTO) 8 % (0-12); NEUTROPHILS # (AUTO) 5.1 X 10^3 (1.8-7.8); NEUTROPHILS % (AUTO) 59 % (42-75); PLATELET COUNT 296 10^3/uL (130-400); RED CELL DISTRIBUTION WIDTH 13.1 % (10.0-14.5); WHITE BLOOD COUNT 8.6 10^3/uL (4.3-11.0)
[2018-11-19 04:58] LABS: ALANINE AMINOTRANSFERASE 21 U/L (0-55); ALBUMIN 2.8 GM/DL (3.2-4.5); ALKALINE PHOSPHATASE 62 U/L (40-136); BILIRUBIN,TOTAL 0.1 MG/DL (0.1-1.0); BUN/CREATININE RATIO 31; CALCIUM 8.3 MG/DL (8.5-10.1); CARBON DIOXIDE 25 MMOL/L (21-32); CHLORIDE 104 MMOL/L (98-107); CREATININE SERUM 0.95 MG/DL (0.60-1.30); GFR ESTIMATED > 60; GLUCOSE 276 MG/DL (70-105); POTASSIUM 4.2 MMOL/L (3.6-5.0); SODIUM 135 MMOL/L (135-145); TOTAL PROTEIN 5.1 GM/DL (6.4-8.2)
[2018-11-19] MEDS: inSUlin (REGULAR) HUMAN 1 UNIT/0.01 ML (CHARGE PER UNIT) SC SCH ×5 (05:21→21:38)
[2018-11-19 05:45] VITALS: BP 119/66
[2018-11-19] MEDS ORDERED: BUPIVACAINE 0.5% 30 ML (SENSORCAINE) VIAL ONE (06:59)
[2018-11-19] MEDS ORDERED: LIDOCAINE 1% INJ 20 ML 20 ML VIAL ONE (06:59)
[2018-11-19] MEDS ORDERED: MIDAZOLAM 2 MG/2 ML (VERSED) VIAL ONE (07:11)
[2018-11-19] MEDS ORDERED: fentaNYL INJECTION 100 MCG/2 ML AMP ONE (07:13)
--- NOTE | 2018-11-19 07:15 | NUR ---
TO OR VIA BED ACCOMPANIED BY TAR AND AMMONIA PUMP OPERATOR.
--- NOTE | 2018-11-19 07:27 | Progress Note-Pre Operative ---
Pre-Operative Progress Note H&P Reviewed The H&P was reviewed, patient examined and no changes noted. Date Seen by Provider: Nov 19, 2018 Time Seen by Provider: 07:15 Date H&P Reviewed: Nov 19, 2018 Time H&P Reviewed: 07:15 Pre-Operative Diagnosis: Osteomyelitis, left 5th toe BRETT NAIK DPM Nov 19, 2018 07:26
[2018-11-19] MEDS ORDERED: LACTATED RINGERS 1,000 ML IV PRN (07:54)
[2018-11-19] MEDS ORDERED: SEVOFLURANE (ULTANE) 15 ML INHAL SOLN ONE (08:07)
--- NOTE | 2018-11-19 08:08 | Progress Note-Post Operative ---
Post-Operative Progess Note Surgeon (s)/Resident Assistant Cna (s) Surgeon BRETT NAIK DPM Resident Assistant Cna: none Pre-Operative Diagnosis Osteomyelitis, left 5th toe Post-Operative Diagnosis Same Procedure & Operative Findings Date of Procedure 11/19/18 Procedure Performed/Findings Amputation of the left 5th toe Anesthesia Type General Estimated Blood Loss Estimated blood loss (mL): minimal Specimens/Packing Specimens Removed left 5th toe BRETT NAKI DPM Nov 19, 2018 08:08
[2018-11-19] MEDS ORDERED: proPOfol 200 MG/20 ML (DIPRIVAN) VIAL IV ONE (08:16)
[2018-11-19] MEDS ORDERED: LIDOCAINE PF 2% 5 ML (XYLOCAINE) VIAL ONE (08:16)
[2018-11-19] MEDS ORDERED: ONDANSETRON 4 MG/2 ML (SDV) Z0FRAN ONE (08:16)
--- NOTE | 2018-11-19 08:44 | Diagnostic Imaging Report ---
EXAMINATION: Left foot at 8:26 AM INDICATION: Postop The recent left foot exam of 11/16/2018 indicated erosive changes of the phalanges of the fifth digit. In the interval since the prior exam the phalanges have been amputated. There is no abnormality involving the head of the fifth metatarsal to suggest that it is involved by osteomyelitis. There is soft tissue edema in the operative site and there is a 1.4 CM well-circumscribed collection of gas in this region as well. There is no acute abnormality identified otherwise. The degenerative disease involving the midfoot and the calcaneal spur seen on the prior study are again evident and no different. IMPRESSION: In the interval since the prior exam the phalanges of the fifth digit have been amputated. There is no acute bony abnormality appreciated. Dictated by: Dictated on workstation # [id number]
--- NOTE | 2018-11-19 08:47 | OPERATIVE REPORT ---
DATE OF SERVICE: 11/19/2018 SURGEON: Antionette Naik DPM. PREOPERATIVE DIAGNOSIS: Osteomyelitis, left fifth toe. POSTOPERATIVE DIAGNOSIS: Osteomyelitis, left fifth toe. PROCEDURE: Amputation of left fifth toe. ANESTHESIA: General. HEMOSTASIS: Pneumatic ankle tourniquet at 250 mmHg. INDICATIONS: This 63-year-old male presented to the hospital with a chronic wound to the left fifth toe. X-rays indicated a considerable amount of osteolysis to the left fifth toe and the wound extended down to bone indicating osteomyelitis. The patient is agreeable to surgical intervention after risks and complications were discussed at length. No guarantees were extended to the patient and he is willing to proceed. DESCRIPTION OF PROCEDURE: The patient was brought back to the operating table and placed in a secure supine position. Appropriate time out was performed. Again, a general anesthetic was then induced. Pneumatic ankle tourniquet was placed on the left lower extremity over several layers of padding. The left foot was then prepped and draped in a normal sterile manner. The left foot was then elevated and allowed to exsanguinate after which the tourniquet was inflated to 250 mmHg. Attention was then directed to the lateral aspect of the left fifth ray, where a racquet type incision was created starting at the metatarsal head area on the lateral aspect extending distally and surrounding the diaphysis of the proximal phalanx area. The digit was then disarticulated at the metatarsophalangeal joint sharply. The extensor and flexor tendons were cut back as proximally as possible. No gross necrosis, abscess or abnormal findings were identified to the metatarsal head area. There was significant bone degeneration at the proximal interphalangeal joint of the disarticulated toe, which was sent for gross and microscopic evaluation after a rongeur was utilized to take a bone sample for cultures and sensitivities. After the wound was flushed with copious amounts of normal saline, a swab culture was taken prior to closure to confirm a relatively aseptic area. The wound was then approximated with utilizing a simple interrupted type stitch of 4-0 Prolene. The skin was coapted without any significant skin tension. The tourniquet was released noting appropriate cap refill time to all digits of the remaining digits of the left foot and the flap had appropriate cap refill time as well. Postoperative injection consisted of 10 mg of 0.5% Marcaine injecting local infusion to the surgical site. Postoperative dressing consisted of Betadine soaked Adaptic, sterile 4 x 4 and sterile Kerlix all secured with a Coban wrap. The patient tolerated the anesthesia and procedure well, was transported from the operating room to the recovery area with vital signs stable and vascular status intact to all remaining digits of the left foot. He is to have minimal weightbearing on the left foot with crutches in a surgical splint shoe, rest, ice and elevate. We will see the patient in the office in 10 days postop for removal of sutures if appropriate. He will be readmitted to the fourth floor for IV antibiotics and rest, ice and elevation. Job ID: [id number] DocumentID: [id number] Dictated Date: 11/19/2018 08:24:50 Church Administrator Date: 11/19/2018 08:46:20 Dictated By: ANTIONETTE NAIK DPM
[2018-11-19] MEDS ORDERED: MAGNESIUM CITRATE 300 ML BTL PO SCH ×2 (09:00→14:00)
[2018-11-19 09:20] VITALS: BP 138/72
[2018-11-19] MEDS: LACTATED RINGERS 1,000 ML IV SCH ×3 (09:34→17:43)
[2018-11-19] MEDS: POLYETHYLENE GLYCOL 17 GM (MIRALAX) PACK PO SCH ×2 (09:45→21:34)
[2018-11-19] MEDS: VANCOMYCIN 1 GM/NS 250 ML IVPB IV SCH ×4 (09:50→21:35)
[2018-11-19] MEDS: MUPIROCIN 2% OINT 22 GM (BACTROBAN) TUBE TOP SCH ×2 (10:05→21:34)
--- NOTE | 2018-11-19 10:35 | Anesthesia-General Post-Op ---
General Patient Condition Mental Status/LOC: Same as Preop Cardiovascular: Satisfactory Nausea/Vomiting: Absent Respiratory: Satisfactory Pain: Controlled Complications: Absent Post Op Complications Complications None Follow Up Care/Instructions Patient Instructions None needed. Anesthesia/Patient Condition Patient Condition Patient is doing well, no complaints, stable vital signs, no apparent adverse anesthesia problems. No complications reported per nursing. MARTIN VAUGHN CRNA Nov 19, 2018 10:35
--- NOTE | 2018-11-19 11:14 | Physical Therapy Evaluation ---
PT Evaluation-General Medical Diagnosis Admission Date Nov 16, 2018 at 03:41 Medical Diagnosis: Cellulitis L 5th toe Onset Date: Nov 16, 2018 Therapy Diagnosis Therapy Diagnosis: decreased mobility, gait deviation Height/Weight Height (Feet): 6 Height (Inches): 0.00 Weight (Pounds): 124 Weight (Ounces): 5.0 Precautions Precautions/Isolations: Fall Prevention, Standard Precautions, Pressure Ulcer Weight Bear Status Right Lower Extremity: Right Full Weight Bearing Left Lower Extremity: Left Partial Weight Bearing Referral Physician: Antionette Bose DPM Reason for Referral: Evaluation/Treatment Medical History Pertinent Medical History: DM, HTN, Neuropathy, Smoking, TBI Additional Medical History Drug Abuse (current), R wrist fusion, Cellulitis Current History ER POV with son, c/o blister on toe for 2 weeks, patient had amputation of left 5th toe Reviewed History: Yes Social History Home: Single Level Current Living Status: Children Entry Into Home: Stairs With Railing PT Steps Into Home: 4 Prior/Core FIM Prior Level of Function Therapy Code Descriptions/Definitions Functional [place] Measure: 0=Not Assessed/NA 4=Minimal Assistance 1=Total Assistance 5=Supervision or Setup 2=Maximal Assistance 6=Modified [place] 3=Moderate Assistance 7=Complete [place] Therapy Quality Codes: 6 Independent with activity with or without an assistive device 5 Patient requires set up or clean up by helper. Patient completes activity by themselves 4 Supervision or touching assist (CGA). [place] provide cues , steadying assist 3 The helper provides less than half the effort to complete the activity 2 The helper provides more than half the effort to complete the activity 1 Dependent. The helper does all the effort to complete an activity 7 Patient refused to complete or attempt activity 9 The patient did not perform the activity before the current illness or injury 88 Not attempted due to Medical conditions or safety concerns Functional Abilities and Goals: Independent: Patient completed the activities by him/herself, with or without an assistive device, with no assistance from a helper. Needed Some Help: Patient needed partial assistance from another person to complete activities. Dependent: A helper completed the activities for the patient. Unknown: Not Applicable: Bed Mobility: 7 Transfers (B,C,W/C) (FIM): 7 Gait: 7 Stairs: 7 Indoor Mobility (Ambulation): Independent Stairs: Independent Prior Devices Use: None Prior Device Use: walker, cane, crutches Reports he has AD listed above but does not use them currently. PT Evaluation-Current Subjective Pt in bed with son in room. Pt agrees to PT and requests to use bathroom. Pain Numeric Pain Scale: 0-No Pain Location: Left Location Body Site: Toe Pt/Family Goals Pt to return home with son. Objective Patient Orientation: Person Attachments: SCD's, IV ROM/Strength ROM Lower Extremities NT Strength Lower Extremities NT Integumentary/Posture Bowel Incontinence: No Bladder Incontinence: No Neuromuscular (Tone, Coordination, Reflexes) NT Sensory Vision: Functional Hearing: Functional Transfers Therapy Code Descriptions/Definitions Functional [place] Measure: 0=Not Assessed/NA 4=Minimal Assistance 1=Total Assistance 5=Supervision or Setup 2=Maximal Assistance 6=Modified [place] 3=Moderate Assistance 7=Complete [place] Transfers (B, C, W/C) (FIM): 4 Scootin Supine to/from Sit: 5 Sit to/from Stand: 4 Gait Mode of Locomotion: Walk Anticipated Mode of Locomotion: Walk Gait (FIM): 2 Distance (FIM): 9=888-89 ft Distance: 125' Gait Level of Assist: 4 Gait Persons Needed: 1 Gait Assistive Device: FWW Comments/Gait Description Pt was not able to comply with WB status of PWB, Pt attempts to but he is closer to using FWB even with VCs. Patient wants to use axillary crutches and thinks he will perform better on those, I suspect that won't be the case and patient is told how crutches are less steady but he still wants to try them. Will attempt to use crutches this afternoon. Balance Sitting Static: Good Sitting Dynamic: Good Standing Static: Good Standing Dynamic: Good Assessment/Needs Pt is able to perform bed mobility with SBA. Pt amb to bathroom 15' with FWW and CGA. Pt able to perform bathroom skills indep. Pt amb with FWW 125' with CGA and VC to remind him of WB status. Pt not able to comply. Pt reports he would be better if he could use crutches. Pt returned to room and is in bed with all needs met. PT will return this afternoon with crutches and assess how pt is able to amb with crutches. Rehab Potential: Fair Post Rehab Potential-Barriers: lifestyle habits, co-morbidities PT Short Term Goals Short Term Goals Time Frame: Nov 26, 2018 Transfers (B,C,W/C) (FIM): 5 Gait (FIM): 5 Distance (FIM): 3=150 ft Gait Distance Comment: 150' Gait Level of Assist: 5 Gait Assistive Device: FWW, Crutches PT Plan Problem List Problem List: Activity Tolerance, Functional Strength, Safety, Balance, Gait, Transfer, Bed Mobility, ROM Treatment/Plan Treatment Plan: Continue Plan of Care Treatment Plan: Bed Mobility, Education, Functional Activity [place], Functional Strength, Gait, Safety, Therapeutic Exercise, Transfers Treatment Duration: Nov 26, 2018 Frequency: 11 times per week Estimated Hrs Per Day: .25 hour per day (15-30') Patient and/or Family Agrees t: Yes Safety Risks/Education Patient Education: Gait Training, Transfer Techniques, Correct Positioning, Safety Issues Teaching Recipient: Patient, Family Teaching Methods: Demonstration, Discussion Response to Teaching: Reinforcement Needed Discharge Recommendations Plan Patient will perform bed mobility and transfer training, balance and endurance training, functional strengthening, stair training, gait training, and education , to improve functional mobility and independence at home. Therapy D/C Recommendations: Home w/ Family Support Equpiment Recommendations-D/C: Crutches, Front Wheeled Walker Time/GCodes Time In: 1035 Time Out: 1050 Total Billed Treatment Time: 15 Total Billed Treatment 1 visit EVM 15 min DARINEL GARCÍA PT Nov 19, 2018 11:14
--- NOTE | 2018-11-19 13:08 | NUR ---
CM/SS, summary of discharge planning activities. Visited with physician, PT therapist, and patient's son Milton Murphy. Patient purchased a mobile home and has been there approximately 2 months according to Milton who has moved in with his father as well. There was a water leak issue and/or a water bill in arrears and their water was shut off. The amount owed is beyond what they have been able to manage thus far and, therefore, they have no water. Dr. Vuong indicates [facility] hothouse worker is working on this psychosocial issue with patient/Milton. Patient has surgery today and is sleeping soundly. Explored option of patient going to SNF short term, Milton said he did not think patient would be willing. They have a neighbor who allows them to use their facilities for bathroom and bathing so Milton reports no real issue about cleanliness. DME: Likely crutches, PT is assessing patient need and function status re same. Milton states the hallway in their trailer is narrow and would not accommodate a walker. Per EMR, patient uses substance, THC and meth just prior to admission, and he is noncompliant re his IDDM. The involved professionals anticipate patient noncompliance in general regarding medications, wound care, ambulation precautions. Assist as able for post hospital care plan.
--- NOTE | 2018-11-19 13:58 | Physical Therapy Daily Note ---
PT Daily Note-Current Subjective Pt in bed and awakes to his name being said. Pt agrees to PT. Pain Numeric Pain Scale: 0-No Pain Location: No Pain Reported Mental Status Patient Orientation: Person Attachments: SCD's, IV Transfers Therapy Code Descriptions/Definitions Functional [place] Measure: 0=Not Assessed/NA 4=Minimal Assistance 1=Total Assistance 5=Supervision or Setup 2=Maximal Assistance 6=Modified [place] 3=Moderate Assistance 7=Complete [place] Therapy Quality Codes: 6 Independent with activity with or without an assistive device 5 Patient requires set up or clean up by helper. Patient completes activity by themselves 4 Supervision or touching assist (CGA). [place] provide cues , steadying assist 3 The helper provides less than half the effort to complete the activity 2 The helper provides more than half the effort to complete the activity 1 Dependent. The helper does all the effort to complete an activity 7 Patient refused to complete or attempt activity 9 The patient did not perform the activity before the current illness or injury 88 Not attempted due to Medical conditions or safety concerns Transfers (B, C, W/C) (FIM): 4 Scootin Rollin Supine to/from Sit: 5 Sit to/from Stand: 5 Weight Bearing Right Lower Extremity: Right Full Weight Bearing Left Lower Extremity: Left Partial Weight Bearing Gait Training Gait (FIM): 2 Distance: 120' Gait Level of Assist: 4 Gait Persons Needed: 1 Gait Assistive Device: Crutches Assessment Current Status: Good Progress Pt was able to perform bed mobility with SBA. Pt sit<>stand transfer to crutches SBA. Pt is able to amb on crutches 120' with CGA. Pt was able to comply more with WB status of PWB with the crutches vs. walker. Pt still was not able to comply with WB status throughout the entire distance. Pt also states that the crutches need to be higher and PT instructed to him the proper height and explained to put weight through wrists. Pt is back in bed with all needs met. PT Short Term Goals Short Term Goals Time Frame: Nov 26, 2018 Transfers (B,C,W/C) (FIM): 5 Gait (FIM): 5 Distance (FIM): 3=150 ft Gait Distance Comment: 150' Gait Level of Assist: 5 Gait Assistive Device: FWW, Crutches PT Plan Problem List Problem List: Activity Tolerance, Functional Strength, Safety, Balance, Gait, Transfer, Bed Mobility, ROM Treatment/Plan Treatment Plan: Continue Plan of Care Treatment Plan: Bed Mobility, Education, Functional Activity [place], Functional Strength, Gait, Safety, Therapeutic Exercise, Transfers Treatment Duration: Nov 26, 2018 Frequency: 11 times per week Estimated Hrs Per Day: .25 hour per day (15-30') Patient and/or Family Agrees t: Yes Safety Risks/Education Patient Education: Gait Training, Transfer Techniques, Correct Positioning, Safety Issues Teaching Recipient: Patient, Family Teaching Methods: Demonstration, Discussion Time/GCodes Time In: 1325 Time Out: 1335 Total Billed Treatment Time: 10 Total Billed Treatment 1 visit GT 10 min DARINEL GARCÍA PT Nov 19, 2018 13:58
--- NOTE | 2018-11-19 15:23 | NUR ---
Pastoral care visit, provided support and prayer.
[2018-11-19 16:00] VITALS: BP 124/63
--- NOTE | 2018-11-19 16:15 | NUR ---
DR LIU NOTIFIED OF CRITICAL HIGH BLOOD SUGAR OF 414. NEW ORDERS RECEIVED VIA TELEPHONE TO INCREASE LEVEMIR TO [address] PT ON SLIDING SCALE A IN ADDITION TO SCHEDULED INSULIN. ORDERS READ BACK AND ENTERED.
[2018-11-19] MEDS: inSUlin ASPART (NovoLOG) 1 UNIT/0.01 ML (CHARGE PER UNIT) SC SCH ×2 (16:20→22:57)
--- NOTE | 2018-11-19 16:26 | Progress Note (SOAP) ---
Subjective Subjective/Events-last exam Patient doing well after surgery. States that he is hungry. Denies any pain. Review of Systems Date Seen by Provider: Nov 19, 2018 Time Seen by Provider: 10:30 Pulmonary: No Dyspnea; Cough Cardiovascular: No: Chest Pain, Palpitations, Edema Gastrointestinal: No: Nausea, Vomiting, Abdominal Pain, Diarrhea, Constipation Objective Exam Last Set of Vital Signs Vital Signs Date Time Temp Pulse Resp B/P (MAP) Pulse Ox O2 Delivery O2 Flow Rate FiO2 11/19/18 09:20 96.8 81 16 138/72 (94) 98 Room Air Capillary Refill : Less Than 3 Seconds I&O Intake and Output 11/19/18 00:00 Intake Total 2200 ml Output Total 1125 ml Balance 1075 ml Intake Oral 1600 ml IV Total 600 ml Output Urine Total 1125 ml # Voids 3 # Bowel Movements 4 General: Alert, Oriented X3, Cooperative, No Acute Distress HEENT: Mucous Memb Moist/[place] Lungs: Clear to Auscultation, Normal Air Movement Heart: Regular Rate, No Murmurs Abdomen: Normal Bowel Sounds, Soft, No Tenderness, No Hepatosplenomegaly, No Masses Extremities: Other (Left foot with bandage present) Skin: No Rashes Neuro: Sensation Intact, Cranial Nerves 3-12 NL Results/Procedures Lab Laboratory Tests 11/18/18 20:00: Vancomycin Level Trough 6.2L 11/18/18 21:11: Glucometer 118H 11/19/18 04:15: White Blood Count 8.6, Red Blood Count 3.92L, Hemoglobin 11.1L, Hematocrit 34L, Mean Corpuscular Volume 87, Mean Corpuscular Hemoglobin 28, Mean Corpuscular Hemoglobin Concent 33, Red Cell Distribution Width 13.1, Platelet Count 296, Mean Platelet Volume 10.5H, Neutrophils (%) (Auto) 59, Lymphocytes (%) (Auto) 28 , Monocytes (%) (Auto) 8, Eosinophils (%) (Auto) 5, Basophils (%) (Auto) 1, Neutrophils # (Auto) 5.1, Lymphocytes # (Auto) 2.4, Monocytes # (Auto) 0.7, Eosinophils # (Auto) 0.5H, Basophils # (Auto) 0.1, Sodium Level 135, Potassium Level 4.2, Chloride Level 104, Carbon Dioxide Level 25, Anion Gap 6, Blood Urea Nitrogen 29H, Creatinine 0.95, Estimat Glomerular Filtration Rate > 60, BUN/ Creatinine Ratio 31, Glucose Level 276H, Calcium Level 8.3L, Corrected Calcium 9.3, Total Bilirubin 0.1, Aspartate Amino Transf (AST/SGOT) 19, Alanine Aminotransferase (ALT/SGPT) 21, Alkaline Phosphatase 62, Total Protein 5.1L, Albumin 2.8L 11/19/18 11:14: Glucometer 366H 11/19/18 16:05: Glucometer 414*H Microbiology 11/16/18 Blood Culture - Preliminary, Resulted No growth 11/16/18 Gram Stain - Final, Complete 11/16/18 Wound Culture - Final, Complete Staphylococcus aureus Assessment/Plan Assessment/Plan (1) Cellulitis of fifth toe of left foot Status: Acute Assessment & Plan: - Concerns for osteomyelitis, Will consult Juice for possible amputation, Dr Mooney following with wound care, Continue IV antibiotics to cover DM foot wound 11/18: Continue IV antibiotics, plan for surgery in AM, NPO at midnight 11/19: Osteomyelitis present in surgery per Dr Bose, Sent for culture after amputation, will need crutches for home use as he states that he will not be able to use walker in home due to narrow halls, PT ordered, will continue IV antibiotics and wait for culture results (2) 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
[2018-11-19] MEDS ORDERED: inSUlin DETERMIR 1 UNIT/0.01 ML (LEVEMIR) CHARGE PER UNIT SQ SCH (21:00)
[2018-11-20] MEDS: HYDROcodone/APAP 5 MG/325 MG (LORTAB) TAB PO PRN ×3 (00:41→13:37)
[2018-11-20 00:57] VITALS: BP 133/62
[2018-11-20] MEDS: PIPERACILLIN/TAZOBACTAM (BULK) 4.5 GM in NS (IVPB) 100 ML IV SCH ×2 (03:00→12:36)
[2018-11-20] MEDS: LACTATED RINGERS 1,000 ML IV SCH ×2 (03:17→12:34)
[2018-11-20 04:50] VITALS: BP 152/74
[2018-11-20 05:30] LABS: BASOPHILS # (AUTO) 0.1 10^3/uL (0.0-0.1); BASOPHILS % (AUTO) 1 % (0-10); EOSINOPHILS # (AUTO) 0.5 10^3/uL (0.0-0.3); EOSINOPHILS % (AUTO) 5 % (0-10); HEMATOCRIT 32 % (40-54); HEMOGLOBIN 10.4 G/DL (13.3-17.7); LYMPHOCYTES # (AUTO) 3.5 X 10^3 (1.0-4.0); LYMPHOCYTES % (AUTO) 33 % (12-44); MEAN CORPUSCULAR HEMOGLOBIN 29 PG (25-34); MEAN CORPUSCULAR HGB CONC 33 G/DL (32-36); MEAN CORPUSCULAR VOLUME 88 FL (80-99); MEAN PLATELET VOLUME 10.2 FL (7.4-10.4); MONOCYTES # (AUTO) 0.8 X 10^3 (0.0-1.0); MONOCYTES % (AUTO) 7 % (0-12); NEUTROPHILS # (AUTO) 5.7 X 10^3 (1.8-7.8); NEUTROPHILS % (AUTO) 54 % (42-75); PLATELET COUNT 339 10^3/uL (130-400); RED CELL DISTRIBUTION WIDTH 13.6 % (10.0-14.5); WHITE BLOOD COUNT 10.5 10^3/uL (4.3-11.0)
[2018-11-20 05:52] LABS: ALANINE AMINOTRANSFERASE 18 U/L (0-55); ALBUMIN 2.9 GM/DL (3.2-4.5); ALKALINE PHOSPHATASE 58 U/L (40-136); BILIRUBIN,TOTAL 0.1 MG/DL (0.1-1.0); BUN/CREATININE RATIO 24; CALCIUM 8.5 MG/DL (8.5-10.1); CARBON DIOXIDE 27 MMOL/L (21-32); CHLORIDE 105 MMOL/L (98-107); CREATININE SERUM 0.85 MG/DL (0.60-1.30); GFR ESTIMATED > 60; POTASSIUM 3.5 MMOL/L (3.6-5.0); SODIUM 140 MMOL/L (135-145); TOTAL PROTEIN 5.4 GM/DL (6.4-8.2)
[2018-11-20] MEDS: CATHETER FLUSH 10 ML SYR IV SCH ×2 (06:35→14:05)
[2018-11-20] MEDS: inSUlin (REGULAR) HUMAN 1 UNIT/0.01 ML (CHARGE PER UNIT) SC SCH ×2 (06:35→12:33)
[2018-11-20] MEDS: inSUlin ASPART (NovoLOG) 1 UNIT/0.01 ML (CHARGE PER UNIT) SC SCH ×2 (06:35→12:33)
[2018-11-20 06:40] LABS: GLUCOSE 58 MG/DL (70-105)
[2018-11-20 08:00] VITALS: BP 157/74
--- NOTE | 2018-11-20 08:01 | Podiatry Progress Note ---
Standard Progress Note Progress Notes/Assess & Plan Date Seen by a Provider: Nov 20, 2018 Time Seen by a Provider: 07:56 Progress/Assessment & Plan Post op day #1. The patient reports no F/C/N/V. The pain is controlled. The dressing is intact to the right foot with no strike through. Vital Signs Date Time Temp Pulse Resp B/P (MAP) Pulse Ox O2 Delivery O2 Flow Rate FiO2 11/20/18 04:50 97.3 76 18 152/74 (100) 99 Room Air 11/20/18 00:57 97.5 79 24 133/62 (85) 96 Room Air 11/19/18 20:00 Room Air 11/19/18 16:00 97.4 83 16 124/63 (83) 97 Room Air 11/19/18 09:20 96.8 81 16 138/72 (94) 98 Room Air 11/19/18 09:15 Room Air 11/19/18 08:00 Room Air I & O 11/20/18 07:00 Intake Total 4410 ml Output Total 1825 ml Balance 2585 ml I will redress the wound tomorrow. If all is stable, I anticipate he will follow up in the office in one week. I will continue to monitor while inpatient. Final Diagnosis S/P amputation of the left 5th toe due to osteomyelitis BRETT NAIK DPM Nov 20, 2018 08:00
--- NOTE | 2018-11-20 08:53 | Physical Therapy Daily Note ---
PT Daily Note-Current Subjective Patient in bed pre tx, agrees to PT, no complaints of pain at rest but he does state that he had a rough night due to pain. Appearance Patient in bed post tx with nurse call, phone, tray, all needs met. Mental Status Patient Orientation: Person, Place, Situation Attachments: IV Transfers Therapy Code Descriptions/Definitions Functional [place] Measure: 0=Not Assessed/NA 4=Minimal Assistance 1=Total Assistance 5=Supervision or Setup 2=Maximal Assistance 6=Modified [place] 3=Moderate Assistance 7=Complete [place] Therapy Quality Codes: 6 Independent with activity with or without an assistive device 5 Patient requires set up or clean up by helper. Patient completes activity by themselves 4 Supervision or touching assist (CGA). [place] provide cues , steadying assist 3 The helper provides less than half the effort to complete the activity 2 The helper provides more than half the effort to complete the activity 1 Dependent. The helper does all the effort to complete an activity 7 Patient refused to complete or attempt activity 9 The patient did not perform the activity before the current illness or injury 88 Not attempted due to Medical conditions or safety concerns Transfers (B, C, W/C) (FIM): 6 Scootin Rollin Supine to/from Sit: 6 Sit to/from Stand: 5 Bed to/from Chair: 5 Patient had dizziness upon sitting that subsided after a few moments. Weight Bearing Right Lower Extremity: Right Full Weight Bearing Left Lower Extremity: Left Partial Weight Bearing Gait Training Gait (FIM): 1 Distance: 20' Gait Level of Assist: 4 Gait Persons Needed: 1 Gait Assistive Device: Crutches Patient ambulated to the bathroom to urinate and back to the bed. He was slightly dizzy the whole time and he didn't feel like ambulating any further. It would not be safe to ambulate further at this time due to possible increase in dizziness. Patient was compliant with his WBS 50%-80% of the time. Exercises Supine Ex: Ankle pumps, Straight leg raise, Hip abd/add Supine Reps: 20 Treatments bed mobility and transfers, ambulation, functional strengthening Assessment Current Status: Fair Progress patient used crutches correctly and had no LOB PT Short Term Goals Short Term Goals Time Frame: Nov 26, 2018 Transfers (B,C,W/C) (FIM): 5 Gait (FIM): 5 Distance (FIM): 3=150 ft Gait Distance Comment: 150' Gait Level of Assist: 5 Gait Assistive Device: FWW, Crutches PT Plan Problem List Problem List: Activity Tolerance, Functional Strength, Safety, Balance, Gait, Transfer, ROM Treatment/Plan Treatment Plan: Continue Plan of Care Treatment Plan: Bed Mobility, Education, Functional Activity [place], Functional Strength, Gait, Safety, Therapeutic Exercise, Transfers Treatment Duration: Nov 26, 2018 Frequency: 11 times per week Estimated Hrs Per Day: .25 hour per day (15-30') Patient and/or Family Agrees t: Yes Safety Risks/Education Patient Education: Gait Training, Transfer Techniques, Reviewed Precautions, Correct Positioning, Safety Issues Teaching Recipient: Patient Teaching Methods: Demonstration, Discussion Response to Teaching: Reinforcement Needed Time/GCodes Time In: 0830 Time Out: 0845 Total Billed Treatment Time: 15 Total Billed Treatment 1 visit GT 15' DARINEL GARCÍA PT Nov 20, 2018 08:53
[2018-11-20] MEDS: POLYETHYLENE GLYCOL 17 GM (MIRALAX) PACK PO SCH (09:04)
[2018-11-20] MEDS: MUPIROCIN 2% OINT 22 GM (BACTROBAN) TUBE TOP SCH (09:04)
[2018-11-20] MEDS: VANCOMYCIN 1 GM/NS 250 ML IVPB IV SCH ×2 (09:04)
--- NOTE | 2018-11-20 11:41 | Discharge Summary ---
Diagnosis/Chief Complaint Date of Admission Nov 16, 2018 at 03:41 Date of Discharge 11/20/2018 Admission Diagnosis Admission Diagnosis Cellulitis of Left 5th toe Osteomyelitis Uncontrolled, IDDM IDDM with neuropathy HTN Discharge Diagnosis See Above Problems/Diagnosis: (1) Cellulitis of fifth toe of left foot Assessment & Plan: - Concerns for osteomyelitis, Will consult Juice for possible amputation, Dr Mooney following with wound care, Continue IV antibiotics to cover DM foot wound 11/18: Continue IV antibiotics, plan for surgery in AM, NPO at midnight 11/19: Osteomyelitis present in surgery per Dr Bose, Sent for culture after amputation, will need crutches for home use as he states that he will not be able to use walker in home due to narrow halls, PT ordered, will continue IV antibiotics and wait for culture results Status: Acute (2) 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 Assessment & Plan: - A1c 12.2, uncontrolled, will make sure patient has insulin when discharged, and will set patient up with JOSE Romeo RN 11/19: Increased Levemir tonight as blood sugars have been running high Status: Chronic (3) Diabetes mellitus, insulin dependent (IDDM), uncontrolled Qualifiers: Qualified Codes: E10.65 - Type 1 diabetes mellitus with hyperglycemia Status: Chronic (4) DVT prophylaxis Assessment & Plan: - Lovenox Status: Acute Discharge Summary-Simple/Stand Procedures Amputation 5th metatarsal by Dr Bose on 11/19/[address] Bose Discharge Physical Examination Allergies: Coded Allergies: Benzodiazepines (Verified Allergy, Unknown, 05/10/14) Vitals & I&Os Vital Sign - Last 12Hours Date Time Temp Pulse Resp B/P (MAP) Pulse Ox O2 Delivery O2 Flow Rate FiO2 11/20/18 08:00 98.1 70 18 157/74 (101) 100 Room Air Intake and Output 11/19/18 23:59 Intake Total 2790 ml Output Total 1425 ml Balance 1365 ml General Appearance: Alert, Oriented X3, Cooperative, No Acute Distress HEENT: Mucous Memb Moist/[place] Respiratory: Clear to Auscultation, Normal Air Movement Cardiovascular: Regular Rate, No Murmurs Abdominal: Normal Bowel Sounds, Soft, No Tenderness, No Masses Extremities: No Tenderness/Swelling Skin: No Rashes, Other (Left foot bandage present) Neuro: Strength at 5/5 X4 Ext, Cranial Nerves 3-12 NL Psych/Mental Status: Mental Status NL, Mood NL Hospital Course See final discharge diagnosis. Labs A1c 12.2 during admission Discussion & Recommendations 63 yo M with uncontrolled DM that presented with chronic foot wound on left 5th metatarsal. Patient was taken to surgery for amputation and was discharged on POD #1. Cultures returned with MRSA and patient was discharged to complete 1 week of Bactrim. Patient needs follow up with DM nurse at [facility] and close monitoring to help get blood sugars under control. Patient will have close follow up with [facility] and Dr Bose Discharge Condition at discharge stable Instructions to patient/family Please see electronic discharge instructions given to patient. Discharge Medications Reviewed and agree with Discharge Medication list on patient's Discharge Instruction sheet Clinical Quality Measures DVT/VTE Risk/Contraindication: Risk Factor Score Per Nursin RFS Level Per Nursing on Admit: 3=High Copy Copies To 1: EMANUEL REID MD, HOLLY R MD Nov 20, 2018 11:41
[2018-11-20] MEDS ORDERED: SULF1TAB35 PO (11:46)
[2018-11-20] MEDS ORDERED: ACHD5005 PO (11:46)
[2018-11-20] MEDS ORDERED: MUPI22OI2 TOP (11:46)
--- NOTE | 2018-11-20 11:49 | Discharge Instructions ---
Discharge [facility] Discharge Medications New, Converted or Re-Newed RX: RX on Chart New Medications: Sulfamethoxazole/Trimethoprim (Bactrim Ds Tablet) 1 Each Tablet 1 EACH PO BID for 7 Days, #14 TAB Hydrocodone Bit/Acetaminophen (Hydrocodone/Acetaminophen 5/325mg Tablet) 1 Tab Tab 1 TAB PO Q8H PRN for MOD for 14 Days, #42 TAB Mupirocin (Mupirocin) 22 Gm Oint...g. 0 GM TOP BID, #40 TUBE Apply to wound during dressing changes Continued Medications: Insulin Aspart (Novolog Flexpen) 300 Units/3 Ml Solution 10-20 UNITS SC AC, EA Insulin Detemir (Levemir Flextouch) 100 Unit/1 Ml Insuln.pen 40 UNITS SC HS, EA Discontinued Medications: Aspirin (Aspirin EC) 325 Mg Tablet. 325 MG PO BID PRN for PAIN-MILD, TAB Patient Instructions Goal/Follow Up Appt: You have a hospital follow up appt with Dr Rico Friday 11/24 @ 120 PM Patient Instructions: - Make sure that you complete you antibiotics Return to The Hospital For: - Redness or drainage around wound Activity & Diet Discharge Diet: ADA Diet Activity as Tolerated: Yes Copy Copies To 1: EMANUEL RICO MD, HOLLY R MD Nov 20, 2018 11:48
--- NOTE | 2018-11-20 13:16 | NUR ---
SPOKE WITH DR. NAIK AND CLARIFIED HE DID NOT NEED TO SEE PT BEFORE DC THAT HE WANTS PT IN HIS OFFICE IN ONE WEEK AND TO KEEP DRESSING IN PLACE UNTIL THAT TIME. FOLLOW UP APPT SCHEDULED WITH HIS OFFICE PER JEREMY NOBLE.
--- NOTE | 2018-11-20 14:55 | NUR ---
CM/SS. Patient discharged per his plan to return home with his son Milton. DME: Coordinated crutches with patient's preferred agency, [employer]. Agency understands to deliver to patient room because his son is working until 6 p.m. and can not get there timely. Milton works at [employer] at this time, he indicates patient has SSI income monthly. Patient pleasant and appreciative. [facility] SW will continue to work with him about utilities that are in arrears.
--- NOTE | 2018-11-20 16:50 | NUR ---
TOOK PUT PTS IV. WENT OVER DC INSTRUCTIONS WITH PT. I MADE SURE TO STATE MULTIPLE TIMES THAT PT NEEDS TO KEEP DRESSING IN PLACE UNTIL HIS FOLLOW UP APPT. SON HERE TO AEROGRAPHER PT TO TAKE HIM HOME. NO QUESTIONS FROM PT OR FAMILY. TOOK PT OUT IN WHEELCHAIR.
[2018-11-20] MEDS ORDERED: TROUGH ORDER-PHARMACY XX NR (20:00)
== END 2018-11-20 17:00 | disposition home or self-care (01) | DRG 617 ==
LOC: EDUNIT# 00:35 → ER 00:37 → 4TH 03:41
PROVIDERS: ADMIT Internal Medicine; ATTEND Internal Medicine
PROC: 0Y6Y0Z0 Detachment at Left 5th Toe, Complete, Open Approach (ICD-10-PCS; principal; 2018-11-19 07:20)
DX: E11.69 Type 2 diabetes mellitus with other specified complication (principal); M86.672 Other chronic osteomyelitis, left ankle and foot; L03.032 Cellulitis of left toe; L03.811 Cellulitis of head [any part, except face]; S01.03XA Puncture wound without foreign body of scalp, initial encounter; L03.314 Cellulitis of groin; E11.621 Type 2 diabetes mellitus with foot ulcer; L97.509 Non-pressure chronic ulcer of other part of unspecified foot with unspecified severity; L73.9 Follicular disorder, unspecified; E11.65 Type 2 diabetes mellitus with hyperglycemia; E11.43 Type 2 diabetes mellitus with diabetic autonomic (poly)neuropathy; I10 Essential (primary) hypertension; E78.00 Pure hypercholesterolemia, unspecified; F15.90 Other stimulant use, unspecified, uncomplicated; F17.210 Nicotine dependence, cigarettes, uncomplicated; M20.42 Other hammer toe(s) (acquired), left foot; B95.62 Methicillin resistant Staphylococcus aureus infection as the cause of diseases classified elsewhere; W45.0XXA Nail entering through skin, initial encounter; Z91.128 Patient's intentional underdosing of medication regimen for other reason; Z79.4 Long term (current) use of insulin; Z87.820 Personal history of traumatic brain injury; Z59.0 Homelessness
CPT/HCPCS: 36415; 73620; 73630; 80053; 80202; 80306; 80320; 81000; 82962; 83036; 83605; 85025; 85610; 85652; 85730; 86141; 87040; 87070; 87075; 87077; 87101; 87186; 87205; 90471; 96365

== ENCOUNTER 2018-11-22 13:47 | Emergency (ER) | payer MEDICARE, MEDICAID ==
[~2018-11-22] VITALS: Ht 182.9 cm; Wt 68.0 kg
[~2018-11-22 13:47] MED LIST changes: +MUPI22OI2 TOP; +SULF1TAB35 PO
[2018-11-22] MEDS ORDERED: NS IV 1000 ML 1,000 ML IV SCH (14:46)
[2018-11-22 14:53] LABS: BASOPHILS % (AUTO) 0 % (0-10); EOSINOPHILS # (AUTO) 0.5 10^3/uL (0.0-0.3); EOSINOPHILS % (AUTO) 5 % (0-10); HEMATOCRIT 33 % (40-54); HEMOGLOBIN 11.1 G/DL (13.3-17.7); LYMPHOCYTES # (AUTO) 2.6 X 10^3 (1.0-4.0); LYMPHOCYTES % (AUTO) 28 % (12-44); MEAN CORPUSCULAR HEMOGLOBIN 29 PG (25-34); MEAN CORPUSCULAR HGB CONC 33 G/DL (32-36); MEAN CORPUSCULAR VOLUME 87 FL (80-99); MONOCYTES # (AUTO) 0.9 X 10^3 (0.0-1.0); MONOCYTES % (AUTO) 9 % (0-12); NEUTROPHILS # (AUTO) 5.4 X 10^3 (1.8-7.8); NEUTROPHILS % (AUTO) 58 % (42-75); PLATELET COUNT 375 10^3/uL (130-400); RED CELL DISTRIBUTION WIDTH 13.7 % (10.0-14.5); WHITE BLOOD COUNT 9.3 10^3/uL (4.3-11.0)
[2018-11-22 15:05] LABS: ALANINE AMINOTRANSFERASE 24 U/L (0-55); ALBUMIN 3.4 GM/DL (3.2-4.5); ALKALINE PHOSPHATASE 62 U/L (40-136); BILIRUBIN,TOTAL 0.1 MG/DL (0.1-1.0); BUN/CREATININE RATIO 20; CALCIUM 9.1 MG/DL (8.5-10.1); CARBON DIOXIDE 29 MMOL/L (21-32); CHLORIDE 99 MMOL/L (98-107); CREATININE SERUM 1.01 MG/DL (0.60-1.30); GFR ESTIMATED > 60; GLUCOSE 198 MG/DL (70-105); POTASSIUM 4.3 MMOL/L (3.6-5.0); SODIUM 137 MMOL/L (135-145); TOTAL PROTEIN 6.2 GM/DL (6.4-8.2)
--- NOTE | 2018-11-22 15:49 | ED General ---
General Chief Complaint: General Problems/Pain Stated Complaint: NOT FEELING WELL Nursing Triage Note: PT BROUGHT IN BY EMS FROM HOME WITH COMPLAINT OF NOT FEELING RIGHT. PT WAS D/C FROM HOSPITAL YESTERDAY FOR LEFT TOE AMPUTATION. PT STATES HE FEELS LIKE HIS "DIAPHRAGM FELT LIKE IT WAS VIBRATING", STATES IT STARTED AROUND 1 PM. PT VOMITED IN ER SHORTLY AFTER ARRIVING. Nursing Sepsis Screen: No Definite Risk Source of Information: Patient, Family (son) Exam Limitations: No Limitations History of Present Illness Date Seen by Provider: Nov 22, 2018 Time Seen by Provider: 15:35 Allergies and Home Medications Allergies Coded Allergies: Benzodiazepines (Verified Allergy, Unknown, 05/10/14) Home Medications Hydrocodone Bit/Acetaminophen 1 Tab Tab, 1 TAB PO Q8H PRN for MOD Prescribed by: TRINA LIU on 11/20/18 1146 Insulin Aspart 300 Units/3 Ml Solution, 10-20 UNITS SC AC, (Reported) Insulin Detemir 100 Unit/1 Ml Insuln.pen, 40 UNITS SC HS, (Reported) Mupirocin 22 Gm Oint...g., 0 GM TOP BID Apply to wound during dressing changes Prescribed by: TRINA LIU on 11/20/18 1146 Sulfamethoxazole/Trimethoprim 1 Each Tablet, 1 EACH PO BID Prescribed by: TRINA LIU on 11/20/18 1146 Past Qpthask-Ncwcwm-Qluhel Hx Patient Social History Alcohol Use: Denies Use Recreational Drug Use: Yes (LAST USED 1 MONTH AGO) Drug of Choice: THC, + IV METH; ACID, MESCALINE; OTHERS Smoking Status: Current Everyday Smoker Type Used: Cigarettes 2nd Hand Smoke Exposure: Yes Recent Foreign Travel: No Contact w/Someone Who Travel: No Recent Infectious Disease Expo: No Recent Hopitalizations: No Immunizations Up To Date Tetanus Booster (TDap): Unknown Date of Pneumonia Vaccine: Jan 16, 2016 Seasonal Allergies Seasonal Allergies: No Past Medical History Surgeries: Yes Appendectomy, Gallbladder, Orthopedic Respiratory: No Cardiac: Yes High Cholesterol, Hypertension Neurological: Yes (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) Neuropathy, Traumatic Brain Injury Reproductive Disorders: No Sexually Transmitted Disease: No HIV/AIDS: No Genitourinary: No Gastrointestinal: No Musculoskeletal: Yes (C1-C2 FX, LOW BACK FX; RIGHT WRIST FX/ORIF/FUSION; POLYDACTYLY SURGERY) Chronic Back Pain, Fractures Endocrine: Yes (DKA; NON-COMPLIANCE) Diabetes, Insulin dep HEENT: No (EDENTULOUS) Loss of Vision: Denies Hearing Impairment: Denies Cancer: No Psychosocial: No Integumentary: Yes (LEG, HAND CELLULITIS) Blood Disorders: No Adverse Reaction/Blood Tranf: No Family Medical History Blood clots 19 FATHER Diabetes mellitus 19 FATHER 19 MOTHER G8 BROTHER Physical Exam Vital Signs Vital Signs - First Documented 11/22/18 13:50 Temp 97.6 Pulse 78 Resp 22 B/P (MAP) 166/92 (116) Pulse Ox 100 O2 Delivery Room Air Capillary Refill : Less Than 3 Seconds Height, Weight, BMI Height: 6'0" Weight: 150lbs. 5.0oz. [id number]; 17.4 BMI Method:Stated Progress/Results/Core Measures Suspected Sepsis Recent Fever Within 48 Hours: No Infection Criteria Present: None New/Unexplained Altered Menta: No Sepsis Screen: No Definite Risk SIRS Temperature:97.6 Pulse: 78 Respiratory Rate: 22 Laboratory Tests 11/22/18 13:57: White Blood Count 9.3 Blood Pressure 166 /92 Mean: 116 Laboratory Tests 11/22/18 13:57: Creatinine 1.01, Platelet Count 375, Total Bilirubin 0.1 Results/Orders Lab Results Laboratory Tests Test 11/22/18 13:57 11/22/18 14:03 11/22/18 16:08 Range/Units White Blood Count 9.3 4.3-11.0 10^3/uL Red Blood Count 3.82 L 4.35-5.85 10^6/uL Hemoglobin 11.1 L 13.3-17.7 G/DL Hematocrit 33 L 40-54 % Mean Corpuscular Volume 87 80-99 FL Mean Corpuscular Hemoglobin 29 25-34 PG Mean Corpuscular Hemoglobin Concent 33 32-36 G/DL Red Cell Distribution Width 13.7 10.0-14.5 % Platelet Count 375 130-400 10^3/uL Mean Platelet Volume 10.0 7.4-10.4 FL Neutrophils (%) (Auto) 58 42-75 % Lymphocytes (%) (Auto) 28 12-44 % Monocytes (%) (Auto) 9 0-12 % Eosinophils (%) (Auto) 5 0-10 % Basophils (%) (Auto) 0 0-10 % Neutrophils # (Auto) 5.4 1.8-7.8 X 10^3 Lymphocytes # (Auto) 2.6 1.0-4.0 X 10^3 Monocytes # (Auto) 0.9 0.0-1.0 X 10^3 Eosinophils # (Auto) 0.5 H 0.0-0.3 10^3/uL Basophils # (Auto) 0.0 0.0-0.1 10^3/uL Sodium Level 137 135-145 MMOL/L Potassium Level 4.3 3.6-5.0 MMOL/L Chloride Level 99 98-107 MMOL/L Carbon Dioxide Level 29 21-32 MMOL/L Anion Gap 9 5-14 MMOL/L Blood Urea Nitrogen 20 H 7-18 MG/DL Creatinine 1.01 0.60-1.30 MG/DL Estimat Glomerular Filtration Rate > 60 BUN/Creatinine Ratio 20 Glucose Level 198 H 70-105 MG/DL Calcium Level 9.1 8.5-10.1 MG/DL Corrected Calcium 9.6 8.5-10.1 MG/DL Total Bilirubin 0.1 0.1-1.0 MG/DL Aspartate Amino Transf (AST/SGOT) 20 5-34 U/L Alanine Aminotransferase (ALT/SGPT) 24 0-55 U/L Alkaline Phosphatase 62 40-136 U/L Total Protein 6.2 L 6.4-8.2 GM/DL Albumin 3.4 3.2-4.5 GM/DL Glucometer 194 H 70-110 MG/DL Urine Color YELLOW Urine Clarity CLEAR Urine pH 8 5-9 Urine Specific [place] 1.015 L 1.016-1.022 Urine Protein NEGATIVE NEGATIVE Urine Glucose (UA) 3+ H NEGATIVE Urine Ketones NEGATIVE NEGATIVE Urine Nitrite NEGATIVE NEGATIVE Urine Bilirubin NEGATIVE NEGATIVE Urine Urobilinogen NORMAL NORMAL MG/DL Urine Leukocyte Esterase NEGATIVE NEGATIVE Urine RBC (Auto) NEGATIVE NEGATIVE Urine RBC NONE /HPF Urine WBC NONE /HPF Urine Squamous Epithelial Cells NONE /HPF Urine Crystals NONE /LPF Urine Bacteria NEGATIVE /HPF Urine Casts NONE /LPF Urine Mucus NEGATIVE /LPF Urine Culture Indicated NO My Orders Orders - ALIYA STUBBS Cbc With Automated Diff (11/22/18 14:46) Comprehensive Metabolic Panel (11/22/18 14:46) Ua Culture If Indicated (11/22/18 14:46) Saline Lock/Iv-Start (11/22/18 14:46) Ns Iv 1000 Ml (Sodium Chloride 0.9%) (11/22/18 14:46) Accucheck Stat ONCE (11/22/18 14:46) Vital Signs/I&O 11/22/18 13:50 Temp 97.6 Pulse 78 Resp 22 B/P (MAP) 166/92 (116) Pulse Ox 100 O2 Delivery Room Air Capillary Refill : Less Than 3 Seconds Blood Pressure Mean: 116 Point of Care Testing Finger Stick Blood Glucose: 186 Blood Glucose Action Taken: notified Departure Impression Primary Impression: Diabetes mellitus, type 2 Additional Impression: Status post amputation of lesser toe of left foot Disposition: HOME, SELF-CARE Condition: Improved Departure-Patient Inst. Decision time for Depature: 17:40 Referrals: [facility] (PCP/Family) Primary Care Physician Patient Instructions: Diabetes Diet , Diabetes Type 2 (DC) Add. Discharge Instructions: All discharge instructions reviewed with patient and/or family. Voiced understanding. Continue usual home medications. Keep the left foot elevated. Continue instructions given to you by Dr. Rico and your surgeon. Monitor blood sugars closely. Follow-up with Dr. Rico Saturday for recheck, call first thing Saturday morning for appointment time. Return the emergency department for worsened symptoms or any other concerns. ALIYA STUBBS Nov 22, 2018 15:49
[2018-11-22 16:15] LABS: BILIRUBIN,URINE NEGATIVE (NEGATIVE); CLARITY,URINE CLEAR; COLOR,URINE YELLOW; GLUCOSE, URINE (UA) 3+ (NEGATIVE); KETONES,URINE NEGATIVE (NEGATIVE); LEUKOCYTE ESTERASE ,URINE NEGATIVE (NEGATIVE); NITRITE,URINE NEGATIVE (NEGATIVE); PH,URINE 8 (5-9); PROTEIN,URINE NEGATIVE (NEGATIVE); UROBILINOGEN,URINE NORMAL (NORMAL)
[2018-11-22 16:22] LABS: BACTERIA,URINE NEGATIVE /HPF
--- NOTE | 2018-11-22 17:43 | NUR ---
ATTEMPTED TO CONTACT PTS SON AT THIS TIME TO LET HIM KNOW PT IS READY FOR DISCHARGE.
[2018-11-22 18:29] VITALS: BP 156/88
== END 2018-11-22 18:29 | disposition home or self-care (01) ==
LOC: EDUNIT# 13:47 → ER 13:49
DX: E11.10 Type 2 diabetes mellitus with ketoacidosis without coma (principal); E78.00 Pure hypercholesterolemia, unspecified; I10 Essential (primary) hypertension; F17.210 Nicotine dependence, cigarettes, uncomplicated; Z89.422 Acquired absence of other left toe(s); Z98.890 Other specified postprocedural states; Z87.820 Personal history of traumatic brain injury; Z91.14 Patient's other noncompliance with medication regimen; Z79.4 Long term (current) use of insulin; Z88.8 Allergy status to other drugs, medicaments and biological substances; Z90.49 Acquired absence of other specified parts of digestive tract
CPT/HCPCS: 36415; 80053; 81000; 82962; 85025

== ENCOUNTER 2018-11-27 17:49 | Emergency (ER) | payer OTHER, MEDICARE, MEDICAID ==
[~2018-11-27] VITALS: Ht 182.9 cm; Wt 68.0 kg
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
[2018-11-27 19:08] VITALS: BP 180/98
== END 2018-11-27 19:05 | disposition home or self-care (01) ==
LOC: EDUNIT# 17:49 → ER 17:50
DX: M54.5 Low back pain (principal); E78.00 Pure hypercholesterolemia, unspecified; E11.10 Type 2 diabetes mellitus with ketoacidosis without coma; F15.10 Other stimulant abuse, uncomplicated; F12.10 Cannabis abuse, uncomplicated; F19.10 Other psychoactive substance abuse, uncomplicated; R40.2142 Coma scale, eyes open, spontaneous, at arrival to emergency department; R40.2252 Coma scale, best verbal response, oriented, at arrival to emergency department; R40.2362 Coma scale, best motor response, obeys commands, at arrival to emergency department; Z91.14 Patient's other noncompliance with medication regimen; Z87.820 Personal history of traumatic brain injury; Z98.1 Arthrodesis status; Z90.49 Acquired absence of other specified parts of digestive tract; Z98.890 Other specified postprocedural states; Z88.8 Allergy status to other drugs, medicaments and biological substances; Z79.4 Long term (current) use of insulin; Z77.22 Contact with and (suspected) exposure to environmental tobacco smoke (acute) (chronic); V47.5XXA Car driver injured in collision with fixed or stationary object in traffic accident, initial encounter
CPT/HCPCS: 71045; 72131; 72170

== ENCOUNTER 2019-03-24 12:40 | Observation (INO) | payer MEDICAID, MEDICARE, OTHER ==
[~2019-03-24] VITALS: Ht 182.9 cm; Wt 60.6 kg
--- NOTE | 2019-03-24 12:47 | NUR ---
WILL NOT FOLLOW COMMAND FOR [facility]
[2019-03-24 13:00] LABS: ABG BASE EXCESS 3.6 MMOL/L (-2.5-2.5); ABG OXYGEN SATURATION 96 % (94-100); ABG PCO2 48 MMHG (35-45); ABG PH 7.39 (7.37-7.43); ABG PO2 73 MMHG (79-93); ABG TCO2 29.9 MMOL/L (21.0-31.0); ALLENS TEST YES-POS; INSPIRED O2 ROOM AIR; PATIENT TEMP 98; VENTILATOR NO
[2019-03-24] MEDS ORDERED: NS IV 1000 ML 1,000 ML IV ONE ×2 (13:02→14:07)
--- NOTE | 2019-03-24 13:02 | NUR ---
BACK FROM CT.
--- NOTE | 2019-03-24 13:08 | NUR ---
TO ROOM PATIENT AWAKE AND TALKING REPORTS THAT IS SHOULDER HURTS.
[2019-03-24 13:12] LABS: BASOPHILS % (AUTO) 1 % (0-10); EOSINOPHILS # (AUTO) 0.4 10^3/uL (0.0-0.3); EOSINOPHILS % (AUTO) 7 % (0-10); HEMATOCRIT 38 % (40-54); HEMOGLOBIN 12.8 G/DL (13.3-17.7); LYMPHOCYTES # (AUTO) 1.5 X 10^3 (1.0-4.0); LYMPHOCYTES % (AUTO) 23 % (12-44); MEAN CORPUSCULAR HEMOGLOBIN 29 PG (25-34); MEAN CORPUSCULAR HGB CONC 34 G/DL (32-36); MEAN CORPUSCULAR VOLUME 87 FL (80-99); MEAN PLATELET VOLUME 10.8 FL (7.4-10.4); MONOCYTES # (AUTO) 0.4 X 10^3 (0.0-1.0); MONOCYTES % (AUTO) 6 % (0-12); NEUTROPHILS # (AUTO) 4.2 X 10^3 (1.8-7.8); NEUTROPHILS % (AUTO) 64 % (42-75); PLATELET COUNT 246 10^3/uL (130-400); RED CELL DISTRIBUTION WIDTH 13.1 % (10.0-14.5); WHITE BLOOD COUNT 6.5 10^3/uL (4.3-11.0)
[2019-03-24 13:23] LABS: ALANINE AMINOTRANSFERASE 14 U/L (0-55); ALBUMIN 3.7 GM/DL (3.2-4.5); ALKALINE PHOSPHATASE 87 U/L (40-136); AMYLASE 29 U/L (25-125); BILIRUBIN,TOTAL 0.5 MG/DL (0.1-1.0); BUN/CREATININE RATIO 19; CALCIUM 9.2 MG/DL (8.5-10.1); CARBON DIOXIDE 28 MMOL/L (21-32); CHLORIDE 100 MMOL/L (98-107); CREATININE SERUM 1.08 MG/DL (0.60-1.30); GFR ESTIMATED > 60; GLUCOSE 316 MG/DL (70-105); INR 0.9 (0.8-1.4); LIPASE 6 U/L (8-78); MAGNESIUM 1.8 MG/DL (1.8-2.4); POTASSIUM 4.6 MMOL/L (3.6-5.0); PROTHROMBIN TIME PATIENT 12.5 SEC (12.2-14.7); SODIUM 137 MMOL/L (135-145); TOTAL PROTEIN 6.5 GM/DL (6.4-8.2)
--- NOTE | 2019-03-24 13:25 | Diagnostic Imaging Report ---
INDICATION: Unresponsive. TIME OF EXAM: 1:12 p.m. COMPARISON: Correlation is made with prior study from 11/27/2018. FINDINGS: The heart size is stable. The lungs are clear. No infiltrates are seen. No effusion or pneumothorax is identified. Nodular densities overlie bilateral lung fisher consistent with nipple shadows. IMPRESSION: No acute cardiopulmonary process is detected. Dictated by: Dictated on workstation # [id number]
[2019-03-24 13:27] LABS: ACETAMINOPHEN < 10 UG/ML (10-30)
--- NOTE | 2019-03-24 13:36 | Diagnostic Imaging Report ---
CLINICAL INDICATION: Patient came in unresponsive. EXAM: Axial CT scan of the brain performed without IV contrast. COMPARISON: CT scan of the brain performed without contrast dated 10/22/2017. FINDINGS: There is skull streak artifact which obscures portions of the brainstem, posterior fossa, and portions of the brain near the skull. There is interval development of a moderate-sized area of low density involving the lateral aspect of the right temporal lobe and right parietal lobe region, concerning for chronic infarct. There is also a small area of low density involving the right basal ganglia/right external capsular region, concerning for chronic infarct changes. There is mild ex vacuo dilation of the temporal horn of the right lateral ventricle. There is no evidence of intracranial hemorrhage, acute cerebral infarct, brain herniation, or midline shift. There is no hydrocephalus. The basal cisterns are unremarkable. The extracranial soft tissue, skull, and orbits are unremarkable. There is mild mucosal thickening involving the ethmoid sinus. The paranasal sinuses and mastoid air cells are unremarkable. IMPRESSION: 1. There is no evidence of an acute intracranial process. 2. There is interval development of a moderate-sized chronic cerebral infarct involving the right cerebral hemisphere in the right MCA distribution. 3. The remainder of this exam shows no other significant abnormality. 4. The results of this report were discussed with Dr. Erlinda Castillo via the telephone on 03/24/2019 at 1315 hours. Dictated by: Dictated on workstation # [id number]
[2019-03-24 13:43] LABS: TSH (THYROID ANALYZER) 0.44 UIU/ML (0.35-4.94)
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
--- NOTE | 2019-03-24 13:47 | ED General ---
General Chief Complaint: Neuro-Stroke Like Symptoms Stated Complaint: UNRESPONSIVE Nursing Triage Note: TO ROOM PER EMS WAS ACCORDING TO FAMILY WAS OK APX 1130 WENT TO MAKE A SANDWICH WENT BACK AT 1200 WAS UNRSPONSIVE. PATIENT RESPONDS TO PAINFUL STIMULA WILL NOT FOLLOW COMMANDS . BLOOD SUGAR BY EMS 314 Nursing Sepsis Screen: No Definite Risk Source of Information: EMS, Old Records (ALL PMH IS FROM OLD RECORDS) Exam Limitations: Other (PT NOT TALKING MUCH ON ARRIVAL) History of Present Illness Date Seen by Provider: Mar 24, 2019 Time Seen by Provider: 12:37 Initial Comments PT ARRIVES VIA EMS FROM HOME EMS WAS CALLED BY A NEIGHBOR FOR PT WITH ALTERED MENTAL STATUS NEIGHBOR REPORTED TO EMS THAT PT'S ELECTRICITY GOT SHUT OFF--UNKNOWN HOW LONG AGO, EMS REPORT THAT THE HOUSE WAS VERY WARM AND THE HOME WAS IN DEPLORABLE CONDITION NEIGHBOR REPORTED TO EMS THAT THEY TOOK PT A SANDWICH AT 11:30 THIS AM AND WENT THE NEIGHBOR WENT BACK AT 12:00 TO CHECK ON HIM, HE WAS "UNRESPONSIVE" --IS NOT KNOWN IF PT ACTUALLY ATE THE SANDWICH OR ANYTHING TODAY PT IS DIABETIC, ACCUCHECK WAS 314 FOR EMS EMS REPORT THAT PT WOKE UP TO STERNAL RUB BY EMS AND WAS TALKING TO THEM. EMS STATES THEN HE STARTED HYPERVENTILATING AND WAS SAYING "I CAN'T BREATHE" --THEN PT WAS CALMED DOWN AND WAS BREATHING NORMALLY AND NO LONGER C/O NOT BEING ABLE TO BREATHE PT TOLD EMS THAT HE DID NOT TAKE HIS INSULIN TODAY BECAUSE HE "DIDN'T FEEL LIKE IT" ON ARRIVAL, PT IS LETHARGIC, BUT OPENS EYES TO VOICE AND MOSTLY MOANS, BUT ANSWERS A FEW YES/NO QUESTIONS PT WITH MULTIPLE VISITS--MANY FOR UNCONTROLLED DIABETES DUE TO NON-COMPLIANCE. EXTREME NON-COMPLIANCE IN ALL ASPECTS OF CARE NEVER CHECKS HIS BLOOD GLUCOSE, DOES NOT TAKE HIS MEDICATIONS ON ANY KIND OF REGULAR BASIS, AND DOES NOT FOLLOW UP IN CLINIC PT IS ALSO KNOWN POLYSUBSTANCE ABUSER HISTORY OF ALCOHOL ABUSE PT ALSO WITH EXTENSIVE HISTORY OF DRUG ABUSE INCLUDING METH--USES IV AND SNORTS IT, THC USE, MESCALINE, ACID, "SPEED", "OTHERS" PT HAS BEEN HOMELESS IN THE PAST PCP: [facility], DR. REID Allergies and Home Medications Allergies Coded Allergies: Benzodiazepines (Verified Allergy, Unknown, 05/10/14) Home Medications Cholecalciferol (Vitamin D3) 2,000 Unit Capsule, 2,000 UNIT PO DAILY, (Reported) Insulin Aspart 300 Units/3 Ml Solution, 10 UNITS SC TIDWM, (Reported) LAST FILLED ON 06-18-2018 Insulin Detemir 100 Unit/1 Ml Insuln.pen, 40 UNITS SC HS, (Reported) LAST FILLED ON 06-18-2018 [place]field-3/Dha/Epa/Fish Oil 1 Each Capsule, 1 CAP PO DAILY, (Reported) [sugarblend] , 1 TAB PO TID, (Reported) Patient Home Medication List Home Medication List Reviewed: Yes Review of Systems Review of Systems Constitutional: malaise, weakness, other (PT UNABLE TO STATE ON ARRIVAL) Past Byfnuek-Tsvcoz-Ajruul Hx Patient Social History Alcohol Use: Past History (HISTORY OF ABUSE, IS UNKNOWN WHEN HE LAST HAD ANY ALCOHOL, OF 03/24/19) Recreational Drug Use: Yes (METH--BOTH IV USE AND SNORTS IT, THC, MESCALINE, ACID, "SPEED", "OTHERS" ) Drug of Choice: THC, + IV METH-ALSO SNORTS IT; ACID, MESCALINE; "SPEED", "OTHERS" Smoking Status: Current Everyday Smoker (1 PPD) Type Used: Cigarettes 2nd Hand Smoke Exposure: Yes Recent Foreign Travel: No Contact w/Someone Who Travel: No Recent Infectious Disease Expo: No Recent Hopitalizations: No Immunizations Up To Date Tetanus Booster (TDap): Unknown Date of Pneumonia Vaccine: Jan 16, 2016 Seasonal Allergies Seasonal Allergies: No Past Medical History Surgeries: Yes (LEFT 5TH TOE AMPUTATION 10/2018 FOR OSTEOMYELITIS; RIGHT WRIST FX/ORIF/FUSION; POLYDACTYLY SURGERY; BENIGN TUMOR REMOVED FROM LEFT LOWER LEG; RIGHT FOOT AND RIGHT ANKLE SURGERIES) Amputation, Appendectomy, Gallbladder, Orthopedic Respiratory: No Cardiac: Yes High Cholesterol, Hypertension Neurological: Yes (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) Neuropathy, Traumatic Brain Injury Reproductive Disorders: No Sexually Transmitted Disease: No HIV/AIDS: No Genitourinary: No Gastrointestinal: No Musculoskeletal: Yes (C1-C2 FX, LOW BACK FX; RIGHT WRIST FX/ORIF/FUSION; POLYDACTYLY SURGERY; LEFT 5TH TOE AMPUTATION FOR OSTEOMYELITIS 10/2018; CHRONIC NECK AND BACK PAIN) Amputee, Chronic Back Pain, Fractures Endocrine: Yes (DKA; NON-COMPLIANCE) Diabetes, Insulin dep HEENT: No (EDENTULOUS) Loss of Vision: Denies Hearing Impairment: Denies Cancer: No Psychosocial: No Integumentary: Yes (LEG, HAND, FOOT CELLULITIS; LEFT 5TH TOE AMPUTATION FOR OSTEOMYELITIS 10/2018) Blood Disorders: No Adverse Reaction/Blood Tranf: No Family Medical History Blood clots 19 FATHER Diabetes mellitus 19 FATHER 19 MOTHER G8 BROTHER Physical Exam Vital Signs Vital Signs - First Documented 03/24/19 12:40 Temp 98.0 Pulse 76 Resp 18 B/P (MAP) 139/81 (100) Pulse Ox 95 O2 Delivery Room Air Capillary Refill : Less Than 3 Seconds Height, Weight, BMI Height: 6'0" Weight: 150lbs. 0oz. [id number]; 17.4 BMI Method:Stated General Appearance: Cachetic, Other (DIRTY, VERY UNKEMPT, COVERED IN ANIMAL HAIR, LETHARGIC; REEKS OF CIGARETTES; EMACIATED ) HEENT: PERRL/EOMI, Other (EDENTULOUS, DRY ORAL MUCOSA) Neck: Normal Inspection Respiratory: Normal Breath Sounds, No Accessory Muscle Use, No Respiratory Distress Cardiovascular: Regular Rate, Rhythm, No Edema, No JVD, No Murmur, Normal Per ipheral Pulses Gastrointestinal: Non Tender, Soft Extremity: Normal Capillary Refill, No Pedal Edema Neurologic/Psychiatric: Other (LETHARGIC, ORIENTED TO PERSON, PLACE, BUT UNAWARE OF TIME OR WHY HE IS HERE. SPEECH IS NOT SLURRED BUT IS SLOW. GENERALIZED WEAKNESS BUT NO FOCAL DEFICIT. ) Skin: Pallor, Tattoos/Piercings (TATTOOS), Other (POOR TURGOR) Focused Exam Lactate Level 03/24/19 13:25: Lactic Acid Level 0.93 Lactic Acid Level Progress/Results/Core Measures Suspected Sepsis Recent Fever Within 48 Hours: No Infection Criteria Present: None New/Unexplained Altered Menta: No Sepsis Screen: No Definite Risk SIRS Temperature:98.0 Pulse: 76 Respiratory Rate: 18 Laboratory Tests 03/24/19 12:44: White Blood Count 6.5 Blood Pressure 139 /81 Mean: 100 03/24/19 13:25: Lactic Acid Level 0.93 Laboratory Tests 03/24/19 12:44: Creatinine 1.08, INR Comment 0.9, Platelet Count 246, Total Bilirubin 0.5 Results/Orders Lab Results Laboratory Tests Test 03/24/19 12:44 03/24/19 12:50 03/24/19 13:25 03/24/19 14:30 Range/Units White Blood Count 6.5 4.3-11.0 10^3/uL Red Blood Count 4.35 4.35-5.85 10^6/uL Hemoglobin 12.8 L 13.3-17.7 G/DL Hematocrit 38 L 40-54 % Mean Corpuscular Volume 87 80-99 FL Mean Corpuscular Hemoglobin 29 25-34 PG Mean Corpuscular Hemoglobin Concent 34 32-36 G/DL Red Cell Distribution Width 13.1 10.0-14.5 % Platelet Count 246 130-400 10^3/uL Mean Platelet Volume 10.8 H 7.4-10.4 FL Neutrophils (%) (Auto) 64 42-75 % Lymphocytes (%) (Auto) 23 12-44 % Monocytes (%) (Auto) 6 0-12 % Eosinophils (%) (Auto) 7 0-10 % Basophils (%) (Auto) 1 0-10 % Neutrophils # (Auto) 4.2 1.8-7.8 X 10^3 Lymphocytes # (Auto) 1.5 1.0-4.0 X 10^3 Monocytes # (Auto) 0.4 0.0-1.0 X 10^3 Eosinophils # (Auto) 0.4 H 0.0-0.3 10^3/uL Basophils # (Auto) 0.0 0.0-0.1 10^3/uL Prothrombin Time 12.5 12.2-14.7 SEC INR Comment 0.9 0.8-1.4 Activated Partial Thromboplast Time 33 24-35 SEC Sodium Level 137 135-145 MMOL/L Potassium Level 4.6 3.6-5.0 MMOL/L Chloride Level 100 98-107 MMOL/L Carbon Dioxide Level 28 21-32 MMOL/L Anion Gap 9 5-14 MMOL/L Blood Urea Nitrogen 20 H 7-18 MG/DL Creatinine 1.08 0.60-1.30 MG/DL Estimat Glomerular Filtration Rate > 60 BUN/Creatinine Ratio 19 Glucose Level 316 H 70-105 MG/DL Calcium Level 9.2 8.5-10.1 MG/DL Corrected Calcium 9.4 8.5-10.1 MG/DL Magnesium Level 1.8 1.8-2.4 MG/DL Total Bilirubin 0.5 0.1-1.0 MG/DL Aspartate Amino Transf (AST/SGOT) 13 5-34 U/L Alanine Aminotransferase (ALT/SGPT) 14 0-55 U/L Alkaline Phosphatase 87 40-136 U/L Troponin I < 0.028 <0.028 NG/ML B-Type Natriuretic Peptide 78.5 <100.0 PG/ML Total Protein 6.5 6.4-8.2 GM/DL Albumin 3.7 3.2-4.5 GM/DL Amylase Level 29 25-125 U/L Lipase 6 L 8-78 U/L TSH Gaines Testing 0.44 0.35-4.94 UIU/ML Acetaminophen Level < 10 L 10-30 UG/ML Serum Alcohol < 10 <10 MG/DL Blood Gas Puncture Site LT BRACHIAL Blood Gas Patient Temperature 98 Arterial Blood pH 7.39 7.37-7.43 Arterial Blood Partial Pressure CO2 48 H 35-45 MMHG Arterial Blood Partial Pressure O2 73 L 79-93 MMHG Arterial Blood HCO3 28 H 23-27 MMOL/L Arterial Blood Total CO2 29.9 21.0-31.0 MMOL/L Arterial Blood Oxygen Saturation 96 94-100 % Arterial Blood Base Excess 3.6 H -2.5-2.5 MMOL/L Didier Test YES-POS Blood Gas Ventilator Setting NO Blood Gas Inspired Oxygen ROOM AIR Lactic Acid Level 0.93 0.50-2.00 MMOL/L Urine Color YELLOW Urine Clarity CLEAR Urine pH 5 5-9 Urine Specific Mclean 1.020 1.016-1.022 Urine Protein 1+ H NEGATIVE Urine Glucose (UA) 4+ H NEGATIVE Urine Ketones 2+ H NEGATIVE Urine Nitrite NEGATIVE NEGATIVE Urine Bilirubin NEGATIVE NEGATIVE Urine Urobilinogen NORMAL NORMAL MG/DL Urine Leukocyte Esterase NEGATIVE NEGATIVE Urine RBC (Auto) NEGATIVE NEGATIVE Urine RBC NONE /HPF Urine WBC NONE /HPF Urine Squamous Epithelial Cells RARE /HPF Urine Crystals NONE /LPF Urine Bacteria NEGATIVE /HPF Urine Casts NONE /LPF Urine Mucus NEGATIVE /LPF Urine Culture Indicated NO Urine Opiates Screen NEGATIVE NEGATIVE Urine Oxycodone Screen NEGATIVE NEGATIVE Urine Methadone Screen NEGATIVE NEGATIVE Urine Propoxyphene Screen NEGATIVE NEGATIVE Urine Barbiturates Screen NEGATIVE NEGATIVE Ur Tricyclic Antidepressants Screen NEGATIVE NEGATIVE Urine Phencyclidine Screen NEGATIVE NEGATIVE Urine Amphetamines Screen POSITIVE H NEGATIVE Urine Methamphetamines Screen POSITIVE H NEGATIVE Urine Benzodiazepines Screen NEGATIVE NEGATIVE Urine Cocaine Screen NEGATIVE NEGATIVE Urine Cannabinoids Screen POSITIVE H NEGATIVE Test 03/24/19 16:26 Range/Units Glucometer 283 H 70-110 MG/DL My Orders Orders - ARPAN HACKETT DO Arterial Blood Gas (03/24/19 12:53) Arterial Blood Draw (03/24/19 ) Accucheck Stat ONCE (03/24/19 13:02) Ed Iv/Invasive Line Start (03/24/19 13:02) Ekg Tracing (03/24/19 13:02) Catheter(Urinary) Insert & Ass 03,15 (03/24/19 13:02) O2 (03/24/19 13:02) Monitor-Rhythm Ecg Trace Only (03/24/19 13:02) Acetaminophen (03/24/19 13:02) Alcohol (03/24/19 13:02) Amylase (03/24/19 13:02) BNP (03/24/19 13:02) Cbc With Automated Diff (03/24/19 13:02) Comprehensive Metabolic Panel (03/24/19 13:02) Drug Screen Stat (Urine) (03/24/19 13:02) Lactic Acid Analyzer (03/24/19 13:02) Lipase (03/24/19 13:02) Magnesium (03/24/19 13:02) Protime With Inr (03/24/19 13:02) Partial Thromboplastin Time (03/24/19 13:02) Thyroid Analyzer (03/24/19 13:02) Troponin I (03/24/19 13:02) Ua Culture If Indicated (03/24/19 13:02) Blood Culture (03/24/19 13:02) Chest 1 View, Ap/Pa Only (03/24/19 13:02) Ed Iv/Invasive Line Start (03/24/19 13:02) Ns Iv 1000 Ml (Sodium Chloride 0.9%) (03/24/19 13:02) Ed Iv/Invasive Line Start (03/24/19 14:07) Ns Iv 1000 Ml (Sodium Chloride 0.9%) (03/24/19 14:07) Medications Given in ED Current Medications Medications Dose Ordered Sig/Arvin Route Start Time Stop Time Status Last Admin Dose Admin Sodium Chloride 1,000 ml @ 0 mls/hr Q0M ONCE IV 03/24/19 13:02 03/24/19 13:05 DC 03/24/19 13:14 1,000 MLS/HR Sodium Chloride 1,000 ml @ 0 mls/hr Q0M ONCE IV 03/24/19 14:07 03/24/19 14:08 DC 03/24/19 14:43 1,000 MLS/HR Vital Signs/I&O 03/24/19 03/24/19 03/24/19 03/24/19 12:40 14:46 15:02 15:58 Temp 98.0 98.7 Pulse 76 69 75 Resp 18 18 18 B/P (MAP) 139/81 (100) 117/96 (103) 158/72 Pulse Ox 95 99 99 O2 Delivery Room Air Room Air Room Air Room Air 03/24/19 03/24/19 16:28 16:34 Temp 98.2 Pulse 73 66 Resp 18 B/P (MAP) 184/95 (124) Pulse Ox 99 O2 Delivery Room Air Capillary Refill : Less Than 3 Seconds Blood Pressure Mean: 100 Progress Note : Progress Note ON RETURN FROM CT, PT WANTING WATER PT ANSWERING QUESTIONS, AND WHEN ASKED IF HE HAD PAIN ANYWHERE, HE STATED HIS SHOULDERS HURT PT APPEARS TO SELECTIVELY "WAKE UP" AND TALK--WAS "UNRESPONSIVE" UNTIL CATHETER WAS MENTIONED, THEN HE SUDDENLY "WOKE UP" AND TALKING NORMALLY AND STATING "NO WAY" IS HE GOING TO HAVE A CATHETER AND STATES "IT'LL BE A FIST FIGHT" AND PT PUTS UP HIS FISTS AND SIMULATES "BOXING" PUNCHES DIRECTED TOWARD ME. PT DOES THIS SEVERAL TIMES THROUGHOUT ER COURSE, WHEN SOMETHING THAT HE DOES NOT WANT TO DO, IS DISCUSSED. 1335--SON AND A FEMALE ARE HERE TO SEE PT. SON STATES HE TALKED TO HIM THIS AM, AND STATES THAT HIS ELECTRICITY WAS TURNED OFF THIS MORNING. PT WAS AT NORMAL BASELINE ON THE PHONE, BUT HAS NOT SEEN HIM FOR 1 1/2 WEEKS. SON CANNOT PROVIDE MUCH INFORMATION ABOUT MEDICAL HISTORY OR HISTORY OF PRESENT ILLNESS. ECG Initial ECG Impression Date: Mar 24, 2019 Initial ECG Impression Time: 13:26 Initial ECG Rate: 73 Initial ECG Rhythm: Normal Sinus Initial ECG Impression: Normal Diagnostic Imaging Comments CT HEAD--CHRONIC. LARGE RIGHT SIDED INFARCT, BUT IS NEW FROM LAST CT 09/2017--PER RADIOLOGIST VIA PHONE AT 1318 CXR--NO ACUTE PROCESS, PER RADIOLOGIST REPORT AT 1355 Reviewed: Reviewed by Me, Discussed w/Radiologist Departure Communication (Admissions) 1404--ATTEMPTING TO CONTACT DR. REID, FOOT CUTTER FOR [facility]--SPOKE WITH DR. REID, ACCEPTS PT FOR ADMIT. SHE REPORTS THAT PT WAS A "NO SHOW" FOR HIS CLINIC APPOINTMENT LAST WEEK, WHICH IS A FREQUENT ISSUE WITH PT. Impression Primary Impression: Uncontrolled diabetes mellitus Additional Impressions: Altered mental status Generalized weakness UNABLE TO CARE FOR SELF OLD RIGHT SIDED CVA NOTED ON CT SCAN Illicit drug use Smoker History of alcoholism Polysubstance abuse Disposition: ADMITTED INPATIENT Condition: Improved Admissions Decision to Admit Reason: Admit from ER (General) Decision to Admit/Date: Mar 24, 2019 Time/Decision to Admit Time: 14:15 Departure-Patient Inst. Referrals: [facility] [place]) Primary Care Physician ARPAN HACKETT DO Mar 24, 2019 13:47
[2019-03-24 14:38] LABS: BILIRUBIN,URINE NEGATIVE (NEGATIVE); CLARITY,URINE CLEAR; COLOR,URINE YELLOW; GLUCOSE, URINE (UA) 4+ (NEGATIVE); KETONES,URINE 2+ (NEGATIVE); LEUKOCYTE ESTERASE ,URINE NEGATIVE (NEGATIVE); NITRITE,URINE NEGATIVE (NEGATIVE); PH,URINE 5 (5-9); PROTEIN,URINE 1+ (NEGATIVE); UROBILINOGEN,URINE NORMAL (NORMAL)
[2019-03-24 14:46] LABS: BACTERIA,URINE NEGATIVE /HPF; SQUAMOUS EPITHELIAL CELL,UR RARE /HPF
[2019-03-24 14:55] LABS: AMPHETAMINE SCREEN, URINE POSITIVE (NEGATIVE); BARBITURATE SCREEN URINE NEGATIVE (NEGATIVE); BENZODIAZEPINES SCREEN URINE NEGATIVE (NEGATIVE); CANNABINOID SCREEN, URINE POSITIVE (NEGATIVE); COCAINE SCREEN URINE NEGATIVE (NEGATIVE); METHADONE STAT NEGATIVE (NEGATIVE); METHAMPHETAMINE SCREEN URINE S POSITIVE (NEGATIVE); OPIATE SCREEN URINE NEGATIVE (NEGATIVE); OXYCODONE STAT NEGATIVE (NEGATIVE); PROPOXYPHENE STAT NEGATIVE (NEGATIVE); TRICYCLIC ANTIDEPRESSANTS SCRE NEGATIVE (NEGATIVE)
--- NOTE | 2019-03-24 14:59 | NUR ---
DAVID GALINDO admitted to room 426-1, with an admitting diagnosis of uncontrolled diabetes,, on 03/24/19 from ED via stretcher, accompanied by staff and family .DAVID GALINDO introduced to surroundings, call light, bed controls, phone, TV, temperature control, lights, meal times, smoking policy, visitor policy, side rail policy, bathrooms and showers. Patient Rights given to patient in the handbook. DAVID GALINDO verbalizes understanding that [facility] is not responsible for the loss or damage to any personal effects or valuables that are kept in the patients posession during their hospitalization. The following Patient Care Plans and discharge were discussed with the patient and family . DAVID GALINDO verbalizes understanding of Interdisciplinary Patient Education. Patient and family were informed about the Rapid Response Team and its purpose.
[2019-03-24 15:02] VITALS: BP 158/72
[2019-03-24] MEDS ORDERED: CATHETER FLUSH 10 ML SYR IV PRN (15:30)
[2019-03-24] MEDS: NS IV 1000 ML 1,000 ML IV SCH ×2 (15:49→23:48)
[2019-03-24] MEDS ORDERED: [UNRECOGNIZED DRUG - OTHER] PO ×2 (16:09)
[2019-03-24] MEDS ORDERED: OMEG-160 PO ×2 (16:09)
[2019-03-24] MEDS ORDERED: CHOL2000 PO ×2 (16:09)
[2019-03-24 16:28] VITALS: BP 184/95
--- NOTE | 2019-03-24 16:34 | NUR ---
SPOKE WITH PATIENT AND HE SAID HE FILLED DIABETIC MEDICATIONS; HOWEVER I CALLED [facility] (ALSO ASKED ABOUT PALS AND THE REPOSITORY), [facility], AND [facility] AND COULD NOT FIND ANY RECENT FILLS. 06-18-2018 LEVEMIR 40 UNITS QHS 06-18-2018 NOVOLOG 10 UNITS WITH MEALS OTC MEDICATOINS FOLLOWS: VITAMIN D 2000 1 D FISH OIL 1000 1 D SUGAR BLEND 1 TID
[2019-03-24] MEDS: inSUlin ASPART (NovoLOG) 1 UNIT/0.01 ML (CHARGE PER UNIT) SC SCH ×2 (16:51→21:12)
--- NOTE | 2019-03-24 16:51 | NUR ---
patient has not ate anything sleeping - insulin will be administered later after meal
[2019-03-24 20:50] VITALS: BP 182/84
[2019-03-25 00:10] VITALS: BP 104/89
[2019-03-25 03:53] VITALS: BP 153/80
[2019-03-25] MEDS: NS IV 1000 ML 1,000 ML IV SCH ×4 (05:54→23:30)
[2019-03-25 06:10] LABS: BASOPHILS % (AUTO) 0 % (0-10); EOSINOPHILS # (AUTO) 0.4 10^3/uL (0.0-0.3); EOSINOPHILS % (AUTO) 5 % (0-10); HEMATOCRIT 36 % (40-54); LYMPHOCYTES # (AUTO) 1.5 X 10^3 (1.0-4.0); LYMPHOCYTES % (AUTO) 19 % (12-44); MEAN CORPUSCULAR HEMOGLOBIN 29 PG (25-34); MEAN CORPUSCULAR HGB CONC 34 G/DL (32-36); MEAN CORPUSCULAR VOLUME 87 FL (80-99); MEAN PLATELET VOLUME 10.1 FL (7.4-10.4); MONOCYTES # (AUTO) 0.4 X 10^3 (0.0-1.0); MONOCYTES % (AUTO) 5 % (0-12); NEUTROPHILS # (AUTO) 5.5 X 10^3 (1.8-7.8); NEUTROPHILS % (AUTO) 71 % (42-75); PLATELET COUNT 259 10^3/uL (130-400); RED CELL DISTRIBUTION WIDTH 13.2 % (10.0-14.5); WHITE BLOOD COUNT 7.8 10^3/uL (4.3-11.0)
[2019-03-25 06:30] LABS: ALANINE AMINOTRANSFERASE 14 U/L (0-55); ALBUMIN 3.2 GM/DL (3.2-4.5); ALKALINE PHOSPHATASE 81 U/L (40-136); BILIRUBIN,TOTAL 0.2 MG/DL (0.1-1.0); BUN/CREATININE RATIO 20; CALCIUM 8.4 MG/DL (8.5-10.1); CARBON DIOXIDE 25 MMOL/L (21-32); CHLORIDE 106 MMOL/L (98-107); CREATININE SERUM 0.82 MG/DL (0.60-1.30); GFR ESTIMATED > 60; GLUCOSE 158 MG/DL (70-105); POTASSIUM 4.1 MMOL/L (3.6-5.0); SODIUM 139 MMOL/L (135-145); TOTAL PROTEIN 5.6 GM/DL (6.4-8.2)
[2019-03-25] MEDS: inSUlin ASPART (NovoLOG) 1 UNIT/0.01 ML (CHARGE PER UNIT) SC SCH ×5 (06:42→20:51)
[2019-03-25 08:00] VITALS: BP 170/86
--- NOTE | 2019-03-25 10:50 | History & Physicial (CHS) ---
HPI History of Present Illness: 63 yo male states he remembers eating breakfast and then sitting in his chair and falling asleep. His neighbor called an ambulance because he was unresponsive. He states he has been taking his insulin, but he came across something online called "sugarblend" that helps out tremendously and he states if he is not careful it will make his insulin overdo and he will have low blood sugar. His old glucometer broke and his new one he is not familiar with how to use. He denies fever, chest pain. Has occasional cough. His electricity is off because he couldn't afford to pay his bill because he has been paying fines at court. His power was turned off yesterday. He missed his last clinic appointment for unclear reason. He does admit "I like my weed", he also uses methamphetamine which gets him out of bed because he is too fatigued otherwise, states he has no motivation. He tries to use just enough to get going. Date seen by provider: Mar 25, 2019 Time Seen by Provider: 10:48 Attending Physician Emanuel Rico MD [facility] Center/[facility] Consult Date of Admission Mar 24, 2019 at 14:27 Home Medications Home Medications Reviewed patient Home Medication Reconciliation performed by pharmacy medication reconciliations broadcast technician and/or nursing. Patients Allergies have been reviewed. Allergies Coded Allergies: Benzodiazepines (Verified Allergy, Unknown, 05/10/14) IWX-Hrzahl-Wivjpr Hx Patient Social History Alcohol Use: Past History (HISTORY OF ABUSE, IS UNKNOWN WHEN HE LAST HAD ANY ALCOHOL, OF 03/24/19) Recreational Drug Use: Yes (METH--BOTH IV USE AND SNORTS IT, THC, MESCALINE, ACID, "SPEED", "OTHERS" ) Drug of Choice: THC, + IV METH-ALSO SNORTS IT; ACID, MESCALINE; "SPEED", "OTHERS" Smoking Status: Current Everyday Smoker (1 PPD) Type Used: Cigarettes 2nd Hand Smoke Exposure: Yes Recent Foreign Travel: No Contact w/other who traveled: No Recent Hopitalizations: No Recent Infectious Disease Expo: No Physical Abuse Screen: No Sexual Abuse: No Immunizations Up To Date Tetanus Booster (TDap): Unknown Date of Pneumonia Vaccine: Jan 16, 2016 Past Medical History Medical Hx: DMII w/ diabetic neuropathy hx C1-C2 frature Illicit drug use - methamphetamine Hypertension Surgical Hx: cholecystectomy Proximal tibia tumor removal Polydactyly removal Right wrist fracture repair/fusion Family Medical History Family History: Blood clots 19 FATHER Diabetes mellitus 19 FATHER 19 MOTHER G8 BROTHER Review of Systems (CHC) Constitutional: No chills, No fever Respiratory: cough Cardiovascular: chest pain (intermittent, none recently including with this event that led to admission) Gastrointestinal: No abdominal pain, No constipation, No diarrhea, No nausea, No vomiting Genitourinary: No dysuria Musculoskeletal: joint pain (right shoulder, left hip) Skin: rash (gets occasional itchy bumps that he may have just a few at a time) Psychiatric/Neurological: See HPI Reviewed Test Results Reviewed Test Results Lab Laboratory Tests Test 03/24/19 12:44 03/24/19 12:50 03/24/19 13:25 03/24/19 14:30 Range/Units White Blood Count 6.5 4.3-11.0 10^3/uL Red Blood Count 4.35 4.35-5.85 10^6/uL Hemoglobin 12.8 L 13.3-17.7 G/DL Hematocrit 38 L 40-54 % Mean Corpuscular Volume 87 80-99 FL Mean Corpuscular Hemoglobin 29 25-34 PG Mean Corpuscular Hemoglobin Concent 34 32-36 G/DL Red Cell Distribution Width 13.1 10.0-14.5 % Platelet Count 246 130-400 10^3/uL Mean Platelet Volume 10.8 H 7.4-10.4 FL Neutrophils (%) (Auto) 64 42-75 % Lymphocytes (%) (Auto) 23 12-44 % Monocytes (%) (Auto) 6 0-12 % Eosinophils (%) (Auto) 7 0-10 % Basophils (%) (Auto) 1 0-10 % Neutrophils # (Auto) 4.2 1.8-7.8 X 10^3 Lymphocytes # (Auto) 1.5 1.0-4.0 X 10^3 Monocytes # (Auto) 0.4 0.0-1.0 X 10^3 Eosinophils # (Auto) 0.4 H 0.0-0.3 10^3/uL Basophils # (Auto) 0.0 0.0-0.1 10^3/uL Prothrombin Time 12.5 12.2-14.7 SEC INR Comment 0.9 0.8-1.4 Activated Partial Thromboplast Time 33 24-35 SEC Sodium Level 137 135-145 MMOL/L Potassium Level 4.6 3.6-5.0 MMOL/L Chloride Level 100 98-107 MMOL/L Carbon Dioxide Level 28 21-32 MMOL/L Anion Gap 9 5-14 MMOL/L Blood Urea Nitrogen 20 H 7-18 MG/DL Creatinine 1.08 0.60-1.30 MG/DL Estimat Glomerular Filtration Rate > 60 BUN/Creatinine Ratio 19 Glucose Level 316 H 70-105 MG/DL Calcium Level 9.2 8.5-10.1 MG/DL Corrected Calcium 9.4 8.5-10.1 MG/DL Magnesium Level 1.8 1.8-2.4 MG/DL Total Bilirubin 0.5 0.1-1.0 MG/DL Aspartate Amino Transf (AST/SGOT) 13 5-34 U/L Alanine Aminotransferase (ALT/SGPT) 14 0-55 U/L Alkaline Phosphatase 87 40-136 U/L Troponin I < 0.028 <0.028 NG/ML B-Type Natriuretic Peptide 78.5 <100.0 PG/ML Total Protein 6.5 6.4-8.2 GM/DL Albumin 3.7 3.2-4.5 GM/DL Amylase Level 29 25-125 U/L Lipase 6 L 8-78 U/L TSH [place] Testing 0.44 0.35-4.94 UIU/ML Acetaminophen Level < 10 L 10-30 UG/ML Serum Alcohol < 10 <10 MG/DL Blood Gas Puncture Site LT BRACHIAL Blood Gas Patient Temperature 98 Arterial Blood pH 7.39 7.37-7.43 Arterial Blood Partial Pressure CO2 48 H 35-45 MMHG Arterial Blood Partial Pressure O2 73 L 79-93 MMHG Arterial Blood HCO3 28 H 23-27 MMOL/L Arterial Blood Total CO2 29.9 21.0-31.0 MMOL/L Arterial Blood Oxygen Saturation 96 94-100 % Arterial Blood Base Excess 3.6 H -2.5-2.5 MMOL/L Didier Test YES-POS Blood Gas Ventilator Setting NO Blood Gas Inspired Oxygen ROOM AIR Lactic Acid Level 0.93 0.50-2.00 MMOL/L Urine Color YELLOW Urine Clarity CLEAR Urine pH 5 5-9 Urine Specific [place] 1.020 1.016-1.022 Urine Protein 1+ H NEGATIVE Urine Glucose (UA) 4+ H NEGATIVE Urine Ketones 2+ H NEGATIVE Urine Nitrite NEGATIVE NEGATIVE Urine Bilirubin NEGATIVE NEGATIVE Urine Urobilinogen NORMAL NORMAL MG/DL Urine Leukocyte Esterase NEGATIVE NEGATIVE Urine RBC (Auto) NEGATIVE NEGATIVE Urine RBC NONE /HPF Urine WBC NONE /HPF Urine Squamous Epithelial Cells RARE /HPF Urine Crystals NONE /LPF Urine Bacteria NEGATIVE /HPF Urine Casts NONE /LPF Urine Mucus NEGATIVE /LPF Urine Culture Indicated NO Urine Opiates Screen NEGATIVE NEGATIVE Urine Oxycodone Screen NEGATIVE NEGATIVE Urine Methadone Screen NEGATIVE NEGATIVE Urine Propoxyphene Screen NEGATIVE NEGATIVE Urine Barbiturates Screen NEGATIVE NEGATIVE Ur Tricyclic Antidepressants Screen NEGATIVE NEGATIVE Urine Phencyclidine Screen NEGATIVE NEGATIVE Urine Amphetamines Screen POSITIVE H NEGATIVE Urine Methamphetamines Screen POSITIVE H NEGATIVE Urine Benzodiazepines Screen NEGATIVE NEGATIVE Urine Cocaine Screen NEGATIVE NEGATIVE Urine Cannabinoids Screen POSITIVE H NEGATIVE Test 03/24/19 16:26 03/24/19 20:59 03/25/19 06:02 03/25/19 06:31 Range/Units Glucometer 283 H 304 H 134 H 70-110 MG/DL White Blood Count 7.8 4.3-11.0 10^3/uL Red Blood Count 4.09 L 4.35-5.85 10^6/uL Hemoglobin 12.0 L 13.3-17.7 G/DL Hematocrit 36 L 40-54 % Mean Corpuscular Volume 87 80-99 FL Mean Corpuscular Hemoglobin 29 25-34 PG Mean Corpuscular Hemoglobin Concent 34 32-36 G/DL Red Cell Distribution Width 13.2 10.0-14.5 % Platelet Count 259 130-400 10^3/uL Mean Platelet Volume 10.1 7.4-10.4 FL Neutrophils (%) (Auto) 71 42-75 % Lymphocytes (%) (Auto) 19 12-44 % Monocytes (%) (Auto) 5 0-12 % Eosinophils (%) (Auto) 5 0-10 % Basophils (%) (Auto) 0 0-10 % Neutrophils # (Auto) 5.5 1.8-7.8 X 10^3 Lymphocytes # (Auto) 1.5 1.0-4.0 X 10^3 Monocytes # (Auto) 0.4 0.0-1.0 X 10^3 Eosinophils # (Auto) 0.4 H 0.0-0.3 10^3/uL Basophils # (Auto) 0.0 0.0-0.1 10^3/uL Sodium Level 139 135-145 MMOL/L Potassium Level 4.1 3.6-5.0 MMOL/L Chloride Level 106 98-107 MMOL/L Carbon Dioxide Level 25 21-32 MMOL/L Anion Gap 8 5-14 MMOL/L Blood Urea Nitrogen 16 7-18 MG/DL Creatinine 0.82 0.60-1.30 MG/DL Estimat Glomerular Filtration Rate > 60 BUN/Creatinine Ratio 20 Glucose Level 158 H 70-105 MG/DL Calcium Level 8.4 L 8.5-10.1 MG/DL Corrected Calcium 9.0 8.5-10.1 MG/DL Total Bilirubin 0.2 0.1-1.0 MG/DL Aspartate Amino Transf (AST/SGOT) 13 5-34 U/L Alanine Aminotransferase (ALT/SGPT) 14 0-55 U/L Alkaline Phosphatase 81 40-136 U/L Total Protein 5.6 L 6.4-8.2 GM/DL Albumin 3.2 3.2-4.5 GM/DL Test 03/25/19 11:05 03/25/19 14:07 Range/Units Glucometer 236 H 199 H 70-110 MG/DL Radiology CT head 03/24 showed moderate sided right MCA distribution chronic infarct (not present on CT 09/2017) Physical Exam-(CHC) Physical Exam Vital Signs VS - Last 72 Hours, by Label 03/24/19 03/24/19 03/24/19 03/24/19 12:40 14:46 15:02 15:58 Temp 98.0 98.7 Pulse 76 69 75 Resp 18 18 18 B/P (MAP) 139/81 (100) 117/96 (103) 158/72 Pulse Ox 95 99 99 O2 Delivery Room Air Room Air Room Air Room Air 03/24/19 03/24/19 03/24/19 03/24/19 16:28 16:34 19:00 19:00 Temp 98.2 Pulse 73 66 69 105 Resp 18 B/P (MAP) 184/95 (124) Pulse Ox 99 O2 Delivery Room Air 03/24/19 03/24/19 03/25/19 03/25/19 20:00 20:50 00:10 01:00 Temp 98.4 97.9 Pulse 74 65 58 Resp 18 18 B/P (MAP) 182/84 (116) 104/89 (94) Pulse Ox 99 99 97 O2 Delivery Room Air Room Air Room Air 03/25/19 03/25/19 03/25/19 03/25/19 03:53 07:09 08:00 08:00 Temp 97.4 97.8 Pulse 66 76 73 Resp 16 20 B/P (MAP) 153/80 (104) 170/86 (114) Pulse Ox 99 100 O2 Delivery Room Air Room Air Room Air 03/25/19 03/25/19 12:00 12:26 Temp 98.4 Pulse 74 76 Resp 18 B/P (MAP) 162/86 (111) Pulse Ox 99 O2 Delivery Room Air Capillary Refill : Less Than 3 SecondsLess Than 3 Seconds General Appearance: no apparent distress HEENT: PERRL/EOMI, pharynx normal Respiratory: lungs clear, normal breath sounds Cardiovascular: regular rate, rhythm, no murmur Gastrointestinal: normal bowel sounds, non tender, soft Extremities: no pedal edema Neurologic/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 CT head with no acute changes, but does show chronic ischemia that was not present in 09/2017. He has no residual deficit and was not aware he had a stroke. (2) Diabetes mellitus Status: Chronic Assessment & Plan: Not routinely using insulin, diabetic diet, resume home insulin and monitor closely. Qualifiers: Qualified Codes: E11.65 - Type 2 diabetes mellitus with hyperglycemia; Z79.4 - long-term (current) use of insulin (3) HTN (hypertension) Status: Chronic Assessment & Plan: Not taking medication at home, will start lisinopril. Qualifiers: Qualified Codes: I10 - Essential (primary) hypertension (4) Polysubstance abuse Status: Chronic Assessment & Plan: Discussed risks of methamphetamine use and recommended cessation. patient financial services coordinator consulted. (5) Depression Status: Chronic Assessment & Plan: Suspect his amotivation and fatigue may be depression related and he agrees, will trial SSRI. (6) Discharge planning issues Status: Acute Assessment & Plan: Has no electricity or water, nephrology social worker consulted. (7) DVT prophylaxis Status: Acute Assessment & Plan: Enoxaparin Clinical Quality Measures DVT/VTE Risk/Contraindication: Risk Factor Score Per Nursin RFS Level Per Nursing on Admit: 3=High EMANUEL RICO MD Mar 25, 2019 10:50
[2019-03-25 12:00] VITALS: BP 162/86
[2019-03-25] MEDS: lisINopril 20 MG (PRINIVIL) TABLET PO SCH (14:00)
[2019-03-25] MEDS ORDERED: ENOXAPARIN 40 MG/0.4 ML (LOVENOX) SYR SQ SCH (14:00)
[2019-03-25] MEDS: FLUoxetine HCL 20 MG (PROzac) CAP PO SCH (14:00)
[2019-03-25] MEDS: ENOXAPARIN 30 MG/0.3 ML (LOVENOX) SYR SC SCH (14:00)
--- NOTE | 2019-03-25 14:51 | NUR ---
Initial visit by Chaplain Adenike Gilmore: Pt has no Spiritual affiliation. Son's name is Milton Murphy. Pt shared distressing emotion related to fears that someone shot his dog because it went missing. Pt verbalized feelings of anger and hatred toward the person he suspects killed his dog. States he lives [facility], his girlfriend lives in the same park nearby. Chaplain Jeong offered prayer.
--- NOTE | 2019-03-25 15:52 | NUR ---
DR REID NOTIFIED BY THIS RN OF PATIENT REQUEST FOR MEDICATION FOR A HEADACHE. THIS RN WILL AWAIT ANY NEW ORDERS.
--- NOTE | 2019-03-25 15:53 | NUR ---
CM/SS, respond to consult. PLAN: Patient plans to return to his trailer in [facility] on . He was offered short term community nursing facility but does not want to go. This is consistent with his history from previous admissions. Open case with DCF/APS as of today. Dulite Machine Bluer is communicating with Mary Madden and Michele Huizar at [facility], advocating that they assist patient to expedite an emergent [employer] application. Will partner with Mary if she comes to visit patient. Financial information below. SUMMARY: Patient bought a trailer and is currently at the [place] named park. During admission 10/2018, son Milton was more involved with patient and appeared to be more of a support. Patient indicates Milton has moved with a girlfriend to [facility], Milton has no transportation, and little contact with patient. Milton was working at [employer] but patient does not seem to know whether he continues to do so. Patient shared he was very angry and upset because he thinks the manager estate shot his 'service dog.' He indicates no proof but that it came through a gossip network in the park. The dog was 1/2 leo and 1/2 sinclair, and patient had trained him to perform somewhat like a service dog, although not officially registered as such. Patient states his only income is Social Security, approx $800 monthly, downloaded to a debit card. He has continued to pay Court fines, he has one remaining payment of $520. Patient explains this is the reason he has not been able to pay his park rent or utilities or any other needs for self. He is not eating much at all and certainly not adequate for his diabetic condition. Patient is OBS stay and does not qualify to access Medicare benefits for skilled, even if he agreed to it which is highly unlikely. Will attempt to get the Medicaid lesvia filed and provide resources for patient for food and personal needs. He continues to say his neighbor at the park allows him to use their facilities for toilet/bathing. Complex discharge planning, multiple psychosocial issues. Unsafe environment for diabetic condition, no utilities for foods, hygiene, comfort. Mounting issues have left patient stymied. Addendum: 03/25/19 at 1614 by SHANTE SHARP SS Mary Madden will visit patient post discharge at his trailer, they tentatively plan to help get the utilities on and expedite a [employer] application. Patient has no transportation, home via taxi if needed.
[2019-03-25 16:00] VITALS: BP 136/72
[2019-03-25] MEDS ORDERED: NON-FORMULARY MEDICATION 1 EA EA (Insulin Aspart (Novolog Flexpen) 10 UNITS) SC SCH (17:00)
--- NOTE | 2019-03-25 18:00 | NUR ---
CALL RECEIVED FROM DR REID IN REGARDS TO PTS REQUEST FOR MEDICATION FOR A HEADACHE, NEW ORDER RECEIVED.
[2019-03-25] MEDS ORDERED: ACETAMINOPHEN 500 MG TAB (TYLENOL) PO PRN (18:15)
[2019-03-25 20:00] VITALS: BP 157/80
[2019-03-25] MEDS ORDERED: NON-FORMULARY MEDICATION 1 EA EA (Insulin Detemir (Levemir Flextouch) 40 UNITS) SC SCH (21:00)
[2019-03-26] VITALS: BP 164/77
[2019-03-26 04:00] VITALS: BP 126/61
[2019-03-26 05:17] LABS: BASOPHILS % (AUTO) 0 % (0-10); EOSINOPHILS # (AUTO) 0.4 10^3/uL (0.0-0.3); EOSINOPHILS % (AUTO) 6 % (0-10); HEMATOCRIT 33 % (40-54); HEMOGLOBIN 10.8 G/DL (13.3-17.7); LYMPHOCYTES # (AUTO) 1.9 X 10^3 (1.0-4.0); LYMPHOCYTES % (AUTO) 28 % (12-44); MEAN CORPUSCULAR HEMOGLOBIN 29 PG (25-34); MEAN CORPUSCULAR HGB CONC 33 G/DL (32-36); MEAN CORPUSCULAR VOLUME 88 FL (80-99); MEAN PLATELET VOLUME 10.6 FL (7.4-10.4); MONOCYTES # (AUTO) 0.5 X 10^3 (0.0-1.0); MONOCYTES % (AUTO) 8 % (0-12); NEUTROPHILS % (AUTO) 58 % (42-75); PLATELET COUNT 239 10^3/uL (130-400); RED CELL DISTRIBUTION WIDTH 13.1 % (10.0-14.5); WHITE BLOOD COUNT 6.9 10^3/uL (4.3-11.0)
[2019-03-26 05:38] LABS: BUN/CREATININE RATIO 26; CALCIUM 8.1 MG/DL (8.5-10.1); CARBON DIOXIDE 25 MMOL/L (21-32); CHLORIDE 106 MMOL/L (98-107); CREATININE SERUM 1.04 MG/DL (0.60-1.30); GFR ESTIMATED > 60; GLUCOSE 182 MG/DL (70-105); POTASSIUM 3.9 MMOL/L (3.6-5.0); SODIUM 138 MMOL/L (135-145)
[2019-03-26] MEDS: inSUlin ASPART (NovoLOG) 1 UNIT/0.01 ML (CHARGE PER UNIT) SC SCH ×4 (05:45→13:33)
[2019-03-26] MEDS: NS IV 1000 ML 1,000 ML IV SCH (05:48)
[2019-03-26 08:00] VITALS: BP 118/63
[2019-03-26] MEDS: lisINopril 20 MG (PRINIVIL) TABLET PO SCH (08:45)
[2019-03-26] MEDS: FLUoxetine HCL 20 MG (PROzac) CAP PO SCH (08:48)
--- NOTE | 2019-03-26 11:57 | NUR ---
CM/SS. Patient will discharge today back to his trailer. Cnc Router Operator has provided a taxi voucher for transport and updated unit RN diego pichardo. Patient understands that DCF/APS will visit him at his trailer to assist with utilities and reinstatement of Medicaid. Updated DCF/Michele Raean of discharge. Patient very appreciative.
[2019-03-26 12:00] VITALS: BP 129/68
[2019-03-26] MEDS ORDERED: FLUO20CA25 PO ×2 (13:25)
[2019-03-26] MEDS ORDERED: LISI-552 PO ×2 (13:25)
--- NOTE | 2019-03-26 13:27 | Discharge Instructions ---
Discharge [facility] Discharge Medications New, Converted or Re-Newed RX: Transmitted to Pharmacy New Medications: Fluoxetine HCl (Fluoxetine HCl) 20 Mg Capsule 20 MG PO DAILY, #30 CAP 0 Refills Lisinopril (Lisinopril) 20 Mg Tablet 20 MG PO DAILY, #30 TAB 0 Refills Continued Medications: Cholecalciferol (Vitamin D3) (Vitamin D) 2,000 Unit Capsule 2000 UNIT PO DAILY, CAP Insulin Aspart (Novolog Flexpen) 300 Units/3 Ml Solution 10 UNITS SC TIDWM, EA LAST FILLED ON 06-18-2018 Insulin Detemir (Levemir Flextouch) 100 Unit/1 Ml Insuln.pen 40 UNITS SC HS, EA LAST FILLED ON 06-18-2018 [place]-3/Dha/Epa/Fish Oil (Fish Oil 1,000 mg Softgel) 1 Each Capsule 1 CAP PO DAILY, CAP Discontinued Medications: [sugarblend] () 1 TAB PO TID Patient Instructions Goal/Follow Up Appt: Follow up with Dr. Mathews on 03/31 at 940. [facility] to [facility] For: Inability to keep down medications, confusion Activity & Diet Discharge Diet: ADA Diet Copy Copies To 1: JUAN ANTONIO MATHEWS MD, BETHANY N MD Mar 26, 2019 13:27
--- NOTE | 2019-03-26 14:43 | Discharge Summary ---
Diagnosis/Chief Complaint Date of Admission Mar 24, 2019 at 14:27 Date of Discharge March 26, 2019 Admission Diagnosis Admission Diagnosis Altered mental status Discharge Diagnosis See problem list Problems/Diagnosis: (1) Altered mental status Assessment & Plan: Resolved am after admission, unclear etiology, possibly substance related vs hyperglycemia. CT head with no acute changes, but does show chronic ischemia that was not present in 09/2017. He has no residual deficit and was not aware he had a stroke. Status: Acute (2) Diabetes mellitus Assessment & Plan: Not routinely using insulin, diabetic diet, resume home insulin and monitor closely. Qualifiers: Qualified Codes: E11.65 - Type 2 diabetes mellitus with hyperglycemia; Z79.4 - care home (current) use of insulin Status: Chronic (3) HTN (hypertension) Assessment & Plan: Not taking medication at home, will start lisinopril. Qualifiers: Qualified Codes: I10 - Essential (primary) hypertension Status: Chronic (4) Polysubstance abuse Assessment & Plan: Discussed risks of methamphetamine use and recommended cessation. nutrition services assistant consulted. Status: Chronic (5) Depression Assessment & Plan: Suspect his amotivation and fatigue may be depression related and he agrees, will trial SSRI. Status: Chronic (6) Discharge planning issues Assessment & Plan: Has no electricity or water, social organization professor consulted. Adult protective services contacted. Status: Acute Chief Complaint/HPI Chief Complaint/HPI 63 yo male states he remembers eating breakfast and then sitting in his chair and falling asleep. His neighbor called an ambulance because he was unresponsive. He states he has been taking his insulin, but he came across something online called "sugarblend" that helps out tremendously and he states if he is not careful it will make his insulin overdo and he will have low blood sugar. His old glucometer broke and his new one he is not familiar with how to use. He denies fever, chest pain. Has occasional cough. His electricity is off because he couldn't afford to pay his bill because he has been paying fines at court. His power was turned off yesterday. He missed his last clinic appointment for unclear reason. He does admit "I like my weed", he also uses methamphetamine which gets him out of bed because he is too fatigued otherwise, states he has no motivation. He tries to use just enough to get going. Discharge Summary-Simple/Stand Consultations Discharge Physical Examination Allergies: Coded Allergies: Benzodiazepines (Verified Allergy, Unknown, 05/10/14) Vitals & I&Os Vital Sign - Last 12Hours Date Time Temp Pulse Resp B/P (MAP) Pulse Ox O2 Delivery O2 Flow Rate FiO2 03/26/19 12:49 72 03/26/19 12:00 97.5 18 129/68 (88) 97 Room Air Intake and Output 03/26/19 00:00 Intake Total 4320 ml Balance 4320 ml General Appearance: Alert, No Acute Distress Respiratory: Clear to Auscultation, Normal Air Movement Cardiovascular: Regular Rate, No Murmurs Psych/Mental Status: Mood NL Hospital Course See final discharge diagnosis. Radiology Reviewed CT head 03/24 showed moderate sided right MCA distribution chronic infarct (not present on CT 09/2017) Discharge Instructions to patient/family Please see electronic discharge instructions given to patient. Discharge Medications Reviewed and agree with Discharge Medication list on patient's Discharge Inst ruction sheet Clinical Quality Measures DVT/VTE Risk/Contraindication: Risk Factor Score Per Nursin RFS Level Per Nursing on Admit: 3=High Copy Copies To 1: JUAN ANTONIO MATHEWS MD, BETHANY N MD Mar 26, 2019 14:42
[2019-03-26] MEDS: ENOXAPARIN 30 MG/0.3 ML (LOVENOX) SYR SC SCH (15:20)
== END 2019-03-26 13:25 | disposition home or self-care (01) ==
LOC: EDUNIT# 12:40 → ER 12:42 → UNDOADMOB 14:27 → 4TH 14:27 → INTOOBSV 14:27 → UNDODISOB 03-26 15:32
PROVIDERS: ADMIT Family Medicine; ATTEND Family Medicine
DX: R41.82 Altered mental status, unspecified (principal); E11.65 Type 2 diabetes mellitus with hyperglycemia; E11.43 Type 2 diabetes mellitus with diabetic autonomic (poly)neuropathy; I10 Essential (primary) hypertension; F32.9 Major depressive disorder, single episode, unspecified; F15.10 Other stimulant abuse, uncomplicated; F17.210 Nicotine dependence, cigarettes, uncomplicated; E78.00 Pure hypercholesterolemia, unspecified; R53.83 Other fatigue; F10.21 Alcohol dependence, in remission; Z86.73 Personal history of transient ischemic attack (TIA), and cerebral infarction without residual deficits; Z79.4 Long term (current) use of insulin
CPT/HCPCS: 36415; 36600; 70450; 71045; 80048; 80053; 80306; 80320; 80329; 81000; 82150; 82805; 82962; 83605; 83690; 83735; 83880; 84443; 84484; 85025; 85610; 85730; 87040; 93005; 93041; 96360; G0378

== ENCOUNTER 2019-03-27 20:44 | Emergency (ER) | payer MEDICARE ==
[~2019-03-27] VITALS: Ht 182.9 cm; Wt 60.3 kg
[~2019-03-27 20:44] MED LIST changes: +CHOL2000 PO; +FLUO20CA25 PO; +LISI-552 PO; +OMEG-160 PO; +[UNRECOGNIZED DRUG - OTHER] PO
--- OUTSIDE RECORDS SUMMARY | 2019-03-27 20:49 | XMS REPORT ---
Author Author Migration, Doctor Organization [facility] Address Unknown Phone Unavailable Care Team Providers Care Academic Affairs Dean Name Role Phone Migration, Doctor Unavailable Unavailable PROBLEMS Type Condition ICD9-CM Code DFC59-BM Code Onset Dates Condition Status SNOMED Code Problem Diabetes type 2, uncontrolled E11.65 Active 714229627 Problem History of drug use Z87.898 Active 832764648 Problem Microalbuminuria R80.9 Active 941762903 Problem Other hammer toe(s) (acquired), right foot M20.41 Active 840184788 Problem Diabetes mellitus type II, uncontrolled E11.65 Active 820880291 Problem Low oxygen saturation R79.81 Active 349436452 Problem Type 2 diabetes mellitus with foot ulcer E11.621 Active 758169244 Problem Onychomycosis B35.1 Active 001943990 Problem Tension headache G44.209 Active 943587068 Problem Neuropathy G62.9 Active 295136729 Problem Chronic obstructive pulmonary disease, unspecified COPD type J44.9 Active 61063278 Problem Heat exhaustion due to salt depletion, subsequent encounter T67.4XXD Active 83411903 Problem detention current use of insulin Z79.4 Active 362458181 Problem Non-pressure chronic ulcer of other part of unspecified foot with unspecified severity L97.509 Active [id number] ALLERGIES No Information ENCOUNTERS Encounter Location Date Diagnosis [place] [id number], [place] [address] Feb, [place] [address], [place] [address] Nov, [place] [id number] [place] [address] Nov, [place] [id number], [place] [address] Nov, Type 2 diabetes mellitus with foot ulcer E11.621 and Tension headache G44.209 [place] [id number] [address] Nov, [facility] [id number] [place] [address] Nov, [facility] [id number] [place] [address] Oct, [facility] [id number] [place] [address] Oct, Diabetes type 2, uncontrolled E11.65 ; Type 2 diabetes mellitus with foot ulcer E11.621 ; Non-pressure chronic ulcer of other part of unspecified foot with unspecified severity L97.509 ; detention current use of insulin Z79.4 and Status post amputation of lesser toe of left foot Z89.422 [place] [id number] [place] [address] Oct, [facility] [id number] [place] [address] Sep, [facility] [id number] [place] [address] Jun, Diabetes type 2, uncontrolled E11.65 [place] [id number] [place] [address] May, Diabetes type 2, uncontrolled E11.65 [place] [id number] [place] [address] Nov, Diabetes type 2, uncontrolled E11.65 [facility] [id number] [place] [address] Nov, Diabetes type 2, uncontrolled E11.65 [facility] [id number] [place] [address] Aug, Neuropathy G62.9 and Cellulitis of right foot L03.115 [place] [id number] [place] [address] Aug, [place] [id number] [place] [address] May, Diabetes type 2, uncontrolled E11.65 and Neuropathy G62.9 [place] [id number] [place] [address] Apr, Diabetes type 2, uncontrolled E11.65 ; History of drug use Z87.898 ; Neuropathy G62.9 ; Low oxygen saturation R79.81 ; Chronic obstructive pulmonary disease, unspecified COPD type J44.9 and Heat exhaustion due to salt depletion, subsequent encounter T67.4XXD [place] [id number] [place] [address] Apr, Onychomycosis B35.1 ; Other hammer toe(s) (acquired), right foot M20.41 and Diabetes mellitus type II, uncontrolled E11.65 [place] [id number] [place] [address] Apr, [place] [id number] [place] [address] Feb, Onychomycosis B35.1 ; Diabetes type 2, uncontrolled E11.65 ; Neuropathy G62.9 and History of drug use Z87.898 [place] [id number] [place] [address] Feb, Diabetes type 2, uncontrolled E11.65 [place] [id number] [place] [address] January, [place] [id number] [place] [address] Dec, Diabetes type 2, uncontrolled E11.65 and Screening for cholesterol level Z13.220 [place] [id number] [place] [address] Dec, Diabetes type 2, uncontrolled E11.65 ; Microalbuminuria R80.9 ; History of drug use Z87.898 ; Screening for cholesterol level Z13.220 and Neuropathy G62.[address] [id number], [place] [address] Sep, [facility] [address], [place] [address] Mar, [facility] [address], [place] [address] Dec, Cellulitis of foot, left L03.116 [facility] [address] [place] [address] Dec, [facility] [address], [place] [address] Dec, [facility] [address], [place] [address] 15 Dec, 2015 Diabetes type 2, uncontrolled E11.65 and Cellulitis of foot without toes, left L03.116 [facility] [address] [place] [id number] Nov, Diabetes type 2, uncontrolled E11.65 and Neuropathy G62.9 [facility] [address], [place] [address] January, [facility] [address], [place] [address] January, [facility] [address], [place] [address] 14 Dec, 2014 [facility] [address], [place] [address] Dec, [facility] [id number], [place] [address] Aug, [facility] [address], [place] [address] Aug, [facility] [id number], [place] [address] 08 Aug, 2014 [facility] [id number], [place] [address] Aug, [facility] [place] [facility] [address] [id number] [place] [address] Jun, [facility] [place] [facility] [address] [id number] [place] [address] Jun, [facility] [place] [facility] [address] [id number] [place] [address] May, [facility] [place] [facility] [address] [id number] [place] [address] May, [facility] [place] [facility] [address] [id number] [place] [address] Apr, [facility] [place] [facility] [address] [id number] [place] [address] Apr, [facility] [place] [facility] [address] [id number] [place] [address] Apr, [facility] [place] [facility] [address] [id number] [place] [address] Apr, [facility] [place] [facility] [address] [id number] [place] [address] Apr, [facility] [place] [facility] [address] [id number] [place] [address] Apr, [facility] [place] [facility] [address] [id number], [place] [address] Mar, [facility] [place] [facility] [address] [id number], [place] [address] Mar, [facility] [place] [facility] [address] [id number] [place] [address] Feb, [facility] [place] [facility] [address] [id number] [place] [address] Feb, [facility] [place] [facility] [address] [id number] [place] [address] Feb, [facility] [place] [facility] [address] [id number] [place] [address] Feb, [facility] [address] [id number] [place] [address] Dec, [facility] [place] [facility] [address] [id number] [place] [address] Dec, [facility] [place] [facility] [address] [id number] [place] [address] Dec, [facility] [place] [facility] [address] [id number] [place] [address] Dec, [facility] [place] [facility] [address] [id number] [place] [address] Dec, [facility] [place] [facility] [address] [id number] [place] [address] Sep, [facility] [address] [id number] [place] [address] Sep, [facility] [address] [id number] [place] [address] Aug, [facility] [place] [facility] [address] [id number] [place] [address] Aug, [facility] [address] [facility] [id number] [place] [address] Aug, [facility] [place] [facility] [address] [id number] [place] [address] Aug, [facility] [place] [facility] [address] [id number] [place] [address] Aug, [facility] [place] [facility] [address] [id number] [place] [address] Aug, [facility] [place] [facility] [address] [id number] [place] [address] Aug, [facility] [place] [facility] [address] [id number] [place] [address] Aug, [facility] [address] [id number] [place] [address] Jul, [facility] [address] [id number] [place] [address] Jul, [facility] [address] [id number] [place] [address] Apr, [facility] [address] [id number] [place] [address] Mar, [facility] [address] [id number] [place] [address] Mar, [facility] [address] [id number] [place] [address] Mar, [facility] [address] [id number] [place] [address] January, [facility] [address] [id number] [place] [address] January, [facility] [address] [id number] [place] [address] January, [facility] [address] [id number] [place] [address] January, [facility] [address] [id number] [place] [address] January, [facility] [address] [id number] [place] [address] Nov, [facility] [address] [id number] [place] [address] Nov, [facility] [place] [facility] [address] [id number] [place] [address] Nov, [facility] [address] [id number] [place] [address] Oct, [facility] [address] [id number] [address] Oct, [facility] [place] [facility] [address] [id number] [place] [address] Sep, [facility] [place] [facility] [address] [id number] [place] [address] Sep, [facility] [place] [facility] [address] [facility] [id number] [place] [address] Jul, [facility] [place] [facility] [address] [id number] [place] [address] Jul, [facility] [place] [facility] [address] [id number] [place] [address] Jul, [facility] [place] [facility] [address] [id number] [place] [address] Jul, [facility] [place] [facility] [id number] [address] Jun, [facility] [place] [facility] [address] [id number] [place] [address] Jun, [facility] [place] [facility] [address] [facility] [id number] [place] [address] 28 May, 2012 [facility] [place] [facility] [address] [facility] [id number] [place] [address] 15 May, 2012 [facility] [place] [facility] [address] [id number] [place] [address] 13 May, 2012 [facility] [place] [facility] [address] [id number] [place] [address] 10 May, 2012 [facility] [place] [facility] [address] [id number] [place] [address] Apr, [facility] [place] [facility] [address] [facility] [id number] [place] [address] Mar, [facility] [place] [facility] [address] [facility] [id number] [place] [address] Mar, [facility] [place] [facility] [address] [id number] [place] [address] Mar, [facility] [place] [facility] [address] [id number] [place] [address] Mar, [facility] [place] [facility] [address] [id number] [place] [address] Mar, [facility] [place] [facility] [address] [id number] [place] [address] Mar, [facility] [place] [facility] [address] [id number] [place] [address] Mar, [facility] [place] [facility] [address] [id number] [place] [address] Feb, [facility] [place] [facility] [address] [id number] [place] [address] Feb, [facility] [place] [facility] [address] [id number] [place] [address] January, [facility] [place] [facility] [address] [id number] [place] [address] January, [facility] [place] [facility] [address] [id number] [place] [address] Dec, [facility] [place] [facility] [address] [id number] [place] [address] Dec, [facility] [place] [facility] [address] [id number] [place] [address] Dec, [facility] [place] [facility] [address] [id number] [place] [address] Nov, [facility] [place] [facility] [address] [id number] [place] [address] Nov, [facility] [place] [facility] [address] [id number] [place] [address] Oct, [facility] [place] [facility] [address] [id number] [place] [address] Sep, [facility] [address] [facility] [id number], [place] [address] Sep, [facility] [address] [facility] [id number], [place] [address] Aug, [facility] [id number], [place] [address] Jul, [facility] [address], [place] [address] Jul, [facility] [id number], [place] [address] Dec, [facility] [id number] [address] Aug, [facility] [id number] [address] Jul, IMMUNIZATIONS No Known Immunizations SOCIAL HISTORY Never Assessed REASON FOR VISIT [facility] PLAN OF CARE VITAL SIGNS MEDICATIONS Unknown [...] 01/15/16 Hospitalization History [facility] Heat Exhaustion 04/2017 Hospitalization History [facility]- Hyperglycemia, Methamphetamine Abuse and Acute Renal. 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
--- OUTSIDE RECORDS SUMMARY | 2019-03-27 20:49 | XMS REPORT ---
Author Author Migration, Doctor Organization [facility] Address Unknown Phone Unavailable Care Team Providers Care Melt Superintendant Name Role Phone Migration, Doctor Unavailable Unavailable PROBLEMS Type Condition ICD9-CM Code MDK14-AH Code Onset Dates Condition Status SNOMED Code Problem Diabetes type 2, uncontrolled E11.65 Active 866122314 Problem History of drug use Z87.898 Active 509339912 Problem Microalbuminuria R80.9 Active 646702853 Problem Other hammer toe(s) (acquired), right foot M20.41 Active 484923111 Problem Diabetes mellitus type II, uncontrolled E11.65 Active 635914927 Problem Low oxygen saturation R79.81 Active 905787768 Problem Type 2 diabetes mellitus with foot ulcer E11.621 Active 004713716 Problem Onychomycosis B35.1 Active 332214740 Problem Tension headache G44.209 Active 275075681 Problem Neuropathy G62.9 Active 645244955 Problem Chronic obstructive pulmonary disease, unspecified COPD type J44.9 Active 47594048 Problem Heat exhaustion due to salt depletion, subsequent encounter T67.4XXD Active 11090666 Problem skilled nursing current use of insulin Z79.4 Active 895687962 Problem Non-pressure chronic ulcer of other part of unspecified foot with unspecified severity L97.509 Active 555367765 ALLERGIES No Information ENCOUNTERS Encounter Location Date Diagnosis [place] [id number] [address] Feb, [place] [address] [address] Nov, [place] [id number] [place] [address] Nov, [place] [id number] [address] Nov, Type 2 diabetes mellitus with foot ulcer E11.621 and Tension headache G44.209 [place] [id number] [address] Nov, [facility] [id number] [place] [address] Nov, [facility] [id number] [place] [address] Oct, [facility] [id number] [place] [address] Oct, Diabetes type 2, uncontrolled E11.65 ; Type 2 diabetes mellitus with foot ulcer E11.621 ; Non-pressure chronic ulcer of other part of unspecified foot with unspecified severity L97.509 ; skilled nursing current use of insulin Z79.4 and Status post amputation of lesser toe of left foot Z89.422 [place] [id number] [place] [address] Oct, [facility] [id number] [place] [address] Sep, [facility] [id number] [place] [address] Jun, Diabetes type 2, uncontrolled E11.65 [place] [id number] [place] [address] May, Diabetes type 2, uncontrolled E11.65 [place] [id number] [place] [address] Nov, Diabetes type 2, uncontrolled E11.65 [facility] [id number] [place] [address] Nov, Diabetes type 2, uncontrolled E11.65 [facility] [id number] [place] [address] Aug, Neuropathy G62.9 and Cellulitis of right foot L03.115 [place] [id number] [place] [address] Aug, [place] [id number] [place] [address] May, Diabetes type 2, uncontrolled E11.65 and Neuropathy G62.9 [place] [id number] [place] [address] Apr, Diabetes type 2, uncontrolled E11.65 ; History of drug use Z87.898 ; Neuropathy G62.9 ; Low oxygen saturation R79.81 ; Chronic obstructive pulmonary disease, unspecified COPD type J44.9 and Heat exhaustion due to salt depletion, subsequent encounter T67.4XXD [place] [id number] [place] [address] Apr, Onychomycosis B35.1 ; Other hammer toe(s) (acquired), right foot M20.41 and Diabetes mellitus type II, uncontrolled E11.65 [place] [id number] [place] [address] Apr, [place] [id number] [place] [address] Feb, Onychomycosis B35.1 ; Diabetes type 2, uncontrolled E11.65 ; Neuropathy G62.9 and History of drug use Z87.898 [place] [id number] [place] [address] Feb, Diabetes type 2, uncontrolled E11.65 [place] [id number] [place] [address] January, [place] [id number] [place] [address] Dec, Diabetes type 2, uncontrolled E11.65 and Screening for cholesterol level Z13.220 [place] [id number] [place] [address] Dec, Diabetes type 2, uncontrolled E11.65 ; Microalbuminuria R80.9 ; History of drug use Z87.898 ; Screening for cholesterol level Z13.220 and Neuropathy G62.[address] [id number] [address] Sep, [facility] [address] [address] Mar, [facility] [address] [address] Dec, Cellulitis of foot, left L03.116 [facility] [address] [place] [address] Dec, [facility] [address] [address] Dec, [facility] [address] [address] 15 Dec, 2015 Diabetes type 2, uncontrolled E11.65 and Cellulitis of foot without toes, left L03.116 [facility] [address] [place] [id number] Nov, Diabetes type 2, uncontrolled E11.65 and Neuropathy G62.9 [facility] [address] [address] January, [facility] [address] [address] January, [facility] [address] [address] 14 Dec, 2014 [facility] [address] [address] Dec, [facility] [id number] [address] Aug, [facility] [address] [address] Aug, [facility] [id number] [address] 08 Aug, 2014 [facility] [id number] [address] Aug, [facility] [place] [facility] [address] [id number] [place] [address] Jun, [facility] [place] [facility] [address] [id number] [place] [address] Jun, [facility] [place] [facility] [address] [id number] [place] [address] May, [facility] [place] [facility] [address] [id number] [place] [address] May, [facility] [place] [facility] [address] [id number] [place] [address] Apr, [facility] [place] [facility] [address] [id number] [place] [address] Apr, [facility] [place] [facility] [address] [id number] [place] [address] Apr, [facility] [place] [facility] [address] [id number] [place] [address] Apr, [facility] [place] [facility] [address] [id number] [place] [address] Apr, [facility] [place] [facility] [address] [id number] [place] [address] Apr, [facility] [place] [facility] [address] [id number] [address] Mar, [facility] [place] [facility] [address] [id number] [address] Mar, [facility] [place] [facility] [address] [id number] [place] [address] Feb, [facility] [place] [facility] [address] [id number] [place] [address] Feb, [facility] [place] [facility] [address] [id number] [place] [address] Feb, [facility] [place] [facility] [address] [id number] [place] [address] Feb, [facility] [address] [id number] [place] [address] Dec, [facility] [place] [facility] [address] [id number] [place] [address] Dec, [facility] [place] [facility] [address] [id number] [place] [address] Dec, [facility] [place] [facility] [address] [id number] [place] [address] Dec, [facility] [place] [facility] [address] [id number] [place] [address] Dec, [facility] [place] [facility] [address] [id number] [place] [address] Sep, [facility] [address] [id number] [place] [address] Sep, [facility] [address] [id number] [place] [address] Aug, [facility] [place] [facility] [address] [id number] [place] [address] Aug, [facility] [address] [facility] [id number] [place] [address] Aug, [facility] [place] [facility] [address] [id number] [place] [address] Aug, [facility] [place] [facility] [address] [id number] [place] [address] Aug, [facility] [place] [facility] [address] [id number] [place] [address] Aug, [facility] [place] [facility] [address] [id number] [place] [address] Aug, [facility] [place] [facility] [address] [id number] [place] [address] Aug, [facility] [address] [id number] [place] [address] Jul, [facility] [address] [id number] [place] [address] Jul, [facility] [address] [id number] [place] [address] Apr, [facility] [address] [id number] [place] [address] Mar, [facility] [address] [id number] [place] [address] Mar, [facility] [address] [id number] [place] [address] Mar, [facility] [address] [id number] [place] [address] January, [facility] [address] [id number] [place] [address] January, [facility] [address] [id number] [place] [address] January, [facility] [address] [id number] [place] [address] January, [facility] [address] [id number] [place] [address] January, [facility] [address] [id number] [place] [address] Nov, [facility] [address] [id number] [place] [address] Nov, [facility] [place] [facility] [address] [id number] [place] [address] Nov, [facility] [address] [id number] [place] [address] Oct, [facility] [address] [id number] [address] Oct, [facility] [place] [facility] [address] [id number] [place] [address] Sep, [facility] [place] [facility] [address] [id number] [place] [address] Sep, [facility] [place] [facility] [address] [facility] [id number] [place] [address] Jul, [facility] [place] [facility] [address] [id number] [place] [address] Jul, [facility] [place] [facility] [address] [id number] [place] [address] Jul, [facility] [place] [facility] [address] [id number] [place] [address] Jul, [facility] [place] [facility] [id number] [address] Jun, [facility] [place] [facility] [address] [id number] [place] [address] Jun, [facility] [place] [facility] [address] [facility] [id number] [place] [address] 28 May, 2012 [facility] [place] [facility] [address] [id number] [place] [address] 15 May, 2012 [facility] [place] [facility] [address] [id number] [place] [address] 13 May, 2012 [facility] [place] [facility] [address] [id number] [place] [address] 10 May, 2012 [facility] [place] [facility] [address] [id number] [place] [address] Apr, [facility] [place] [facility] [address] [id number] [place] [address] Mar, [facility] [place] [facility] [address] [id number] [place] [address] Mar, [facility] [place] [facility] [address] [id number] [place] [address] Mar, [facility] [place] [facility] [address] [id number] [place] [address] Mar, [facility] [place] [facility] [address] [id number] [place] [address] Mar, [facility] [place] [facility] [address] [id number] [place] [address] Mar, [facility] [place] [facility] [address] [id number] [place] [address] Mar, [facility] [place] [facility] [address] [id number] [place] [address] Feb, [facility] [place] [facility] [address] [id number] [place] [address] Feb, [facility] [place] [facility] [address] [id number] [place] [address] January, [facility] [place] [facility] [address] [id number] [place] [address] January, [facility] [place] [facility] [address] [id number] [place] [address] Dec, [facility] [place] [facility] [address] [id number] [place] [address] Dec, [facility] [place] [facility] [address] [id number] [place] [address] Dec, [facility] [place] [facility] [address] [id number] [place] [address] Nov, [facility] [place] [facility] [address] [id number] [place] [address] Nov, [facility] [place] [facility] [address] [id number] [place] [address] Oct, [facility] [place] [facility] [address] [id number] [place] [address] Sep, [facility] [address] [id number] [address] Sep, [facility] [address] [id number] [address] Aug, [facility] [id number] [address] Jul, [facility] [address] [address] Jul, [facility] [id number] [address] Dec, [facility] [id number] [address] Aug, [facility] [id number] [address] Jul, IMMUNIZATIONS No Known Immunizations SOCIAL HISTORY Never Assessed REASON FOR VISIT [facility] [place] VITAL SIGNS MEDICATIONS Unknown [...] VC Heat Exhaustion 04/2017 Hospitalization History [facility]- Hyperglycemia, Methamphetamine Abuse and Acute Renal. 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 10/2018
--- OUTSIDE RECORDS SUMMARY | 2019-03-27 20:49 | XMS REPORT ---
Author Author JEANETTE EMANUEL [facility] Address [address] [place] [address] Care Team Providers Care Binder Sorter Name Role Phone MAMIE REIDY Unavailable PROBLEMS Type Condition ICD9-CM Code LIH69-ZK Code Onset Dates Condition Status SNOMED Code Problem Diabetes type 2, uncontrolled E11.65 Active 660953766 Problem History of drug use Z87.898 Active 465050705 Problem Microalbuminuria R80.9 Active 294769027 Problem Other hammer toe(s) (acquired), right foot M20.41 Active 858596410 Problem Diabetes mellitus type II, uncontrolled E11.65 Active 230612738 Problem Low oxygen saturation R79.81 Active 881387375 Problem Type 2 diabetes mellitus with foot ulcer E11.621 Active 172221667 Problem Onychomycosis B35.1 Active 293403395 Problem Tension headache G44.209 Active 755136135 Problem Neuropathy G62.9 Active 114450562 Problem Chronic obstructive pulmonary disease, unspecified COPD type J44.9 Active 01658044 Problem Heat exhaustion due to salt depletion, subsequent encounter T67.4XXD Active 68366184 Problem FDC current use of insulin Z79.4 Active 897398170 Problem Non-pressure chronic ulcer of other part of unspecified foot with unspecified severity L97.509 Active 294789834 ALLERGIES Substance Reaction Event Type Date Status Amphetamine Pos for meth on UDS Non Drug Allergy Oct, Active Hydrocodone Failed narcotics contract Non Drug Allergy Oct, Active Benzodiazepines Failed narcotics contract Non Drug Allergy Oct, Active ENCOUNTERS Encounter Location Date Diagnosis [facility] [address] [facility] [id number] [address] Feb, [facility] [address] [facility] [id number] [address] Nov, [facility] [address] [address] Nov, [facility] [id number] [place] [address] Nov, Type 2 diabetes mellitus with foot ulcer E11.621 and Tension headache G44.209 [facility] [id number] [place] [address] Nov, [facility] [id number] [place] [address] Nov, [facility] [id number] [place] [address] Oct, [place] [id number] [place] [address] Oct, Diabetes type 2, uncontrolled E11.65 ; Type 2 diabetes mellitus with foot ulcer E11.621 ; Non-pressure chronic ulcer of other part of unspecified foot with unspecified severity L97.509 ; 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 and Status post amputation of lesser toe of left foot Z89.422 [facility] [id number] [place] [address] Oct, [facility] [address] [address] Sep, [place] [address] [address] Jun, Diabetes type 2, uncontrolled E11.65 [facility] [address] [address] May, Diabetes type 2, uncontrolled E11.65 [place] [id number] [place] [address] Nov, Diabetes type 2, uncontrolled E11.65 [facility] [address] [address] Nov, Diabetes type 2, uncontrolled E11.65 [facility] [id number] [place] [address] Aug, Neuropathy G62.9 and Cellulitis of right foot L03.115 [place] [id number] [place] [address] Aug, [place] [address] [address] May, Diabetes type 2, uncontrolled E11.65 and Neuropathy G62.9 [place] [address] [address] Apr, Diabetes type 2, uncontrolled E11.65 ; History of drug use Z87.898 ; Neuropathy G62.9 ; Low oxygen saturation R79.81 ; Chronic obstructive pulmonary disease, unspecified COPD type J44.9 and Heat exhaustion due to salt depletion, subsequent encounter T67.4XXD [address] [address] Apr, Onychomycosis B35.1 ; Other hammer toe(s) (acquired), right foot M20.41 and Diabetes mellitus type II, uncontrolled E11.65 [place] [id number] [place] [address] Apr, [place] [id number] [place] [address] Feb, Onychomycosis B35.1 ; Diabetes type 2, uncontrolled E11.65 ; Neuropathy G62.9 and History of drug use Z87.898 [place] [id number] [place] [address] Feb, Diabetes type 2, uncontrolled E11.65 [place] [id number] [place] [address] January, [place] [id number] [place] [address] Dec, Diabetes type 2, uncontrolled E11.65 and Screening for cholesterol level Z13.220 [facility] [address] [address] Dec, Diabetes type 2, uncontrolled E11.65 ; Microalbuminuria R80.9 ; History of drug use Z87.898 ; Screening for cholesterol level Z13.220 and Neuropathy G62.9 [facility] [address], [place] [address] Sep, [facility] [id number] [place] [address] Mar, [facility] [id number] [place] [address] Dec, Cellulitis of foot, left L03.116 [facility] [id number] [address] Dec, [place] [id number] [place] [address] Dec, [facility] [address] [address] Dec, Diabetes type 2, uncontrolled E11.65 and Cellulitis of foot without toes, left L03.116 [facility] [address] [place] [id number] Nov, Diabetes type 2, uncontrolled E11.65 and Neuropathy G62.9 [place] [address] [address] January, [facility] [address] [address] January, [facility] [address] [address] 14 Dec, 2014 [facility] [address] [address] 13 Dec, 2014 [facility] [address] [address] Aug, [place] [id number] [place] [address] Aug, [facility] [place] [facility] [address] [id number] [place] [address] Aug, [facility] [place] [facility] [address] [id number] [place] [address] Aug, [facility] [place] [facility] [address] [id number] [place] [address] Jun, [facility] [place] [facility] [address] [id number] [place] [address] Jun, [facility] [place] [facility] [address] [id number] [place] [address] May, [facility] [place] [facility] [address] [id number] [place] [address] May, [facility] [place] [facility] [address] [id number] [place] [address] Apr, [facility] [place] [facility] [address] [id number] [place] [address] Apr, [facility] [place] [facility] [address] [id number] [place] [address] Apr, [facility] [place] [facility] [address] [id number] [place] [address] Apr, [facility] [place] [facility] [address] [id number] [place] [address] Apr, [facility] [place] [facility] [address] [id number] [place] [address] Apr, [facility] [place] [facility] [address] [id number] [place] [address] Mar, [facility] [place] [facility] [address] [id number] [place] [address] Mar, [facility] [place] [facility] [address] [id number] [place] [address] Feb, [facility] [place] [facility] [address] [id number] [place] [address] Feb, [facility] [place] [facility] [address] [id number] [place] [address] Feb, [facility] [place] [facility] [address] [id number] [place] [address] Feb, [facility] [place] [facility] [address] [id number] [place] [address] Dec, [facility] [place] [facility] [address] [id number] [place] [address] Dec, [facility] [place] [facility] [address] [id number] [place] [address] Dec, [facility] [place] [facility] [address] [id number] [place] [address] Dec, [facility] [place] [facility] [address] [id number] [place] [address] Dec, [facility] [place] [facility] [address] [id number] [place] [address] Sep, [facility] [place] [facility] [address] [id number] [place] [address] Sep, [facility] [place] [facility] [address] [id number] [place] [address] Aug, [facility] [place] [facility] [address] [id number] [place] [address] Aug, [facility] [place] [facility] [address] [id number] [place] [address] Aug, [facility] [place] [facility] [address] [id number] [place] [address] Aug, [facility] [place] [facility] [address] [id number] [place] [address] Aug, [facility] [place] [facility] [address] [id number] [place] [address] Aug, [facility] [address] [id number] [place] [address] Aug, [facility] [address] [id number] [place] [address] Aug, [facility] [address] [id number] [place] [address] Jul, [facility] [address] [id number] [place] [address] Jul, [facility] [address] [id number] [place] [address] Apr, [facility] [address] [id number] [place] [address] Mar, [facility] [address] [id number] [place] [address] Mar, [facility] [address] [id number] [place] [address] Mar, [facility] [address] [id number] [place] [address] January, [facility] [address] [id number] [place] [address] January, [facility] [address] [id number] [place] [address] January, [facility] [place] [facility] [address] [id number] [place] [address] January, [facility] [address] [id number] [place] [address] January, [facility] [place] [facility] [address] [id number] [place] [address] Nov, [facility] [place] [facility] [address] [id number] [place] [address] Nov, [facility] [place] [facility] [address] [id number] [place] [address] Nov, [facility] [place] [facility] [address] [id number] [place] [address] Oct, [facility] [place] [facility] [address] [id number] [place] [address] Oct, [facility] [place] [facility] [address] [id number] [place] [address] Sep, [facility] [place] [facility] [address] [id number] [place] [address] Sep, [facility] [place] [facility] [address] [id number] [place] [address] Jul, [facility] [place] [facility] [address] [id number] [place] [address] Jul, [facility] [place] [facility] [address] [id number] [place] [address] Jul, [facility] [place] [facility] [address] [id number] [place] [address] Jul, [facility] [place] [facility] [address] [id number] [place] [address] Jun, [facility] [place] [facility] [address] [id number] [place] [address] 16 Jun, 2012 [facility] [place] [facility] [address] [id number] [place] [address] 28 May, 2012 [facility] [place] [facility] [address] [id number] [place] [address] 15 May, 2012 [facility] [place] [facility] [address] [id number] [place] [address] 13 May, 2012 [facility] [place] [facility] [address] [id number] [place] [address] 10 May, 2012 [facility] [place] [facility] [address] [id number] [place] [address] Apr, [facility] [place] [facility] [address] [id number] [place] [address] Mar, [facility] [place] [facility] [address] [id number] [place] [address] Mar, [facility] [place] [facility] [address] [id number] [place] [address] Mar, [facility] [place] [facility] [address] [id number] [place] [address] Mar, [facility] [place] [facility] [address] [id number] [place] [address] Mar, [facility] [place] [facility] [address] [id number] [place] [address] Mar, [facility] [place] [facility] [address] [id number] [place] [address] Mar, [facility] [place] [facility] [address] [id number] [place] [address] Feb, [facility] [place] [facility] [address] [id number] [place] [address] Feb, [facility] [place] [facility] [address] [id number] [place] [address] January, [facility] [place] [facility] [address] [id number] [place] [address] January, [facility] [place] [facility] [address] [id number] [place] [address] Dec, [facility] [place] [facility] [address] [id number] [place] [address] Dec, [facility] [place] [facility] [address] [id number] [place] [address] Dec, [facility] [place] [facility] [address] [id number] [place] [address] Nov, [facility] [place] [facility] [address] [id number] [address] Nov, [facility] [address] [address] Oct, [facility] [address] [address] Sep, [facility] [address] [address] Sep, [facility] [address] [address] Aug, [facility] [id number] [place] [address] Jul, [facility] [id number] [place] [address] Jul, [facility] [id number] [place] [address] Dec, [facility] [address] [address] Aug, [facility] [address] [address] Jul, IMMUNIZATIONS No Known Immunizations SOCIAL HISTORY Never Assessed REASON FOR VISIT hosp f/u, toe amputation. A1C via hospital d/c summary 12.2-awoods PLAN OF CARE Activity Details Follow Up 2 Weeks Reason:Blood sugar/wound check VITAL SIGNS Height 72 in 2018-11-25 Weight 140 lbs 2018-11-25 Temperature 98.7 degrees Fahrenheit 2018-11-25 Heart Rate 78 bpm 2018-11-25 Respiratory Rate 20 2018-11-25 BMI 18.99 kg/m2 2018-11-25 Blood pressure systolic 138 mmHg 2018-11-25 Blood pressure diastolic 76 mmHg 2018-11-25 MEDICATIONS Medication Instructions Dosage Frequency Start Date End Date Duration Status Bactrim DS 800-160 MG Orally Twice a day 1 tablet 12h Oct, Nov, 10 day(s) Active Hydrocodone-Acetaminophen 5-325 MG Orally every 8 hrs 1 tablet as needed 8h Active Levemir FlexTouch 100 UNIT/ML Subcutaneous HS inject 40 units Apr, Active Mupirocin 2 % Externally 2 times a day 1 application to affected area 12h 5 day(s) Active NovoLog Flexpen 100 UNIT/ML Subcutaneous with meals Inject 10 units Apr, Active RESULTS No Results PROCEDURES Procedure Date Ordered Result Body Site [facility] VISIT ESTABLISHED PATIENT Nov 25, 2018 INSTRUCTIONS MEDICATIONS ADMINISTERED No Known Medications MEDICAL [...] VC Heat Exhaustion 04/2017 Hospitalization History [facility]- Hyperglycemia, Methamphetamine Abuse and Acute Renal. Discharged 10/24/17 10/22/2017 Hospitalization History left 5th toe cellulitus resulting in amputation, osteomylitis-[facility] 10/2018
--- OUTSIDE RECORDS SUMMARY | 2019-03-27 20:49 | XMS REPORT ---
Author Author Migration, Doctor Organization [facility] Address Unknown Phone Unavailable Care Team Providers Care Gore Maker Name Role Phone Migration, Doctor Unavailable Unavailable PROBLEMS Type Condition ICD9-CM Code HDB02-EJ Code Onset Dates Condition Status SNOMED Code Problem Diabetes type 2, uncontrolled E11.65 Active 274563024 Problem History of drug use Z87.898 Active 288030948 Problem Microalbuminuria R80.9 Active 402586452 Problem Other hammer toe(s) (acquired), right foot M20.41 Active 293008395 Problem Diabetes mellitus type II, uncontrolled E11.65 Active 895799921 Problem Low oxygen saturation R79.81 Active 998033349 Problem Type 2 diabetes mellitus with foot ulcer E11.621 Active 922886388 Problem Onychomycosis B35.1 Active 086621640 Problem Tension headache G44.209 Active 132058544 Problem Neuropathy G62.9 Active 473934064 Problem Chronic obstructive pulmonary disease, unspecified COPD type J44.9 Active 78130747 Problem Heat exhaustion due to salt depletion, subsequent encounter T67.4XXD Active 81083242 Problem detention current use of insulin Z79.4 Active 892114735 Problem Non-pressure chronic ulcer of other part of unspecified foot with unspecified severity L97.509 Active [id number] ALLERGIES No Information ENCOUNTERS Encounter Location Date Diagnosis [facility] [id number] [address] Feb, [facility] [id number] [address] Nov, [facility] [id number] [place] [address] Nov, [facility] [id number] [address] Nov, Type 2 diabetes mellitus with foot ulcer E11.621 and Tension headache G44.209 [facility] [id number] [address] Nov, [facility] [id number] [place] [address] Nov, [facility] [id number] [place] [address] Oct, [facility] [id number] [place] [address] Oct, Diabetes type 2, uncontrolled E11.65 ; Type 2 diabetes mellitus with foot ulcer E11.621 ; Non-pressure chronic ulcer of other part of unspecified foot with unspecified severity L97.509 ; detention current use of insulin Z79.4 and Status post amputation of lesser toe of left foot Z89.422 [facility] [id number] [place] [address] Oct, [facility] [id number] [place] [address] Sep, [facility] [id number] [place] [address] Jun, Diabetes type 2, uncontrolled E11.65 [facility] [id number] [place] [address] May, Diabetes type 2, uncontrolled E11.65 [facility] [id number] [place] [address] Nov, Diabetes type 2, uncontrolled E11.65 [facility] [id number] [place] [address] Nov, Diabetes type 2, uncontrolled E11.65 [facility] [id number] [place] [address] Aug, Neuropathy G62.9 and Cellulitis of right foot L03.115 [facility] [id number] [place] [address] Aug, [place] [id number] [place] [address] May, Diabetes type 2, uncontrolled E11.65 and Neuropathy G62.9 [place] [id number] [place] [address] Apr, Diabetes type 2, uncontrolled E11.65 ; History of drug use Z87.898 ; Neuropathy G62.9 ; Low oxygen saturation R79.81 ; Chronic obstructive pulmonary disease, unspecified COPD type J44.9 and Heat exhaustion due to salt depletion, subsequent encounter T67.4XXD [place] [id number] [place] [address] Apr, Onychomycosis B35.1 ; Other hammer toe(s) (acquired), right foot M20.41 and Diabetes mellitus type II, uncontrolled E11.65 [place] [id number] [place] [address] Apr, [facility] [id number] [place] [address] Feb, Onychomycosis B35.1 ; Diabetes type 2, uncontrolled E11.65 ; Neuropathy G62.9 and History of drug use Z87.898 [place] [id number] [place] [address] Feb, Diabetes type 2, uncontrolled E11.65 [place] [id number] [place] [address] January, [place] [id number] [place] [address] Dec, Diabetes type 2, uncontrolled E11.65 and Screening for cholesterol level Z13.220 [place] [id number] [place] [address] Dec, Diabetes type 2, uncontrolled E11.65 ; Microalbuminuria R80.9 ; History of drug use Z87.898 ; Screening for cholesterol level Z13.220 and Neuropathy G62.[address] [id number] [address] Sep, [facility] [address], [place] [address] Mar, [facility] [address] [address] Dec, Cellulitis of foot, left L03.116 [facility] [address] [place] [address] Dec, [facility] [address], [place] [address] Dec, [facility] [address] [address] 15 Dec, 2015 Diabetes type 2, uncontrolled E11.65 and Cellulitis of foot without toes, left L03.116 [facility] [address] [place] [id number] Nov, Diabetes type 2, uncontrolled E11.65 and Neuropathy G62.9 [facility] [address], [place] [address] January, [facility] [address], [place] [address] January, [facility] [address] [address] 14 Dec, 2014 [facility] [address] [address] Dec, [facility] [id number] [address] Aug, [facility] [address] [address] Aug, [facility] [id number] [address] 08 Aug, 2014 [facility] [id number] [address] Aug, [facility] [place] [facility] [address] [id number] [place] [address] Jun, [facility] [place] [facility] [address] [id number] [place] [address] Jun, [facility] [place] [facility] [address] [id number] [place] [address] May, [facility] [place] [facility] [address] [id number] [place] [address] May, [facility] [place] [facility] [address] [id number] [place] [address] Apr, [facility] [place] [facility] [address] [id number] [place] [address] Apr, [facility] [place] [facility] [address] [id number] [place] [address] Apr, [facility] [place] [facility] [address] [id number] [place] [address] Apr, [facility] [place] [facility] [address] [id number] [place] [address] Apr, [facility] [place] [facility] [address] [id number] [place] [address] Apr, [facility] [place] [facility] [address] [id number] [address] Mar, [facility] [place] [facility] [address] [id number], [place] [address] Mar, [facility] [place] [facility] [address] [id number] [place] [address] Feb, [facility] [place] [facility] [address] [id number] [place] [address] Feb, [facility] [place] [facility] [address] [id number] [place] [address] Feb, [facility] [place] [facility] [address] [id number] [place] [address] Feb, [facility] [address] [id number] [place] [address] Dec, [facility] [place] [facility] [address] [id number] [place] [address] Dec, [facility] [place] [facility] [address] [id number] [place] [address] Dec, [facility] [place] [facility] [address] [id number] [place] [address] Dec, [facility] [place] [facility] [address] [id number] [place] [address] Dec, [facility] [place] [facility] [address] [id number] [place] [address] Sep, [facility] [address] [id number] [place] [address] Sep, [facility] [address] [id number] [place] [address] Aug, [facility] [place] [facility] [address] [id number] [place] [address] Aug, [facility] [address] [facility] [id number] [place] [address] Aug, [facility] [place] [facility] [address] [id number] [place] [address] Aug, [facility] [place] [facility] [address] [id number] [place] [address] Aug, [facility] [place] [facility] [address] [id number] [place] [address] Aug, [facility] [place] [facility] [address] [id number] [place] [address] Aug, [facility] [place] [facility] [address] [id number] [place] [address] Aug, [facility] [address] [id number] [place] [address] Jul, [facility] [address] [id number] [place] [address] Jul, [facility] [address] [id number] [place] [address] Apr, [facility] [address] [id number] [place] [address] Mar, [facility] [address] [id number] [place] [address] Mar, [facility] [address] [id number] [place] [address] Mar, [facility] [address] [id number] [place] [address] January, [facility] [address] [id number] [place] [address] January, [facility] [address] [id number] [place] [address] January, [facility] [address] [id number] [place] [address] January, [facility] [address] [id number] [place] [address] January, [facility] [address] [id number] [place] [address] Nov, [facility] [address] [id number] [place] [address] Nov, [facility] [place] [facility] [address] [id number] [place] [address] Nov, [facility] [address] [id number] [place] [address] Oct, [facility] [address] [id number] [address] Oct, [facility] [place] [facility] [address] [id number] [place] [address] Sep, [facility] [place] [facility] [address] [id number] [place] [address] Sep, [facility] [place] [facility] [address] [facility] [id number] [place] [address] Jul, [facility] [place] [facility] [address] [id number] [place] [address] Jul, [facility] [place] [facility] [address] [id number] [place] [address] Jul, [facility] [place] [facility] [address] [id number] [place] [address] Jul, [facility] [place] [facility] [id number] [address] Jun, [facility] [place] [facility] [address] [id number] [place] [address] Jun, [facility] [place] [facility] [address] [facility] [id number] [place] [address] 28 May, 2012 [facility] [place] [facility] [address] [facility] [id number] [place] [address] 15 May, 2012 [facility] [place] [facility] [address] [id number] [place] [address] 13 May, 2012 [facility] [place] [facility] [address] [id number] [place] [address] 10 May, 2012 [facility] [place] [facility] [address] [id number] [place] [address] Apr, [facility] [place] [facility] [address] [facility] [id number] [place] [address] Mar, [facility] [place] [facility] [address] [facility] [id number] [place] [address] Mar, [facility] [place] [facility] [address] [id number] [place] [address] Mar, [facility] [place] [facility] [address] [id number] [place] [address] Mar, [facility] [place] [facility] [address] [id number] [place] [address] Mar, [facility] [place] [facility] [address] [id number] [place] [address] Mar, [facility] [place] [facility] [address] [id number] [place] [address] Mar, [facility] [place] [facility] [address] [id number] [place] [address] Feb, [facility] [place] [facility] [address] [id number] [place] [address] Feb, [facility] [place] [facility] [address] [id number] [place] [address] January, [facility] [place] [facility] [address] [id number] [place] [address] January, [facility] [place] [facility] [address] [id number] [place] [address] Dec, [facility] [place] [facility] [address] [id number] [place] [address] Dec, [facility] [place] [facility] [address] [id number] [place] [address] Dec, [facility] [place] [facility] [address] [id number] [place] [address] Nov, [facility] [place] [facility] [address] [id number] [place] [address] Nov, [facility] [place] [facility] [address] [id number] [place] [address] Oct, [facility] [place] [facility] [address] [id number] [place] [address] Sep, [facility] [address] [facility] [id number] [address] Sep, [facility] [address] [facility] [id number], [place] [address] Aug, [facility] [id number] [address] Jul, [facility] [address], [place] [address] Jul, [facility] [id number] [address] Dec, [facility] [id number] [address] Aug, [facility] [id number] [address] Jul, IMMUNIZATIONS No Known Immunizations SOCIAL HISTORY Never Assessed REASON FOR VISIT [facility] PLAN OF CARE VITAL SIGNS MEDICATIONS Unknown [...] VC Heat Exhaustion 04/2017 Hospitalization History [facility]- Hyperglycemia, Methamphetamine Abuse and Acute Renal. Discharged 10/24/17 10/22/2017 Hospitalization History left 5th toe cellulitus resulting in amputation, osteomylitis-[facility] 10/2018
--- OUTSIDE RECORDS SUMMARY | 2019-03-27 20:50 | XMS REPORT ---
Author Author Migration, Doctor Organization [facility] Address Unknown Phone Unavailable Care Team Providers Care Dental Technologist Name Role Phone Migration, Doctor Unavailable Unavailable PROBLEMS Type Condition ICD9-CM Code VOJ04-WP Code Onset Dates Condition Status SNOMED Code Problem Diabetes type 2, uncontrolled E11.65 Active 752385753 Problem History of drug use Z87.898 Active 827177299 Problem Microalbuminuria R80.9 Active 271195990 Problem Other hammer toe(s) (acquired), right foot M20.41 Active 790333520 Problem Diabetes mellitus type II, uncontrolled E11.65 Active 942432289 Problem Low oxygen saturation R79.81 Active 464818474 Problem Type 2 diabetes mellitus with foot ulcer E11.621 Active 475109296 Problem Onychomycosis B35.1 Active 750513429 Problem Tension headache G44.209 Active 796745885 Problem Neuropathy G62.9 Active 307647704 Problem Chronic obstructive pulmonary disease, unspecified COPD type J44.9 Active 63249062 Problem Heat exhaustion due to salt depletion, subsequent encounter T67.4XXD Active 50856820 Problem senior living current use of insulin Z79.4 Active 309644720 Problem Non-pressure chronic ulcer of other part of unspecified foot with unspecified severity L97.509 Active 658831043 ALLERGIES No Information ENCOUNTERS Encounter Location Date Diagnosis [place] [id number], [place] [address] Nov, [place] [address], [place] [address] Nov, [place] [address] [place] [id number] [place] [address] Nov, Type 2 diabetes mellitus with foot ulcer E11.621 and Tension headache G44.209 [place] [address], [place] [address] Nov, [place] [id number] [address] Nov, [facility] [id number] [place] [address] Oct, [facility] [id number] [place] [address] Oct, Diabetes type 2, uncontrolled E11.65 ; Type 2 diabetes mellitus with foot ulcer E11.621 ; Non-pressure chronic ulcer of other part of unspecified foot with unspecified severity L97.509 ; 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 and Status post amputation of lesser toe of left foot Z89.422 [place] [address] [id number] [place] [address] Oct, [place] [address] [id number] [place] [address] Sep, [facility] [id number] [place] [address] Jun, Diabetes type 2, uncontrolled E11.65 [place] [address] [id number] [place] [address] May, Diabetes type 2, uncontrolled E11.65 [facility] [id number] [place] [address] Nov, Diabetes type 2, uncontrolled E11.65 [facility] [id number] [place] [address] Nov, Diabetes type 2, uncontrolled E11.65 [facility] [address], [place] [address] Aug, Neuropathy G62.9 and Cellulitis of right foot L03.115 [facility] [id number] [place] [address] Aug, [facility] [id number] [place] [address] May, Diabetes type 2, uncontrolled E11.65 and Neuropathy G62.9 [place] [id number] [place] [address] Apr, Diabetes type 2, uncontrolled E11.65 ; History of drug use Z87.898 ; Neuropathy G62.9 ; Low oxygen saturation R79.81 ; Chronic obstructive pulmonary disease, unspecified COPD type J44.9 and Heat exhaustion due to salt depletion, subsequent encounter T67.4XXD [place] [address] [address] Apr, Onychomycosis B35.1 ; Other hammer toe(s) (acquired), right foot M20.41 and Diabetes mellitus type II, uncontrolled E11.65 [place] [address] [id number] [place] [address] Apr, [place] [address] [address] Feb, Onychomycosis B35.1 ; Diabetes type 2, uncontrolled E11.65 ; Neuropathy G62.9 and History of drug use Z87.898 [place] [address] [address] Feb, Diabetes type 2, uncontrolled E11.65 [place] [address] [id number] [place] [address] January, [place] [address] [id number] [place] [address] Dec, Diabetes type 2, uncontrolled E11.65 and Screening for cholesterol level Z13.220 [place] [address] [id number] [place] [address] Dec, Diabetes type 2, uncontrolled E11.65 ; Microalbuminuria R80.9 ; History of drug use Z87.898 ; Screening for cholesterol level Z13.220 and Neuropathy G62.9 [place] [address] [place] [id number] [place] [address] Sep, [place] [address] [facility] [id number] [address] Mar, [facility] [address], [place] [address] Dec, Cellulitis of foot, left L03.116 [facility] [address] [facility] [id number], [place] [address] Dec, [facility] [id number] [place] [address] Dec, [facility] [id number] [address] 15 Dec, 2015 Diabetes type 2, uncontrolled E11.65 and Cellulitis of foot without toes, left L03.116 [facility] [address] [place] [id number] Nov, Diabetes type 2, uncontrolled E11.65 and Neuropathy G62.9 [facility] [address], [place] [address] January, [facility] [address], [place] [address] January, [facility] [address], [place] [address] 14 Dec, 2014 [facility] [address] [id number] [address] Dec, [facility] [address], [place] [address] Aug, [facility] [address] [id number], [place] [address] Aug, [facility] [address], [place] [address] Aug, [facility] [address] [id number], [place] [address] Aug, [facility] [address], [place] [address] Jun, [facility] [place] [facility] [address] [id number] [place] [address] Jun, [facility] [place] [facility] [address] [id number] [place] [address] May, [facility] [place] [facility] [address] [id number] [place] [address] May, [facility] [place] [facility] [address] [id number] [place] [address] Apr, [facility] [place] [facility] [address] [id number] [place] [address] Apr, [facility] [place] [facility] [address] [id number] [place] [address] Apr, [facility] [place] [facility] [address] [id number] [place] [address] Apr, [facility] [place] [facility] [address] [id number] [place] [address] Apr, [facility] [place] [facility] [address] [id number] [place] [address] Apr, [facility] [place] [facility] [address] [id number] [place] [address] Mar, [facility] [place] [facility] [address] [id number], [place] [address] Mar, [facility] [place] [facility] [address] [id number], [place] [address] Feb, [facility] [place] [facility] [address] [id number] [place] [address] Feb, [facility] [place] [facility] [address] [id number] [place] [address] Feb, [facility] [place] [facility] [address] [id number] [place] [address] Feb, [facility] [place] [facility] [address] [id number] [place] [address] Dec, [facility] [address] [id number] [place] [address] Dec, [facility] [place] [facility] [address] [id number] [place] [address] Dec, [facility] [place] [facility] [address] [id number] [place] [address] Dec, [facility] [place] [facility] [address] [id number] [place] [address] Dec, [facility] [place] [facility] [address] [id number] [place] [address] Sep, [facility] [place] [facility] [address] [id number] [place] [address] Sep, [facility] [address] [id number] [place] [address] Aug, [facility] [address] [id number] [place] [address] Aug, [facility] [place] [facility] [address] [id number] [place] [address] Aug, [facility] [place] [facility] [address] [facility] [id number] [place] [address] Aug, [facility] [place] [facility] [address] [id number] [place] [address] Aug, [facility] [place] [facility] [address] [id number] [place] [address] Aug, [facility] [place] [facility] [address] [id number] [place] [address] Aug, [facility] [place] [facility] [address] [id number] [place] [address] Aug, [facility] [place] [facility] [address] [id number] [place] [address] Jul, [facility] [address] [id number] [place] [address] Jul, [facility] [address] [id number] [place] [address] Apr, [facility] [address] [id number] [place] [address] Mar, [facility] [address] [id number] [place] [address] Mar, [facility] [address] [id number] [place] [address] Mar, [facility] [address] [id number] [place] [address] January, [facility] [address] [id number] [place] [address] January, [facility] [address] [id number] [place] [address] January, [facility] [address] [id number] [place] [address] January, [facility] [address] [id number] [place] [address] January, [facility] [address] [id number] [place] [address] Nov, [facility] [address] [id number] [place] [address] Nov, [facility] [address] [id number] [place] [address] Nov, [facility] [place] [facility] [address] [id number] [place] [address] Oct, [facility] [place] [facility] [address] [id number] [place] [address] Oct, [facility] [address] [id number] [place] [address] Sep, [facility] [place] [facility] [address] [id number] [place] [address] Sep, [facility] [place] [facility] [address] [id number] [place] [address] Jul, [facility] [place] [facility] [address] [id number] [place] [address] Jul, [facility] [place] [facility] [address] [id number] [place] [address] Jul, [facility] [place] [facility] [address] [id number] [place] [address] Jul, [facility] [place] [facility] [address] [id number] [place] [address] Jun, [facility] [place] [facility] [address] [facility] [id number] [place] [address] Jun, [facility] [place] [facility] [address] [id number] [place] [address] 28 May, 2012 [facility] [place] [facility] [address] [id number] [place] [address] 15 May, 2012 [facility] [place] [facility] [address] [facility] [id number] [place] [address] 13 May, 2012 [facility] [place] [facility] [address] [id number] [place] [address] 10 May, 2012 [facility] [place] [facility] [address] [id number] [place] [address] Apr, [facility] [place] [facility] [address] [id number] [place] [address] Mar, [facility] [place] [facility] [address] [id number] [place] [address] Mar, [facility] [place] [facility] [address] [facility] [id number] [place] [address] Mar, [facility] [place] [facility] [address] [id number] [place] [address] Mar, [facility] [place] [facility] [address] [id number] [place] [address] Mar, [facility] [place] [facility] [address] [id number] [place] [address] Mar, [facility] [place] [facility] [address] [id number] [place] [address] Mar, [facility] [place] [facility] [address] [id number] [place] [address] Feb, [facility] [place] [facility] [address] [id number] [place] [address] Feb, [facility] [place] [facility] [address] [id number] [place] [address] January, [facility] [place] [facility] [address] [id number] [place] [address] January, [facility] [place] [facility] [address] [id number] [place] [address] Dec, [facility] [place] [facility] [address] [id number] [place] [address] Dec, [facility] [place] [facility] [address] [id number] [place] [address] Dec, [facility] [place] [facility] [address] [id number] [place] [address] Nov, [facility] [place] [facility] [address] [id number] [place] [address] Nov, [facility] [place] [facility] [address] [id number] [place] [address] Oct, [facility] [place] [facility] [address] [id number] [place] [address] Sep, [facility] [place] [facility] [address] [id number] [place] [address] Sep, [facility] [address] [facility] [id number], [place] [address] Aug, [facility] [address] [facility] [id number], [place] [address] Jul, [facility] [address] [facility] [id number], [place] [address] Jul, [facility] [id number], [place] [address] Dec, [facility] [address] [facility] [id number], [place] [address] Aug, [facility] [address] [facility] [id number], [place] [address] Jul, IMMUNIZATIONS No Known Immunizations SOCIAL HISTORY Never Assessed REASON FOR VISIT EMR-[facility] PLAN OF CARE VITAL SIGNS MEDICATIONS Unknown [...] VC Heat Exhaustion 04/2017 Hospitalization History [facility]- Hyperglycemia, Methamphetamine Abuse and Acute Renal. 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
[2019-03-27 21:08] LABS: BASOPHILS % (AUTO) 1 % (0-10); EOSINOPHILS # (AUTO) 0.4 10^3/uL (0.0-0.3); EOSINOPHILS % (AUTO) 6 % (0-10); HEMATOCRIT 32 % (40-54); HEMOGLOBIN 10.8 G/DL (13.3-17.7); LYMPHOCYTES # (AUTO) 1.5 X 10^3 (1.0-4.0); LYMPHOCYTES % (AUTO) 24 % (12-44); MEAN CORPUSCULAR HEMOGLOBIN 30 PG (25-34); MEAN CORPUSCULAR HGB CONC 34 G/DL (32-36); MEAN CORPUSCULAR VOLUME 88 FL (80-99); MEAN PLATELET VOLUME 10.6 FL (7.4-10.4); MONOCYTES # (AUTO) 0.5 X 10^3 (0.0-1.0); MONOCYTES % (AUTO) 8 % (0-12); NEUTROPHILS # (AUTO) 3.9 X 10^3 (1.8-7.8); NEUTROPHILS % (AUTO) 61 % (42-75); PLATELET COUNT 242 10^3/uL (130-400); RED CELL DISTRIBUTION WIDTH 13.2 % (10.0-14.5); WHITE BLOOD COUNT 6.4 10^3/uL (4.3-11.0)
[2019-03-27 21:19] LABS: INR 0.9 (0.8-1.4); PROTHROMBIN TIME PATIENT 12.8 SEC (12.2-14.7)
[2019-03-27 21:38] LABS: ALANINE AMINOTRANSFERASE 15 U/L (0-55); ALBUMIN 2.9 GM/DL (3.2-4.5); ALKALINE PHOSPHATASE 57 U/L (40-136); AMMONIA 28 UMOL/L (11-32); AMYLASE 36 U/L (25-125); BILIRUBIN,TOTAL 0.2 MG/DL (0.1-1.0); BUN/CREATININE RATIO 21; CALCIUM 7.9 MG/DL (8.5-10.1); CARBON DIOXIDE 25 MMOL/L (21-32); CHLORIDE 107 MMOL/L (98-107); CREATININE SERUM 0.89 MG/DL (0.60-1.30); GFR ESTIMATED > 60; GLUCOSE 322 MG/DL (70-105); LIPASE 18 U/L (8-78); MAGNESIUM 1.8 MG/DL (1.8-2.4); SODIUM 138 MMOL/L (135-145); TOTAL PROTEIN 5.2 GM/DL (6.4-8.2)
[2019-03-27 21:51] LABS: ACETAMINOPHEN < 10 UG/ML (10-30)
[2019-03-27 21:54] LABS: BILIRUBIN,URINE NEGATIVE (NEGATIVE); CLARITY,URINE CLEAR; COLOR,URINE YELLOW; GLUCOSE, URINE (UA) 4+ (NEGATIVE); KETONES,URINE NEGATIVE (NEGATIVE); LEUKOCYTE ESTERASE ,URINE NEGATIVE (NEGATIVE); NITRITE,URINE NEGATIVE (NEGATIVE); PH,URINE 6 (5-9); PROTEIN,URINE 1+ (NEGATIVE); UROBILINOGEN,URINE NORMAL (NORMAL)
--- NOTE | 2019-03-27 21:55 | Diagnostic Imaging Report ---
Indication: Headache. Time of Exam: 9:37 PM Correlation is made with prior study 03/24/2019. Findings: Nodular densities in the lung bases are most consistent with nipple shadows. The lungs are clear. There is no effusion or pneumothorax. Impression: No acute cardiopulmonary process is detected. Dictated by: Dictated on workstation # [id number]
[2019-03-27 22:01] LABS: BACTERIA,URINE NEGATIVE /HPF; SQUAMOUS EPITHELIAL CELL,UR RARE /HPF
[2019-03-27 22:11] LABS: AMPHETAMINE SCREEN, URINE NEGATIVE (NEGATIVE); BARBITURATE SCREEN URINE NEGATIVE (NEGATIVE); BENZODIAZEPINES SCREEN URINE NEGATIVE (NEGATIVE); CANNABINOID SCREEN, URINE NEGATIVE (NEGATIVE); COCAINE SCREEN URINE NEGATIVE (NEGATIVE); METHADONE STAT NEGATIVE (NEGATIVE); METHAMPHETAMINE SCREEN URINE S NEGATIVE (NEGATIVE); OPIATE SCREEN URINE NEGATIVE (NEGATIVE); OXYCODONE STAT NEGATIVE (NEGATIVE); PROPOXYPHENE STAT NEGATIVE (NEGATIVE); TRICYCLIC ANTIDEPRESSANTS SCRE NEGATIVE (NEGATIVE)
[2019-03-27] MEDS ORDERED: inSUlin (REGULAR) HUMAN 1 UNIT/0.01 ML (CHARGE PER UNIT) IV ONE (22:15)
[2019-03-27] MEDS ORDERED: NS IV 1000 ML 1,000 ML IV ONE (22:21)
--- NOTE | 2019-03-27 22:21 | ED General ---
General Chief Complaint: Glucose Problems Stated Complaint: GENERAL COMPLAINT/PAIN Nursing Triage Note: Pt to room #9 via cc ems cart from home with c/o lethragy and high blood sugar. [facility] accessed 20g iv to lt a/c and initiated ns fluid bolus. Upon arrival pt c/o headache, lethragy, and dry mouth. Pt reports he was dc'd from this hospital 03/26/19 and since dc he has not taken any prescribed medication. Pt states, "since I left this place, i've been sleeping at my neighbors because he has air conditioner." Nursing Sepsis Screen: No Definite Risk Source of Information: Patient (VERY LIMITED HISTORIAN), Old Records History of Present Illness Date Seen by Provider: Mar 27, 2019 Time Seen by Provider: 20:45 Initial Comments PT ARRIVES VIA EMS--PT WAS SITTING ON NEIGHBOR'S PORCH WHEN THEY ARRIVED PT STATES HE DOES NOT HAVE ANY UTILITIES, SO HE HAS BEEN AT HIS NEIGHBOR'S HOUSE TODAY, BECAUSE THERE IS AIR-CONDITIONING IN HIS NEIGHBOR'S HOUSE PT IS INSULIN DEPENDENT DIABETIC, BUT HAS NOT TAKEN ANY INSULIN STATES HE HAS BEEN SLEEPING ALL DAY PT STATES HE HASN'T EATEN TODAY BECAUSE HE HAS BEEN SLEEPING CALLED EMS TONIGHT BECAUSE WHEN HE WOKE UP THIS EVENING, HE FELT WEAK AND TIRED, AND HE HAD A HEADACHE PT WITH LONG HISTORY OF EXTREME NON-COMPLIANCE IN ALL ASPECTS OF CARE PT HAS AN EXTENSIVE HISTORY OF ALCOHOL AND POLYSUBSTANCE ABUSE, INCLUDING METH ( USES IT IV AND SNORTS IT), WELL MULTIPLE OTHER SUBSTANCES PT WAS ADMITTED HERE 03/24/18-03/26 FOR ALTERED MENTAL STATUS--PT WAS POSITIVE FOR MULTIPLE DRUGS, AND HAD UNCONTROLLED DIABETES. PT HAD HIS UTILITIES CUT OFF ON 03/24/19 PCP: ASHLEE-K Allergies and Home Medications Allergies Coded Allergies: Benzodiazepines (Verified Allergy, Unknown, 05/10/14) Home Medications Cholecalciferol (Vitamin D3) 2,000 Unit Capsule, 2,000 UNIT PO DAILY, (Reported) Fluoxetine HCl 20 Mg Capsule, 20 MG PO DAILY Prescribed by: EMANUEL REID on 03/26/19 1325 Insulin Aspart 300 Units/3 Ml Solution, 10 UNITS SC TIDWM, (Reported) LAST FILLED ON 06-18-2018 Insulin Detemir 100 Unit/1 Ml Insuln.pen, 40 UNITS SC HS, (Reported) LAST FILLED ON 06-18-2018 Lisinopril 20 Mg Tablet, 20 MG PO DAILY Prescribed by: EMANUEL REID on 03/26/19 1325 [place]-3/Dha/Epa/Fish Oil 1 Each Capsule, 1 CAP PO DAILY, (Reported) Review of Systems Review of Systems Constitutional: see HPI, malaise, weakness Respiratory: no symptoms reported Cardiovascular: no symptoms reported Gastrointestinal: no symptoms reported Genitourinary: no symptoms reported Musculoskeletal: no symptoms reported Skin: no symptoms reported Psychiatric/Neurological: See HPI, Headache Hematologic/Lymphatic: No Symptoms Reported Immunological/Allergic: no symptoms reported Past [id number]-[id number] Hx Patient Social History Alcohol Use: Denies Use Recreational Drug Use: No Drug of Choice: THC, + IV METH-ALSO SNORTS IT; ACID, MESCALINE; "SPEED", "OTHERS" Smoking Status: Current Everyday Smoker Type Used: Cigarettes 2nd Hand Smoke Exposure: Yes Recent Foreign Travel: No Contact w/Someone Who Travel: No Recent Infectious Disease Expo: No Recent Hopitalizations: No Immunizations Up To Date Tetanus Booster (TDap): Unknown Date of Pneumonia Vaccine: Jan 16, 2016 Seasonal Allergies Seasonal Allergies: No Past Medical History Surgeries: Yes Amputation, Appendectomy, Gallbladder, Orthopedic Respiratory: No Cardiac: Yes High Cholesterol, Hypertension Neurological: Yes (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) Neuropathy, Traumatic Brain Injury Reproductive Disorders: No Sexually Transmitted Disease: No HIV/AIDS: No Genitourinary: No Gastrointestinal: No Musculoskeletal: Yes Amputee, Chronic Back Pain, Fractures Endocrine: Yes (DKA; NON-COMPLIANCE) Diabetes, Insulin dep HEENT: No (EDENTULOUS) Loss of Vision: Denies Hearing Impairment: Denies Cancer: No Psychosocial: No Integumentary: Yes Blood Disorders: No Adverse Reaction/Blood Tranf: No Family Medical History Blood clots 19 FATHER Diabetes mellitus 19 FATHER 19 MOTHER G8 BROTHER Physical Exam Vital Signs Vital Signs - First Documented 03/27/19 20:45 Temp 96.5 Pulse 71 Resp 18 B/P (MAP) 155/97 (116) Pulse Ox 99 O2 Delivery Room Air Capillary Refill : Less Than 3 Seconds Height, Weight, BMI Height: 6'0" Weight: 133lbs. 8.0oz. [id number]; 18.1 BMI Method:Stated Progress/Results/Core Measures Suspected Sepsis Recent Fever Within 48 Hours: No Infection Criteria Present: None New/Unexplained Altered Menta: No Sepsis Screen: No Definite Risk SIRS Temperature:96.5 Pulse: 71 Respiratory Rate: 18 Laboratory Tests 03/27/19 20:55: White Blood Count 6.4 Blood Pressure 155 /97 Mean: 116 Laboratory Tests 03/27/19 20:55: INR Comment 0.9, Platelet Count 242 03/27/19 21:15: Creatinine 0.89, Total Bilirubin 0.2 Results/Orders Lab Results Laboratory Tests Test 03/27/19 20:53 03/27/19 20:55 03/27/19 21:15 03/27/19 21:45 Range/Units Glucometer 349 H 70-110 MG/DL White Blood Count 6.4 4.3-11.0 10^3/uL Red Blood Count 3.62 L 4.35-5.85 10^6/uL Hemoglobin 10.8 L 13.3-17.7 G/DL Hematocrit 32 L 40-54 % Mean Corpuscular Volume 88 80-99 FL Mean Corpuscular Hemoglobin 30 25-34 PG Mean Corpuscular Hemoglobin Concent 34 32-36 G/DL Red Cell Distribution Width 13.2 10.0-14.5 % Platelet Count 242 130-400 10^3/uL Mean Platelet Volume 10.6 H 7.4-10.4 FL Neutrophils (%) (Auto) 61 42-75 % Lymphocytes (%) (Auto) 24 12-44 % Monocytes (%) (Auto) 8 0-12 % Eosinophils (%) (Auto) 6 0-10 % Basophils (%) (Auto) 1 0-10 % Neutrophils # (Auto) 3.9 1.8-7.8 X 10^3 Lymphocytes # (Auto) 1.5 1.0-4.0 X 10^3 Monocytes # (Auto) 0.5 0.0-1.0 X 10^3 Eosinophils # (Auto) 0.4 H 0.0-0.3 10^3/uL Basophils # (Auto) 0.0 0.0-0.1 10^3/uL Prothrombin Time 12.8 12.2-14.7 SEC INR Comment 0.9 0.8-1.4 Activated Partial Thromboplast Time 32 24-35 SEC Sodium Level 138 135-145 MMOL/L Potassium Level 4.0 3.6-5.0 MMOL/L Chloride Level 107 98-107 MMOL/L Carbon Dioxide Level 25 21-32 MMOL/L Anion Gap 6 5-14 MMOL/L Blood Urea Nitrogen 19 H 7-18 MG/DL Creatinine 0.89 0.60-1.30 MG/DL Estimat Glomerular Filtration Rate > 60 BUN/Creatinine Ratio 21 Glucose Level 322 H 70-105 MG/DL Calcium Level 7.9 L 8.5-10.1 MG/DL Corrected Calcium 8.8 8.5-10.1 MG/DL Magnesium Level 1.8 1.8-2.4 MG/DL Total Bilirubin 0.2 0.1-1.0 MG/DL Aspartate Amino Transf (AST/SGOT) 14 5-34 U/L Alanine Aminotransferase (ALT/SGPT) 15 0-55 U/L Alkaline Phosphatase 57 40-136 U/L Ammonia 28 11-32 UMOL/L Troponin I < 0.028 <0.028 NG/ML Total Protein 5.2 L 6.4-8.2 GM/DL Albumin 2.9 L 3.2-4.5 GM/DL Amylase Level 36 25-125 U/L Lipase 18 8-78 U/L Acetaminophen Level < 10 L 10-30 UG/ML Serum Alcohol < 10 <10 MG/DL Urine Color YELLOW Urine Clarity CLEAR Urine pH 6 5-9 Urine Specific [place] 1.020 1.016-1.022 Urine Protein 1+ H NEGATIVE Urine Glucose (UA) 4+ H NEGATIVE Urine Ketones NEGATIVE NEGATIVE Urine Nitrite NEGATIVE NEGATIVE Urine Bilirubin NEGATIVE NEGATIVE Urine Urobilinogen NORMAL NORMAL MG/DL Urine Leukocyte Esterase NEGATIVE NEGATIVE Urine RBC (Auto) NEGATIVE NEGATIVE Urine RBC NONE /HPF Urine WBC NONE /HPF Urine Squamous Epithelial Cells RARE /HPF Urine Crystals NONE /LPF Urine Bacteria NEGATIVE /HPF Urine Casts NONE /LPF Urine Mucus NEGATIVE /LPF Urine Culture Indicated NO Urine Opiates Screen NEGATIVE NEGATIVE Urine Oxycodone Screen NEGATIVE NEGATIVE Urine Methadone Screen NEGATIVE NEGATIVE Urine Propoxyphene Screen NEGATIVE NEGATIVE Urine Barbiturates Screen NEGATIVE NEGATIVE Ur Tricyclic Antidepressants Screen NEGATIVE NEGATIVE Urine Phencyclidine Screen NEGATIVE NEGATIVE Urine Amphetamines Screen NEGATIVE NEGATIVE Urine Methamphetamines Screen NEGATIVE NEGATIVE Urine Benzodiazepines Screen NEGATIVE NEGATIVE Urine Cocaine Screen NEGATIVE NEGATIVE Urine Cannabinoids Screen NEGATIVE NEGATIVE Test 03/27/19 23:13 03/28/19 00:19 03/28/19 00:57 03/28/19 01:27 Range/Units Glucometer 196 H 58 *L 121 H 102 70-110 MG/DL My Orders Orders - ARPAN CASTILLO DO Accucheck Stat ONCE (03/27/19 20:48) Ed Iv/Invasive Line Start (03/27/19 20:48) Ekg Tracing (03/27/19 20:48) Monitor-Rhythm Ecg Trace Only (03/27/19 20:48) Chest 1 View, Ap/Pa Only (03/27/19 20:48) Acetaminophen (03/27/19 20:48) Alcohol (03/27/19 20:48) Ammonia (03/27/19 20:48) Amylase (03/27/19 20:48) Cbc With Automated Diff (03/27/19 20:48) Comprehensive Metabolic Panel (03/27/19 20:48) Drug Screen Stat (Urine) (03/27/19 20:48) Lipase (03/27/19 20:48) Magnesium (03/27/19 20:48) Protime With Inr (03/27/19 20:48) Partial Thromboplastin Time (03/27/19 20:48) Troponin I (03/27/19 20:48) Ua Culture If Indicated (03/27/19 20:48) Ed Iv/Invasive Line Start (03/27/19 20:48) Insulin (Regular) Human (Humulin R (Per (03/27/19 22:15) Ed Iv/Invasive Line Start (03/27/19 22:05) Accucheck Stat ONCE (03/27/19 22:21) Ed Iv/Invasive Line Start (03/27/19 22:21) Ns Iv 1000 Ml (Sodium Chloride 0.9%) (03/27/19 22:21) D50w (Emergency) Syringe (Dextrose 50% 5 (03/28/19 00:30) Accucheck Stat ONCE (03/28/19 00:21) D50w (Emergency) Syringe (Dextrose 50% 5 (03/28/19 00:17) Accucheck Stat ONCE (03/28/19 01:12) D50w (Emergency) Syringe (Dextrose 50% 5 (03/28/19 01:30) D5 1/2 Ns 1000 Ml Iv Solution (Dextrose (03/28/19 01:28) D5 1/2 Ns 1000 Ml Iv Solution (Dextrose (03/28/19 01:45) Medications Given in ED Current Medications Medications Dose Ordered Sig/Arvin Route Start Time Stop Time Status Last Admin Dose Admin Dextrose 25 ml ONCE ONCE IV 03/28/19 00:30 03/28/19 01:26 DC 03/28/19 00:35 50 ML Insulin Human Regular 20 unit ONCE ONCE IV 03/27/19 22:15 03/27/19 22:16 DC 03/27/19 22:32 20 UNIT Sodium Chloride 1,000 ml @ 0 mls/hr Q0M ONCE IV 03/27/19 22:21 03/27/19 22:23 DC 03/27/19 22:32 0 MLS/HR Vital Signs/I&O 03/27/19 20:45 Temp 96.5 Pulse 71 Resp 18 B/P (MAP) 155/97 (116) Pulse Ox 99 O2 Delivery Room Air 03/28/19 00:00 Intake Total 1500 ml Balance 1500 ml Capillary Refill : Less Than 3 Seconds Blood Pressure Mean: 116 Point of Care Testing Finger Stick Blood Glucose: 349 Blood Glucose Action Taken: Notified Dr. Castillo Progress Note : Progress Note GIVEN 20 UNITS INSULIN--BLOOD GLUCOSE DOWN TO 196 PT WAS BEING DISMISSED, REPEAT ACCUCHECK 58, PT DIAPHORETIC --GIVEN 1 AMP D50, FOLLOWED BY D5 1/2 NS PT OBSERVED IN ER AND REPEAT BLOOD GLUCOSE LEVELS WERE 121 Departure Impression Primary Impression: Uncontrolled diabetes mellitus Additional Impressions: Non-compliance Normocytic anemia Disposition: HOME, SELF-CARE Condition: Stable Departure-Patient Inst. Referrals: [facility] (PCP/Family) Primary Care Physician Patient Instructions: Anemia Caused by Low Iron, Adult (DC), Diabetes Type 2 (DC), How to Keep Track of Your Blood Sugar, Using Insulin Add. Discharge Instructions: CHECK YOUR BLOOD SUGAR THREE TIMES A DAY AND KEEP DIARY OF READINGS TAKE YOUR INSULIN PRESCRIBED, WELL ANY OTHER PRESCRIBED MEDICATIONS--INSULIN MUST BE REFRIGERATED AT ALL TIMES TAKE A MULTIVITAMIN WITH IRON DAILY FOLLOW UP WITH [facility] IN 2-3 DAYS FOR FURTHER CARE All discharge instructions reviewed with patient and/or family. Voiced understanding. ARPAN CASTILLO DO Mar 27, 2019 22:21
--- NOTE | 2019-03-28 00:05 | NUR ---
D/c instructions reviewed with pt. Pt voiced no further questions or concerns. 20g iv to rt wrist dc'd.
--- NOTE | 2019-03-28 00:10 | NUR ---
Upon entering room, pt noted to be severly diaphoretic and pale. Pt states, "I don't feel very good." Vitals taken and Dr. Castillo notified.
[2019-03-28] MEDS ORDERED: DEXTROSE 50% 50 ML (IMS) SYR ONE (00:17)
--- NOTE | 2019-03-28 00:19 | NUR ---
Blood glucose of 58. Dr. Castillo notified.
[2019-03-28] MEDS ORDERED: DEXTROSE 50% 50 ML (IMS) SYR IV ONE ×2 (00:30→01:30)
--- NOTE | 2019-03-28 00:30 | NUR ---
Iv access to rt upper arm infiltrated. Iv removed and warm compress applied to site.
[2019-03-28] MEDS ORDERED: D5 1/2 NS 1000 ML IV SOLUTION 1,000 ML IV ONE (01:28)
[2019-03-28] MEDS ORDERED: D5 1/2 NS 1000 ML IV SOLUTION 1,000 ML IV SCH (01:45)
[2019-03-28 03:03] VITALS: BP 157/85
--- NOTE | 2019-03-28 03:03 | NUR ---
D/C instructions reviewed regarding warm compress for infiltration of iv to rt upper arm.
== END 2019-03-28 03:03 | disposition home or self-care (01) ==
LOC: EDUNIT# 20:44 → ER 20:45
DX: E11.65 Type 2 diabetes mellitus with hyperglycemia (principal); D64.9 Anemia, unspecified; Z91.14 Patient's other noncompliance with medication regimen; I10 Essential (primary) hypertension; E78.00 Pure hypercholesterolemia, unspecified; E11.42 Type 2 diabetes mellitus with diabetic polyneuropathy; E11.10 Type 2 diabetes mellitus with ketoacidosis without coma; F15.10 Other stimulant abuse, uncomplicated; F12.10 Cannabis abuse, uncomplicated; F17.210 Nicotine dependence, cigarettes, uncomplicated; Z88.8 Allergy status to other drugs, medicaments and biological substances; Z79.4 Long term (current) use of insulin; Z90.49 Acquired absence of other specified parts of digestive tract
CPT/HCPCS: 36415; 71045; 80053; 80306; 80320; 80329; 81000; 82140; 82150; 82962; 83690; 83735; 84484; 85025; 85610; 85730; 93005; 93041

== ENCOUNTER 2019-04-23 13:30 | Emergency (ER) | payer MEDICARE ==
[~2019-04-23] VITALS: Ht 182.9 cm; Wt 61.2 kg
--- OUTSIDE RECORDS SUMMARY | 2019-04-23 13:41 | XMS REPORT ---
Author Author Migration, Doctor Organization [facility] Address Unknown Phone Unavailable Care Team Providers Care Government Contracts Manager Name Role Phone Migration, Doctor Unavailable Unavailable PROBLEMS Type Condition ICD9-CM Code GZH12-VK Code Onset Dates Condition Status SNOMED Code Problem Diabetes type 2, uncontrolled E11.65 Active 303060694 Problem History of drug use Z87.898 Active 040431876 Problem Microalbuminuria R80.9 Active 853189953 Problem Other hammer toe(s) (acquired), right foot M20.41 Active 248678329 Problem Diabetes mellitus type II, uncontrolled E11.65 Active 523640399 Problem Low oxygen saturation R79.81 Active 151216671 Problem Type 2 diabetes mellitus with foot ulcer E11.621 Active 325426815 Problem Onychomycosis B35.1 Active 563684145 Problem Tension headache G44.209 Active 498355554 Problem Neuropathy G62.9 Active 574726084 Problem Chronic obstructive pulmonary disease, unspecified COPD type J44.9 Active 02120673 Problem Heat exhaustion due to salt depletion, subsequent encounter T67.4XXD Active 45943768 Problem halfway current use of insulin Z79.4 Active 056375787 Problem Non-pressure chronic ulcer of other part of unspecified foot with unspecified severity L97.509 Active 116613045 ALLERGIES Substance Reaction Event Type Date Status Hydrocodone Failed narcotics contract Non Drug Allergy Dec, Active Benzodiazepines Failed narcotics contract Non Drug Allergy Dec, Active Amphetamine Pos for meth on UDS Non Drug Allergy Dec, Active ENCOUNTERS Encounter Location Date Diagnosis [facility] [address] [id number] [address] Nov, [facility] [address] [id number] [address] Nov, [facility] [address] [id number] [address] Nov, Type 2 diabetes mellitus with foot ulcer E11.621 and Tension headache G44.209 [facility] [id number] [place] [address] Nov, [facility] [id number] [place] [address] Nov, [facility] [id number] [place] [address] Oct, [place] [address] [address] Oct, Diabetes type 2, uncontrolled E11.65 ; Type 2 diabetes mellitus with foot ulcer E11.621 ; Non-pressure chronic ulcer of other part of unspecified foot with unspecified severity L97.509 ; 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 and Status post amputation of lesser toe of left foot Z89.422 [place] [address] [address] Oct, [place] [id number] [place] [address] Sep, [place] [address] [address] Jun, Diabetes type 2, uncontrolled E11.65 [place] [id number] [place] [address] May, Diabetes type 2, uncontrolled E11.65 [facility] [id number] [place] [address] Nov, Diabetes type 2, uncontrolled E11.65 [place] [id number] [place] [address] Nov, Diabetes type 2, uncontrolled E11.65 [facility] [id number] [place] [address] Aug, Neuropathy G62.9 and Cellulitis of right foot L03.115 [place] [address] [address] Aug, [place] [id number] [place] [address] May, Diabetes type 2, uncontrolled E11.65 and Neuropathy G62.9 [place] [id number] [place] [address] Apr, Diabetes type 2, uncontrolled E11.65 ; History of drug use Z87.898 ; Neuropathy G62.9 ; Low oxygen saturation R79.81 ; Chronic obstructive pulmonary disease, unspecified COPD type J44.9 and Heat exhaustion due to salt depletion, subsequent encounter T67.4XXD [address] [address] Apr, Onychomycosis B35.1 ; Other hammer toe(s) (acquired), right foot M20.41 and Diabetes mellitus type II, uncontrolled E11.65 [place] [id number] [place] [address] Apr, [place] [id number] [place] [address] Feb, Onychomycosis B35.1 ; Diabetes type 2, uncontrolled E11.65 ; Neuropathy G62.9 and History of drug use Z87.898 [place] [id number] [place] [address] Feb, Diabetes type 2, uncontrolled E11.65 [place] [id number] [place] [address] January, [place] [id number] [place] [address] Dec, Diabetes type 2, uncontrolled E11.65 and Screening for cholesterol level Z13.220 [place] [address] [place] [address] Dec, Diabetes type 2, uncontrolled E11.65 ; Microalbuminuria R80.9 ; History of drug use Z87.898 ; Screening for cholesterol level Z13.220 and Neuropathy G62.9 [facility] [address] [id number] [address] Sep, [facility] [address] [address] Mar, [facility] [address] [address] Dec, Cellulitis of foot, left L03.116 [facility] [address] [address] Dec, [facility] [address] [address] Dec, [facility] [address] [address] 15 Dec, 2015 Diabetes type 2, uncontrolled E11.65 and Cellulitis of foot without toes, left L03.116 [facility] [address] [place] [id number] Nov, Diabetes type 2, uncontrolled E11.65 and Neuropathy G62.9 [facility] [address] [address] January, [facility] [address] [address] January, [facility] [id number] [address] 14 Dec, 2014 [facility] [address] [address] Dec, [facility] [address] [address] Aug, [facility] [address] [address] Aug, [facility] [id number] [address] Aug, [facility] [id number] [place] [address] Aug, [facility] [place] [facility] [address] [id number] [place] [address] Jun, [facility] [place] [facility] [address] [id number] [place] [address] Jun, [facility] [place] [facility] [address] [id number] [place] [address] May, [facility] [place] [facility] [address] [id number] [place] [address] May, [facility] [place] [facility] [address] [id number] [place] [address] Apr, [facility] [place] [facility] [address] [id number] [place] [address] Apr, [facility] [place] [facility] [address] [id number] [place] [address] Apr, [facility] [place] [facility] [address] [id number] [place] [address] Apr, [facility] [place] [facility] [address] [id number] [place] [address] Apr, [facility] [place] [facility] [address] [id number] [place] [address] Apr, [facility] [place] [facility] [address] [id number] [place] [address] Mar, [facility] [place] [facility] [address] [id number] [place] [address] Mar, [facility] [place] [facility] [address] [id number] [place] [address] Feb, [facility] [place] [facility] [address] [id number] [place] [address] Feb, [facility] [place] [facility] [address] [id number] [place] [address] Feb, [facility] [address] [id number] [place] [address] Feb, [facility] [place] [facility] [address] [id number] [place] [address] Dec, [facility] [place] [facility] [address] [id number] [place] [address] Dec, [facility] [place] [facility] [address] [id number] [place] [address] Dec, [facility] [place] [facility] [address] [id number] [place] [address] Dec, [facility] [place] [facility] [address] [id number] [place] [address] Dec, [facility] [place] [facility] [address] [id number] [place] [address] Sep, [facility] [place] [facility] [address] [id number] [place] [address] Sep, [facility] [place] [facility] [address] [id number] [place] [address] Aug, [facility] [place] [facility] [address] [id number] [place] [address] Aug, [facility] [place] [facility] [address] [id number] [place] [address] Aug, [facility] [place] [facility] [address] [id number] [address] Aug, [facility] [place] [facility] [address] [id number] [place] [address] Aug, [facility] [place] [facility] [address] [id number] [place] [address] Aug, [facility] [place] [facility] [address] [id number] [address] Aug, [facility] [place] [facility] [address] [id number] [address] Aug, [facility] [address] [id number] [place] [address] Jul, [facility] [address] [id number] [place] [address] Jul, [facility] [address] [id number] [place] [address] Apr, [facility] [address] [id number] [place] [address] Mar, [facility] [address] [id number] [place] [address] Mar, [facility] [address] [id number] [place] [address] Mar, [facility] [address] [id number] [place] [address] January, [facility] [address] [id number] [place] [address] January, [facility] [address] [id number] [place] [address] January, [facility] [address] [id number] [place] [address] January, [facility] [address] [id number] [place] [address] January, [facility] [place] [facility] [address] [id number] [place] [address] Nov, [facility] [place] [facility] [address] [id number] [place] [address] Nov, [facility] [place] [facility] [address] [id number] [place] [address] Nov, [facility] [place] [facility] [address] [id number] [place] [address] Oct, [facility] [place] [facility] [address] [id number] [place] [address] Oct, [facility] [place] [facility] [address] [id number] [place] [address] Sep, [facility] [place] [facility] [address] [id number] [place] [address] Sep, [facility] [place] [facility] [address] [id number] [place] [address] Jul, [facility] [place] [facility] [address] [id number] [place] [address] Jul, [facility] [place] [facility] [address] [id number] [place] [address] Jul, [facility] [place] [facility] [address] [id number] [place] [address] Jul, [facility] [place] [facility] [address] [id number] [place] [address] Jun, [facility] [place] [facility] [address] [id number] [place] [address] 16 Jun, 2012 [facility] [place] [facility] [address] [id number] [place] [address] 28 May, 2012 [facility] [place] [facility] [address] [id number] [place] [address] 15 May, 2012 [facility] [place] [facility] [address] [id number] [place] [address] 13 May, 2012 [facility] [place] [facility] [address] [id number] [place] [address] 10 May, 2012 [facility] [place] [facility] [address] [id number] [place] [address] 10 Apr, 2012 [facility] [place] [facility] [address] [id number] [place] [address] 23 Mar, 2012 [facility] [place] [facility] [address] [id number] [place] [address] Mar, [facility] [place] [facility] [address] [id number] [place] [address] Mar, [facility] [place] [facility] [address] [id number] [place] [address] Mar, [facility] [place] [facility] [address] [id number] [place] [address] Mar, [facility] [place] [facility] [address] [id number] [place] [address] Mar, [facility] [place] [facility] [address] [id number] [place] [address] Mar, [facility] [place] [facility] [address] [id number] [place] [address] Feb, [facility] [place] [facility] [address] [id number] [place] [address] Feb, [facility] [place] [facility] [address] [id number] [place] [address] January, [facility] [place] [facility] [address] [id number] [place] [address] January, [facility] [place] [facility] [address] [id number] [place] [address] Dec, [facility] [place] [facility] [address] [id number] [place] [address] Dec, [facility] [place] [facility] [address] [id number] [address] Dec, [facility] [place] [facility] [address] [id number] [place] [address] Nov, [facility] [place] [facility] [address] [id number] [place] [address] Nov, [facility] [place] [facility] [address] [id number] [place] [address] Oct, [facility] [place] [facility] [id number] [address] Sep, [facility] [id number] [address] Sep, [facility] [address] [address] Aug, [facility] [address] [address] Jul, [facility] [address] [address] Jul, [facility] [address] [address] Dec, [facility] [address] [address] Aug, [facility] [address] [address] Jul, IMMUNIZATIONS No Known Immunizations SOCIAL HISTORY Never Assessed REASON FOR VISIT [place] [place] VITAL SIGNS MEDICATIONS Medication Instructions Dosage Frequency Start Date End Date Duration Status GlyBURIDE 5 mg 2 tablet by Oral route 2 times per day Apr, Active Lisinopril 5 mg 1 tablet by Oral route 1 time per day Apr, Active metformin 1,000 mg 1 tablet by Oral route 2 times per day Apr, Active Levemir Flexpen 100 unit/mL (3 mL) 40 Unit by Subcutaneous route 1 time per day Apr, Active Bactrim DS 800-160 mg take 1 tablet by Oral route 2 times per day for 10 day(s) Nov, Active NovoLog Flexpen 100 unit/mL inject 8 Units by Subcutaneous route before meals 4 times per day Apr, Active Pravachol 40 mg 1 tablet by Oral route 1 time per day Apr, Active RESULTS No Results PROCEDURES No [...] VC Heat Exhaustion 04/2017 Hospitalization History [facility]- Hyperglycemia, Methamphetamine Abuse and Acute Renal. 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
--- NOTE | 2019-04-23 14:00 | NUR ---
Multiple "bug bites" noted over torso and extremities. Bite to lt elbow, groin, rt forearm, and rt upper chest wall noted to be inflammed and warm to touch. Pt states, "them beatles laid eggs in me and i've been itching them out of me." Swelling to lt foot noted. Tympanic temp of 100.7 noted.
[2019-04-23] MEDS ORDERED: NS IV 1000 ML 1,000 ML IV ONE (14:07)
[2019-04-23] MEDS ORDERED: ACETAMINOPHEN 500 MG TAB (TYLENOL) PO PRN (14:15)
--- NOTE | 2019-04-23 14:30 | ED General ---
General Chief Complaint: General Problems/Pain Stated Complaint: DEHYDRATION;WEAKNESS;PAIN;HEAD PAIN Nursing Triage Note: PATIENT STATES THAT HE HAS HAD A HEADACHE X1 WEEK, PAIN FROM HIS KNEES TO HIS TOES X SEVERAL DAYS, AND ITCHING SKIN. HE CLAIMS THIS IS ALL RELATED TO BEING SWARMED BY SMALL BROWN BUGS A COUPLE WEEKS AGO. Nursing Sepsis Screen: No Definite Risk Source of Information: Patient Exam Limitations: No Limitations History of Present Illness Date Seen by Provider: Apr 23, 2019 Time Seen by Provider: 14:01 Initial Comments Here with report of headache, weakness, pain in his legs and arms, multiple lesions on his body that he is attributing to bug bites. States was warned by the small black bugs couple weeks ago when he tried to swallow away but then got some bites from that. Had an area on the left elbow that was swelling so he tried to cut it open and it did not drain significantly. Also has wound to the right upper chest as well as the right groin. Does have history of long-standing diabetes. And has peripheral neuropathy from that. Complains of pain to both legs from his peripheral neuropathy. Notes that there is swelling of both feet. Timing/Duration: 1 Week, Getting Worse Severity: Moderate Associated Systoms: No Chest Pain, No Cough, No Fever/Chills, No Nausea/Vomiting; Shortness of Air, Weakness Allergies and Home Medications Allergies Coded Allergies: Benzodiazepines (Verified Allergy, Unknown, 05/10/14) Home Medications Cholecalciferol (Vitamin D3) 2,000 Unit Capsule, 2,000 UNIT PO DAILY, (Reported) Doxycycline Hyclate 100 Mg Tablet, 100 MG PO BID Prescribed by: ISABEL EVERETT on 04/23/19 1655 Fluoxetine HCl 20 Mg Capsule, 20 MG PO DAILY Prescribed by: EMANUEL REID on 03/26/19 1325 Insulin Aspart 300 Units/3 Ml Solution, 10 UNITS SC TIDWM, (Reported) LAST FILLED ON 06-18-2018 Insulin Detemir 100 Unit/1 Ml Insuln.pen, 40 UNITS SC HS, (Reported) LAST FILLED ON 06-18-2018 Lisinopril 20 Mg Tablet, 20 MG PO DAILY Prescribed by: EMANUEL REID on 03/26/19 1325 [place]-3/Dha/Epa/Fish Oil 1 Each Capsule, 1 CAP PO DAILY, (Reported) Patient Home Medication List Home Medication List Reviewed: Yes Review of Systems Review of Systems Constitutional: see HPI; No chills, No fever EENTM: no symptoms reported Respiratory: see HPI Cardiovascular: no symptoms reported Gastrointestinal: No abdominal pain, No nausea, No vomiting Genitourinary: No dysuria, No hematuria Musculoskeletal: no symptoms reported Skin: no symptoms reported Psychiatric/Neurological: No Symptoms Reported All Other Systems Reviewed Negative Unless Noted: Yes Past Wvoyzhx-Wavrgh-Tchnbr Hx Past Med/Social Hx: Reviewed Nursing Past Med/Soc Hx Patient Social History Alcohol Use: Denies Use Recreational Drug Use: Yes Drug of Choice: THC, + IV METH-ALSO SNORTS IT; ACID, MESCALINE; "SPEED", "OTHERS" Smoking Status: Current Everyday Smoker Type Used: Cigarettes 2nd Hand Smoke Exposure: Yes Recent Foreign Travel: No Contact w/Someone Who Travel: No Recent Infectious Disease Expo: No Recent Hopitalizations: No Immunizations Up To Date Tetanus Booster (TDap): Unknown Date of Pneumonia Vaccine: Jan 16, 2016 Seasonal Allergies Seasonal Allergies: No Past Medical History Surgeries: Yes Amputation, Appendectomy, Gallbladder, Orthopedic Respiratory: No Cardiac: Yes High Cholesterol, Hypertension Neurological: Yes (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) Neuropathy, Traumatic Brain Injury Reproductive Disorders: No Sexually Transmitted Disease: No HIV/AIDS: No Genitourinary: No Gastrointestinal: No Musculoskeletal: Yes Amputee, Degenerate Disk Disease, Chronic Back Pain, Fractures Endocrine: Yes (DKA; NON-COMPLIANCE) Diabetes, Insulin dep HEENT: No (EDENTULOUS) Loss of Vision: Denies Hearing Impairment: Denies Cancer: No Psychosocial: Yes (POLYSUBSTANCE ABUSE) Integumentary: Yes (CELLULITIS--LEG, HAND, FOOT; TOE AMPUTATION FOR OSTEOMYELITIS) Blood Disorders: No Adverse Reaction/Blood Tranf: No Family Medical History Reviewed Nursing Family Hx Blood clots 19 FATHER Diabetes mellitus 19 FATHER 19 MOTHER G8 BROTHER Physical Exam-Suspected Sepsis Physical Exam Vital Signs Vital Signs - First Documented 04/23/19 04/23/19 13:34 16:41 Temp 97.9 Pulse 95 Resp 18 B/P (MAP) 119/59 (79) Pulse Ox 96 O2 Delivery Room Air Capillary Refill : Less Than 3 Seconds Blood Pressure Mean: 79 Height, Weight, BMI Height: 6'0" Weight: 135lbs. 0oz. [id number]; 18.1 BMI Method:Actual General Appearance: No Apparent Distress, WD/WN HEENT: PERRL/EOMI, Pharynx Normal Neck: Non Tender, Supple Respiratory: Lungs Clear, Normal Breath Sounds Cardiovascular: No Murmur, Tachycardia Gastrointestinal: Non Tender, Soft Back: Normal Inspection, No CVA Tenderness, No Vertebral Tenderness Extremity: Normal Range of Motion, Non Tender Neurologic/Psychiatric: Alert, Oriented x3 Skin: warm/dry, other (multiple lesions noted including left elbow, right upper chest and right groin that are all 1-2 cm indurations was central core/Pustule. No fluctuant areas.) Focused Exam Lactate Level 04/23/19 14:15: Lactic Acid Level 1.31 Lactic Acid Level Laboratory Tests Test 04/23/19 14:15 Lactic Acid Level 1.31 MMOL/L (0.50-2.00) Progress/Results/Core Measures Suspected Sepsis Recent Fever Within 48 Hours: No Infection Criteria Present: None New/Unexplained Altered Menta: No Sepsis Screen: No Definite Risk SIRS Temperature:97.9 Pulse: 95 Respiratory Rate: 18 Laboratory Tests 04/23/19 14:15: White Blood Count 14.5H Blood Pressure 119 /59 Mean: 79 04/23/19 14:15: Lactic Acid Level 1.31 Laboratory Tests 04/23/19 14:15: Creatinine 1.06, INR Comment 0.9, Platelet Count 266, Total Bilirubin 0.4 Results/Orders Lab Results Laboratory Tests Test 04/23/19 14:03 04/23/19 14:15 04/23/19 16:05 Range/Units Glucometer 271 H 70-110 MG/DL White Blood Count 14.5 H 4.3-11.0 10^3/uL Red Blood Count 3.82 L 4.35-5.85 10^6/uL Hemoglobin 11.3 L 13.3-17.7 G/DL Hematocrit 35 L 40-54 % Mean Corpuscular Volume 90 80-99 FL Mean Corpuscular Hemoglobin 30 25-34 PG Mean Corpuscular Hemoglobin Concent 33 32-36 G/DL Red Cell Distribution Width 14.0 10.0-14.5 % Platelet Count 266 130-400 10^3/uL Mean Platelet Volume 10.7 H 7.4-10.4 FL Neutrophils (%) (Auto) 79 H 42-75 % Lymphocytes (%) (Auto) 11 L 12-44 % Monocytes (%) (Auto) 9 0-12 % Eosinophils (%) (Auto) 1 0-10 % Basophils (%) (Auto) 0 0-10 % Neutrophils # (Auto) 11.4 H 1.8-7.8 X 10^3 Lymphocytes # (Auto) 1.6 1.0-4.0 X 10^3 Monocytes # (Auto) 1.3 H 0.0-1.0 X 10^3 Eosinophils # (Auto) 0.2 0.0-0.3 10^3/uL Basophils # (Auto) 0.0 0.0-0.1 10^3/uL Neutrophils % (Manual) 73 % Lymphocytes % (Manual) 15 % Monocytes % (Manual) 2 % Eosinophils % (Manual) 1 % Band Neutrophils 9 % Toxic Granulation 1+ Blood Morphology Comment NORMAL Prothrombin Time 12.9 12.2-14.7 SEC INR Comment 0.9 0.8-1.4 Activated Partial Thromboplast Time 33 24-35 SEC Sodium Level 133 L 135-145 MMOL/L Potassium Level 4.6 3.6-5.0 MMOL/L Chloride Level 98 98-107 MMOL/L Carbon Dioxide Level 25 21-32 MMOL/L Anion Gap 10 5-14 MMOL/L Blood Urea Nitrogen 17 7-18 MG/DL Creatinine 1.06 0.60-1.30 MG/DL Estimat Glomerular Filtration Rate > 60 BUN/Creatinine Ratio 16 Glucose Level 303 H 70-105 MG/DL Lactic Acid Level 1.31 0.50-2.00 MMOL/L Calcium Level 9.0 8.5-10.1 MG/DL Corrected Calcium 9.2 8.5-10.1 MG/DL Total Bilirubin 0.4 0.1-1.0 MG/DL Aspartate Amino Transf (AST/SGOT) 11 5-34 U/L Alanine Aminotransferase (ALT/SGPT) 9 0-55 U/L Alkaline Phosphatase 85 40-136 U/L Troponin I < 0.028 <0.028 NG/ML Total Protein 6.7 6.4-8.2 GM/DL Albumin 3.7 3.2-4.5 GM/DL Urine Color YELLOW Urine Clarity CLEAR Urine pH 6.5 5-9 Urine Specific [place] 1.015 L 1.016-1.022 Urine Protein 2+ H NEGATIVE Urine Glucose (UA) 4+ H NEGATIVE Urine Ketones NEGATIVE NEGATIVE Urine Nitrite NEGATIVE NEGATIVE Urine Bilirubin NEGATIVE NEGATIVE Urine Urobilinogen NORMAL NORMAL MG/DL Urine Leukocyte Esterase NEGATIVE NEGATIVE Urine RBC (Auto) NEGATIVE NEGATIVE Urine RBC NONE /HPF Urine WBC NONE /HPF Urine Crystals NONE /LPF Urine Bacteria TRACE /HPF Urine Casts NONE /LPF Urine Mucus NEGATIVE /LPF Urine Culture Indicated NO My Orders Orders - ISABEL EVERETT MD Cbc With Automated Diff (04/23/19 14:07) Comprehensive Metabolic Panel (04/23/19 14:07) Blood Culture (04/23/19 14:07) Sputum Culture (04/23/19 14:07) Urinalysis (04/23/19 14:07) Urine Culture (04/23/19 14:07) Protime With Inr (04/23/19 14:07) Partial Thromboplastin Time (04/23/19 14:07) Chest 1 View, Ap/Pa Only (04/23/19 14:07) Acetaminophen Tablet (Tylenol Tablet) (04/23/19 14:15) Ed Iv/Invasive Line Start (04/23/19 14:07) Ed Iv/Invasive Line Start (04/23/19 14:07) Ekg Tracing (04/23/19 14:07) Troponin I (04/23/19 14:07) Vital Signs Adult Sepsis Patie Q15M (04/23/19 14:07) O2 (04/23/19 14:07) Remove Rings In Anticipation O (04/23/19 14:07) Lactic Acid Analyzer (04/23/19 14:07) Ed Iv/Invasive Line Start (04/23/19 14:07) Ns Iv 1000 Ml (Sodium Chloride 0.9%) (04/23/19 14:07) Manual Differential (04/23/19 14:15) Ceftriaxone For Iv Use (Rocephin For I (04/23/19 17:00) Medications Given in ED Current Medications Medications Dose Ordered Sig/Arvin Route Start Time Stop Time Status Last Admin Dose Admin Acetaminophen 1,000 mg ONCE PRN PO 04/23/19 14:15 04/23/19 14:44 DC 04/23/19 14:40 1,000 MG Sodium Chloride 1,000 ml @ 0 mls/hr Q0M ONCE IV 04/23/19 14:07 04/23/19 14:10 DC 04/23/19 14:40 0 MLS/HR Vital Signs/I&O 04/23/19 04/23/19 04/23/19 13:34 14:40 16:41 Temp 97.9 100.7 97.2 Pulse 95 70 Resp 18 18 B/P (MAP) 119/59 (79) 120/76 Pulse Ox 96 96 O2 Delivery Room Air Capillary Refill : Less Than 3 Seconds Blood Pressure Mean: 79 Progress Note : Progress Note Seen and evaluated. IV, labs, UA, blood cultures, lactic acid, chest x-ray and EKG ordered. Normal saline 1 L bolus, Tylenol 1 g by mouth ordered. Monitor patient. 1700: Overall improved. No findings concerning for need for admission. We will give Rocephin 1 g IV due to fever and skin wounds. I will continue outpatient treatment with doxycycline for 10 days. This was sent to [facility] for delivery to him. Patient and family agree. Discharged home with return precautions. Patient family verbalized understanding instructions and agreement with plan. ECG Initial ECG Impression Date: Apr 23, 2019 Initial ECG Impression Time: 14:26 Initial ECG Rate: 91 Initial ECG Rhythm: S.Tach Comment Sinus rhythm with normal axis. No evidence of ST elevation [place]. Left atrial abnormality normal. Similar to previous of 03/27/19. Interpreted by me. Diagnostic Imaging Diagonstic Imaging: Xray Plain Films/CT/US/NM/MRI: chest Comments [facility]. [place], [place] NAME: MAYRAYANIVDAVID [facility] REC#: [id number] PT STATUS: REG ER : 1955 PHYSICIAN: ISABEL EVERETT MD ADMIT DATE: 04/23/19/ER Draft Date of Exam:04/23/19 CHEST 1 VIEW, AP/PA ONLY INDICATION: Weakness, dehydration. FINDINGS: The lungs are clear. The heart size and vascularity are normal. There is no effusion or pneumothorax. IMPRESSION: No acute-appearing abnormality. Dictated on workstation # [id number] Dict: 04/23/19 1506 Trans: 04/23/19 1524 [id number] Interpreted by: ANGEL RAZA Electronically signed by: Departure Impression Primary Impression: Multiple wounds of skin Disposition: HOME, SELF-CARE Condition: Improved Departure-Patient Inst. Decision time for Depature: 17:01 Referrals: [facility] [place] Primary Care Physician Patient Instructions: Cellulitis (Skin Infection), Adult (DC) Add. Discharge Instructions: All discharge instructions reviewed with patient and/or family. Voiced understanding. You may take Tylenol/acetaminophen 1000 mg every 6-8 hours as needed for fever or pain. Take other medications as prescribed. Carefully watch your sugars and manage that. Avoid sweets. Plenty of fluids. Continue diabetes management. Return for worse pain, fever, vomiting, weakness, breathing problems, increasing skin wounds, foul-smelling drainage or other concerns as needed. You should follow-up with your early next week for recheck and further evaluation. Scripts Doxycycline Hyclate (Doxycycline Hyclate) 100 Mg Tablet 100 MG PO BID, #20 TAB 0 Refills Prov: ISABLE EVERETT MD 04/23/19 ISABEL EVERETT MD Apr 23, 2019 14:30
[2019-04-23 14:32] LABS: BASOPHILS % (AUTO) 0 % (0-10); EOSINOPHILS # (AUTO) 0.2 10^3/uL (0.0-0.3); EOSINOPHILS % (AUTO) 1 % (0-10); HEMATOCRIT 35 % (40-54); HEMOGLOBIN 11.3 G/DL (13.3-17.7); LYMPHOCYTES # (AUTO) 1.6 X 10^3 (1.0-4.0); LYMPHOCYTES % (AUTO) 11 % (12-44); MEAN CORPUSCULAR HEMOGLOBIN 30 PG (25-34); MEAN CORPUSCULAR HGB CONC 33 G/DL (32-36); MEAN CORPUSCULAR VOLUME 90 FL (80-99); MEAN PLATELET VOLUME 10.7 FL (7.4-10.4); MONOCYTES # (AUTO) 1.3 X 10^3 (0.0-1.0); MONOCYTES % (AUTO) 9 % (0-12); NEUTROPHILS # (AUTO) 11.4 X 10^3 (1.8-7.8); NEUTROPHILS % (AUTO) 79 % (42-75); PLATELET COUNT 266 10^3/uL (130-400); WHITE BLOOD COUNT 14.5 10^3/uL (4.3-11.0)
[2019-04-23 14:45] LABS: INR 0.9 (0.8-1.4); PROTHROMBIN TIME PATIENT 12.9 SEC (12.2-14.7)
[2019-04-23 14:49] LABS: ALANINE AMINOTRANSFERASE 9 U/L (0-55); ALBUMIN 3.7 GM/DL (3.2-4.5); ALKALINE PHOSPHATASE 85 U/L (40-136); BILIRUBIN,TOTAL 0.4 MG/DL (0.1-1.0); BUN/CREATININE RATIO 16; CARBON DIOXIDE 25 MMOL/L (21-32); CHLORIDE 98 MMOL/L (98-107); CREATININE SERUM 1.06 MG/DL (0.60-1.30); GFR ESTIMATED > 60; GLUCOSE 303 MG/DL (70-105); POTASSIUM 4.6 MMOL/L (3.6-5.0); SODIUM 133 MMOL/L (135-145); TOTAL PROTEIN 6.7 GM/DL (6.4-8.2)
[2019-04-23 14:52] LABS: BAND NEUTROPHILS 9 %; EOSINOPHILS % (MANUAL) 1 %; LYMPHOCYTES % (MANUAL) 15 %; MONOCYTES % (MANUAL) 2 %; NEUTROPHILS % (MANUAL) 73 %; RBC MORPH NORMAL; TOXIC GRANULATION/VACUOLAZATIO 1+
--- NOTE | 2019-04-23 15:24 | Diagnostic Imaging Report ---
INDICATION: Weakness, dehydration. FINDINGS: The lungs are clear. The heart size and vascularity are normal. There is no effusion or pneumothorax. IMPRESSION: No acute-appearing abnormality. Dictated by: Dictated on workstation # [id number]
[2019-04-23 16:11] LABS: BILIRUBIN,URINE NEGATIVE (NEGATIVE); CLARITY,URINE CLEAR; COLOR,URINE YELLOW; GLUCOSE, URINE (UA) 4+ (NEGATIVE); KETONES,URINE NEGATIVE (NEGATIVE); LEUKOCYTE ESTERASE ,URINE NEGATIVE (NEGATIVE); NITRITE,URINE NEGATIVE (NEGATIVE); PH,URINE 6.5 (5-9); PROTEIN,URINE 2+ (NEGATIVE); UROBILINOGEN,URINE NORMAL (NORMAL)
[2019-04-23 16:18] LABS: BACTERIA,URINE TRACE /HPF
[2019-04-23] MEDS ORDERED: DOXY100T2 PO (16:55)
[2019-04-23] MEDS ORDERED: cefTRIAXone FOR IV USE 1,000 MG in WATER (STERILE) FOR INJECTION 10 ML IV ONE (17:00)
[2019-04-23 17:17] VITALS: BP 126/73
== END 2019-04-23 17:18 | disposition home or self-care (01) ==
LOC: EDUNIT# 13:30 → ER 13:31
DX: S21.101A Unspecified open wound of right front wall of thorax without penetration into thoracic cavity, initial encounter (principal); S31.109A Unspecified open wound of abdominal wall, unspecified quadrant without penetration into peritoneal cavity, initial encounter; E11.42 Type 2 diabetes mellitus with diabetic polyneuropathy; I10 Essential (primary) hypertension; E78.00 Pure hypercholesterolemia, unspecified; F17.210 Nicotine dependence, cigarettes, uncomplicated; F12.10 Cannabis abuse, uncomplicated; F15.10 Other stimulant abuse, uncomplicated; Z87.820 Personal history of traumatic brain injury; Z88.8 Allergy status to other drugs, medicaments and biological substances; Z89.429 Acquired absence of other toe(s), unspecified side; Z90.49 Acquired absence of other specified parts of digestive tract; Z79.4 Long term (current) use of insulin; X58.XXXA Exposure to other specified factors, initial encounter
CPT/HCPCS: 36415; 71045; 80053; 81000; 82962; 83605; 84484; 85007; 85027; 85610; 85730; 87040; 87088; 96361; 96374

== ENCOUNTER 2019-05-04 20:55 | Inpatient (IN) | payer MEDICARE ==
[~2019-05-04] VITALS: Ht 182.9 cm; Wt 68.7 kg
[~2019-05-04 20:55] MED LIST changes: +DOXY100T2 PO
[2019-05-04] MEDS ORDERED: NS IV 1000 ML 1,000 ML IV SCH (21:01)
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
[2019-05-04] MEDS ORDERED: CEFEPIME INJECTION 1,000 MG in WATER (STERILE) FOR INJECTION 10 ML IV ONE (21:15)
--- NOTE | 2019-05-04 21:51 | Diagnostic Imaging Report ---
EXAMINATION: Chest radiograph, portable AP view. DATE: May 04, 2019 at 2127 hours. INDICATION: 63-year-old male, hypoglycemia. COMPARISON: April 23, 2019. FINDINGS: Heart size and mediastinal contours are unremarkable. There is no identified pneumothorax. There is no large pleural effusion. There is no identified focal airspace consolidation. There are probable bilateral nipple shadows. IMPRESSION: No identified acute cardiopulmonary abnormality. Dictated by: Dictated on workstation # [id number]
[2019-05-04 21:54] LABS: BASOPHILS % (AUTO) 0 % (0-10); EOSINOPHILS # (AUTO) 0.4 10^3/uL (0.0-0.3); EOSINOPHILS % (AUTO) 4 % (0-10); HEMATOCRIT 36 % (40-54); LYMPHOCYTES # (AUTO) 1.5 X 10^3 (1.0-4.0); LYMPHOCYTES % (AUTO) 16 % (12-44); MEAN CORPUSCULAR HEMOGLOBIN 30 PG (25-34); MEAN CORPUSCULAR HGB CONC 34 G/DL (32-36); MEAN CORPUSCULAR VOLUME 89 FL (80-99); MEAN PLATELET VOLUME 9.7 FL (7.4-10.4); MONOCYTES # (AUTO) 0.8 X 10^3 (0.0-1.0); MONOCYTES % (AUTO) 9 % (0-12); NEUTROPHILS % (AUTO) 72 % (42-75); PLATELET COUNT 352 10^3/uL (130-400); RED CELL DISTRIBUTION WIDTH 13.6 % (10.0-14.5); WHITE BLOOD COUNT 9.7 10^3/uL (4.3-11.0)
--- NOTE | 2019-05-04 22:00 | Diagnostic Imaging Report ---
PROCEDURE: CT head and CT cervical spine without contrast. TECHNIQUE: Multiple contiguous axial images were obtained through the brain and cervical spine without the use of intravenous contrast. Sagittal and coronal reformations through the cervical spine were then performed. Auto Exposure Controls were utilized during the CT exam to meet ALARA standards for radiation dose reduction. DATE: May 04, 2019. COMPARISON: March 24, 2019. June 22, 2017. INDICATION: 63-year-old male, fall of ladder. Altered mental status. FINDINGS: There is a redemonstrated large area of encephalomalacia in the right middle cerebral artery distribution. There is no identified skull fracture. The visualized portions of the paranasal sinuses, mastoid air cells, and middle ears are well aerated. The ventricles and cerebral spinal fluid spaces are of normal size and configuration for the patient's age. There is no mass effect or midline shift. There is no acute intracranial hemorrhage. There is no abnormal extra-axial fluid collection. There is no identified facet joint subluxation or dislocation. There is partial ankylosis across the bilateral C3-C4 facet articulations as well as partial ankylosis across the C3-C4 disc space. There is no asymmetric widening of the cervical disc spaces. There is no prominent prevertebral soft tissue swelling. There are multilevel mild disc degenerative changes of the cervical spine with posterior disc osteophyte complexes most notable at C4-C5 and C5-C6. There is suspected spinal stenosis at both of these levels. CT is limited for assessment of disc pathology as well as additional non-bony causes of foraminal and spinal stenosis. There is no identified acute fracture of the cervical spine. There is a partially imaged focal area of consolidation in the left upper lobe which appears somewhat nodular measuring 10 mm in size on axial image 80. Additional visualized portions of the lung apices are clear. There are vascular calcifications including carotid vascular calcifications bilaterally. IMPRESSION: 1. No identified acute intracranial abnormality. 2. Large area of encephalomalacia in the right middle cerebral artery distribution. 3. No identified acute fracture of the cervical spine. 4. Multilevel degenerative changes of the cervical spine most notable at C4-C5 and C5-C6 with suspected spinal stenosis at both levels. 5. Partially visualized 10 mm potential left upper lobe pulmonary nodule. Followup CT chest is recommended. Dictated by: Dictated on workstation # [id number]
[2019-05-04 22:05] LABS: BILIRUBIN,URINE NEGATIVE (NEGATIVE); CLARITY,URINE CLEAR; COLOR,URINE YELLOW; GLUCOSE, URINE (UA) 4+ (NEGATIVE); KETONES,URINE NEGATIVE (NEGATIVE); LEUKOCYTE ESTERASE ,URINE NEGATIVE (NEGATIVE); NITRITE,URINE NEGATIVE (NEGATIVE); PH,URINE 5 (5-9); PROTEIN,URINE 3+ (NEGATIVE); UROBILINOGEN,URINE NORMAL (NORMAL)
[2019-05-04 22:07] LABS: PROTHROMBIN TIME PATIENT 13.9 SEC (12.2-14.7)
[2019-05-04 22:13] LABS: BACTERIA,URINE TRACE /HPF; URINE OTHER FEW SPERM /HPF
[2019-05-04 22:15] LABS: ALANINE AMINOTRANSFERASE 9 U/L (0-55); ALKALINE PHOSPHATASE 97 U/L (40-136); BILIRUBIN,TOTAL 0.3 MG/DL (0.1-1.0); BUN/CREATININE RATIO 23; CALCIUM 9.5 MG/DL (8.5-10.1); CARBON DIOXIDE 24 MMOL/L (21-32); CHLORIDE 104 MMOL/L (98-107); CREATININE SERUM 1.27 MG/DL (0.60-1.30); GFR ESTIMATED 57; GLUCOSE 62 MG/DL (70-105); POTASSIUM 3.4 MMOL/L (3.6-5.0); SODIUM 141 MMOL/L (135-145); TOTAL PROTEIN 7.2 GM/DL (6.4-8.2)
[2019-05-04 22:16] LABS: AMPHETAMINE SCREEN, URINE POSITIVE (NEGATIVE); BARBITURATE SCREEN URINE NEGATIVE (NEGATIVE); BENZODIAZEPINES SCREEN URINE NEGATIVE (NEGATIVE); CANNABINOID SCREEN, URINE POSITIVE (NEGATIVE); COCAINE SCREEN URINE NEGATIVE (NEGATIVE); METHADONE STAT NEGATIVE (NEGATIVE); METHAMPHETAMINE SCREEN URINE S POSITIVE (NEGATIVE); OPIATE SCREEN URINE NEGATIVE (NEGATIVE); OXYCODONE STAT NEGATIVE (NEGATIVE); PROPOXYPHENE STAT NEGATIVE (NEGATIVE); TRICYCLIC ANTIDEPRESSANTS SCRE NEGATIVE (NEGATIVE)
--- NOTE | 2019-05-04 23:45 | NUR ---
DAVID GALINDO admitted to room 413-1, with an admitting diagnosis of hypoglycemia, on 05/04/19 from ED via [facility], accompanied by ED STAFF AND SON.DAVID GALINDO introduced to surroundings, call light, bed controls, phone, TV, temperature control, lights, meal times, smoking policy, visitor policy, side rail policy, bathrooms and showers. Patient Rights given to patient in the handbook. DAVID GALINDO verbalizes understanding that [facility] is not responsible for the loss or damage to any personal effects or valuables that are kept in the patients posession during their hospitalization. Patient and/or family were informed about the Rapid Response Team and its purpose.
--- NOTE | 2019-05-04 23:55 | NUR ---
PT ORIENTED TO PLACE, PERSON AND SITUATION. LETHARGIC AT THIS TIME. ADMISSION QUESTIONS AND HISTORY PROVIDED BY PT ADULT SON.
[2019-05-05] VITALS (7 sets, daily range): BP systolic 128–167; BP diastolic 55–88
[2019-05-05] MEDS ORDERED: DEXTROSE 10% IV SOLUTION 1,000 ML IV ONE (00:06)
[2019-05-05] MEDS ORDERED: ACETAMINOPHEN 500 MG TAB (TYLENOL) PO PRN (01:00)
[2019-05-05] MEDS ORDERED: ONDANSETRON 4 MG/2 ML (SDV) Z0FRAN IV PRN (01:00)
[2019-05-05] MEDS: DEXTROSE 10% IV SOLUTION 1,000 ML IV SCH ×2 (01:27→20:28)
[2019-05-05] MEDS ORDERED: NOREPINEPHRINE 4 MG in NS (IVPB) 250 ML IV SCH (05:22)
[2019-05-05] MEDS ORDERED: NS IV 1000 ML 1,000 ML IV SCH (05:22)
[2019-05-05 05:29] LABS: BASOPHILS % (AUTO) 0 % (0-10); EOSINOPHILS # (AUTO) 0.5 10^3/uL (0.0-0.3); EOSINOPHILS % (AUTO) 4 % (0-10); HEMATOCRIT 33 % (40-54); HEMOGLOBIN 11.3 G/DL (13.3-17.7); LYMPHOCYTES # (AUTO) 2.3 X 10^3 (1.0-4.0); LYMPHOCYTES % (AUTO) 19 % (12-44); MEAN CORPUSCULAR HEMOGLOBIN 30 PG (25-34); MEAN CORPUSCULAR HGB CONC 34 G/DL (32-36); MEAN CORPUSCULAR VOLUME 89 FL (80-99); MEAN PLATELET VOLUME 10.2 FL (7.4-10.4); MONOCYTES # (AUTO) 0.9 X 10^3 (0.0-1.0); MONOCYTES % (AUTO) 8 % (0-12); NEUTROPHILS # (AUTO) 8.6 X 10^3 (1.8-7.8); NEUTROPHILS % (AUTO) 70 % (42-75); PLATELET COUNT 333 10^3/uL (130-400); RED CELL DISTRIBUTION WIDTH 13.4 % (10.0-14.5); WHITE BLOOD COUNT 12.3 10^3/uL (4.3-11.0)
[2019-05-05] MEDS ORDERED: NS IV ONE (05:30)
[2019-05-05 05:44] LABS: ALANINE AMINOTRANSFERASE 16 U/L (0-55); ALBUMIN 3.5 GM/DL (3.2-4.5); ALKALINE PHOSPHATASE 92 U/L (40-136); BILIRUBIN,TOTAL 0.5 MG/DL (0.1-1.0); BUN/CREATININE RATIO 28; CALCIUM 9.1 MG/DL (8.5-10.1); CARBON DIOXIDE 24 MMOL/L (21-32); CHLORIDE 104 MMOL/L (98-107); CREATININE SERUM 0.94 MG/DL (0.60-1.30); GFR ESTIMATED > 60; GLUCOSE 142 MG/DL (70-105); POTASSIUM 3.9 MMOL/L (3.6-5.0); SODIUM 138 MMOL/L (135-145); TOTAL PROTEIN 6.2 GM/DL (6.4-8.2)
[2019-05-05] MEDS: inSUlin ASPART (NovoLOG) 1 UNIT/0.01 ML (CHARGE PER UNIT) SC SCH ×4 (06:26→21:26)
[2019-05-05] MEDS: CEFEPIME 1,000 MG/SWFI 10 ML IV PUSH IV SCH ×6 (06:41→17:57)
[2019-05-05] MEDS ORDERED: DOXY100T2 PO (09:11)
--- NOTE | 2019-05-05 09:31 | NUR ---
SPOKE WITH THE PATIENTS FAMILY IN THE ROOM, PATIENT DID NOT WAKE UP TO ANSWER QUESTIONS. HE STATES HE KNOWS THE PATIENT USES HIS INSULIN BUT IS NOT SURE HOW MANY UNITS, I LEFT IT ON THE MED REC IT WAS REPORTED AT HIS LAST VISIT. 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 HE ALSO STATES HE IS STILL TAKING VITAMIN D AND FISH OIL OTC. LISINOPRIL 20MG AND FLUOXETINE 20MG WERE ORDERED AT DISCHARGE ON 03-26-19 HOWEVER [facility] REPORTS THEY WERE NEVER PICKED UP. I REMOVED THEM FROM THE MED REC AT THIS TIME.
--- NOTE | 2019-05-05 14:15 | NUR ---
Pastoral care visit, pts son at bedside, pt sleeping, offered support.
--- NOTE | 2019-05-05 14:52 | NUR ---
CM/SS. French Translator familiar with patient from OBS admission 03/24-03/26/19. There is a continued open case through DCF/APS, informed SW/Mary Madden patient has returned here. The previous plan was that she would visit him at his travel trailer home to assist with [employer] application since he is insured Medicare only, she now intends to visit him while hospitalized. Per EMR documentation and overall psychosocial history, patient choices are interfering with his well being and professional recommendations/orders/Rx. Patient had positive toxicology upon presentation for THC and Meth but indicates he can not afford to buy his diabetic blood sugar DME to monitor his levels. During last visit patient shared he owes Court fees that were requiring a high % of his monthly income but that he only had a few months left of that obligation. Follow for discharge options.
--- NOTE | 2019-05-05 19:37 | History & Physical ---
HPI History of Present Illness: 63 yo M that is insulin dependent DM that presented to ER after having a blood sugar in the 20s. States that he had not been feeling well for the last 24 hrs. States that he was taking his insulin but had not had anything to eat for over 48hrs. Called a neighbor which came over and found no food to give patient and then called EMS. When EMS arrived they took his sugar at it was in the 20s. Denies any fever, chills, shortness of breath or chest pain. Source: patient, family (son) Exam Limitations: no limitations Date seen by provider: May 05, 2019 Time Seen by Provider: 11:00 Attending Physician Trina Vuong MD [facility] Consult Date of Admission May 04, 2019 at 22:00 Home Medications Home Medications Reviewed patient Home Medication Reconciliation performed by pharmacy medication reconciliations lidar technician and/or nursing. Patients Allergies have been reviewed. Allergies Coded Allergies: Benzodiazepines (Verified Allergy, Unknown, 05/10/14) [id number] Hx Patient Social History Living Status: lives alone in [facility] Alcohol Use: Past History Recreational Drug Use: Yes Drug of Choice: THC, + IV METH-ALSO SNORTS IT; ACID, MESCALINE; "SPEED", "OTHERS" Smoking Status: Current Everyday Smoker Type Used: Cigarettes 2nd Hand Smoke Exposure: Yes Recent Foreign Travel: No Contact w/other who traveled: No Recent Hopitalizations: No Recent Infectious Disease Expo: No Immunizations Up To Date Tetanus Booster (TDap): Unknown Date of Pneumonia Vaccine: Jan 16, 2016 Past Medical History Medical Hx: DMII w/ diabetic neuropathy hx C1-C2 frature Illicit drug use - methamphetamine Hypertension Surgical Hx: cholecystectomy Proximal tibia tumor removal Polydactyly removal Right wrist fracture repair/fusion Family Medical History Significant Family History: No Pertinent Family Hx Family History: Blood clots 19 FATHER Diabetes mellitus 19 FATHER 19 MOTHER G8 BROTHER Review of Systems ([facility]) Constitutional: No chills, No fever; malaise EENTM: no symptoms reported Respiratory: no symptoms reported; No cough, No dyspnea on exertion, No short of breath Cardiovascular: no symptoms reported; No chest pain, No edema, No palpitations Gastrointestinal: No abdominal pain, No constipation, No diarrhea; loss of appetite; No nausea, No vomiting Genitourinary: no symptoms reported; No dysuria, No frequency, No hematuria Musculoskeletal: no symptoms reported Skin: no symptoms reported Psychiatric/Neurological: Weakness Reviewed Test Results Reviewed Test Results Lab Laboratory Tests Test 05/04/19 21:01 05/04/19 21:40 05/04/19 21:55 05/04/19 22:56 Range/Units Glucometer 169 H 122 H 70-110 MG/DL White Blood Count 9.7 4.3-11.0 10^3/uL Red Blood Count 4.00 L 4.35-5.85 10^6/uL Hemoglobin 12.0 L 13.3-17.7 G/DL Hematocrit 36 L 40-54 % Mean Corpuscular Volume 89 80-99 FL Mean Corpuscular Hemoglobin 30 25-34 PG Mean Corpuscular Hemoglobin Concent 34 32-36 G/DL Red Cell Distribution Width 13.6 10.0-14.5 % Platelet Count 352 130-400 10^3/uL Mean Platelet Volume 9.7 7.4-10.4 FL Neutrophils (%) (Auto) 72 42-75 % Lymphocytes (%) (Auto) 16 12-44 % Monocytes (%) (Auto) 9 0-12 % Eosinophils (%) (Auto) 4 0-10 % Basophils (%) (Auto) 0 0-10 % Neutrophils # (Auto) 7.0 1.8-7.8 X 10^3 Lymphocytes # (Auto) 1.5 1.0-4.0 X 10^3 Monocytes # (Auto) 0.8 0.0-1.0 X 10^3 Eosinophils # (Auto) 0.4 H 0.0-0.3 10^3/uL Basophils # (Auto) 0.0 0.0-0.1 10^3/uL Prothrombin Time 13.9 12.2-14.7 SEC INR Comment 1.0 0.8-1.4 Activated Partial Thromboplast Time 32 24-35 SEC Sodium Level 141 135-145 MMOL/L Potassium Level 3.4 L 3.6-5.0 MMOL/L Chloride Level 104 98-107 MMOL/L Carbon Dioxide Level 24 21-32 MMOL/L Anion Gap 13 5-14 MMOL/L Blood Urea Nitrogen 29 H 7-18 MG/DL Creatinine 1.27 0.60-1.30 MG/DL Estimat Glomerular Filtration Rate 57 BUN/Creatinine Ratio 23 Glucose Level 62 L 70-105 MG/DL Lactic Acid Level 1.37 0.50-2.00 MMOL/L Calcium Level 9.5 8.5-10.1 MG/DL Corrected Calcium 9.5 8.5-10.1 MG/DL Total Bilirubin 0.3 0.1-1.0 MG/DL Aspartate Amino Transf (AST/SGOT) 10 5-34 U/L Alanine Aminotransferase (ALT/SGPT) 9 0-55 U/L Alkaline Phosphatase 97 40-136 U/L Troponin I < 0.028 <0.028 NG/ML Total Protein 7.2 6.4-8.2 GM/DL Albumin 4.0 3.2-4.5 GM/DL Urine Color YELLOW Urine Clarity CLEAR Urine pH 5 5-9 Urine Specific [place] 1.025 H 1.016-1.022 Urine Protein 3+ H NEGATIVE Urine Glucose (UA) 4+ H NEGATIVE Urine Ketones NEGATIVE NEGATIVE Urine Nitrite NEGATIVE NEGATIVE Urine Bilirubin NEGATIVE NEGATIVE Urine Urobilinogen NORMAL NORMAL MG/DL Urine Leukocyte Esterase NEGATIVE NEGATIVE Urine RBC (Auto) NEGATIVE NEGATIVE Urine RBC NONE /HPF Urine WBC NONE /HPF Urine Squamous Epithelial Cells NONE /HPF Urine Crystals NONE /LPF Urine Bacteria TRACE /HPF Urine Casts PRESENT /LPF Urine Hyaline Casts 5-10 H /LPF Urine Mucus MODERATE H /LPF Urine Other FEW SPERM H /HPF Urine Culture Indicated NO Urine Opiates Screen NEGATIVE NEGATIVE Urine Oxycodone Screen NEGATIVE NEGATIVE Urine Methadone Screen NEGATIVE NEGATIVE Urine Propoxyphene Screen NEGATIVE NEGATIVE Urine Barbiturates Screen NEGATIVE NEGATIVE Ur Tricyclic Antidepressants Screen NEGATIVE NEGATIVE Urine Phencyclidine Screen NEGATIVE NEGATIVE Urine Amphetamines Screen POSITIVE H NEGATIVE Urine Methamphetamines Screen POSITIVE H NEGATIVE Urine Benzodiazepines Screen NEGATIVE NEGATIVE Urine Cocaine Screen NEGATIVE NEGATIVE Urine Cannabinoids Screen POSITIVE H NEGATIVE Test 05/05/19 01:54 05/05/19 05:10 05/05/19 05:58 05/05/19 11:20 Range/Units Glucometer 129 H 160 H 376 H 70-110 MG/DL White Blood Count 12.3 H 4.3-11.0 10^3/uL Red Blood Count 3.77 L 4.35-5.85 10^6/uL Hemoglobin 11.3 L 13.3-17.7 G/DL Hematocrit 33 L 40-54 % Mean Corpuscular Volume 89 80-99 FL Mean Corpuscular Hemoglobin 30 25-34 PG Mean Corpuscular Hemoglobin Concent 34 32-36 G/DL Red Cell Distribution Width 13.4 10.0-14.5 % Platelet Count 333 130-400 10^3/uL Mean Platelet Volume 10.2 7.4-10.4 FL Neutrophils (%) (Auto) 70 42-75 % Lymphocytes (%) (Auto) 19 12-44 % Monocytes (%) (Auto) 8 0-12 % Eosinophils (%) (Auto) 4 0-10 % Basophils (%) (Auto) 0 0-10 % Neutrophils # (Auto) 8.6 H 1.8-7.8 X 10^3 Lymphocytes # (Auto) 2.3 1.0-4.0 X 10^3 Monocytes # (Auto) 0.9 0.0-1.0 X 10^3 Eosinophils # (Auto) 0.5 H 0.0-0.3 10^3/uL Basophils # (Auto) 0.0 0.0-0.1 10^3/uL Sodium Level 138 135-145 MMOL/L Potassium Level 3.9 3.6-5.0 MMOL/L Chloride Level 104 98-107 MMOL/L Carbon Dioxide Level 24 21-32 MMOL/L Anion Gap 10 5-14 MMOL/L Blood Urea Nitrogen 26 H 7-18 MG/DL Creatinine 0.94 0.60-1.30 MG/DL Estimat Glomerular Filtration Rate > 60 BUN/Creatinine Ratio 28 Glucose Level 142 H 70-105 MG/DL Calcium Level 9.1 8.5-10.1 MG/DL Corrected Calcium 9.5 8.5-10.1 MG/DL Total Bilirubin 0.5 0.1-1.0 MG/DL Aspartate Amino Transf (AST/SGOT) 32 5-34 U/L Alanine Aminotransferase (ALT/SGPT) 16 0-55 U/L Alkaline Phosphatase 92 40-136 U/L Troponin I < 0.028 <0.028 NG/ML Total Protein 6.2 L 6.4-8.2 GM/DL Albumin 3.5 3.2-4.5 GM/DL Test 05/05/19 16:18 Range/Units Glucometer 137 H 70-110 MG/DL Physical Exam-([facility]) Physical Exam Vital Signs VS - Last 72 Hours, by Label 05/04/19 05/04/19 05/04/19 05/04/19 20:57 21:40 23:39 23:50 Temp 95.0 95.0 96.0 Pulse 80 74 70 Resp 16 16 16 B/P (MAP) 153/91 (111) 127/71 141/81 (101) Pulse Ox 100 100 O2 Delivery Room Air 05/05/19 05/05/19 05/05/19 05/05/19 00:00 00:37 01:00 04:00 Temp 97.4 97.4 98.1 Pulse 73 73 69 79 Resp 16 16 16 B/P (MAP) 167/88 (114) 167/88 142/83 (102) Pulse Ox 99 99 99 O2 Delivery Room Air Room Air Room Air 05/05/19 05/05/19 05/05/19 05/05/19 07:00 08:00 08:00 12:00 Temp 98.7 98.1 Pulse 85 83 70 Resp 18 16 B/P (MAP) 128/55 (79) 133/76 (95) Pulse Ox 100 99 O2 Delivery Room Air Room Air Room Air 05/05/19 05/05/19 12:24 16:10 Pulse 72 74 Resp 18 B/P (MAP) 144/72 (96) Pulse Ox 99 O2 Delivery Room Air Capillary Refill : Less Than 3 Seconds General Appearance: WD/WN, no apparent distress, thin HEENT: PERRL/EOMI Neck: non-tender, full range of motion, supple Respiratory: chest non-tender, lungs clear, normal breath sounds, no respiratory distress, no accessory muscle use Cardiovascular: normal peripheral pulses, regular rate, rhythm, no edema, no murmur Gastrointestinal: normal bowel sounds, non tender, soft, no organomegaly Back: no CVA tenderness, no vertebral tenderness Extremities: normal range of motion, non-tender, normal inspection, no pedal edema, no calf tenderness, normal capillary refill Neurologic/Psychiatric: 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 roll 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 II-XII nml as tested, no motor/sensory deficits, alert, normal mood/affect, oriented x 3 Skin: normal color, warm/dry Lymphatic: no adenopathy Assessment/Plan Assessment/Plan Admission Status: Inpatient Order (span 2 midnights) Reason for Inpatient Admission: Requiring IV fluids and close monitoring for hypoglycemia (1) Hypoglycemia Status: Acute Assessment & Plan: - Will decrease long acting insulin to 1/2 normal dose and continue to monitor blood sugars closely, A1c pending, will look into meals on wheels (2) 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
[2019-05-05] MEDS ORDERED: ENOXAPARIN 40 MG/0.4 ML (LOVENOX) SYR SQ SCH (19:45)
[2019-05-05] MEDS: NS IV 1000 ML 1,000 ML IV SCH (21:29)
[2019-05-06] VITALS: BP 114/58
[2019-05-06] MEDS: CEFEPIME 1,000 MG/SWFI 10 ML IV PUSH IV SCH ×6 (00:14→11:37)
[2019-05-06 04:00] VITALS: BP 129/69
[2019-05-06] MEDS: inSUlin ASPART (NovoLOG) 1 UNIT/0.01 ML (CHARGE PER UNIT) SC SCH ×2 (05:46→11:37)
[2019-05-06 07:03] LABS: BASOPHILS % (AUTO) 1 % (0-10); EOSINOPHILS # (AUTO) 0.5 10^3/uL (0.0-0.3); EOSINOPHILS % (AUTO) 6 % (0-10); HEMATOCRIT 35 % (40-54); HEMOGLOBIN 11.4 G/DL (13.3-17.7); LYMPHOCYTES # (AUTO) 1.9 X 10^3 (1.0-4.0); LYMPHOCYTES % (AUTO) 25 % (12-44); MEAN CORPUSCULAR HEMOGLOBIN 29 PG (25-34); MEAN CORPUSCULAR HGB CONC 33 G/DL (32-36); MEAN CORPUSCULAR VOLUME 90 FL (80-99); MEAN PLATELET VOLUME 10.5 FL (7.4-10.4); MONOCYTES # (AUTO) 0.7 X 10^3 (0.0-1.0); MONOCYTES % (AUTO) 10 % (0-12); NEUTROPHILS # (AUTO) 4.4 X 10^3 (1.8-7.8); NEUTROPHILS % (AUTO) 59 % (42-75); PLATELET COUNT 334 10^3/uL (130-400); RED CELL DISTRIBUTION WIDTH 13.7 % (10.0-14.5); WHITE BLOOD COUNT 7.5 10^3/uL (4.3-11.0)
[2019-05-06 07:21] LABS: BUN/CREATININE RATIO 27; CARBON DIOXIDE 25 MMOL/L (21-32); CHLORIDE 106 MMOL/L (98-107); GFR ESTIMATED > 60; GLUCOSE 127 MG/DL (70-105); POTASSIUM 4.1 MMOL/L (3.6-5.0); SODIUM 140 MMOL/L (135-145)
[2019-05-06 08:00] VITALS: BP 135/75
[2019-05-06] MEDS: NS IV 1000 ML 1,000 ML IV SCH (11:26)
--- NOTE | 2019-05-06 11:59 | Discharge Summary ---
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 States that he had not been feeling well for the last 24 hrs. States that he was taking his insulin but had not had anything to eat for over 48hrs. Called a neighbor which came over and found no food to give patient and then called EMS. When EMS arrived they took his sugar at it was in the 20s. Denies any fever, chills, shortness of breath or chest pain. Discharge Summary-Simple/Stand Consultations Discharge Physical Examination Allergies: Coded Allergies: Benzodiazepines (Verified Allergy, Unknown, 05/10/14) Vitals & I&Os Vital Sign - Last 12Hours Date Time Temp Pulse Resp B/P (MAP) Pulse Ox O2 Delivery O2 Flow Rate FiO2 05/06/19 08:00 Room Air 05/06/19 08:00 98.4 76 20 135/75 (95) 97 Intake and Output 05/06/19 00:00 Intake Total 2480 ml Output Total 950 ml Balance 1530 ml General Appearance: Alert, Oriented X3, Cooperative, No Acute Distress HEENT: Mucous Memb Moist/[place] Respiratory: Clear to Auscultation, Normal Air Movement Cardiovascular: Regular Rate, No Murmurs Abdominal: Normal Bowel Sounds, Soft, No Tenderness, No Masses Extremities: No Edema, No Tenderness/Swelling Skin: No Rashes, No Breakdown Neuro: Strength at 5/5 X4 Ext, Sensation Intact, Cranial Nerves 3-12 NL Psych/Mental Status: Mental Status NL, Mood NL Hospital Course Was the Problem List Reviewed?: Yes See final discharge diagnosis. Discussion & Recommendations 63 yo M with long h/o meth abuse that was brought in from home with a glucose in the 20s. Patient has not been eating regularly and still taking his insulin. Patient has meals on wheels program to his house. Will have close f.u with PCP. Discharge Condition at discharge poor prognosis Instructions to patient/family Please see electronic discharge instructions given to patient. Discharge Medications Reviewed and agree with Discharge Medication list on patient's Discharge Instruction sheet Clinical Quality Measures DVT/VTE Risk/Contraindication: Risk Factor Score Per Nursin RFS Level Per Nursing on Admit: 4+=Very High Copy Copies To 1: JUAN ANTONIO MATHEWS MD, HOLLY R MD May 06, 2019 11:59
[2019-05-06 12:00] VITALS: BP 143/75
[2019-05-06] MEDS ORDERED: INSU100V5 SQ (12:00)
--- NOTE | 2019-05-06 12:03 | Discharge Instructions ---
Discharge [facility] Reconcile Patient Problems Problems Reviewed?: Yes Discharge Medications New, Converted or Re-Newed RX: Transmitted to Pharmacy New Medications: Insulin Determir (Levemir) 1,000 Units/10 Ml Soln 20 UNIT SQ HS for 30 Days, EA Continued Medications: Cholecalciferol (Vitamin D3) (Vitamin D) 2,000 Unit Capsule 2000 UNIT PO DAILY, CAP Insulin Aspart (Novolog Flexpen) 300 Units/3 Ml Solution 10 UNITS SC TIDWM, EA [place]-3/Dha/Epa/Fish Oil (Fish Oil 1,000 mg Softgel) 1 Each Capsule 1 CAP PO DAILY, CAP Discontinued Medications: Insulin Detemir (Levemir Flextouch) 100 Unit/1 Ml Insuln.pen 40 UNITS SC HS, EA Patient Instructions Goal/Follow Up Appt: - F.u with Dr Mathews next week Patient Instructions: - Decreased your insulin due to poor PO intake - Make sure to bring your glucose meter to your appt with Dr Lawrence, if you do not have a glucocard then will provide one to patient so that he can get cheaper strips at the clinic as he states that he does not have strips because he can not afford them Activity & Diet Discharge Diet: ADA Diet Activity as Tolerated: Yes Copy Copies To 1: JUAN ANTONIO MATHEWS MD, HOLLY R MD May 06, 2019 12:03
[2019-05-06 14:42] VITALS: BP 143/75
--- NOTE | 2019-05-06 15:28 | NUR ---
CM/SS. Discharged back to his home at his request. Provided Taxi voucher for transportation after exploring options for a ride. Updated DCF/APS Mary Madden and she indicated she would see him at his home. She was warned of his drug use so she could plan to take a coworker with her if desired. Re his diabetic DME, [facility] will provide this for patient as well as work with him on Rx. Cooler Supervisor confirmed with him about his quick followup appointment and that he must attend this in order to be approved and assisted with these other resources. Patient inquired about transport, senior writer provided [facility] contact and patient called from hospital room to set this up for himself. Patient has multi psychosocial issues unresolved coupled with poor choices for the income he does have. He stated that May will be his last Court fee payment. He still owes $1,000 to [employer] and $700 for water and, therefore, he does not have utilities. This is crucial to his overall ability to manage his well-being due to lack of refrigeration and personal hygiene (diabetes, nutrition, Rx storage). CATHERINE/Sarina updated re same with emphasis. The original DCF intake requested that patient be assisted for [employer] application and this has not yet been completed. Patient states he is disabled and gets a monthly social security check.
== END 2019-05-06 15:25 | disposition home or self-care (01) | DRG 639 ==
LOC: EDUNIT# 20:55 → ER 20:55 → 4TH 22:00
PROVIDERS: ADMIT Family Medicine; ATTEND Family Medicine
DX: E11.649 Type 2 diabetes mellitus with hypoglycemia without coma (principal); E11.42 Type 2 diabetes mellitus with diabetic polyneuropathy; F15.129 Other stimulant abuse with intoxication, unspecified; I10 Essential (primary) hypertension; E78.00 Pure hypercholesterolemia, unspecified; F17.210 Nicotine dependence, cigarettes, uncomplicated; M54.9 Dorsalgia, unspecified; Z79.4 Long term (current) use of insulin; Z89.422 Acquired absence of other left toe(s); Z87.820 Personal history of traumatic brain injury; Z91.19 Patient's noncompliance with other medical treatment and regimen; Z91.81 History of falling
CPT/HCPCS: 36415; 51702; 70450; 71045; 72125; 80048; 80053; 80306; 81000; 82962; 83036; 83605; 84484; 85025; 85610; 85730; 87040; 87088; 93005

== ENCOUNTER 2019-05-19 22:25 | Emergency (ER) | payer MEDICARE ==
[~2019-05-19] VITALS: Ht 188 cm; Wt 65.8 kg
[2019-05-19 22:44] LABS: BASOPHILS % (AUTO) 0 % (0-10); EOSINOPHILS # (AUTO) 0.3 10^3/uL (0.0-0.3); EOSINOPHILS % (AUTO) 3 % (0-10); HEMATOCRIT 36 % (40-54); HEMOGLOBIN 11.8 G/DL (13.3-17.7); LYMPHOCYTES # (AUTO) 1.8 X 10^3 (1.0-4.0); LYMPHOCYTES % (AUTO) 21 % (12-44); MEAN CORPUSCULAR HEMOGLOBIN 30 PG (25-34); MEAN CORPUSCULAR HGB CONC 33 G/DL (32-36); MEAN CORPUSCULAR VOLUME 90 FL (80-99); MEAN PLATELET VOLUME 10.7 FL (7.4-10.4); MONOCYTES # (AUTO) 0.5 X 10^3 (0.0-1.0); MONOCYTES % (AUTO) 6 % (0-12); NEUTROPHILS # (AUTO) 5.9 X 10^3 (1.8-7.8); NEUTROPHILS % (AUTO) 69 % (42-75); PLATELET COUNT 352 10^3/uL (130-400); RED CELL DISTRIBUTION WIDTH 13.6 % (10.0-14.5); WHITE BLOOD COUNT 8.5 10^3/uL (4.3-11.0)
--- NOTE | 2019-05-19 22:44 | ED Neurological Problem ---
General Stated Complaint: MULTIPLE COMPLAINTS Source: patient, EMS Exam Limitations: no limitations History of Present Illness Date Seen by Provider: May 19, 2019 Time Seen by Provider: 22:28 Initial Comments Patient presents to ER by EMS from home with chief complaint that about 2100 he began to experience left side weakness numbness. EMS arrived they said his mft were equal but weak. As they arrived the ER his mft were equal and strong all 4 extremities muscle strength 5 out of 5. His blood sugar was 190. He has a history of high blood pressure high cholesterol and diabetes. He says he felt earlier today like his blood sugar was low so he drank some sweet tea and that made it feel better. He denies any cough shortness of breath nausea vomiting chest pain diarrhea. He has a history of CVA with no residual weakness or deficits. He does smoke and use methamphetamine. Allergies and Home Medications Allergies Coded Allergies: Benzodiazepines (Verified Allergy, Unknown, 05/10/14) Home Medications Cholecalciferol (Vitamin D3) 2,000 Unit Capsule, 2,000 UNIT PO DAILY, (Reported) Insulin Aspart 300 Units/3 Ml Solution, 10 UNITS SC TIDWM, (Reported) Insulin Determir 1,000 Units/10 Ml Soln, 20 UNIT SQ HS Prescribed by: TRINA LIU on 05/06/19 1200 [place]-3/Dha/Epa/Fish Oil 1 Each Capsule, 1 CAP PO DAILY, (Reported) Patient Home Medication List Home Medication List Reviewed: Yes Review of Systems Review of Systems Constitutional: No chills, No diaphoresis Eyes: Denies Blindness, Denies Blurred Vision Ears, Nose, Mouth, Throat: denies ear pain, denies ear discharge Respiratory: No cough, No short of breath Cardiovascular: No chest pain, No edema Gastrointestinal: No abdominal pain, No constipation, No diarrhea, No nausea Genitourinary: No discharge, No dysuria Musculoskeletal: No back pain, No joint pain Past Ddwpdqf-Hxuzue-Oowokd Hx Patient Social History Alcohol Use: Occasionally Uses Recreational Drug Use: Yes Drug of Choice: THC, + IV METH-ALSO SNORTS IT; ACID, MESCALINE; "SPEED", "OTH ERS" Smoking Status: Current Everyday Smoker Type Used: Cigarettes 2nd Hand Smoke Exposure: Yes Recent Hopitalizations: No Immunizations Up To Date Tetanus Booster (TDap): Unknown Date of Pneumonia Vaccine: Jan 16, 2016 Seasonal Allergies Seasonal Allergies: No Past Medical History Surgeries: Yes Amputation, Appendectomy, Gallbladder, Orthopedic Respiratory: No Cardiac: Yes High Cholesterol, Hypertension Neurological: Yes (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) Neuropathy, Traumatic Brain Injury Reproductive Disorders: No Sexually Transmitted Disease: No HIV/AIDS: No Genitourinary: No Gastrointestinal: No Musculoskeletal: Yes Amputee, Degenerate Disk Disease, Chronic Back Pain, Fractures Endocrine: Yes (DKA; NON-COMPLIANCE) Diabetes, Insulin dep HEENT: No (EDENTULOUS) Loss of Vision: Denies Hearing Impairment: Denies Cancer: No Psychosocial: Yes (POLYSUBSTANCE ABUSE) Integumentary: Yes (CELLULITIS--LEG, HAND, FOOT; TOE AMPUTATION FOR OSTEOMYELITIS) Blood Disorders: No Adverse Reaction/Blood Tranf: No Family Medical History Blood clots 19 FATHER Diabetes mellitus 19 FATHER 19 MOTHER G8 BROTHER No Pertinent Family Hx Physical Exam Vital Signs Vital Signs - First Documented 05/19/19 22:25 Temp 96.9 Pulse 73 Resp 17 B/P (MAP) 117/63 (81) Pulse Ox 95 Capillary Refill : Height, Weight, BMI Height: 6'0.00" Weight: 151lbs. 5.8oz. [id number]; 19.4 BMI Method:Estimated General Appearance: WD/WN, no apparent distress HEENT: PERRL/EOMI, normal ENT inspection, TMs normal, pharynx normal Neck: non-tender, full range of motion, normal inspection Respiratory: chest non-tender, lungs clear, normal breath sounds, no respiratory distress, no accessory muscle use Cardiovascular: normal peripheral pulses, regular rate, rhythm, no edema Peripheral Pulses: 2+ Radial Pulses (R), 2+ Radial Pulses (L) Gastrointestinal: normal bowel sounds, non tender, soft Extremities: normal range of motion, non-tender, normal capillary refill Neurologic/Psychiatric: social worker palliative care II-XII nml as tested, no motor/sensory deficits, alert, normal mood/affect, oriented x 3 Crainal Nerves: normal hearing, normal speech, PERRL Coordination/Gait: normal finger to nose, normal gait Motor/Sensory: no motor deficit, no sensory deficit, no pronator drift Skin: normal color, warm/dry Stroke Onset of Symptoms Date of Onset of Symptoms: May 19, 2019 Time of Symptom Onset: 21:00 Onset of Symptoms: Yes Symptoms onset unknown: No NIH Stroke Scale Assessment Select: Initial Level of Consciousness: 0=Alert (0), Level of Consciousness- Questions: 0=Answers both month/age (0), LOC Commands: 0=Performs both tasks (0), Gaze: Normal (0), Visual Banks: 0=No visual loss (0), Facial Movement (Facial Paresis): 0=Normal symmetrical mnt (0), Motor Function-Arms Right: 0= No drift (0), Motor Function-Arms Left: 0=No drift (0), Motor Function-Legs Right: 0=No drift (0), Motor Function-Legs Left: 0=No drift (0), Limb Ataxia: 0=Absent (0), Sensory: 0=Normal:no loss (0), Best Language: 0=No aphasia (0), Dysarthria: 0=Normal (0), Extinction & Inattention: 0=No abnormality (0), Total: 0 Stroke Thrombolytic Exclusion Age 18 or Over: Yes Acute intenal hemorrhage: No History of CVA: Yes Uncontrolled Coagulation Defec: No Intracranial Hemorrhage: No Severe Hypertension: No GI or Bleed: No Subarachnoid Hemorrhage: No Intracranial Neoplasm/Aneurysm: No Oral Anticoagulants: No Surgery or Trauma: No Puncture of Non-Compressible V: No Recent CPR: No Diabetic Hemorrhagic Retinopat: No Organ Biopsy: No Recent Obstetric Delivery: No Glucose: No (191) Significant Hepatic Dysfunctio: No NIH Stoke Scale >22: No Bacterial Endocarditis: No Pericarditis: No Improving Symptoms: No Platelets: No TPA Contraindication: Yes (no nih) Progress/Results/Core Measures Results/Orders Lab Results Laboratory Tests Test 05/19/19 22:25 05/20/19 01:33 Range/Units White Blood Count 8.5 4.3-11.0 10^3/uL Red Blood Count 3.95 L 4.35-5.85 10^6/uL Hemoglobin 11.8 L 13.3-17.7 G/DL Hematocrit 36 L 40-54 % Mean Corpuscular Volume 90 80-99 FL Mean Corpuscular Hemoglobin 30 25-34 PG Mean Corpuscular Hemoglobin Concent 33 32-36 G/DL Red Cell Distribution Width 13.6 10.0-14.5 % Platelet Count 352 130-400 10^3/uL Mean Platelet Volume 10.7 H 7.4-10.4 FL Neutrophils (%) (Auto) 69 42-75 % Lymphocytes (%) (Auto) 21 12-44 % Monocytes (%) (Auto) 6 0-12 % Eosinophils (%) (Auto) 3 0-10 % Basophils (%) (Auto) 0 0-10 % Neutrophils # (Auto) 5.9 1.8-7.8 X 10^3 Lymphocytes # (Auto) 1.8 1.0-4.0 X 10^3 Monocytes # (Auto) 0.5 0.0-1.0 X 10^3 Eosinophils # (Auto) 0.3 0.0-0.3 10^3/uL Basophils # (Auto) 0.0 0.0-0.1 10^3/uL Prothrombin Time 13.0 12.2-14.7 SEC INR Comment 0.9 0.8-1.4 Activated Partial Thromboplast Time 33 24-35 SEC D-Dimer 0.59 H 0.00-0.49 UG/ML Sodium Level 142 135-145 MMOL/L Potassium Level 3.8 3.6-5.0 MMOL/L Chloride Level 104 98-107 MMOL/L Carbon Dioxide Level 24 21-32 MMOL/L Anion Gap 14 5-14 MMOL/L Blood Urea Nitrogen 27 H 7-18 MG/DL Creatinine 1.22 0.60-1.30 MG/DL Estimat Glomerular Filtration Rate 60 BUN/Creatinine Ratio 22 Glucose Level 178 H 70-105 MG/DL Calcium Level 8.6 8.5-10.1 MG/DL Corrected Calcium 8.9 8.5-10.1 MG/DL Total Bilirubin 0.3 0.1-1.0 MG/DL Aspartate Amino Transf (AST/SGOT) 13 5-34 U/L Alanine Aminotransferase (ALT/SGPT) 6 0-55 U/L Alkaline Phosphatase 83 40-136 U/L Troponin I < 0.028 <0.028 NG/ML Total Protein 6.7 6.4-8.2 GM/DL Albumin 3.6 3.2-4.5 GM/DL Urine Color AMY H Urine Clarity SLIGHTLY CLOUDY Urine pH 5 5-9 Urine Specific Lindsey 1.025 H 1.016-1.022 Urine Protein 2+ H NEGATIVE Urine Glucose (UA) 3+ H NEGATIVE Urine Ketones 1+ H NEGATIVE Urine Nitrite NEGATIVE NEGATIVE Urine Bilirubin NEGATIVE NEGATIVE Urine Urobilinogen 1 NORMAL MG/DL Urine Leukocyte Esterase NEGATIVE NEGATIVE Urine RBC (Auto) NEGATIVE NEGATIVE Urine RBC RARE /HPF Urine WBC NONE /HPF Urine Squamous Epithelial Cells 0-2 /HPF Urine Crystals NONE /LPF Urine Bacteria FEW H /HPF Urine Casts PRESENT /LPF Urine Hyaline Casts 0-2 H /LPF Urine Mucus MODERATE H /LPF Urine Culture Indicated NO Urine Opiates Screen NEGATIVE NEGATIVE Urine Oxycodone Screen NEGATIVE NEGATIVE Urine Methadone Screen NEGATIVE NEGATIVE Urine Propoxyphene Screen NEGATIVE NEGATIVE Urine Barbiturates Screen NEGATIVE NEGATIVE Ur Tricyclic Antidepressants Screen NEGATIVE NEGATIVE Urine Phencyclidine Screen NEGATIVE NEGATIVE Urine Amphetamines Screen POSITIVE H NEGATIVE Urine Methamphetamines Screen POSITIVE H NEGATIVE Urine Benzodiazepines Screen NEGATIVE NEGATIVE Urine Cocaine Screen NEGATIVE NEGATIVE Urine Cannabinoids Screen POSITIVE H NEGATIVE My Orders Orders - TERRENCE REGAN Ct Head Wo-R/O Stroke (05/19/19 ) Code/Resuscitation (05/19/19 22:38) Cbc With Automated Diff (05/19/19 22:38) Protime With Inr (05/19/19 22:38) Partial Thromboplastin Time (05/19/19 22:38) Comprehensive Metabolic Panel (05/19/19 22:38) Fibrin Degradation Products (05/19/19 22:38) Troponin I (05/19/19 22:38) Ua Culture If Indicated (05/19/19 22:38) Chest 1 View, Ap/Pa Only (05/19/19 22:38) Ekg Tracing (05/19/19 22:38) Nothing By Mouth (05/20/19 Breakfast) Accucheck Stat ONCE (05/19/19 22:38) Ed Iv/Invasive Line Start (05/19/19 22:38) Ed Iv/Invasive Line Start (05/19/19 22:38) Vital Signs Stroke Patient Q15M (05/19/19 22:38) O2 (05/19/19 22:38) Intake & Output 06,14,22 (05/19/19 22:38) Monitor-Rhythm Ecg Trace Only (05/19/19 22:38) Dysphagia Screening Tool (05/19/19 22:38) Lipid Panel (05/20/19 06:00) Drug Screen Stat (Urine) (05/19/19 22:38) Vital Signs/I&O 05/19/19 22:25 Temp 96.9 Pulse 73 Resp 17 B/P (MAP) 117/63 (81) Pulse Ox 95 Progress Progress Note : Time: 02:02 Progress Note Patient presents with initial complaints that he's had 3 days weakness on his left side but then he says it was 30 minutes. His story is bizarre and while he does have a history of stroke his NIH score is 0. CT of his head was negative. He does appear to be a little dry on his labs. I suspect maybe the methamphetamines are to blame. We'll give him a liter of fluids and allow him to discharge home. Initial ECG Impression Date: May 20, 2019 Initial ECG Impression Time: 22:54 Initial ECG Rate: 75 Initial ECG Rhythm: Normal Sinus Initial ECG Intervals: Normal Initial ECG Impression: Normal Initial ECG Comparisson: Unchanged Comment Normal sinus rhythm without ST elevation or depression. Diagnostic Imaging Diagonstic Imaging: Xray Plain Films/CT/US/NM/MRI: chest (1v) Reviewed: Reviewed by Me Diagonstic Imaging: CT (No IV contrast) Plain Films/CT/US/NM/MRI: head Comments No acute findings in the head. Reviewed: Reviewed [place] Hawk Study, Reviewed by Me, Discussed w/Radiologist Departure Impression Primary Impression: Paresthesia of left upper and lower extremity Additional Impressions: Methamphetamine abuse Mild dehydration Disposition: 01 HOME, SELF-CARE Condition: Stable Departure-Patient Inst. Decision time for Depature: 02:06 Referrals: [facility] (PCP/Family) Primary Care Physician Patient Instructions: Paresthesias (DC) Add. Discharge Instructions: Follow-up the next week or 2 with your primary care doctor to discuss management. Drink plenty fluids. Get some sleep tonight. TERRENCE REGAN May 19, 2019 22:44
[2019-05-19 22:56] LABS: FIBRIN DEGRADATION PRODUCTS 0.59 UG/ML (0.00-0.49); INR 0.9 (0.8-1.4)
[2019-05-19 23:05] LABS: ALANINE AMINOTRANSFERASE 6 U/L (0-55); ALBUMIN 3.6 GM/DL (3.2-4.5); ALKALINE PHOSPHATASE 83 U/L (40-136); BILIRUBIN,TOTAL 0.3 MG/DL (0.1-1.0); BUN/CREATININE RATIO 22; CALCIUM 8.6 MG/DL (8.5-10.1); CARBON DIOXIDE 24 MMOL/L (21-32); CHLORIDE 104 MMOL/L (98-107); CREATININE SERUM 1.22 MG/DL (0.60-1.30); GFR ESTIMATED 60; GLUCOSE 178 MG/DL (70-105); POTASSIUM 3.8 MMOL/L (3.6-5.0); SODIUM 142 MMOL/L (135-145); TOTAL PROTEIN 6.7 GM/DL (6.4-8.2)
--- NOTE | 2019-05-20 | NUR ---
Pt noted to be resting in room on ED cart. Respirations even and non labored with no distress noted.
[2019-05-20 01:39] LABS: BILIRUBIN,URINE NEGATIVE (NEGATIVE); CLARITY,URINE SLIGHTLY CLOUDY; COLOR,URINE AMBER; GLUCOSE, URINE (UA) 3+ (NEGATIVE); KETONES,URINE 1+ (NEGATIVE); LEUKOCYTE ESTERASE ,URINE NEGATIVE (NEGATIVE); NITRITE,URINE NEGATIVE (NEGATIVE); PH,URINE 5 (5-9); PROTEIN,URINE 2+ (NEGATIVE); UROBILINOGEN,URINE 1 MG/DL (NORMAL)
[2019-05-20 01:55] LABS: AMPHETAMINE SCREEN, URINE POSITIVE (NEGATIVE); BACTERIA,URINE FEW /HPF; BARBITURATE SCREEN URINE NEGATIVE (NEGATIVE); BENZODIAZEPINES SCREEN URINE NEGATIVE (NEGATIVE); CANNABINOID SCREEN, URINE POSITIVE (NEGATIVE); COCAINE SCREEN URINE NEGATIVE (NEGATIVE); HYALINE CASTS, URINE 0-2 /LPF; METHADONE STAT NEGATIVE (NEGATIVE); METHAMPHETAMINE SCREEN URINE S POSITIVE (NEGATIVE); OPIATE SCREEN URINE NEGATIVE (NEGATIVE); OXYCODONE STAT NEGATIVE (NEGATIVE); PROPOXYPHENE STAT NEGATIVE (NEGATIVE); RBC,URINE RARE /HPF; SQUAMOUS EPITHELIAL CELL,UR 0-2 /HPF; TRICYCLIC ANTIDEPRESSANTS SCRE NEGATIVE (NEGATIVE)
[2019-05-20] MEDS ORDERED: LACTATED RINGERS 1,000 ML IV ONE (01:59)
[2019-05-20 03:05] VITALS: BP 159/92
--- NOTE | 2019-05-20 06:12 | Diagnostic Imaging Report ---
Clinical indication: Patient with altered mental status. Rule out stroke. Exam: Axial CT scan of brain performed without IV contrast. Auto Exposure Controls were utilized during the CT exam to meet ALARA standards for radiation dose reduction. Comparison: Head CT without contrast dated 05/04/2019. Findings: There is no evidence of acute cerebral infarct, intracranial hemorrhage, or gross mass effect. Stable moderate-sized chronic cerebral infarct involving the lateral aspect of the right temporal lobe and lateral aspect of the right occipital lobe which is in the right MCA distribution. The brain parenchymal volume appears appropriate for patient's age. There is no brain herniation or midline shift. There is no hydrocephalus. Basal cisterns are unremarkable. There is minimal mucosal thickening involving ethmoid sinus. Temporal bone structures show no significant interval abnormality. Impression: 1: Stable CT scan of brain with no evidence of interval acute intracranial process. 2: Stable chronic cerebral infarct involving the right cerebral hemisphere. I agree with [employer] report. Dictated by: Dictated on workstation # [id number]
--- NOTE | 2019-05-20 06:53 | Diagnostic Imaging Report ---
Clinical indication: Patient with altered mental status. Exam: Portable chest x-ray upright view. Comparisons: Chest x-ray dated 05/04/2019. Findings: There is interval slight increased curvilinear lung markings and increased density involving the right perihilar region and superior and inferior right perihilar regions which may represent lung infiltrate or atelectasis. Remainder of the lungs are clear. There is no pleural effusion or pneumothorax. Nipple shadow seen overlying the left lower lung field region. Pulmonary vasculature and cardiac silhouettes within normal limits. There are hypertrophic spurs involving the thoracic spine. Impression: 1: There is interval slight increased right perihilar atelectasis versus infiltrate. Follow up chest x-ray in 2 - 4 weeks is suggested to evaluate for interval resolution of this finding. 2: The remainder of this exam shows no acute finding. Dictated by: Dictated on workstation # [id number]
== END 2019-05-20 03:05 | disposition home or self-care (01) ==
LOC: EDUNIT# 22:25 → ER 22:26
DX: R20.2 Paresthesia of skin (principal); F15.10 Other stimulant abuse, uncomplicated; E86.0 Dehydration; I10 Essential (primary) hypertension; E78.00 Pure hypercholesterolemia, unspecified; E11.42 Type 2 diabetes mellitus with diabetic polyneuropathy; E11.10 Type 2 diabetes mellitus with ketoacidosis without coma; E11.69 Type 2 diabetes mellitus with other specified complication; M86.9 Osteomyelitis, unspecified; F17.210 Nicotine dependence, cigarettes, uncomplicated; Z86.73 Personal history of transient ischemic attack (TIA), and cerebral infarction without residual deficits; Z88.8 Allergy status to other drugs, medicaments and biological substances; Z79.4 Long term (current) use of insulin; Z90.49 Acquired absence of other specified parts of digestive tract; Z89.429 Acquired absence of other toe(s), unspecified side
CPT/HCPCS: 36415; 70450; 71045; 80053; 80306; 81000; 84484; 85025; 85379; 85610; 85730; 93005; 93041

== ENCOUNTER 2019-10-22 17:13 | Emergency (ER) | payer MEDICARE ==
[~2019-10-22] VITALS: Ht 183 cm; Wt 63.0 kg
[~2019-10-22 17:13] MED LIST changes: -ACET-2469 PO; +ACET-2715 PO; -FLUO20CA25 PO; +FLUO20CA45 PO; -METF750T2 PO; +METF750T45 PO
[2019-10-22] MEDS ORDERED: LACTATED RINGERS 1,000 ML IV ONE (17:20)
--- NOTE | 2019-10-22 17:29 | ED General ---
General Chief Complaint: Glucose Problems Stated Complaint: ELEVATED BLOOD SUGARS Source of Information: Patient Exam Limitations: No Limitations (ISABEL EVERETT MD) History of Present Illness Date Seen by Provider: Oct 22, 2019 Time Seen by Provider: 17:13 Initial Comments Here with report of elevated blood sugar and overall not feeling well. Apparently he was not acting right and this significant other was able to get him to eat. She assumed that his blood sugar was low. EMS was summoned. His blood sugar was found to be 357. He is overall doing a little better now. Does have long-standing history of hyperglycemia. Does report headache and states that he is urinating quite a bit and that that hurts some. Otherwise denies fevers, chills, nausea, vomiting or diarrhea. Denies chest pain or breathing problems. He does not have test strips or glucometer so just takes his insulin when he feels like his blood sugar is high. Timing/Duration: 1-3 Hours Severity: Moderate Associated Systoms: No Chest Pain, No Cough, No Fever/Chills, No Nausea/Vomiting, No Shortness of Air; Weakness (ISABEL EVERETT MD) Allergies and Home Medications Allergies Coded Allergies: Benzodiazepines (Verified Allergy, Unknown, 05/10/14) Home Medications Cholecalciferol (Vitamin D3) 2,000 Unit Capsule, 2,000 UNIT PO DAILY, (Reported) Insulin Aspart 300 Units/3 Ml Solution, 10 UNITS SC TIDWM, (Reported) Insulin Determir 1,000 Units/10 Ml Soln, 20 UNIT SQ HS Prescribed by: TRINA LIU on 05/06/19 1200 [place]-3/Dha/Epa/Fish Oil 1 Each Capsule, 1 CAP PO DAILY, (Reported) Patient Home Medication List Home Medication List Reviewed: Yes (ISABEL EVERETT MD) Review of Systems Review of Systems Constitutional: see HPI; No chills, No fever EENTM: no symptoms reported Respiratory: no symptoms reported Cardiovascular: no symptoms reported Gastrointestinal: No abdominal pain, No nausea, No vomiting Genitourinary: dysuria, frequency Musculoskeletal: no symptoms reported Skin: no symptoms reported Psychiatric/Neurological: Headache; Denies Weakness (ISABEL EVERETT MD) All Other Systems Reviewed Negative Unless Noted: Yes (ISABEL EVERETT MD) Past Eovzrle-Mlfxwu-Mfbhlz Hx Past Med/Social Hx: Reviewed Nursing Past Med/Soc Hx (ISABEL EVERETT MD) Patient Social History Alcohol Use: Denies Use Recreational Drug Use: Yes Drug of Choice: THC, + IV METH-ALSO SNORTS IT; ACID, MESCALINE; "SPEED", "OTHERS" Type Used: Cigarettes 2nd Hand Smoke Exposure: Yes Recent Foreign Travel: No Contact w/Someone Who Travel: No Recent Hopitalizations: No Physical Abuse: No Sexual Abuse: No Mistreated: No Fear: No (ISABEL EVERETT MD) Immunizations Up To Date Tetanus Booster (TDap): Unknown Date of Pneumonia Vaccine: Jan 16, 2016 (ISABEL EVERETT MD) Seasonal Allergies Seasonal Allergies: No (ISABEL EVEERTT MD) Past Medical History Surgeries: Yes (L TOE, R WRIST) Amputation, Appendectomy, Gallbladder, Orthopedic, Tonsillectomy Respiratory: No Cardiac: Yes High Cholesterol, Hypertension Neurological: Yes (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) Neuropathy, Traumatic Brain Injury Reproductive Disorders: No Sexually Transmitted Disease: No HIV/AIDS: No Genitourinary: No Gastrointestinal: No Musculoskeletal: Yes Amputee, Degenerate Disk Disease, Chronic Back Pain, Fractures Endocrine: Yes (DKA; NON-COMPLIANCE) Diabetes, Insulin dep HEENT: No (EDENTULOUS) Loss of Vision: Denies Hearing Impairment: Denies Cancer: No Psychosocial: Yes (POLYSUBSTANCE ABUSE) Integumentary: Yes (CELLULITIS--LEG, HAND, FOOT; TOE AMPUTATION FOR OSTEOMYELITIS) Blood Disorders: No Adverse Reaction/Blood Tranf: No (ISABEL EVERETT MD) Family Medical History Reviewed Nursing Family Hx (ISABEL EVERETT MD) Blood clots 19 FATHER Diabetes mellitus 19 FATHER 19 MOTHER G8 BROTHER No Pertinent Family Hx (ISABEL EVERETT MD) Physical Exam Vital Signs Vital Signs - First Documented 10/22/19 17:16 Temp 36.2 Pulse 75 Resp 18 B/P (MAP) 138/85 (102) Pulse Ox 98 (LEW,ARPAN K DO) Vital Signs Capillary Refill : (ISABEL EVERETT MD) Height, Weight, BMI Height: 6'2.00" Weight: 145lbs. 5.8oz. [id number]; 19.4 BMI Method:Stated General Appearance: No Apparent Distress, WD/WN HEENT: PERRL/EOMI, TMs Normal, Pharynx Normal Neck: Non Tender, Supple Respiratory: Lungs Clear, Normal Breath Sounds Cardiovascular: Regular Rate, Rhythm, No Murmur Gastrointestinal: Non Tender, Soft Back: Normal Inspection, No CVA Tenderness, No Vertebral Tenderness Extremity: Normal Range of Motion, Non Tender Neurologic/Psychiatric: Alert, Oriented x3 Skin: Normal Color, Warm/Dry (ISABEL EVERETT MD) Progress/Results/Core Measures Suspected Sepsis SIRS Temperature: Pulse: Respiratory Rate: Laboratory Tests 10/22/19 17:19: White Blood Count 8.1 Blood Pressure / Mean: Laboratory Tests 10/22/19 17:19: Platelet Count 299 10/22/19 17:48: (ISABEL EVERETT MD) Results/Orders Lab Results Laboratory Tests Test 10/22/19 17:19 10/22/19 17:27 10/22/19 17:48 10/22/19 17:58 Range/Units White Blood Count 8.1 4.3-11.0 10^3/uL Red Blood Count 4.61 4.35-5.85 10^6/uL Hemoglobin 14.1 13.3-17.7 G/DL Hematocrit 41 40-54 % Mean Corpuscular Volume 89 80-99 FL Mean Corpuscular Hemoglobin 31 25-34 PG Mean Corpuscular Hemoglobin Concent 34 32-36 G/DL Red Cell Distribution Width 12.8 10.0-14.5 % Platelet Count 299 130-400 10^3/uL Mean Platelet Volume 11.0 H 7.4-10.4 FL Neutrophils (%) (Auto) 67 42-75 % Lymphocytes (%) (Auto) 24 12-44 % Monocytes (%) (Auto) 6 0-12 % Eosinophils (%) (Auto) 3 0-10 % Basophils (%) (Auto) 1 0-10 % Neutrophils # (Auto) 5.4 1.8-7.8 X 10^3 Lymphocytes # (Auto) 1.9 1.0-4.0 X 10^3 Monocytes # (Auto) 0.5 0.0-1.0 X 10^3 Eosinophils # (Auto) 0.2 0.0-0.3 10^3/uL Basophils # (Auto) 0.1 0.0-0.1 10^3/uL Glucometer 369 H 70-110 MG/DL Sodium Level 136 135-145 MMOL/L Potassium Level 4.9 3.6-5.0 MMOL/L Chloride Level 100 98-107 MMOL/L Carbon Dioxide Level 28 21-32 MMOL/L Anion Gap 8 5-14 MMOL/L Blood Urea Nitrogen 22 H 7-18 MG/DL Creatinine 1.19 0.60-1.30 MG/DL Estimat Glomerular Filtration Rate > 60 BUN/Creatinine Ratio 18 Glucose Level 355 H 70-105 MG/DL Calcium Level 8.5 8.5-10.1 MG/DL Corrected Calcium 8.7 8.5-10.1 MG/DL Phosphorus Level 2.8 2.3-4.7 MG/DL Magnesium Level 2.0 1.6-2.4 MG/DL Total Bilirubin 0.3 0.1-1.0 MG/DL Aspartate Amino Transf (AST/SGOT) 34 5-34 U/L Alanine Aminotransferase (ALT/SGPT) 62 H 0-55 U/L Alkaline Phosphatase 74 40-136 U/L Total Protein 6.5 6.4-8.2 GM/DL Albumin 3.8 3.2-4.5 GM/DL Amylase Level 39 25-125 U/L Lipase 25 8-78 U/L Serum Alcohol < 10 <10 MG/DL Urine Color YELLOW Urine Clarity CLEAR Urine pH 5.5 5-9 Urine Specific [place] 1.020 1.016-1.022 Urine Protein NEGATIVE NEGATIVE Urine Glucose (UA) 3+ H NEGATIVE Urine Ketones NEGATIVE NEGATIVE Urine Nitrite NEGATIVE NEGATIVE Urine Bilirubin NEGATIVE NEGATIVE Urine Urobilinogen 0.2 < = 1.0 MG/DL Urine Leukocyte Esterase NEGATIVE NEGATIVE Urine RBC (Auto) NEGATIVE NEGATIVE Urine RBC NONE /HPF Urine WBC NONE /HPF Urine Squamous Epithelial Cells RARE /HPF Urine Crystals NONE /LPF Urine Bacteria NEGATIVE /HPF Urine Casts PRESENT /LPF Urine Hyaline Casts RARE /LPF Urine Mucus NEGATIVE /LPF Urine Culture Indicated NO Urine Opiates Screen NEGATIVE NEGATIVE Urine Oxycodone Screen NEGATIVE NEGATIVE Urine Methadone Screen NEGATIVE NEGATIVE Urine Propoxyphene Screen NEGATIVE NEGATIVE Urine Barbiturates Screen NEGATIVE NEGATIVE Ur Tricyclic Antidepressants Screen NEGATIVE NEGATIVE Urine Phencyclidine Screen NEGATIVE NEGATIVE Urine Amphetamines Screen NEGATIVE NEGATIVE Urine Methamphetamines Screen NEGATIVE NEGATIVE Urine Benzodiazepines Screen NEGATIVE NEGATIVE Urine Cocaine Screen NEGATIVE NEGATIVE Urine Cannabinoids Screen POSITIVE H NEGATIVE Test 10/22/19 20:04 Range/Units Glucometer 250 H 70-110 MG/DL (ARPAN CASTILLO DO) Micro Results Microbiology 10/22/19 Influenza Types A,B Antigen (BONILLA) - Final, Complete (ARPAN CASTILLO DO) My Orders Orders - ARPAN CASTILLO DO Chest Pa/Lat (2 View) (10/22/19 18:16) Ct Head Wo-R/O Stroke (10/22/19 18:16) Ed Iv/Invasive Line Start (10/22/19 18:16) Ns Iv 1000 Ml (Sodium Chloride 0.9%) (10/22/19 18:16) Alcohol (10/22/19 18:18) Amylase (10/22/19 18:18) Drug Screen Stat (Urine) (10/22/19 18:18) Lipase (10/22/19 18:18) Insulin (Regular) Human (Humulin R (Per (10/22/19 19:15) Accucheck Stat ONCE (10/22/19 19:33) (ARPAN CASTILLO DO) Medications Given in ED Current Medications Medications Dose Ordered Sig/Arvin Route Start Time Stop Time Status Last Admin Dose Admin Insulin Human Regular 15 unit ONCE ONCE IV 10/22/19 19:15 10/22/19 19:16 DC 10/22/19 19:12 15 UNIT Lactated Ringer's 1,000 ml @ 0 mls/hr Q0M ONCE IV 10/22/19 17:20 10/22/19 17:24 DC 10/22/19 17:32 0 MLS/HR (RAPAN CASTILLO DO) Vital Signs/I&O 10/22/19 17:16 Temp 36.2 Pulse 75 Resp 18 B/P (MAP) 138/85 (102) Pulse Ox 98 (ARPAN CASTILLO DO) Vital Signs/I&O Capillary Refill : (ISABEL EVERETT MD) Progress Note : Progress Note Seen and evaluated. IV, labs, UA, influenza screen and LR 1 L bolus ordered. Monitor patient. 1804: Care transferred to Dr. Castillo pending labs. (ISABEL EVERETT MD) Progress Note : Progress Note 1804--ASSUMED CARE FROM DR. EVERETT, ALL STUDIES PENDING 1900--REVIEWED TEST RESULTS WITH PT-HE IS AWARE OF OLD CVA. HE STATES HE HAS NOT TAKEN ANY INSULIN FOR 2-3 DAYS -"DIDN'T FEEL LIKE HE NEEDED IT" PT IS ORIENTED X 4 AND DOES NOT APPEAR CONFUSED OR HAVE ANY MEMORY IMPAIRMENT, STATES HE FEELS FINE GIVEN SALINE AND INSULIN--BLOOD GLUCOSE DOWN TO 250 PRIOR TO DISMISSAL PT REMAINS ASYMPTOMATIC (ARPAN CASTILLO DO) Diagnostic Imaging Comments CXR--NO ACUTE PROCESS, CHRONIC/STABLE CHANGES CT HEAD--NO ACUTE PROCESS, CHRONIC/ STABLE CHANGES, OLD (ARPAN CASTILLO DO) Departure Impression Primary Impression: Uncontrolled diabetes mellitus Additional Impressions: Non-compliance Marijuana use Disposition: HOME, SELF-CARE Condition: Stable Departure-Patient Inst. Referrals: [facility] [place] (PCP/Family) Primary Care Physician Patient Instructions: Diabetes Type 2 (DC), Diabetes Exchange Diet, How to Keep Track of Your Blood Sugar Add. Discharge Instructions: GET A GLUCOMETER AND CHECK YOUR BLOOD SUGAR 3 TIMES A DAY--BEFORE EACH MEAL--AND KEEP A DIARY OF YOUR READINGS FOLLOW DIABETIC DIET TAKE YOUR INSULIN EXACTLY PRESCRIBED BY YOUR DR FOLLOW UP WITH YOUR DR THIS WEEK FOR FURTHER CARE All discharge instructions reviewed with patient and/or family. Voiced understanding. ISABEL EVERETT MD Oct 22, 2019 17:29 ARPAN CASTILLO DO Oct 22, 2019 18:19
[2019-10-22 17:50] LABS: BASOPHILS # (AUTO) 0.1 10^3/uL (0.0-0.1); BASOPHILS % (AUTO) 1 % (0-10); EOSINOPHILS # (AUTO) 0.2 10^3/uL (0.0-0.3); EOSINOPHILS % (AUTO) 3 % (0-10); HEMATOCRIT 41 % (40-54); HEMOGLOBIN 14.1 G/DL (13.3-17.7); LYMPHOCYTES # (AUTO) 1.9 X 10^3 (1.0-4.0); LYMPHOCYTES % (AUTO) 24 % (12-44); MEAN CORPUSCULAR HEMOGLOBIN 31 PG (25-34); MEAN CORPUSCULAR HGB CONC 34 G/DL (32-36); MEAN CORPUSCULAR VOLUME 89 FL (80-99); MONOCYTES # (AUTO) 0.5 X 10^3 (0.0-1.0); MONOCYTES % (AUTO) 6 % (0-12); NEUTROPHILS # (AUTO) 5.4 X 10^3 (1.8-7.8); NEUTROPHILS % (AUTO) 67 % (42-75); PLATELET COUNT 299 10^3/uL (130-400); RED CELL DISTRIBUTION WIDTH 12.8 % (10.0-14.5); WHITE BLOOD COUNT 8.1 10^3/uL (4.3-11.0)
[2019-10-22 18:12] LABS: BILIRUBIN,URINE NEGATIVE (NEGATIVE); CLARITY,URINE CLEAR; COLOR,URINE YELLOW; GLUCOSE, URINE (UA) 3+ (NEGATIVE); KETONES,URINE NEGATIVE (NEGATIVE); LEUKOCYTE ESTERASE ,URINE NEGATIVE (NEGATIVE); NITRITE,URINE NEGATIVE (NEGATIVE); PH,URINE 5.5 (5-9); PROTEIN,URINE NEGATIVE (NEGATIVE)
[2019-10-22 18:15] LABS: BACTERIA,URINE NEGATIVE /HPF; HYALINE CASTS, URINE RARE /LPF; SQUAMOUS EPITHELIAL CELL,UR RARE /HPF
[2019-10-22] MEDS ORDERED: NS IV 1000 ML 1,000 ML IV SCH (18:16)
[2019-10-22 18:18] LABS: ALANINE AMINOTRANSFERASE 62 U/L (0-55); ALBUMIN 3.8 GM/DL (3.2-4.5); ALKALINE PHOSPHATASE 74 U/L (40-136); BILIRUBIN,TOTAL 0.3 MG/DL (0.1-1.0); BUN/CREATININE RATIO 18; CALCIUM 8.5 MG/DL (8.5-10.1); CARBON DIOXIDE 28 MMOL/L (21-32); CHLORIDE 100 MMOL/L (98-107); CREATININE SERUM 1.19 MG/DL (0.60-1.30); GFR ESTIMATED > 60; GLUCOSE 355 MG/DL (70-105); PHOSPHORUS 2.8 MG/DL (2.3-4.7); POTASSIUM 4.9 MMOL/L (3.6-5.0); SODIUM 136 MMOL/L (135-145); TOTAL PROTEIN 6.5 GM/DL (6.4-8.2)
[2019-10-22 18:36] LABS: AMYLASE 39 U/L (25-125); LIPASE 25 U/L (8-78)
--- NOTE | 2019-10-22 18:44 | Diagnostic Imaging Report ---
PROCEDURE: CT head w/o, r/o stroke. TECHNIQUE: Multiple contiguous axial images were obtained through the brain without the use of intravenous contrast. Auto Exposure Controls were utilized during the CT exam to meet ALARA standards for radiation dose reduction. INDICATION: Dizziness. History of stroke. CORRELATION STUDY: 05/19/2019. FINDINGS: There is presence of chronic encephalomalacia of the right temporal parietal lobe compatible with previous area of infarct. No definitive new area of decreased attenuation to suggest edema. There is no midline shift or mass effect. No intracranial hemorrhage. No hyperdense MCA sign. Basilar cisterns are maintained. Bony calvarium intact. Paranasal sinuses and mastoid air cells are generally clear. IMPRESSION: 1. Negative for acute intracranial abnormality. 2. Findings compatible with a prior posterior right middle cerebral artery vascular territory infarct with chronic encephalomalacia. Dictated by: Dictated on workstation # [id number]
--- NOTE | 2019-10-22 18:49 | Diagnostic Imaging Report ---
CHEST PA/LAT (2 VIEW) INDICATION: Headache, high blood sugar. COMPARISON: 05/19/2019. FINDINGS: Ill-defined nodular opacity over the left lung base seen only on the frontal view is likely due to summation shadow. Somewhat nodular appearance overlying the lumbar spine is due to a marginal osteophyte and is stable since 02/11/2017. No consolidation. No pleural effusion or pneumothorax. Normal heart size and mediastinal contours. IMPRESSION: No acute cardiopulmonary process. Dictated by: Dictated on workstation # [id number]
[2019-10-22] MEDS ORDERED: inSUlin (REGULAR) HUMAN 1 UNIT/0.01 ML (CHARGE PER UNIT) IV ONE (19:15)
[2019-10-22 19:26] LABS: AMPHETAMINE SCREEN, URINE NEGATIVE (NEGATIVE); BARBITURATE SCREEN URINE NEGATIVE (NEGATIVE); BENZODIAZEPINES SCREEN URINE NEGATIVE (NEGATIVE); CANNABINOID SCREEN, URINE POSITIVE (NEGATIVE); COCAINE SCREEN URINE NEGATIVE (NEGATIVE); METHADONE STAT NEGATIVE (NEGATIVE); METHAMPHETAMINE SCREEN URINE S NEGATIVE (NEGATIVE); OPIATE SCREEN URINE NEGATIVE (NEGATIVE); OXYCODONE STAT NEGATIVE (NEGATIVE); PROPOXYPHENE STAT NEGATIVE (NEGATIVE); TRICYCLIC ANTIDEPRESSANTS SCRE NEGATIVE (NEGATIVE)
[2019-10-22 20:24] VITALS: BP 142/83
== END 2019-10-22 20:24 | disposition home or self-care (01) ==
LOC: EDUNIT# 17:13 → ER 17:14
DX: E11.42 Type 2 diabetes mellitus with diabetic polyneuropathy (principal); I10 Essential (primary) hypertension; E78.00 Pure hypercholesterolemia, unspecified; E11.10 Type 2 diabetes mellitus with ketoacidosis without coma; F12.90 Cannabis use, unspecified, uncomplicated; Z91.19 Patient's noncompliance with other medical treatment and regimen; Z87.820 Personal history of traumatic brain injury; Z88.8 Allergy status to other drugs, medicaments and biological substances; Z79.4 Long term (current) use of insulin; Z77.22 Contact with and (suspected) exposure to environmental tobacco smoke (acute) (chronic); Z90.49 Acquired absence of other specified parts of digestive tract; Z90.89 Acquired absence of other organs
CPT/HCPCS: 36415; 70450; 71046; 80053; 80306; 80320; 81000; 82150; 82962; 83690; 83735; 84100; 85025; 87804

== ENCOUNTER → 2019-11-05 | Outpatient (CLI) | payer MEDICARE ==
--- NOTE | 2019-11-05 15:26 | Diagnostic Imaging Report ---
EXAMINATION: MRI of the right shoulder from 11/05/2019. TECHNIQUE: Multiplanar, multisequence non contrast-enhanced MRI of the right upper extremity was accomplished. INDICATION: Right shoulder pain and decreased range of motion. COMPARISONS: 02/25/2008. FINDINGS: There is a focal defect along the articular aspect of the supraspinatus tendon which extends from the anterior supraspinatus tendon posteriorly into the anterior infraspinatus tendon as well. This appears to represent a rather deep articular-sided tear. No full-thickness extension or retraction is appreciated. Overlying fluid in the subdeltoid subacromial bursa, likely due to bursitis. The subscapularis tendon is diffusely prominent and with abnormal signal intensity present. An undersurface partial articular-sided tear is suspected. No retraction. The long head of the biceps tendon lies in the bicipital groove. It is intact. Biceps tendon anchor is also intact. The labrum is not well evaluated on this noncontrast examination. There is some abnormal signal intensity along the anterior glenoid and adjacent labrum on axial imaging. Although this could be degenerative signal, a small tear of the labrum is difficult to completely exclude. The muscle volume is unremarkable. Visualized axilla is unremarkable. IMPRESSION: 1. Deep partial articular-sided tears of the supraspinatus and infraspinatus tendons. 2. Partial tear of the subscapularis tendon. 3. Bursitis. 4. Abnormal signal intensity along the anterior labrum which could be degenerative change, please see above description. Labral tear is difficult to exclude without contrast. Other findings, as above. Dictated by: Dictated on workstation # [id number]
== END ==
LOC: RAD 13:24
PROVIDERS: ATTEND Nurse Practitioner Family
DX: S46.811A Strain of other muscles, fascia and tendons at shoulder and upper arm level, right arm, initial encounter (principal); M75.51 Bursitis of right shoulder; X58.XXXA Exposure to other specified factors, initial encounter
CPT/HCPCS: 73221

== ENCOUNTER 2019-11-22 20:49 | Emergency (ER) | payer MEDICARE ==
[~2019-11-22] VITALS: Ht 182 cm; Wt 70.0 kg
[~2019-11-22 20:49] MED LIST changes: -FLUO20CA45 PO; +FLUO20CA46 PO
--- NOTE | 2019-11-22 23:42 | ED Lower Extremity ---
General Chief Complaint: Glucose Problems Stated Complaint: FEET HURT Source: patient, EMS Exam Limitations: no limitations History of Present Illness Date Seen by Provider: Nov 22, 2019 Time Seen by Provider: 23:09 Initial Comments Patient resents ER by private conveyance with chief complaint that 3 days ago when the weather was in the 30s he was out working in the yard and he thinks he got frostbite in his feet because he is having increased pain. He has peripheral neuropathy related to his diabetes. He has tried Tylenol and ibuprofen for his pain with minimal relief. He takes gabapentin at baseline. He says his toes are purple but he has sensation and is able to move them. EMS reports he is able to walk to the [facility] and walk into the ER. Allergies and Home Medications Allergies Coded Allergies: Benzodiazepines (Verified Allergy, Unknown, 05/10/14) Home Medications Cholecalciferol (Vitamin D3) 2,000 Unit Capsule, 2,000 UNIT PO DAILY, (Reported) Insulin Aspart 300 Units/3 Ml Solution, 10 UNITS SC TIDWM, (Reported) Insulin Determir 1,000 Units/10 Ml Soln, 20 UNIT SQ HS Prescribed by: TRINA LIU on 05/06/19 1200 [place]-3/Dha/Epa/Fish Oil 1 Each Capsule, 1 CAP PO DAILY, (Reported) Patient Home Medication List Home Medication List Reviewed: Yes Review of Systems Constitutional: No chills, No diaphoresis EENTM: No ear discharge, No ear pain Respiratory: No cough, No phlegm Cardiovascular: No chest pain, No edema Gastrointestinal: No abdominal pain, No constipation, No dysphagia, No nausea, No vomiting Genitourinary: No dysuria, No frequency Musculoskeletal: No back pain, No joint pain Skin: see HPI, change in color; No pruritus Past Dgqqhra-Xzymmf-Yheblh Hx Patient Social History Alcohol Use: Denies Use Recreational Drug Use: No Drug of Choice: THC, + IV METH-ALSO SNORTS IT; ACID, MESCALINE; "SPEED", "OTHERS" Smoking Status: Current Everyday Smoker Type Used: Cigarettes 2nd Hand Smoke Exposure: Yes Recent Foreign Travel: No Contact w/Someone Who Travel: No Recent Hopitalizations: No Immunizations Up To Date Tetanus Booster (TDap): More than 5yrs PED Vaccines UTD: Yes Date of Pneumonia Vaccine: Jan 16, 2016 Seasonal Allergies Seasonal Allergies: No Past Medical History Surgeries: Yes (L TOE, R WRIST) Amputation, Appendectomy, Gallbladder, Orthopedic, Tonsillectomy Respiratory: No Cardiac: Yes High Cholesterol, Hypertension Neurological: Yes (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) Neuropathy, Traumatic Brain Injury Reproductive Disorders: No Sexually Transmitted Disease: No HIV/AIDS: No Genitourinary: No Gastrointestinal: No Musculoskeletal: Yes Amputee, Degenerate Disk Disease, Chronic Back Pain, Fractures Endocrine: Yes (DKA; NON-COMPLIANCE) Diabetes, Insulin dep HEENT: No (EDENTULOUS) Loss of Vision: Denies Hearing Impairment: Denies Cancer: No Psychosocial: Yes (POLYSUBSTANCE ABUSE) Integumentary: Yes (CELLULITIS--LEG, HAND, FOOT; TOE AMPUTATION FOR OSTEOMYE LITIS) Blood Disorders: No Adverse Reaction/Blood Tranf: No Family Medical History Blood clots 19 FATHER Diabetes mellitus 19 FATHER 19 MOTHER G8 BROTHER No Pertinent Family Hx Physical Exam Vital Signs Vital Signs - First Documented 11/22/19 23:22 Temp 36.6 Pulse 76 Resp 20 B/P (MAP) 132/74 (93) Pulse Ox 99 O2 Delivery Room Air Capillary Refill : Height, Weight, BMI Height: 6'2.00" Weight: 145lbs. 5.8oz. 65.511052ik; 18.00 BMI Method:Stated General Appearance: WD/WN, no apparent distress HEENT: normal ENT inspection, pharynx normal Neck: full range of motion, normal inspection Cardiovascular: normal peripheral pulses, regular rate, rhythm, other (bilateral dorsal pedal pulses are palpable 2 out of 4.) Respiratory: no respiratory distress, no accessory muscle use Ankles: bilateral ankle non-tender, bilateral ankle normal inspection, bilateral ankle normal range of motion Feet: bilateral foot non-tender, bilateral foot normal inspection, bilateral foot normal range of motion, bilateral foot no evidence of injury; left foot other (small plantar wart) Neurologic/Tendon: normal motor functions, responds to pain, sensory deficit (baseline neuropathy) Neurologic/Psychiatric: alert, normal mood/affect, oriented x 3 Skin: normal color, warm/dry, other (capillary refill less than 3 seconds.) Progress/Results/Core Measures Results/Orders Lab Results Laboratory Tests Test 11/22/19 23:31 11/22/19 23:32 Range/Units White Blood Count 7.1 4.3-11.0 10^3/uL Red Blood Count 4.23 L 4.35-5.85 10^6/uL Hemoglobin 12.8 L 13.3-17.7 G/DL Hematocrit 38 L 40-54 % Mean Corpuscular Volume 89 80-99 FL Mean Corpuscular Hemoglobin 30 25-34 PG Mean Corpuscular Hemoglobin Concent 34 32-36 G/DL Red Cell Distribution Width 12.4 10.0-14.5 % Platelet Count 304 130-400 10^3/uL Mean Platelet Volume 10.8 H 7.4-10.4 FL Neutrophils (%) (Auto) 56 42-75 % Lymphocytes (%) (Auto) 30 12-44 % Monocytes (%) (Auto) 8 0-12 % Eosinophils (%) (Auto) 5 0-10 % Basophils (%) (Auto) 1 0-10 % Neutrophils # (Auto) 4.0 1.8-7.8 X 10^3 Lymphocytes # (Auto) 2.1 1.0-4.0 X 10^3 Monocytes # (Auto) 0.6 0.0-1.0 X 10^3 Eosinophils # (Auto) 0.4 H 0.0-0.3 10^3/uL Basophils # (Auto) 0.1 0.0-0.1 10^3/uL Sodium Level 136 135-145 MMOL/L Potassium Level 5.1 H 3.6-5.0 MMOL/L Chloride Level 99 98-107 MMOL/L Carbon Dioxide Level 25 21-32 MMOL/L Anion Gap 12 5-14 MMOL/L Blood Urea Nitrogen 31 H 7-18 MG/DL Creatinine 1.67 H 0.60-1.30 MG/DL Estimat Glomerular Filtration Rate 42 BUN/Creatinine Ratio 19 Glucose Level 435 *H 70-105 MG/DL Calcium Level 8.7 8.5-10.1 MG/DL Corrected Calcium 8.9 8.5-10.1 MG/DL Total Bilirubin 0.2 0.1-1.0 MG/DL Aspartate Amino Transf (AST/SGOT) 15 5-34 U/L Alanine Aminotransferase (ALT/SGPT) 17 0-55 U/L Alkaline Phosphatase 86 40-136 U/L C-Reactive Protein High Sensitivity 0.07 0.00-0.50 MG/DL Total Protein 6.4 6.4-8.2 GM/DL Albumin 3.8 3.2-4.5 GM/DL Lactic Acid Level 1.80 0.50-2.00 MMOL/L My Orders Orders - TERRENCE REGAN Cbc With Automated Diff (11/22/19 23:26) Comprehensive Metabolic Panel (11/22/19 23:26) Hs C Reactive Protein (11/22/19 23:26) Ed Iv/Invasive Line Start (11/22/19 23:26) Lactic Acid Analyzer (11/22/19 23:34) Fentanyl Injection (Sublimaze Injection (11/22/19 23:45) Insulin (Regular) Human (Humulin R (Per (11/23/19 00:30) Medications Given in ED Current Medications Medications Dose Ordered Sig/Arvin Route Start Time Stop Time Status Last Admin Dose Admin Fentanyl Citrate 50 mcg ONCE ONCE IVP 11/22/19 23:45 11/22/19 23:46 DC 11/22/19 23:43 50 MCG Insulin Human Regular 20 unit ONCE ONCE SC 11/23/19 00:30 11/23/19 00:31 DC 11/23/19 00:27 20 UNIT Vital Signs/I&O 11/22/19 23:22 Temp 36.6 Pulse 76 Resp 20 B/P (MAP) 132/74 (93) Pulse Ox 99 O2 Delivery Room Air Progress Progress Note : Time: 01:34 Progress Note Labs are unremarkable. Lactate is under 2. He does not have limb ischemia and he has a good pulse bilateral dorsal pedal pulse 2 out of 4. He does have an elevated blood sugar of 435 and says he would typically take 20 units and then he can recheck it when he gets home and take more insulin if he needs it. Departure Impression Primary Impression: Cold injury Qualified Codes: T69.9XXA - Effect of reduced temperature, unspecified, initial encounter Additional Impression: Peripheral neuropathy Qualified Codes: G62.9 - Polyneuropathy, unspecified Disposition: HOME, SELF-CARE Condition: Stable Departure-Patient Inst. Decision time for Depature: 01:41 Referrals: [facility] (PCP/Family) Primary Care Physician Patient Instructions: Peripheral Neuropathy Add. Discharge Instructions: Tylenol 1000 mg every 8 hours as needed for pain. Gabapentin 100 mg every 8 hours as needed for pain. Follow-up in one to 2 weeks with primary care to discuss controlling your symptoms. All discharge instructions reviewed with patient and/or family. Voiced understanding. Scripts Gabapentin (Gabapentin) 100 Mg Capsule 100 MG PO Q8H for Neuropathic pain, #90 CAP 0 Refills Prov: TERRENCE REGAN 11/23/19 TERRENCE REGAN Nov 22, 2019 23:42
[2019-11-22] MEDS ORDERED: fentaNYL INJECTION 100 MCG/2 ML AMP IVP ONE (23:45)
[2019-11-22 23:47] LABS: BASOPHILS # (AUTO) 0.1 10^3/uL (0.0-0.1); BASOPHILS % (AUTO) 1 % (0-10); EOSINOPHILS # (AUTO) 0.4 10^3/uL (0.0-0.3); EOSINOPHILS % (AUTO) 5 % (0-10); HEMATOCRIT 38 % (40-54); HEMOGLOBIN 12.8 G/DL (13.3-17.7); LYMPHOCYTES # (AUTO) 2.1 X 10^3 (1.0-4.0); LYMPHOCYTES % (AUTO) 30 % (12-44); MEAN CORPUSCULAR HEMOGLOBIN 30 PG (25-34); MEAN CORPUSCULAR HGB CONC 34 G/DL (32-36); MEAN CORPUSCULAR VOLUME 89 FL (80-99); MEAN PLATELET VOLUME 10.8 FL (7.4-10.4); MONOCYTES # (AUTO) 0.6 X 10^3 (0.0-1.0); MONOCYTES % (AUTO) 8 % (0-12); NEUTROPHILS % (AUTO) 56 % (42-75); PLATELET COUNT 304 10^3/uL (130-400); RED CELL DISTRIBUTION WIDTH 12.4 % (10.0-14.5); WHITE BLOOD COUNT 7.1 10^3/uL (4.3-11.0)
[2019-11-23 00:08] LABS: ALBUMIN 3.8 GM/DL (3.2-4.5); BILIRUBIN,TOTAL 0.2 MG/DL (0.1-1.0); CALCIUM 8.7 MG/DL (8.5-10.1); CREATININE SERUM 1.67 MG/DL (0.60-1.30); POTASSIUM 5.1 MMOL/L (3.6-5.0); TOTAL PROTEIN 6.4 GM/DL (6.4-8.2)
[2019-11-23] MEDS ORDERED: inSUlin (REGULAR) HUMAN 1 UNIT/0.01 ML (CHARGE PER UNIT) SC ONE (00:30)
[2019-11-23] MEDS ORDERED: GABA-486 PO (01:47)
[2019-11-23] MEDS ORDERED: KETOROLAC 30 MG/ML VIAL IVP ONE (02:00)
[2019-11-23 02:06] VITALS: BP 122/72
== END 2019-11-23 02:08 | disposition home or self-care (01) ==
LOC: EDUNIT# 20:49 → ER 20:50
DX: T69.9XXA Effect of reduced temperature, unspecified, initial encounter (principal); E11.42 Type 2 diabetes mellitus with diabetic polyneuropathy; F17.210 Nicotine dependence, cigarettes, uncomplicated; Z88.8 Allergy status to other drugs, medicaments and biological substances; Z79.4 Long term (current) use of insulin; Z87.820 Personal history of traumatic brain injury
CPT/HCPCS: 36415; 80053; 82962; 83605; 85025; 86141; 96372; 96374; 96375